=== PATIENT | female | born 1970 ===

== ENCOUNTER 2020-09-07 08:36 | Outpatient (REF) | payer OTHER, SELFPAY ==
[2020-09-07 11:33] LABS: Blood Urea Nitrogen 12 mg/dL (9-16); Estimated Glomerular Filt Rate > 60
== END 2020-09-07 08:37 | disposition home or self-care (01) ==
LOC: HO.HMGCLDS 08:36
PROVIDERS: Visit Provider Nurse Practitioner Family
DX: M54.5 Low back pain (principal); M54.32 Sciatica, left side
CPT/HCPCS: 36415; 82565; 84520

== ENCOUNTER 2020-10-18 10:00 | Outpatient (RCR) | payer OTHER, SELFPAY ==
--- NOTE | 2020-09-17 09:04 | MHC.PT.EP ---
[facility] [place] [facility] [place] [facility] [place] [facility] [address] Cherie Eason [address] [phone] F: [phone] F: [phone] F: [phone] F: [phone] Physical Therapy Plan of Care Date of Evaluation: 09/17/20 Date of Surgery: Diagnosis: low back pain, sciatica L side Assessment: 50 y/o F referred to PT with low back pain and sciatica. S/s consistent with diagnosis and possible SI dysfunction. Her pain starting after driving 7 days while moving her belongings her and the next day she bent to look into a box and felt instant pain across her low back and into L posterolateral thigh. This is resulting in pain and difficulty walking > 5min, standing > 10min, sitting for prolonged periods and exercising (running, hiking.) Examination shows decreased lumbar AROM, decreased core/hip strength, pain L piriformis/SI joint, R sacral torsion, and impaired gait pattern. Recommend PT 2x/week for 5 week to address impairments, implement HEP, and optimize functional mobility. Frequency and Duration: The patient will be seen 2x/week for 5 weeks Short Term Goals: 3 weeks: 1. I with HEP 2. Demonstrate 100% lumbar extension 3. Demonstrate WFL SI symmetry Electric Drill Operator Goals: 5 weeks 1. I with HEP and self management of sx 2. Pt will be able to walk > 60min with pain < 3/10 3. Pt will be able to sit with neutral spine posture > 60min with pain < 3/10 Treatment Plan: Modalities to reduce pain, spasms and effusion. Manual therapy to restore motion and function. Therapeutic exercise to improve strength and flexibility. Neuromuscular re-education for posture and balance. Therapeutic activities to return to functional activities of daily living. Electronically signed by: Benita Jaquez PT Please sign and return to therapist. Thank you for your referral.
--- NOTE | 2020-11-18 08:24 | MHC.PT.DC ---
[facility] [place] [facility] [place] [facility] [place] Office [address] Cherie Eason [address] [phone] F: [phone] F: [phone] F: [phone] F: [phone] Physical Therapy Discharge Report Diagnosis: low back pain, sciatica L side Date of Surgery: Date of Evaluation: 09/17/20 Date of Discharge: 11/18/20 Treatments to Date: 7 Cancellations to Date: 3 No Shows to Date: 1 Discharge Status: Visit Non-compliance Discharge Summary: Pt d/c secondary to noncompliance with scheduling policy. Electronically signed by: Benita Jaquez PT Please sign and return to therapist. Thank you for your referral.
== END 2020-11-18 08:21 | disposition home or self-care (01) ==
LOC: HO.PTCHIC 10:00
PROVIDERS: PCP Internal Medicine; Visit Provider Nurse Practitioner Family
DX: M54.5 Low back pain (principal); M54.32 Sciatica, left side
CPT/HCPCS: 97014; 97110; 97112; 97140; 97161; 97530

== ENCOUNTER 2020-12-17 10:51 | Outpatient (REF) | payer OTHER, SELFPAY ==
--- NOTE | ~2020-12-17 | XR_ITS ---
EXAMINATION: XR LUMBOSACRAL SPINE CLINICAL INFORMATION: Lumbar radiculopathy. COMPARISON: None TECHNIQUE: Three views of the lumbosacral spine. FINDINGS: There is moderate disc space narrowing at L5-S1 with small anterior marginal osteophytosis. Disc spaces are otherwise well-maintained. No bony abnormality. Vertebral body heights are maintained. The posterior elements are intact. The paravertebral soft tissues are unremarkable. XR/XR lumbar spine 2-3V IMPRESSION: Moderate disc space narrowing L5-S1. Otherwise unremarkable.
== END 2020-12-17 10:52 | disposition home or self-care (01) ==
LOC: HO.HMGCX 10:51
PROVIDERS: PCP Internal Medicine; Visit Provider Internal Medicine
DX: M54.16 Radiculopathy, lumbar region (principal)
CPT/HCPCS: 72100

== ENCOUNTER 2021-02-14 16:52 | Outpatient (REF) | payer OTHER, SELFPAY | END 2021-02-14 16:53 | disposition home or self-care (01) | LOC: HO.LNP 16:52 | PROVIDERS: Visit Provider Physician Assistant | DX: Z20.822 Contact with and (suspected) exposure to COVID-19 (principal); R52 Pain, unspecified | CPT/HCPCS: U0003; U0005 ==

== ENCOUNTER 2021-02-17 08:57 | Outpatient (REF) | payer OTHER, SELFPAY ==
--- NOTE | 2021-02-17 09:01 | EMG_ITS ---
Bilateral median and ulnar motor and sensory studies were performed. Bilateral radial sensory study was performed and paraspinal muscles were tested. IMPRESSION: 1. Mild bilateral ulnar neuropathy across cubital tunnel. 2. 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 MD DENA Swenson/JORDIN / [id number]
== END 2021-02-17 08:58 | disposition home or self-care (01) ==
LOC: HO.NEURO 08:57
PROVIDERS: PCP Internal Medicine; Visit Provider Internal Medicine
DX: R20.0 Anesthesia of skin (principal)
CPT/HCPCS: 95886; 95911

== ENCOUNTER 2021-02-25 11:28 | Outpatient (REF) | payer OTHER, SELFPAY ==
[2021-02-25 12:17] LABS: Influenza A PCR NEGATIVE (Negative); Influenza B PCR NEGATIVE (Negative); Resp Syncy Virus RNA Qual PCR NEGATIVE (Negative); SARS COV2 PCR INHOUSE NEGATIVE (Negative)
== END 2021-02-25 11:29 | disposition home or self-care (01) ==
LOC: HO.LNP 11:28
PROVIDERS: Visit Provider Nurse Practitioner Family
DX: Z20.822 Contact with and (suspected) exposure to COVID-19 (principal); J30.9 Allergic rhinitis, unspecified; H66.91 Otitis media, unspecified, right ear
CPT/HCPCS: 0241U

== ENCOUNTER 2021-08-31 11:42 | Outpatient (REF) | payer OTHER, SELFPAY ==
[2021-08-31 18:49] LABS: Influenza A PCR NEGATIVE (Negative); Influenza B PCR NEGATIVE (Negative); Resp Syncy Virus RNA Qual PCR NEGATIVE (Negative); SARS COV2 PCR INHOUSE NEGATIVE (Negative)
== END 2021-08-31 11:43 | disposition home or self-care (01) ==
LOC: HO.LNP 11:42
PROVIDERS: Physician Assistant; Visit Provider Physician Assistant
DX: Z20.822 Contact with and (suspected) exposure to COVID-19 (principal); R09.89 Other specified symptoms and signs involving the circulatory and respiratory systems
CPT/HCPCS: 0241U

== ENCOUNTER 2022-05-31 10:55 | Outpatient (REF) | payer OTHER, SELFPAY ==
--- NOTE | ~2022-05-31 | XR_ITS ---
EXAMINATION: XR CHEST CLINICAL INFORMATION: [place] COMPARISON: None TECHNIQUE: 2 views of the chest were obtained. FINDINGS: No significant abnormality is noted involving the heart, lungs, mediastinum, bony thorax or soft tissues. XR/XR chest 2V IMPRESSION: Unremarkable examination.
--- NOTE | 2022-05-31 11:04 | ECG_ITS ---
Test Reason : R07.9 chest pain Blood Pressure : / mmHG Vent. Rate : 076 BPM Atrial Rate : 076 BPM P-R Int : 142 ms QRS Dur : 080 ms QT Int : 396 ms P-R-T Axes : 060 059 059 degrees QTc Int : 445 ms Normal sinus rhythm Normal ECG No previous ECGs available Referred By: Dottie Kirkpatrick Electronically Signed By:DANNY BASS MD
[2022-05-31 11:49] LABS: Influenza A PCR NEGATIVE (Negative); Influenza B PCR NEGATIVE (Negative); Resp Syncy Virus RNA Qual PCR NEGATIVE (Negative); SARS COV2 PCR INHOUSE NEGATIVE (Negative)
== END 2022-05-31 10:56 | disposition home or self-care (01) ==
LOC: HO.XRAY 10:55
PROVIDERS: PCP Internal Medicine; Visit Provider Internal Medicine
DX: Z20.822 Contact with and (suspected) exposure to COVID-19 (principal); R07.9 Chest pain, unspecified; R09.89 Other specified symptoms and signs involving the circulatory and respiratory systems; R05.9 Cough, unspecified
CPT/HCPCS: 0241U; 71046; 93005

== ENCOUNTER → 2022-07-06 10:29 | Outpatient (BNVA) | payer OTHER, SELFPAY | PROVIDERS: PCP Internal Medicine; Visit Provider Internal Medicine | DX: J30.9 Allergic rhinitis, unspecified (principal); J68.3 Other acute and subacute respiratory conditions due to chemicals, gases, fumes and vapors; R05.9 Cough, unspecified | CPT/HCPCS: 99202 ==

== ENCOUNTER → 2022-09-01 09:03 | Outpatient (REF) | payer OTHER, SELFPAY ==
--- NOTE | 2022-09-01 09:07 | HM_ITS ---
* Total monitoring time 2 days. * Underlying rhythm is sinus. * Average ventricular rate 87/Min. Range 70 to 181/Min. About 12% the time, rate > 100/Min. * Rare supraventricular ectopy. * Extremely rare ventricular ectopy. * No significant pauses or AV blocks. * No patient markers or diary events. MTDD
--- NOTE | 2022-09-01 09:07 | CA_ITS ---
Acquisition Time: 2022-09-01 09:14:33 Total Exercise Time: 00:09:54 Test Indications: CHEST PAIN Medications: Protocol: HESHAM Max HR: 171 BPM 100% of Pred: 170 BPM Max BP: 158/060 mmHG Max Work Load: 11.5 METS Exercise stress test with exercise 9 min 54 sec of Hesham protocol, achieving 100% MPHR, 11.5 METs, with report of 2/10 mid chest burning, with isolated PACs and one PVC, with normotensive response to exercise, without EKG changes meeting cirteria for ischemia. In recovery her chest burning resolved.Test reviewed with Dr eLmons Message sent to PCP with report and recommendation for stress echocardiogram due to exertional chest discomfort. Referred By: Dottie Kirkpatrick Overread By: АННА MARTINEZ
== END ==
LOC: HO.CARD 09:03
PROVIDERS: PCP Internal Medicine; Visit Provider Internal Medicine
DX: R07.9 Chest pain, unspecified (principal); R00.2 Palpitations
CPT/HCPCS: 93017; 93225

== ENCOUNTER → 2022-10-27 11:04 | Outpatient (REF) | payer OTHER, SELFPAY ==
--- NOTE | 2022-10-27 11:07 | CA_ITS ---
Acquisition Time: 2022-10-27 11:24:11 Total Exercise Time: 00:11:01 Test Indications: CP Medications: LORATADINE BENZONATATE Protocol: HESHAM Max HR: 162 BPM 95% of Pred: 170 BPM Max BP: 142/080 mmHG Max Work Load: 13.4 METS Exercise stress test exercise 11 min 1 sec of Hesham protocol achieiving 95% MPHR, with mild SOB, with 2/10 chest burning which resolved quickly with rest, with isolated PVCs, with normotensive response to exercise, without EKG changes. Echo images obtained by tech at rest and immediately post peak exercise. Definity contrast used. Test reviewed with Dr. Wade. Referred By: Dottie Kirkpatrick Overread By: АННА MARTINEZ
== END ==
LOC: HO.CARD 11:04
PROVIDERS: PCP Internal Medicine; Visit Provider Internal Medicine
DX: R07.9 Chest pain, unspecified (principal)
CPT/HCPCS: 93350; Q9957

== ENCOUNTER 2023-10-12 13:02 | Emergency (ER) | payer OTHER, SELFPAY ==
--- NOTE | ~2023-10-12 | XR_ITS ---
EXAMINATION: XR TIBIA AND FIBULA, RIGHT XR ANKLE, RIGHT CLINICAL INFORMATION: Pain and swelling following injury. COMPARISON: None available. TECHNIQUE: AP and lateral views of the right tibia and fibula. AP, mortise, and lateral views of the right ankle. FINDINGS: Right Tibia and Fibula: Oblique, distal fibular fracture. No proximal tibial or fibular fracture. No joint space narrowing or marginal osteophytes. No osseous erosion. Right Ankle: Mildly displaced, oblique fracture through the distal tibial metaphysis with the fracture gap measuring up to 0.2 cm. The fracture line contacts the distal tibiofibular syndesmosis. No additional fracture or dislocation. The ankle mortise is maintained. Osteochondral lesion at the medial talar dome measuring approximately 1.4 x 0.8 cm with a central, unstable osseous fragment measuring up to 0.5 cm. Tiny plantar and dorsal calcaneal spurs. Trace tibiotalar joint effusion. Prominent lateral soft tissue swelling and subcutaneous edema. XR/XR tibia fibula RT 2V IMPRESSION: 1. Mildly displaced, oblique fracture through the distal tibial metaphysis which contacts the distal tibiofibular syndesmosis. Prominent lateral soft tissue swelling. 2. Osteochondral lesion at the medial talar dome measuring 1.4 x 0.8 cm with a central, unstable osseous fragment measuring up to 0.5 cm. Trace tibiotalar joint effusion. 3. Tiny plantar and dorsal calcaneal spurs.
--- NOTE | ~2023-10-12 | XR_ITS ---
EXAMINATION: XR TIBIA AND FIBULA, RIGHT XR ANKLE, RIGHT CLINICAL INFORMATION: Pain and swelling following injury. COMPARISON: None available. TECHNIQUE: AP and lateral views of the right tibia and fibula. AP, mortise, and lateral views of the right ankle. FINDINGS: Right Tibia and Fibula: Oblique, distal fibular fracture. No proximal tibial or fibular fracture. No joint space narrowing or marginal osteophytes. No osseous erosion. Right Ankle: Mildly displaced, oblique fracture through the distal tibial metaphysis with the fracture gap measuring up to 0.2 cm. The fracture line contacts the distal tibiofibular syndesmosis. No additional fracture or dislocation. The ankle mortise is maintained. Osteochondral lesion at the medial talar dome measuring approximately 1.4 x 0.8 cm with a central, unstable osseous fragment measuring up to 0.5 cm. Tiny plantar and dorsal calcaneal spurs. Trace tibiotalar joint effusion. Prominent lateral soft tissue swelling and subcutaneous edema. XR/XR ankle RT 2V IMPRESSION: 1. Mildly displaced, oblique fracture through the distal tibial metaphysis which contacts the distal tibiofibular syndesmosis. Prominent lateral soft tissue swelling. 2. Osteochondral lesion at the medial talar dome measuring 1.4 x 0.8 cm with a central, unstable osseous fragment measuring up to 0.5 cm. Trace tibiotalar joint effusion. 3. Tiny plantar and dorsal calcaneal spurs.
[2023-10-12 13:20] VITALS: BP 144/79; PULSE 74; RESP 18; TEMP 36.7; O2SAT 100; BMI 25.1
--- NOTE | 2023-10-12 13:20 | ED.GENADULT ---
HPI - General Adult General Chief complaint: Extremity Injury, Lower Stated complaint: rolled ankle, swollen Time Seen by Provider: 10/12/23 14:10 Source: patient Mode of arrival: wheelchair Limitations: no limitations History of Present Illness HPI narrative: patient is a 53-year-old female who presents emergency department for evaluation of traumatic right ankle pain. Reports running along the trail and accidentally rolled the ankle. Resulting in pain and swelling particularly to the lateral malleolus. Denies numbness tingling or cold sensation to the foot. Unable to bear weight due to pain. Related Data Previous Rx's ?Medication ?Instructions ?Recorded epinephrine 0.15 mg/0.3 mL 0.15 mg (0.3 mL) IM Q30M PRN 03/15/21 injection,auto-injector anaphylaxis 30 days #1 ea ibuprofen 800 mg tablet 800 mg PO Q8H PRN pain 30 days #90 10/31/22 tabs lidocaine 5 % topical patch 1 patch topical DAILY #30 ea 12/01/22 loratadine 10 mg tablet (Claritin) 10 mg PO DAILY PRN allergy 12/01/22 symptoms 90 days #90 tabs oxycodone 5 mg tablet 5 mg PO Q6H PRN pain #14 tabs 10/12/23 Allergies Allergy/AdvReac Type Severity Reaction Status Date / Time bees Allergy Severe Anaphylaxis Uncoded 10/12/23 13:23 Review of Systems Review of Systems: Yes all other systems are reviewed and are negative PMFSH Past Medical History Attestation statement: The following information was validated with the patient. Source: old records reviewed Medical History Reactive airways dysfunction syndrome Seasonal allergic rhinitis due to pollen Ulnar neuropathy Hand numbness Surgical History History of shoulder surgery Family History Family History Mother No problems noted. Father No problems noted. Social History Social History Housing: House Alcohol intake: never Patient Tobacco Use Status: Never used Tobacco e-Cigarette/Vaping Use: Never Used Second Hand Smoke Exposure: No Advance Directives: No Advance Directives Information Provided: Yes service: Yes Current occupational status: employed Current occupational exposures/hazards: No Cognitive needs: No Hearing needs: No Vision needs: Yes Physical Exam ED Vital Signs: Vital Signs - 24 hr 10/12/23 13:20 Temperature 98.1 F Pulse Rate 74 Respiratory Rate 18 Blood Pressure 144/79 H Pulse Oximetry 100 Oxygen Delivery Method Room Air BMI result Body Mass Index 25.1 Appearance: Alert.?Oriented to person, place and time. No acute distress.?Normal affect. Eyes: Pupils equal, round and reactive to light.? ENT: Pharynx normal.?? Neck: Normal inspection.? Neck supple.?? CVS: Heart sounds normal. Normal heart rate and rhythm.? Pulses normal.?? Respiratory: No respiratory distress.? Lung sounds clear to auscultation bilaterally?? Abdomen: Soft and non-tender. Normoactive bowel sounds. Skin: Skin warm and dry.? Normal skin color.? Extremities: Localized swelling and tenderness upon palpation over the anterolateral ankle/ malleolus.? No calf ttp . 2+ DP/PT pulse bilaterally.? Neuro: Moves all extremities spontaneously. Sensation intact bilaterally. Ambulates with Antalgic gait. Course Course Course Narrative: This is a rapid medical exam performed by Ary Jane NP: Additional HPI, ROS, PE not included below will be deferred to primary provider. Patient is a 53-year-old female presenting to the ED with complaint of right ankle pain. States that she [facility] an hour ago. Swelling to distal tibia anteriorly, lateral malleolus. Refusing wheelchair, medicated with oxycodone in triage. Plan: x-rays Medications Administered Discontinued Medications Generic Name Dose Route Start Last Admin Trade Name Freq PRN Reason Stop Dose Admin Oxycodone HCl 5 mg 10/12/23 13:23 10/12/23 13:27 Oxycodone Hcl Immed Release 5 Mg Tablet PO 10/12/23 13:24 5 mg ONCE ONE Administration Procedures Orthopedic Splinting/Casting Injury #1: Side: right Lower Extremity Injury Location: lower leg Lower Extremity Immobilizer: posterior splint Other Orthopedic Equipment: crutches Medical Decision Making Medical Decision Making MDM Narrative: patient is a 53-year-old female presenting to emergency department for evaluation of traumatic right ankle pain and swelling as per HPI. Extremity is neurovascularly intact distally. XR reveals a distal fibular fracture through the syndesmosis a lateral soft tissue swelling. No proximal tibial /fibular fracture is noted. Osteochondral lesion at the medial talar dome, with unstable osseous fragment . She was placed in a posterior splint and provided with crutches. Extremity remained neurovascularly intact distally after application. Advised acetaminophen/ ibuprofen, oxycodone for severe unrelieved pain, rest, ice, elevation and outpatient follow-up with orthopedics. Discussed worrisome signs and symptoms that would warrant re-evaluation in the emergency department. All questions answered. Stable for discharge. She was provided with a disc of her XR imaging she has elected for orthopedic follow-up in [place], [place]. Differential Diagnosis Differential Diagnoses: The differential diagnosis associated with the presentation includes ( Fracture, dislocation, sprain) Consult Healthcare Provider Management of the patient was discussed with: [employer] ( Orthopedics, Masha EVANGELISTA) posterior short-leg splint outpatient follow-up Independent Interpretation I performed an independent interpretation of an: Plain X-Ray ( Distal fibular fracture) Radiology Impression Discussion of test interpretation with radiology: I have reviewed the radiologist's reading. Radiologist Impression: XR/XR tibia fibula RT 2V IMPRESSION: 1. Mildly displaced, oblique fracture through the distal tibial metaphysis which contacts the distal tibiofibular syndesmosis. Prominent lateral soft tissue swelling. 2. Osteochondral lesion at the medial talar dome measuring 1.4 x 0.8 cm with a central, unstable osseous fragment measuring up to 0.5 cm. Trace tibiotalar joint effusion. 3. Tiny plantar and dorsal calcaneal spurs. External Record Review External record reviewed: Other ([employer]; no conflicts) Prescription Management I considered prescription management with: Pain Medication Discharge Plan Discharge Clinical Impression: Fracture of distal end of fibula Patient Disposition: Home, Self-Care Instructions: Leg Fracture (ED), Crutch Instructions (ED) Additional Instructions: You can take ibuprofen 200 mg, 3 tablets (600mg) every 6-8 hours as needed for pain, in addition to Tylenol 500 mg, 2 tablets (1,000mg) every 4-6 hours as needed for pain, but not to exceed 3 doses daily (3,000mg).? a prescription for oxycodone was sent to your pharmacy for pain that is unrelieved by Tylenol/ ibuprofen. This is a narcotic medication. It may be addictive. You should not drive, drink alcohol, or work for at least 6 hours after taking the medication. Leave the splint in place until you are evaluated by orthopedics. The splint can not get wet. You were provided with a disc of your x-ray imaging today as you have elected to follow-up with and green marketing specialist in [place], [place]. their office may also contact our medical records department to obtain any further records they may require. Prescriptions: New oxycodone 5 mg tablet 5 mg PO Q6H PRN (Reason: pain) Qty: 14 0RF Rx Instructions: Partial Fill upon patient request. No Action ibuprofen 800 mg tablet 800 mg PO Q8H PRN (Reason: pain) 30 Days Qty: 90 0RF epinephrine 0.15 mg/0.3 mL auto-injector 0.15 mg IM Q30M PRN (Reason: anaphylaxis) 30 Days Qty: 1 1RF Rx Instructions: do not exceed 12 doses per 24 hrs loratadine [Claritin] 10 mg tablet 10 mg PO DAILY PRN (Reason: allergy symptoms) 90 Days Qty: 90 1RF lidocaine 5 % adhesive patch,medicated 1 patch topical DAILY Qty: 30 1RF Rx Instructions: leave on most painful area for up to 12 hrs Referrals: Dottie Lemos MD [Primary Care Provider] - Print Language: Kinyarwanda
[2023-10-12] MEDS: oxyCODONE HCl Immed Release 5 MG TABLET PO (13:27)
--- NOTE | 2023-10-12 14:31 | PC.NURSE ---
Provider to bedside for primary eval.
--- NOTE | 2023-10-12 15:33 | PC.NURSE ---
Provider to bedside for splint application, pt tolerated well.
[2023-10-12 16:03] VITALS: BP 144/79; PULSE 74; RESP 18; TEMP 36.7; O2SAT 98
== END 2023-10-12 16:05 | disposition home or self-care (01) ==
PROVIDERS: Emergency Provider Student in an Organized Health Care Education/Training Program; PCP Internal Medicine
DX: S82.831A Other fracture of upper and lower end of right fibula, initial encounter for closed fracture (principal); M25.571 Pain in right ankle and joints of right foot; X58.XXXA Exposure to other specified factors, initial encounter; Y93.9 Activity, unspecified; Y92.9 Unspecified place or not applicable; Y99.8 Other external cause status
CPT/HCPCS: 73590; 73600; 99283

== ENCOUNTER 2023-12-12 15:07 | Outpatient (AMB) | payer OTHER, SELFPAY ==
--- NOTE | 2023-12-12 15:09 | MHC.PC.OV ---
Vital Signs 12/12/23 15:17 Height 5 ft 6 in Weight 145 lb 4 oz BMI 23.4 BP 136/82 Blood Pressure Location Lt brachial Position Sitting Pulse 84 Pulse Source Pulse Oximeter Pulse Oximetry (%) 95 Oxygen Delivery Method Room Air Intake Visit Reasons: annual exam Engine Emission Technician Required: No Accompanied by: Self / Same As Patient Allergies bees Allergy (Severe, Uncoded 12/12/23 15:24) Anaphylaxis Medication List - Last Reconciled 12/12/23 by Dottie Kirkpatrick MD acetaminophen 1,000 mg (2 x 500 mg) PO Q6H PRN epinephrine 0.15 mg (0.3 mL) IM Q30M PRN 30 days ibuprofen 600 mg PO Q8H PRN ibuprofen 800 mg PO Q8H PRN 30 days lidocaine 5% 1 patch topical DAILY loratadine (Claritin) 10 mg PO DAILY PRN 90 days oxycodone 5 mg PO Q6H PRN Tobacco use date assessed: 12/12/23 Dental Screening Dental Screen Date: 12/12/23 Did you have a dental visit in the last 12 months?: Yes Did you have a dental problem in the last 6 months where you did not have access to dental care?: No Was dental information given to patient?: Patient has dentist HPI HPI Comments History of Present Illness Details This is a 53-year-old female that comes for her physical exam. Pap smear are up-to-date by [facility] medical service from [facility]. Mammogram done 2022 was normal at [facility]. Had a colonoscopy in her early 30s and was normal. No family history of colon cancer therefore she does prefer a Cologuard. No acute complaints. [facility] Medical History (Updated 12/12/23 @ 15:46 by Dottie Kirkpatrick MD) Reactive airways dysfunction syndrome Seasonal allergic rhinitis due to pollen Ulnar neuropathy Hand numbness Surgical History (Updated 12/12/23 @ 15:31 by Dottie Kirkpatrick MD) History of open reduction and internal fixation (ORIF) procedure History of shoulder surgery Family History Mother No problems noted. Father No problems noted. Social History (Updated 12/12/23 @ 15:33 by Dottie Kirkpatrick MD) Housing: House Alcohol intake: current Alcohol intake frequency: holidays/special occasions only Alcohol type: wine Patient Tobacco Use Status: Never used Tobacco e-Cigarette/Vaping Use: Never Used Second Hand Smoke Exposure: No service: Yes Current occupational status: employed Current occupational exposures/hazards: No Cognitive needs: No Hearing needs: No Vision needs: Yes Questionnaire PHQ-9 Over the last 2 weeks, how often have you been bothered by any of the following problems? 1. Little interest or pleasure in doing things: not at all 2. Feeling down, depressed, or hopeless: not at all 3. Trouble falling or staying asleep, or sleeping too much: not at all 4. Feeling tired or having little energy: not at all 5. Poor appetite or overeating: not at all 6. Feeling bad about yourself - or that you are a failure or have let yourself or your family down: not at all 7. Trouble concentrating on things, such as reading the newspaper or watching television: not at all 8. Moving or speaking so slowly that other people could have noticed. Or the opposite - being so fidgety or restless that you have been moving around a lot more than usual: not at all 9. Thoughts that you would be better off or of hurting yourself in some way: not at all Total score: 0 Depression Screening Interpretation: Negative Depression Screening Done: Yes 53922 - PHQ-9 Billing: Yes Source: Developed by Drs. Adnrea Lam, Erma Palacios, Jeronimo Haile and colleagues, with an educational darnell from [employer]. Thrive Questionnaire Date Thrive assessed: 12/12/23 I am a: Patient What is your living situation today?: I have a steady place to live Within the past 12 months, did the food you bought not last and you didn't have the money to get more?: Never true Within the past 12 months, did you worry whether your food would run out before you got money to buy more?: Never true Do you have trouble paying for medicines?: No Do you have trouble getting transportation to medical appointments?: No Do you have trouble paying your heating and electricity bill?: No Do you have trouble taking care of your child, family member or friend?: No Do you have trouble with day-to-day activities such as bathing, preparing meals, shopping, managing finances, etc.?: No Are you currently unemployed and looking for a job?: No Are you interested in more education?: No Please select the resources that you would like help with: None Currently or been in a relationship where the following occur: No concerns reported THRIVE Score: 0 AUDIT C Alcohol Use Questionnaire (AUDIT-C) 1. How often do you have a drink containing alcohol?: Monthly or less 2. How many drinks containing alcohol do you have on a typical day when you are drinking?: 1 or 2 3. How often do you have six or more drinks on one occasion?: Never Total Score: 1 Score Reviewed/Action Taken: Yes PATRICIA-7 AMB Questionnaire PATRICIA-7 Date PATRICIA - 7 assessed: 12/12/23 Feeling nervous, anxious, or on edge: 1 = Several days Not being able to stop or control worryin = Not at all Worrying too much about different things: 0 = Not at all Trouble relaxin = Not at all Being so restless that it is hard to sit still: 0 = Not at all Becoming easily annoyed or irritable: 0 = Not at all Feeling afraid as if something awful might happen: 0 = Not at all Total PATRICIA-7 score (0-4 normal; 5-9 mild; 10-14 moderate; 15-21 severe): 1 Source: Developed by Drs. Andrea Lam, Erma Palacios, Jeronimo Haile and colleagues, with an educational darnell from [employer]. PATRICIA-7 Assessment Billing PATRICIA-7 Assessment Tool: PATRICIA-7 Assessment 65308 Review of Systems Const All systems reviewed & are unremarkable except as noted in HPI and below Card Denies chest pain at rest, Denies chest pain with activity, Denies edema, Denies irregular heart rhythm, Denies claudication, Denies dyspnea, Denies dyspnea on exertion, Denies orthopnea, Denies paroxysmal nocturnal dyspnea and Denies slow heart rate Resp Denies cough, Denies dyspnea and Denies dyspnea on exertion Neuro Denies behavioral changes, Denies confusion and Denies lack of coordination Psych Denies behavioral changes and Denies confusion Physical exam (Primary Care) Vital Signs: Last Vital Signs Pulse 84 12/12/23 15:17 BP 136/82 12/12/23 15:17 Pulse Ox 95 12/12/23 15:17 Oxygen Delivery Method Room Air 12/12/23 15:17 BMI result Body Mass Index 23.4 Tobacco/Smoking Status: Tobacco use Status Tobacco use date assessed 12/12/23 12/12/23 15:20 Patient Tobacco Use Status Never used Tobacco 12/12/23 15:11 e-Cigarette/Vaping Use Never Used 12/12/23 15:11 PHQ-9: PHQ-9 Score PHQ-9: Total score 0 12/12/23 15:20 Depression Screening Interpretation: Negative Thrive Assessment: Date of Thrive Assessment Date Thrive assessed 12/12/23 12/12/23 15:20 Currently or been in a relationship where the following occur: No concerns reported Const General: No confusion Orientation/consciousness: patient oriented x3 and No confusion HENMT Head: Yes normal to inspection, Yes normocephalic and Yes atraumatic Ears: external ears normal Eyes General: appearance normal, both eyes and all related structures Eyelids: Yes eyelids normal Conjunctivae: conjunctivae normal Neck Neck: Yes normal visual inspection and Yes supple Resp Effort & Inspection: normal respiratory effort Auscultation: clear to auscultation bilaterally Cardio Jugular venous distension: no JVD Rate: regular rate Rhythm: regular rhythm Heart sounds: S1 normal heart sound present and S2 normal heart sound present GI Inspection: Yes normal to inspection Palpation (GI): Soft to palpation and nontender Auscultation: normal bowel sounds Skin General skin exam: no rashes or lesions noted Neuro General: patient oriented x3, no focal motor deficits and No confusion Extrem General: Yes full ROM Psych Appearance: grossly normal Assessment and Plan Assessment & Plan (1) Physical exam: Code(s): Z00.00 - Encounter for general adult medical examination without abnormal findings Plan: Repeat in a year. Orders: Orders Lipid Panel Today Z00.00 - Encounter for general adult medical examination without abnormal findings Comprehensive [place]. Panel Fast Today Z00.00 - Encounter for general adult medical examination without abnormal findings Referrals Cologuard Test Z12.11 - Encounter for screening for malignant neoplasm of colon, Z12.12 - Encounter for screening for malignant neoplasm of rectum Medications: Refilled epinephrine do not exceed 12 doses per 24 hrs 0.15 mg (0.3 mL) IM Q30M 30 days PRN 1 ea 1RF anaphylaxis loratadine (Claritin) 10 mg PO DAILY 90 days PRN 90 tabs 1RF allergy symptoms J30.9 - Allergic rhinitis, unspecified Coding Level of Care Code Est Pt Prev Care 40-64y(76700) Diagnoses Physical exam Z00.00 Additional Codes PATRICIA-7 Assessment Billing - PATRICIA-7 Assessment Tool: PATRICIA-7 Assessment 34936 ([id number]) Time Spent (min) 30
[2023-12-12 15:17] VITALS: BP 136/82; PULSE 84; O2SAT 95; BMI 23.4
== END 2023-12-12 15:48 | disposition home or self-care (01) ==
PROVIDERS: PCP Internal Medicine; Visit Provider Internal Medicine
DX: Z00.00 Encounter for general adult medical examination without abnormal findings (principal)
CPT/HCPCS: 99396

== ENCOUNTER 2023-12-14 10:25 | Outpatient (REF) | payer OTHER, SELFPAY ==
[2023-12-14 12:33] LABS: Alanine Aminotransferase 11 U/L (0-31); Albumin Level 4.2 g/dL (3.5-5.0); Alkaline Phosphatase 42 U/L (39-117); Anion Gap 12 (12-20); Aspartate Amino Transferase 16 U/L (5-31); Bilirubin Total 0.5 mg/dL (0.0-1.0); Blood Urea Nitrogen 9 mg/dL (9-16); Calcium 9.1 mg/dL (8.4-10.2); Carbon Dioxide 26 mmol/L (22-29); Chloride 104 mmol/L (96-108); Cholesterol 183 mg/dL (<200); Estimated Glomerular Filt Rate > 60; Glucose Fasting 89 mg/dL (60-99); HDL Cholesterol 63 mg/dL (>40); LDL Cholesterol Calculated 108 mg/dL (<100); Potassium 3.9 mmol/L (3.3-5.1); Sodium 138 mmol/L (135-145); Total Protein 6.9 g/dL (6.5-8.0); Triglycerides 64 mg/dL (<150)
== END 2023-12-14 10:26 | disposition home or self-care (01) ==
LOC: HO.LAB 10:25
PROVIDERS: PCP Internal Medicine; Visit Provider Internal Medicine
DX: Z00.00 Encounter for general adult medical examination without abnormal findings (principal); Z13.6 Encounter for screening for cardiovascular disorders
CPT/HCPCS: 36415; 80053; 80061

== ENCOUNTER 2024-04-17 13:52 | Outpatient (AMB) | payer OTHER, SELFPAY ==
[2024-04-17 14:01] VITALS: BP 110/74; BMI 23.9
--- NOTE | 2024-04-17 14:01 | A.OFFPC_ITS ---
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 Accompanied by: Self / Same As Patient Allergies bees Allergy (Severe, Uncoded 04/17/24 14:10) Anaphylaxis Medication List - Last Reconciled 04/17/24 by Dottie Kirkpatrick MD epinephrine 0.15 mg (0.3 mL) IM Q30M PRN 30 days ibuprofen 800 mg PO Q8H PRN 30 days lidocaine 5% 1 patch topical DAILY loratadine (Claritin) 10 mg PO DAILY PRN 90 days Tobacco use date assessed: 12/12/23 Dental Screening Dental Screen Date: 12/12/23 HPI HPI Comments History of Present Illness Details This is a 54-year-old female that complains of melasma, or urticaria and abdominal gas pain that has been present for few months. She would like referral to Dermatology, allergies and Gastroenterology. Has not tried anything [id number] for her melasma. Has tried antihistamines for her urticaria but does not seem to significantly improve. Has tried yegp-old-[id number] medication for gas and a change in diet with no improvement. No chest pain or shortness on breath. [facility] Medical History (Updated 04/17/24 @ 14:24 by Dottie Kirkpatrick MD) Reactive airways dysfunction syndrome Seasonal allergic rhinitis due to pollen Ulnar neuropathy Hand numbness Surgical History History of open reduction and internal fixation (ORIF) procedure History of shoulder surgery Family History Mother No problems noted. Father No problems noted. Social History Housing: House Alcohol intake: current Alcohol intake frequency: holidays/special occasions only Alcohol type: wine Patient Tobacco Use Status: Never used Tobacco e-Cigarette/Vaping Use: Never Used Second Hand Smoke Exposure: No service: Yes Current occupational status: employed Current occupational exposures/hazards: No Cognitive needs: No Hearing needs: No Vision needs: Yes Questionnaire Thrive Questionnaire Date Thrive assessed: 12/12/23 PATRICIA-7 AMB Questionnaire PATRICIA-7 Date PATRICIA - 7 assessed: 12/12/23 Source: Developed by Drs. Andrea Lam, Erma Palacios, Jeronimo Haile and colleagues, with an educational darnell from [employer]. Review of Systems Const All systems reviewed & are unremarkable except as noted in HPI and below Card Denies chest pain at rest, Denies chest pain with activity, Denies edema, Denies irregular heart rhythm, Denies claudication, Denies dyspnea, Denies dyspnea on exertion, Denies orthopnea, Denies paroxysmal nocturnal dyspnea and Denies slow heart rate Resp Denies cough, Denies dyspnea and Denies dyspnea on exertion Physical exam (Primary Care) Vital Signs: Last Vital Signs BP 110/74 04/17/24 14:01 BMI result Body Mass Index 23.9 Tobacco/Smoking Status: Tobacco use Status Tobacco use date assessed 12/12/23 04/17/24 14:08 Patient Tobacco Use Status Never used Tobacco 04/17/24 14:08 e-Cigarette/Vaping Use Never Used 04/17/24 14:08 Thrive Assessment: Date of Thrive Assessment Date Thrive assessed 12/12/23 04/17/24 14:08 Resp Effort & Inspection: normal respiratory effort Auscultation: clear to auscultation bilaterally Cardio Jugular venous distension: no JVD Rate: regular rate Rhythm: regular rhythm Heart sounds: S1 normal heart sound present and S2 normal heart sound present Extrem General: Yes full ROM Coding Level of Care Code Est Pt Level 3 (79397) Complex EM visit Add On G2211 Diagnoses Urticaria L50.9 Melasma L81.1 Abdominal gas pain R14.1 Time Spent (min) 19 Assessment & Plan Assessment & Plan (1) Urticaria: Code(s): L50.9 - Urticaria, unspecified Category: Medical Plan: Referred to an regulatory affairs intern. (2) Melasma: Code(s): L81.1 - Chloasma Category: Medical Plan: Referral to dermatology. (3) Abdominal gas pain: Code(s): R14.1 - Gas pain Category: Medical Plan: Referral to Gastroenterology. Orders: Referrals Allergy & Immunology Referral L50.9 - Urticaria, unspecified Gastroenterology Referral R14.1 - Gas pain Dermatology Referral L81.1 - Chloasma Medications: New dicyclomine 20 mg PO TID 90 tabs 0RF 30 days Refilled ibuprofen 800 mg PO Q8H PRN 90 tabs 0RF pain 30 days lidocaine 5% leave on most painful area for up to 12 hrs 1 patch topical DAILY 30 ea 1RF M25.512 - Pain in left shoulder loratadine (Claritin) 10 mg PO DAILY PRN 90 tabs 1RF allergy symptoms 90 days J30.9 - Allergic rhinitis, unspecified
== END 2024-04-17 14:30 | disposition home or self-care (01) ==
PROVIDERS: PCP Internal Medicine; Visit Provider Internal Medicine
DX: L50.9 Urticaria, unspecified (principal); L81.1 Chloasma; R14.1 Gas pain

== ENCOUNTER → 2024-04-17 13:52 | Outpatient (BNVA) | payer OTHER, SELFPAY | PROVIDERS: PCP Internal Medicine; Visit Provider Internal Medicine | DX: L50.9 Urticaria, unspecified (principal); L81.1 Chloasma; R14.1 Gas pain | CPT/HCPCS: 99212 ==

== ENCOUNTER 2024-08-06 15:09 | Outpatient (AMB) | payer OTHER, SELFPAY ==
--- NOTE | 2024-08-06 15:26 | A.OFFPC_ITS ---
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 Accompanied by: Self / Same As Patient Allergies bees Allergy (Severe, Uncoded 08/06/24 15:39) Anaphylaxis Medication List - Last Reconciled 08/06/24 by Dottie Kirkpatrick MD dicyclomine 20 mg PO TID 30 days epinephrine 0.15 mg (0.3 mL) IM Q30M PRN 30 days ibuprofen 800 mg PO Q8H PRN 30 days lidocaine 5% 1 patch topical DAILY loratadine (Claritin) 10 mg PO DAILY PRN 90 days Tobacco use date assessed: 08/06/24 Dental Screening Dental Screen Date: 12/12/23 Did you have a dental visit in the last 12 months?: Yes Did you have a dental problem in the last 6 months where you did not have access to dental care?: No Was dental information given to patient?: Patient has dentist HPI HPI Comments History of Present Illness Details The patient is a 54-year-old female presenting with depression, anxiety, and sleep disturbances. The onset of these symptoms dates back to October of last year, following an injury and related increased stress with her role in the . She expresses inadequacy and concerns regarding her halfway security, contributing to anxiety and depressive symptoms. The PHQ-9 score suggests mild to moderate depression. She describes increased anxiety with hypervigilance directed towards work responsibilities. Sleep disturbances manifest primarily as difficulty initiating sleep on Sunday nights. The patient has not previously used pharmacological interventions for these conditions, citing medication sensitivity, but has maintained exercise as a constructive coping mechanism. She also has abdominal pain that has improved with dicyclomine and follows with Gastroenterology. She has allergic rhinitis stable with antihistamines as needed. [facility] Medical History (Updated 08/06/24 @ 16:01 by Dottie Kirkpatrick MD) Reactive airways dysfunction syndrome Seasonal allergic rhinitis due to pollen Ulnar neuropathy Hand numbness Surgical History History of open reduction and internal fixation (ORIF) procedure History of shoulder surgery Family History Mother No problems noted. Father No problems noted. Social History Housing: House Alcohol intake: current Alcohol intake frequency: holidays/special occasions only Alcohol type: wine Patient Tobacco Use Status: Never used Tobacco e-Cigarette/Vaping Use: Never Used Second Hand Smoke Exposure: No service: Yes Current occupational status: employed Current occupational exposures/hazards: No Cognitive needs: No Hearing needs: No Vision needs: Yes Questionnaire PHQ-9 Over the last 2 weeks, how often have you been bothered by any of the following problems? 1. Little interest or pleasure in doing things: not at all 2. Feeling down, depressed, or hopeless: several days 3. Trouble falling or staying asleep, or sleeping too much: several days 4. Feeling tired or having little energy: nearly every day 5. Poor appetite or overeating: several days 6. Feeling bad about yourself - or that you are a failure or have let yourself or your family down: not at all 7. Trouble concentrating on things, such as reading the newspaper or watching television: more than half the days 8. Moving or speaking so slowly that other people could have noticed. Or the opposite - being so fidgety or restless that you have been moving around a lot more than usual: several days 9. Thoughts that you would be better off or of hurting yourself in some way: not at all Total score: 9 Depression Screening Interpretation: Positive Depression Screening Follow-up: Existing condition, New Medication prescribed and Follow-up Visit Requested Depression Screening Done: Yes 54042 - PHQ-9 Billing: Yes Source: Developed by Drs. Andrea Lam, Erma Palacios, Jeronimo Haile and colleagues, with an educational darnell from [employer]. Thrive Questionnaire Date Thrive assessed: 08/06/24 I am a: Patient What is your living situation today?: I have a steady place to live Within the past 12 months, did the food you bought not last and you didn't have the money to get more?: Never true Within the past 12 months, did you worry whether your food would run out before you got money to buy more?: Never true Do you have trouble paying for medicines?: No Do you have trouble getting transportation to medical appointments?: No Do you have trouble paying your heating and electricity bill?: No Do you have trouble taking care of your child, family member or friend?: No Do you have trouble with day-to-day activities such as bathing, preparing meals, shopping, managing finances, etc.?: No Are you currently unemployed and looking for a job?: No Are you interested in more education?: No Please select the resources that you would like help with: None Currently or been in a relationship where the following occur: No concerns reported THRIVE Score: 0 AUDIT C Alcohol Use Questionnaire (AUDIT-C) 1. How often do you have a drink containing alcohol?: Monthly or less 2. How many drinks containing alcohol do you have on a typical day when you are drinking?: 1 or 2 3. How often do you have six or more drinks on one occasion?: Never Total Score: 1 Score Reviewed/Action Taken: No PATRICIA-7 AMB Questionnaire PATRICIA-7 Date PATRICIA - 7 assessed: 08/06/24 Feeling nervous, anxious, or on edge: 3 = Nearly every day Not being able to stop or control worryin = More than half the days Worrying too much about different things: 2 = More than half the days Trouble relaxin = Nearly every day Being so restless that it is hard to sit still: 1 = Several days Becoming easily annoyed or irritable: 1 = Several days Feeling afraid as if something awful might happen: 1 = Several days Total PATRICIA-7 score (0-4 normal; 5-9 mild; 10-14 moderate; 15-21 severe): 13 Source: Developed by Drs. Andrea Lam, Erma Palacios, Jeronimo Haile and colleagues, with an educational darnell from [employer]. PATRICIA-7 Assessment Billing PATRICIA-7 Assessment Tool: PATRICIA-7 Assessment 49774 Review of Systems Const All systems reviewed & are unremarkable except as noted in HPI and below Card Denies chest pain at rest, Denies chest pain with activity, Denies edema, Denies irregular heart rhythm, Denies claudication, Denies dyspnea, Denies dyspnea on exertion, Denies orthopnea, Denies paroxysmal nocturnal dyspnea and Denies slow heart rate Resp Denies cough, Denies dyspnea and Denies dyspnea on exertion GI Denies abdominal pain, Denies change in bowel habits, Denies excessive flatus, Denies nausea and Denies vomiting Neuro Denies lack of coordination Psych Reports abnormal sleep pattern, Reports anxiety and Reports depression Physical exam (Primary Care) Vital Signs: Last Vital Signs BP 122/70 08/06/24 15:27 BMI result Body Mass Index 24.4 Tobacco/Smoking Status: Tobacco use Status Tobacco use date assessed 08/06/24 08/06/24 15:36 Patient Tobacco Use Status Never used Tobacco 08/06/24 15:36 e-Cigarette/Vaping Use Never Used 08/06/24 15:36 PHQ-9: PHQ-9 Score PHQ-9: Total score 9 08/06/24 15:36 Depression Screening Interpretation: Positive Depression Screening Follow-up: Existing condition, New Medication prescribed and Follow-up Visit Requested Thrive Assessment: Date of Thrive Assessment Date Thrive assessed 08/06/24 08/06/24 15:36 Currently or been in a relationship where the following occur: No concerns reported Neck Neck: Yes normal visual inspection and Yes supple Cardio Jugular venous distension: no JVD Rate: regular rate Rhythm: regular rhythm Heart sounds: S1 normal heart sound present and S2 normal heart sound present Extrem General: Yes full ROM Coding Level of Care Code Est Pt Level 4 (50717) Complex EM visit Add On G2211 Diagnoses Mild major depression F32.0 PATRICIA (generalized anxiety disorder) F41.1 Allergic rhinitis J30.9 Abdominal gas pain R14.1 Adjustment insomnia F51.02 Insomnia type: adjustment Additional Codes PHQ-9 - 80603 - PHQ-9 Billing: Yes ([id number]) PATRICIA-7 Assessment Billing - PATRICIA-7 Assessment Tool: PATRICIA-7 Assessment 11013 ([id number]) Time Spent (min) 22 Assessment & Plan Assessment & Plan (1) Mild major depression: Code(s): F32.0 - Major depressive disorder, single episode, mild Category: Medical (2) PATRICIA (generalized anxiety disorder): Code(s): F41.1 - Generalized anxiety disorder Category: Medical (3) Allergic rhinitis: Comment: HER PRIMARY PROBLEM IS THAT OF ALLERGIC RHINITIS/SINUSITIS, SYMPTOMS HAPPEN TO BE WORSE DURING WINTER MONTHS, AND MAY BE THAT SHE IS OVER SENSITIVE TO COLD. TX : LORATADINE 10 MG ONCE A DAY P.R.N. ALTERNATIVELY MAY USE CITRUS SEEN 10 MG ONCE A DAY P.R.N.. ALSO START FLONASE 2 SPRAY EACH NOSTRIL DAILY, PRESCRIPTION SENT TO PHARMACY. Code(s): J30.9 - Allergic rhinitis, unspecified Category: Medical (4) Abdominal gas pain: Code(s): R14.1 - Gas pain Category: Medical (5) Insomnia: Code(s): G47.00 - Insomnia, unspecified Category: Medical Qualifiers: Insomnia type: adjustment Qualified Code(s): F51.02 - Adjustment insomnia Plan A low-dose escitalopram Lexapro) therapy is initiated to manage depression, anxiety, and sleep issues with care for the patient's sensitivity to medications. I instructed her to begin treatment over the weekend to monitor response and potential side effects, highlighting the use of psychiatric outpatient services for further comprehensive evaluation. I advised compliance with continuation and refilling processes for gastrointestinal management medication. I suggested ongoing psychosocial support to address workplace-re lated stressors influencing her mental health. Patient was informed and verbally consented to the use of an ambient scribe for clinic note documentation during this visit. I discussed with the patient the diagnosis of depression and anxiety contributing to her sleep disturbances. We reviewed escitalopram (Lexapro) as a treatment, emphasizing its low-dose initiation due to her medication sensit ivity. I advised beginning this new treatment on a weekend, detailing potential side effects like drowsiness and gastrointestinal upset, which align with her desired outcomes of improved sleep quality. A referral to psychiatric outpatient services was made for expanded evaluation and management. I reiterated the significance of addressing workplace stress and followed up with her current regimen for controlling gastrointestinal symptoms, affirming active surgical scheduling. Orders: Referrals Psychiatry Outpatient Consultation Service F32.0 - Major depressive disorder, single episode, mild, F41.1 - Generalized anxiety disorder Medications: New escitalopram oxalate 5 mg PO BEDTIME 30 days 30 tabs 0RF Patient Instructions: - Start Lexapro at 5 mg on a weekend. - Monitor for any side effects such as stomach upset or increased sedation. - Plan for a follow-up evaluation with psychiatric outpatient services. - Continue gastrointestinal management medications. - Maintain physical activity, such as running, for stress relief. - Ensure timely medication refills. - Attend scheduled abdominal surgery within 30 days.
[2024-08-06 15:27] VITALS: BP 122/70; BMI 24.4
--- OUTSIDE RECORDS SUMMARY | 2024-08-06 18:21 | XMS_ITS | Encounter Summary ---
Author Name [facility] Organization [facility] ([place] Address [address] [place] [id number] Support Name Relationship Address Phone KORYDENEENTERE Next of Kin [address] [place] [id number] KORY TERE Emergency Contact [address] [address] ZA KUMAR Emergency Contact [address] [place] [address] Selected Encounter This section includes the information on record at [place] for the Encounter. Date/Time Encounter Type Encounter Description Reason Pro vider Source Jul 07, 2024 08:46 AM Outpatient Encounter OCCUPATIONAL [facility] Encounter Template Text not used by [facility] Encounter Notes: All associated encounter notes This section contains the clinical notes associated to the Encounter. Date/Time Encounter Note(s) Provider Source Jul 07, 2024 08:47 AM LETTERS: LOCAL TITLE: STEPHANIE OUTREACH LETTER (AUTOSEND) STANDARD TITLE: LETTERS DATE OF NOTE: JUL 07, 2024@08:47 ENTRY DATE: JUL 07, 2024@08:47:08 AUTHOR: SALINA CALDWELL VIS EXP COSIGNER: URGENCY: STATUS: COMPLETED [facility] Administrative Medicine Department [address] [place] [address] ext. [phone] ALBA HORN [address] [place], [place] [address] Dear ALBA HRON: We would like to thank you for your service; your sacrifice is honored and appreciated. [facility] would like to offer you a Toxic Exposure Screening in accordance with the PACT Act of 2021. Completion of the Toxic Exposure Screening supports the [place] mission to better deliver comprehensive healthcare unique to our Veterans. It is our goal to provide exposure informed care to every creative services coordinator. This screening is voluntary, free, and is NOT a requirement to file a claim for disability or compensation, nor is it required to receive the healthcare benefits of which you are already entitled. It is an opportunity to ask questions, to share, and have your exposures and health concerns documented. If you would like to complete the Toxic Exposure Screening, please contact us at [phone] ext. [phone]. For detailed information about the PACT Act and Toxic Exposure Screening visit [place] website at [place]. Respectfully, [facility] Administrative Medicine Department [address] [facility], [place] [address] ext. [phone] SALINA CALDWELL NP [facility]
--- OUTSIDE RECORDS SUMMARY | 2024-08-06 18:22 | XMS_ITS | Continuity of Care Document ---
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 [employer]([facility]) [employer]([facility]) OUTPATIENT [id number] DFCARLOZ MADDOX 08/13 Released w/o Limitations [employer](O ptometr y Clinic) [employer]([facility]) OUTPATIENT [id number] right thigh JUS FLOWERS S 08/16 Released w/o Limitations [employer]([facility]) [facility] OUTPATIENT [id number] r thigh JUS FLOWERS S 09/06 Released w/o Limitations [employer]([facility]) [facility] [employer]) TELE CONSULT [id number] Notes Entered by: GLEN HORVATH 29 Oct 2012 1358 ------- ------- ------- ------- -- CAC/CJ- -LEFT ARM TINGLIN ESTEBAN MARTINEZ 10/29 [employer]([facility] [employer]) [employer]([facility] [employer]) OUTPATIENT [id number] left arm pain 5/10 DANIEL OROSCO 10/30 Released w/o Limitations [employer]([facility] [employer]) [employer]([facility] [employer]) TELE CONSULT [id number] Notes Entered by: ROSA CARRILLO 30 Oct 2012 1234 ------- ------- ------- ------- -- [facility] ESTEBAN ZAMORA 10/30 [employer]([facility] [employer]) [employer]([facility] [employer]) TELE CONSULT [id number] Notes Entered by: LUIZ ADAM 08 Nov 2012 1034 ------- ------- ------- ------- -- NETWORK RESULTS -ANNA HEAD W/&W/OU T- 3 GABE FUCHS 11/08 [facility]) [facility]) TELE CONSULT [id number] Notes Entered by: COBY MCCLELLAN 12 Nov 2012 1451 ------- ------- ------- ------- -- Network Result- Radiolo gy Report- Screeni ng Digital Mammo 11/06/12 DANIEL OROSCO 11/12 [facility]) [facility]) OUTPATIENT [id number] f/u MRI DANIEL OROSCO 11/22 Released w/o Limitations [address] [place] [address]([facility]) [address] [place] [address]([facility]) TELE CONSULT [id number] Notes Entered by: Gia CA 11 Dec 2012 1011 ------- ------- ------- ------- -- CAC/SB- -LAB RESULTS MELMANI VERGARA Hussain 12/11 Referred for Appointment [address] [place] [address]([facility]) [address] [place] [address] Group([facility] TELE CONSULT [id number] Notes Entered by: GIOVANNY REIS 16 Jan 2013 1355 ------- ------- ------- ------- -- Mammo screeni ng update ONEIDA BRITO 01/16 [facility]) [address] [place] [address]([facility]) OUTPATIENT [id number] LACERAT ION ON LEFT INDEX FINGER/ PAIN ZULEYMA GODOY 02/05 [facility]ased w/o Limitations [facility]) [address] [place] [address]([facility]) TELE CONSULT [id number] Notes Entered by: Gia CA 12 Feb 2013 1442 ------- ------- ------- ------- -- CAC/SB- -REFERR COSMO HORNER 02/12 [facility] [employer]) [facility](Grant ins [facility] [employer]) OUTPATIENT [id number] f/u left index finger DANIEL OROSCO 04/08 Released w/o Limitations [facility] [employer]) [facility](William eficimarleny s_Non-AD Only) OUTPATIENT [id number] LOWER LEFT BACK PAIN WARREN MANSI M 04/18 Released w/o Limitations [facility](B enefici aries_N on-AD Only) [facility] [employer]) TELE CONSULT [id number] Notes Entered by: COYB MCCLELLAN 14 May 2013 1313 ------- ------- ------- ------- -- Network Result- Radiolo gy Report- Rt Diag Digital Mammo and Breast US 3 COSMO LYLE 05/14 [facility] [employer]) [facility] [employer]) TELE CONSULT [id number] Notes Entered by: MIKAELA DONG 20 Jun 2013 1328 ------- ------- ------- ------- -- COSMO Cardozo 06/20 [facility] [employer]) [facility] [employer]) TELE CONSULT [id number] Notes Entered by: COBY MCCLELLAN 24 Jun 2013 1341 ------- ------- ------- ------- -- Network Result- General Sx Consult 06/18/13 DANIEL OROSCO 06/24 [employer](R [employer] [facility] [employer]) [facility](Med ical [employer] Managemen t) OUTPATIENT [id number] Notes Entered by: ALYSE CASTILLO 06 Aug 2013 1525 ------- ------- ------- ------- -- HRR/PHA ALYSE CASTILLO 08/06 Released w/o Limitations [facility](M edical Standar ds Managem ent) [facility]) OUTPATIENT [id number] RAHUL JERRY 08/20 Released w/o Limitations [facility](O ptometr y Clinic) [facility] [employer]) OUTPATIENT [id number] kecia hicks WYATT B 08/20 Released w/o Limitations [facility](R obacden [facility] [employer]) [facility](Grant negrete [facility] [employer]) TELE CONSULT [id number] Notes Entered by: DENEEN JACOBS 16 Sep 2013 1342 ------- ------- ------- ------- -- NETWORK RESULTS - SURGERY 014 DANIEL OROSCO 09/16 [facility](R zeeshan [facility] [employer]) [facility](Grant negrete [facility] [employer]) TELE CONSULT [id number] Notes Entered by: DENEEN JACOBS 25 Sep 2013 0742 ------- ------- ------- ------- -- NETWORK RESULTS - SURGERY 014 DANIEL OROSCO 09/25 [facility](R [employer] [facility] [employer]) [facility](Grant negrete [facility] [employer]) OUTPATIENT [id number] HAND RASH X 2 WEEKS DANIEL OROSCO 11/25 Released w/o Limitations [facility](R [employer] [facility] [employer]) [facility](Med ical Standards Managemen t) OUTPATIENT [id number] Notes Entered by: ALISTAIR KEYS 16 Feb 2014 1538 ------- ------- ------- ------- -- Danny french records review BINU LORENZANA 02/16 Released w/o Limitations [facility](Ca [place] ds Managem ent) [facility]) OUTPATIENT [id number] CL fitting and glasses order MIKALARAHUL Ca 02/26 Released w/o Limitations [facility](O ptometr y Clinic) [facility]) OUTPATIENT [id number] RT HAND PAINFUL AND SWOLLEN DANIEL OROSCO 03/18 Released w/o Limitations [facility] [employer]) [address] [place] [address]([facility]) OUTPATIENT [id number] Right Quad. Pain DANIEL OROSCO 04/01 [facility]ased w/o Limitations [facility] [employer] TELE CONSULT [id number] COSMO LYLE 04/06 [facility](R [employer] [facility] [employer]) [facility] [employer]) TELE CONSULT [id number] Notes Entered by: LUIZ ADAM 17 Apr 2014 1232 ------- ------- ------- ------- -- NETWORK RESULTS -PHYSIC AL THERAPY - DANIEL OROSCO 04/17 [facility] [employer]) [facility] [employer]) TELE CONSULT [id number] Notes Entered by: Ca GORMAN 02 Jun 2014 0943 ------- ------- ------- ------- -- NETWORK RESULTS -PHYSIC AL THERAPY [id number] COSMO LYLE 06/02 [facility] [employer] [facility] [employer]) [facility] [employer]) OUTPATIENT [id number] f/u rt lateral thigh pain/PT recomme nding MRI DANIEL OROSCO 06/09 Sick at Home/Quarter s [facility]) [facility]) TELE CONSULT [id number] Notes Entered by: GLEN HORVATH 30 Jun 2014 0736 ------- ------- ------- ------- -- CAC/CJ- -RAD RESULT AND RX UPDATE COSMO LYLE 06/30 [facility]) [facility]) TELE CONSULT [id number] Notes Entered by: BERTHA HUTCHINSON 13 Jul 2014 0611 ------- ------- ------- ------- -- NAL DANIEL OROSCO 07/13 [facility]) [facility]) OUTPATIENT [id number] F/U ON BACK DANIEL OROSCO 07/17 Released w/o Limitations [facility]) [facility]) OUTPATIENT [id number] STRAIN MUSCLE, FASCIA, AND TENDON OF TRICEPS DELMY COLMENARES 07/31 Released w/o Limitations [facility](P [facility]ysical Therapy Clinic) [facility]) OUTPATIENT [id number] ELLY MORA 08/05 Released w/o Limitations [facility]) [facility]) OUTPATIENT [id number] EAR PAIN AND SORE THROAT JERRY BUCKLEY 08/10 Released w/o Limitations [facility]) [facility]) OUTPATIENT [id number] DELMY COLMENARES 08/11 Released w/o Limitations [facility](P hysical Therapy Clinic) [facility]) TELE CONSULT [id number] Notes Entered by: BERTHA HUTCHINSON 12 Aug 2014 1257 ------- ------- ------- ------- -- DANIEL ANNE 08/12 [employer](R [employer] [facility] [employer]) [employer](PHA Managemen t) OUTPATIENT [id number] HRR/ARELI GO 08/19 Released w/o Limitations [employer](P WHITTAKER Managem ent) [employer](Phy sical Therapy Clinic) OUTPATIENT [id number] LAURENCE HUGO 08/21 Released w/o Limitations [employer]([facility] Therapy [facility]) [facility]) OUTPATIENT [id number] CARLTON DENG 09/01 Released w/o Limitations [facility](O ptometr y Clinic) [facility]) OUTPATIENT [id number] CARLTON Albert 09/09 Released w/o Limitations [employer](O ptometr y Clinic) [facility]) OUTPATIENT [id number] LAURENCE HUGO 09/10 Released w/o Limitations [facility]) [facility]) OUTPATIENT [id number] congest ion, ear pressur e, fever ZULEYMA GODOY L 10/21 Released w/o Limitations [facility] [employer] [employer](Grant ins [facility]) TELE CONSULT [id number] Notes Entered by: LUIZ ADAM 25 Nov 2014 0932 ------- ------- ------- ------- -- NETWORK RESULTS -MRI LUMBAR SPINE W/O CONTRAS T- DANIEL OROSCO 11/25 [employer](R [employer] [facility] [employer]) [employer]([facility]) OUTPATIENT [id number] GERALDI DANIEL DOSS 01/01 Released w/o Limitations [employer](R obins [facility] Michelle) [employer](Tro op_AD Only) OUTPATIENT [id number] HEAD/ BODYACH E, NASAL DRAINAG E, CONGEST AMARA RAYGOZA 04/12 Released w/o Limitations [employer](T roop_AD Only) [employer] [facility](PHA Managemen t) OUTPATIENT [id number] Notes Entered by: GABRIELLE MA 23 Jun 2015 1418 ------- ------- ------- ------- -- HRR/PHA RECORD REVIEW ENMANUEL COTA 06/23 Released w/o Limitations [employer](P WHITTAKER Managem ent) [facility](BOM C 1 Phys Exams) OUTPATIENT [id number] Notes Entered by: SONG DANG 25 Jun 2015 1034 ------- ------- ------- ------- -- Special Duty SONG STERN 06/25 Released w/o Limitations [facility](B [facility] 1 Phys Exams) [facility](Dis ease Managemen t Clinic) TELE CONSULT [id number] Notes Entered by: TAVO DAILEY 28 Jun 2015 1531 ------- ------- ------- ------- -- MAMMO CLINIC- DUE TAVO MCKOY 06/28 [facility](D isease Managem ent Clinic) [facility](William eficiarie s_Non-AD Only) OUTPATIENT [id number] injured right [place] ELINA Frazier 07/05 Released w/o Limitations [facility](B enefici aries_N on-AD Only) [facility](William eficiarie s_Non-AD Only) TELE CONSULT [id number] Notes Entered by: YUDITH BROOKS 12 Jul 2015 1545 ------- ------- ------- ------- -- NAL TCON JULIO, BREE A 07/12 [facility](B enlatasha hutchinson_N on-AD Only) [facility]) OUTPATIENT [id number] CARLTON DENG 07/20 Released w/o Limitations [facility](O ptometr y Clinic) [facility]) OUTPATIENT [id number] scl f/u CARLTON WILKINSON 08/02 Released w/o Limitations [facility] ptometr y Clinic) [facility](In and Out Erinn Yanez) TELE CONSULT [id number] Notes Entered by: BRAULIO AMBROSE 10 Aug 2015 1013 ------- ------- ------- ------- -- Out Process BRAULIO Huerta 08/09 [facility](I n and Out Process sathish Yanez) [address] Medical [facility](Opt ometry Clinic) OUTPATIENT [id number] Annual Eye Exam ANTONIO PURVIS 04/07 Released w/o Limitations [address] Medical [facility](O ptometr y Clinic) [address] Medical [facility](BO C1 Non-Clini goldy) OUTPATIENT [id number] Notes Entered by: RICARDA ARMENDARIZ 02 Aug 2016 1500 ------- ------- ------- ------- -- MANNY JUAREZ 08/02 Released w/o Limitations [address] [facility] Group(B OMC1 Non-Cli nical) [address] Medical [facility](Opt ometry Clinic) OUTPATIENT [id number] CL recheck pt coming from august ANTONIO Petty 08/09 Released w/o Limitations [address] [facility] Group(O ptometr y Clinic) [address] Medical Group(BOM C1) OUTPATIENT [id number] [facility] [id number] ANURAG TERRY 08/28 Released w/o Limitations [place] [address] Medical [facility](B OMC1) [address] Medical Group(BOM C1 Non-Clini goldy) OUTPATIENT [id number] Notes Entered by: Cole BILLS 03 Sep 2017 0935 ------- ------- ------- ------- -- PHA MANNY ALFARO 09/03 Released w/o Limitations [address] Medical Group(B OMC1 Non-Cli nical) [address] [facility] Group([place] ini Team) TELE CONSULT [id number] Notes Entered by: MOOSE SANDERS 2018 0835 ------- ------- ------- ------- -- Request DELMY Xie 01/[address] Medical Group(G emini Team) [address] [facility] Group(Opt ometry Clinic) OUTPATIENT [id number] well eye exam ANTONIO PURVIS 02/07 Released w/o Limitations [address] [facility] Group(O ptometr y Clinic) [address] [facility](Opt ometry Clinic) OUTPATIENT [id number] CL FU ANTONIO PURVIS 03/12 Released w/o Limitations [address] Medical Group(O ptometr y Clinic) [address] Medical Group(BOM C1) OUTPATIENT [id number] 0 [facility] MIKAELA WONG 08/23 Released w/o Limitations [place] [address] [facility] Group(B OMC1) [place] [address] [facility] Group(Fli ght Medicine Clinic) OUTPATIENT [id number] 5 face to face PHA MELINDA BARTON 01/27 Released w/o Limitations [place] [address] Medical Group(F light Medicin e Clinic) [address] [facility] Group(Opt ometry Clinic) OUTPATIENT [id number] 3 eye exam ANTONIO PURVIS 04/25 [facility] Limitations [facility] [facility](O ptometr y Clinic) [facility](Bas e Ops Med Clinic) OUTPATIENT [id number] 4 [facility] GLORIA METZGER 02/26 Released w/o Limitations [employer](B ase Ops Med Clinic) [id number]-[id number] AMDS Clinic [id number] MELVA ISIS 10/05 Discharge Disposition: Home or Self Care 8344R-4 39 AMDS [id number]-439 AMDS Between Visit [id number] 11/28 Discharge Disposition: Home or Self Care 8344R-4 39 AMDS 8344R-439 AMDS Dental [id number] TAVO JCONDON 12/19 Discharge Disposition: Home or Self Care 8344R-4 39 AMDS 8344R-439 AMDS Outpatient [id number] MELVA ISIS 03/12 Discharge Disposition: Home or Self Care 8344R-4 39 AMDS [facility] Outpatient Encounter [id number] 07/07 [facility] 8344R-439 AMDS Between Visit [id number] 07/15 Discharge Disposition: Home or Self Care 8344R-4 39 AMDS Procedures Combined list of: 1) Procedures from Department of Veterans Affairs facilities going back up to thelast 18 months, not all VA non-surgical procedures are included; 2) All procedures from the Department of Defense facilities. Procedure Procedure Type Code Date Perfomer Comments Sourc e No data available for this section [facility] OPHTHALMOLOGICAL SERVICES: MEDICAL EXAMINATION AND EVALUATION, WITH INITIATION OR CONTINUATION OF DIAGNOSTIC AND TREATMENT PROGRAM; INTERMEDIATE, ESTABLISHED PATIENT 2015 DoD PRESCRIPTION OF OPTICAL AND PHYSICAL CHARACTERISTICS OF AND FITTING OF CONTACT LENS, WITH MEDICAL SUPERVISION OF ADAPTATION; CORNEAL LENS, BOTH EYES, EXCEPT FOR APHAKIA 2015 DoD TELEPHONE CALLS BY A REGISTERED NURSE TO A DISEASE MANAGEMENT PROGRAM MEMBER FOR MONITORING PURPOSES; PER MONTH 2015 DoD THERAPEUTIC PROCEDURE, 1 OR MORE AREAS, EACH 15 MINUTES; THERAPEUTIC EXERCISES TO DEVELOP STRENGTH AND ENDURANCE, RANGE OF MOTION AND FLEXIBILITY 2014 DoD OPHTHALMOLOGICAL SERVICES: MEDICAL EXAMINATION AND EVALUATION, WITH INITIATION OR CONTINUATION OF DIAGNOSTIC AND TREATMENT PROGRAM; INTERMEDIATE, ESTABLISHED PATIENT 2014 DoD PRESCRIPTION OF OPTICAL AND PHYSICAL CHARACTERISTICS OF AND FITTING OF CONTACT LENS, WITH MEDICAL SUPERVISION OF ADAPTATION; CORNEAL LENS, BOTH EYES, EXCEPT FOR APHAKIA 2014 DoD APPLICATION OF A MODALITY TO 1 OR MORE AREAS; IONTOPHORESIS, EACH 15 MINUTES 2014 DoD NEEDLE, STERILE, ANY SIZE, EACH 2014 DoD APPLICATION OF A MODALITY TO 1 OR MORE AREAS; IONTOPHORESIS, EACH 15 MINUTES 2014 DoD NEEDLE, STERILE, ANY SIZE, EACH 2014 DoD PRESCRIPTION OF OPTICAL AND PHYSICAL CHARACTERISTICS OF AND FITTING OF CONTACT LENS, WITH MEDICAL SUPERVISION OF ADAPTATION; CORNEAL LENS, BOTH EYES, EXCEPT FOR APHAKIA 2013 DoD DESTRUCTION (EG, LASER SURGERY, ELECTROSURGERY, CRYOSURGERY, CHEMOSURGERY, SURGICAL CURETTEMENT), OF BENIGN LESIONS OTHER THAN SKIN TAGS OR CUTANEOUS VASCULAR PROLIFERATIVE LESIONS; UP TO 14 LESIONS 2013 DoD FITTING OF SPECTACLES, EXCEPT FOR APHAKIA; MONOFOCAL 2013 DoD ELECTROCARDIOGRAM, ROUTINE ECG WITH AT LEAST 12 LEADS; WITH INTERPRETATION AND REPORT 2012 DoD PHYSICAL THERAPY RE-EVALUATION 2012 DoD PHYSICAL THERAPY RE-EVALUATION 2012 DoD APPLICATION OF A MODALITY TO 1 OR MORE AREAS; HOT OR COLD PACKS 2012 DoD APPLICATION OF A MODALITY TO 1 OR MORE AREAS; HOT OR COLD PACKS 2012 DoD PRESCRIPTION OF OPTICAL AND PHYSICAL CHARACTERISTICS OF AND FITTING OF CONTACT LENS, WITH MEDICAL SUPERVISION OF ADAPTATION; CORNEAL LENS, BOTH EYES, EXCEPT FOR APHAKIA 2012 DoD APPLICATION OF A MODALITY TO 1 OR MORE AREAS; HOT OR COLD PACKS 2012 DoD APPLICATION OF A MODALITY TO 1 OR MORE AREAS; HOT OR COLD PACKS 2012 DoD PHYS/OTH QUALIFIED HEALTH OUTSIDE REPAIRER SPECIAL QUALIFIED,EDUCATION ,TRAIN,LICENSURE/RE GULATION (WHEN APPLICABLE) EDUC SER RENDERED TO PATS IN A GRP SETTING (EG,,OBESIT Y,OR DIABETIC INSTRUCT) 2012 DoD APPLICATION OF A MODALITY TO 1 OR MORE AREAS; HOT OR COLD PACKS 2012 DoD PHYSICAL THERAPY RE-EVALUATION 2012 DoD APPLICATION OF A MODALITY TO 1 OR MORE AREAS; HOT OR COLD PACKS 2012 DoD APPLICATION OF A MODALITY TO 1 OR MORE AREAS; HOT OR COLD PACKS 2012 DoD TELE ASSESS & MGT SRV PROV QUAL NONPHYS HLTH CARE PRO TO EST PAT,PARENT,GUARD NOT ORIG REL ASSESS & MGT SRV PROV W/IN PREV 7 DAYS NOR LEAD ASSESS & MGT SRV/PX W/IN NXT 24 HR/SOON APT;5-10 MIN MED DIS 2012 DoD APPLICATION OF A MODALITY TO 1 OR MORE AREAS; HOT OR COLD PACKS 2012 DoD APPLICATION OF A MODALITY TO 1 OR MORE AREAS; HOT OR COLD PACKS 2012 DoD APPLICATION OF A MODALITY TO 1 OR MORE AREAS; HOT OR COLD PACKS 2012 DoD APPLICATION OF A MODALITY TO 1 OR MORE AREAS; HOT OR COLD PACKS 2012 DoD APPLICATION OF A MODALITY TO 1 OR MORE AREAS; HOT OR COLD PACKS 2012 DoD APPLICATION OF A MODALITY TO 1 OR MORE AREAS; HOT OR COLD PACKS 2012 DoD PHYSICAL THERAPY EVALUATION 2012 DoD TELE ASSESS & MGT SRV PROV QUAL NONPHYS HLTH CARE PRO TO EST PAT,PARENT,GUARD NOT ORIG REL ASSESS & MGT SRV PROV W/IN PREV 7 DAYS NOR LEAD ASSESS & MGT SRV/PX W/IN NXT 24 HR/SOON APT;5-10 MIN MED DIS 2011 DoD PRESCRIPTION OF OPTICAL AND PHYSICAL CHARACTERISTICS OF AND FITTING OF CONTACT LENS, WITH MEDICAL SUPERVISION OF ADAPTATION; CORNEAL LENS, BOTH EYES, EXCEPT FOR APHAKIA 2009 DoD SELF-CARE/HOME MANAGMENT TRAIN (EG,ACT OF DAILY LIVING (ADL) &COMPENSAT TRAIN,MEAL PREPARATION,SAFETY PROCS,AND INSTRUCT IN USE OF ASST TECHNOLOGY DEV/ADPT EQUIP) DIR ONE-ON-ONE CONT,EA 15 MINUTES 2009 DoD SELF-CARE/HOME MANAGMENT TRAIN (EG,ACT OF DAILY LIVING (ADL) &COMPENSAT TRAIN,MEAL PREPARATION,SAFETY PROCS,AND INSTRUCT IN USE OF ASST TECHNOLOGY DEV/ADPT EQUIP) DIR ONE-ON-ONE CONT,EA 15 MINUTES 2009 DoD SELF-CARE/HOME MANAGMENT TRAIN (EG,ACT OF DAILY LIVING (ADL) &COMPENSAT TRAIN,MEAL PREPARATION,SAFETY PROCS,AND INSTRUCT IN USE OF ASST TECHNOLOGY DEV/ADPT EQUIP) DIR ONE-ON-ONE CONT,EA 15 MINUTES 2009 DoD PHYSICAL THERAPY EVALUATION 2009 DoD OPHTHALMOLOGICAL SERVICES: MEDICAL EXAMINATION AND EVALUATION, WITH INITIATION OR CONTINUATION OF DIAGNOSTIC AND TREATMENT PROGRAM; COMPREHENSIVE, ESTABLISHED PATIENT, 1 OR MORE VISITS 2008 [facility] PHYSICAL THERAPY RE-EVALUATION 2008 DoD PRESCRIPTION OF OPTICAL AND PHYSICAL CHARACTERISTICS OF AND FITTING OF CONTACT LENS, WITH MEDICAL SUPERVISION OF ADAPTATION; CORNEAL LENS, BOTH EYES, EXCEPT FOR APHAKIA 2008 DoD PHYSICAL THERAPY RE-EVALUATION 2008 [facility] THERAPEUTIC PROCEDURE, 1 OR MORE AREAS, EACH 15 MINUTES; THERAPEUTIC EXERCISES TO DEVELOP STRENGTH AND ENDURANCE, RANGE OF MOTION AND FLEXIBILITY 2007 DoD BRIEF COMM TECH-BASE SERV,E.G. VIRT CHK-IN,BY PHYS/OTH QUAL HCP,RPT E&M SERV,PROV TO EST PT,NOT ORIG FRM REL E/M SERV PROV W/IN PREV 7DAY NOR LEAD TO E/M SRV/PX W/IN NEXT 24HR/SOON LYN; 5-10 MIN DISC 2019 DoD DETERMINATION OF REFRACTIVE STATE 2018 DoD ADMINISTRATION OF PATIENT-FOCUSED HEALTH RISK ASSESSMENT INSTRUMENT (EG, HEALTH HAZARD APPRAISAL) WITH SCORING AND DOCUMENTATION, PER STANDARDIZED INSTRUMENT 2018 DoD ADMINISTRATION OF PATIENT-FOCUSED HEALTH RISK ASSESSMENT INSTRUMENT (EG, HEALTH HAZARD APPRAISAL) WITH SCORING AND DOCUMENTATION, PER STANDARDIZED INSTRUMENT 2018 DoD PRESCRIPTION OF OPTICAL AND PHYSICAL CHARACTERISTICS OF AND FITTING OF CONTACT LENS, WITH MEDICAL SUPERVISION OF ADAPTATION; CORNEAL LENS, BOTH EYES, EXCEPT FOR APHAKIA 2017 DoD FITTING OF SPECTACLES, EXCEPT FOR APHAKIA; MONOFOCAL 2017 DoD ADMINISTRATION OF PATIENT-FOCUSED HEALTH RISK ASSESSMENT INSTRUMENT (EG, HEALTH HAZARD APPRAISAL) WITH SCORING AND DOCUMENTATION, PER STANDARDIZED INSTRUMENT 2017 DoD ADMINISTRATION OF PATIENT-FOCUSED HEALTH RISK ASSESSMENT INSTRUMENT (EG, HEALTH HAZARD APPRAISAL) WITH SCORING AND DOCUMENTATION, PER STANDARDIZED INSTRUMENT 2017 DoD FITTING OF SPECTACLES, EXCEPT FOR APHAKIA; MONOFOCAL 2016 DoD FITTING OF SPECTACLES, EXCEPT FOR APHAKIA; MONOFOCAL 2015 DoD Modalities Cryotherapy Cold Packs Modalities Cryotherapy Cold Packs 74922 2012 TSERING JEAN I [phone] DoD Modalities Heat Hot Packs Modalities Heat Hot Packs 77058 2012 TSERING JEAN I [phone] DoD Modalities Heat Hot Packs Modalities Heat Hot Packs 80316 2012 DONATO RICARDO [phone] [facility] Modalities Cryotherapy Cold Packs Modalities Cryotherapy Cold Packs 06693 2012 DONATO RICARDO [phone] [facility] Physical Therapy: ___ Se ion Segments, 15 Minutes Each Physical Therapy: ___ Session Segments, 15 Minutes Each 54395 2012 DONATO RICARDO [phone] [facility] Modalities Cryotherapy Cold Packs Modalities Cryotherapy Cold Packs 82481 2012 DONATO RICARDO [phone] [facility] Modalities Heat Hot Packs Modalities Heat Hot Packs 12914 2012 DONATO RICARDO [phone] [facility] Physical Therapy: ___ Se ion Segments, 15 Minutes Each Physical Therapy: ___ Session Segments, 15 Minutes Each 93831 2012 DONATO RICARDO [phone] [facility] Modalities Cryotherapy Cold Packs Modalities Cryotherapy Cold Packs 45327 2012 NICHOLE DOLL [phone] [facility] Modalities Heat Hot Packs Modalities Heat Hot Packs 35024 2012 NICHOLE DOLL [phone] [facility] Physical Therapy: ___ Se ion Segments, 15 Minutes Each Physical Therapy: ___ Session Segments, 15 Minutes Each 18245 2012 NICHOLE DOLL [phone] [facility] Physical Therapy Neuromuscular Re-education Physical Therapy Neuromuscular Re-education 28463 2012 NICHOLE DOLL [facility] Modalities Cryotherapy Cold Packs Modalities Cryotherapy Cold Packs 94543 2012 NICHOLE DOLL [phone] [facility] Modalities Heat Hot Packs Modalities Heat Hot Packs 40054 2012 NICHOLE DOLL [phone] [facility] Physical Therapy Neuromuscular Re-education Physical Therapy Neuromuscular Re-education 85886 2012 NICHOLE DOLL [facility] Physical Therapy: ___ Se ion Segments, 15 Minutes Each Physical Therapy: ___ Session Segments, 15 Minutes Each 57637 2012 NICHOLE DOLL [phone] [facility] Physical Therapy Service Evaluation Physical Therapy Service Evaluation 18556 2012 JUS FLOWERS [facility] Non-Physician Phone Call To Patient/Provider Brief (5-10min) Non-Physician Phone Call To Patient/Provider Brief (5-10min) 18790 2011 GUERRERORAFAEL ELIAN Des Estrada Prescription And Fitting Bilateral Corneal Lenses (Not For Aphakia) Prescription And Fitting Bilateral Corneal Lenses (Not For Aphakia) 50563 2009 RANDI JACK [employer] [facility] Fitting Monofocal Except For Aphakia [employer] [facility] Fitting Monofocal Except For Aphakia 88719 2009 RANDI JACK Determination Of Refractive State Determination Of Refractive State 83220 2009 RANDI JACK Ophthalmological Prior Patient Start Comprehensive Care Ophthalmological Prior Patient Start Comprehensive Care 13932 2009 RANDI JACK Patient Training And Self-Care Skills Additional 15 Minutes Patient Training And Self-Care Skills Additional 15 Minutes 05113 2009 ADRIANE QUEVEDO Physical Therapy Service Re-Evaluation Physical Therapy Service Re-Evaluation 48262 2009 ADRIANE QUEVEDO Patient Training And Self-Care Skills Additional 15 Minutes Patient Training And Self-Care Skills Additional 15 Minutes 55367 2009 ADRIANE QUEVEDO Physical Therapy Service Re-Evaluation Physical Therapy Service Re-Evaluation 28018 2009 ADRIANE QUEVEDO Patient Training And Self-Care Skills Additional 15 Minutes Patient Training And Self-Care Skills Additional 15 Minutes [id number] 2009 ADRIANE QUEVEDO Physical Therapy Service Re-Evaluation Physical Therapy Service Re-Evaluation 39109 2009 ADRIANE QUEVEDO Patient Training And Self-Care Skills Initial 30 Minutes Patient Training And Self-Care Skills Initial 30 Minutes 09098 2009 ADRIANE QUEVEDO A isted Exercises For ROM Assisted Exercises For ROM 48741 2009 ADRIANE UQEVEDO Physical Therapy Service Evaluation Physical Therapy Service Evaluation 95286 2009 ADRIANE QUEVEDO Ophthalmological Prior Patient Start Comprehensive Care Ophthalmological Prior Patient Start Comprehensive Care 91058 2008 RANDI JACK Physical Therapy Service Re-Evaluation Physical Therapy Service Re-Evaluation 71431 2008 ADRIANE QUEVEDO Prescription And Fitting Bilateral Corneal Lenses (Not For Aphakia) Prescription And Fitting Bilateral Corneal Lenses (Not For Aphakia) 89979 2008 RANDI JACK [employer] Fitting Monofocal Except For Aphakia [employer] [facility] Fitting Monofocal Except For Aphakia 38695 2008 RANDI JACK Ophthalmological New Patient Start Comprehensive Care Ophthalmological New Patient Start Comprehensive Care 91962 2008 RANDI JACK Determination Of Refractive State Determination Of Refractive State 08110 2008 RANDI JACK Physical Therapy Service Re-Evaluation Physical Therapy Service Re-Evaluation 04884 2008 ADRIANE QUEVEDO Physical Therapy Ma age Physical Therapy Massage 86971 2007 ADRIANE QUEVEDO PT Performance Testing A istive Technology A e ment PT Performance Testing Assistive Technology Assessment 18832 2007 ADRIANE QUEVEDO Physical Therapy: ___ Se ion Segments, 15 Minutes Each Physical Therapy: ___ Session Segments, 15 Minutes Each 48800 2007 ADRIANE QUEVEDO Physical Therapy Service Evaluation Physical Therapy Service Evaluation 71535 2007 ADRIANE QUEVEDO Preventive Medicine Administration Of Health Risk Questionnaire Patient-Focused Preventive Medicine Administration Of Health Risk Questionnaire Patient-Focused 66356 2018 MELINDA BARTON Preventive Medicine Administration Of Health Risk Questionnaire Patient-Focused Preventive Medicine Administration Of Health Risk Questionnaire Patient-Focused 43671 2018 MIKAELA WONG [facility] Internet Med Svc Qual Nonphys Healthcare Prof Up To 7 Days Estab Patient Internet Med Svc Qual Nonphys Healthcare Prof Up To 7 Days Estab Patient 92221 2018 MIKAELA WONG Prescription And Fitting Bilateral Corneal Lenses (Not For Aphakia) Prescription And Fitting Bilateral Corneal Lenses (Not For Aphakia) 87465 2017 ANTONIO PURVIS Ophthalmological Prior Patient Start Comprehensive Care Ophthalmological Prior Patient Start Comprehensive Care 67818 2017 ANTONIO PURVIS Scanning Computerized Ophthalmic Diagnostic Imaging Retina Scanning Computerized Ophthalmic Diagnostic Imaging Retina 81512 2017 ANTONIO PURVIS [employer] Fitting Bifocal Except For Aphakia [employer] Fitting Bifocal Except For Aphakia 48677 2017 ANTONIO PURVIS [employer] Fitting Monofocal Except For Aphakia [employer] Fitting Monofocal Except For Aphakia 83810 2017 ANTONIO PURVIS Determination Of Refractive State Determination Of Refractive State 59870 2017 ANTONIO PURVIS Prescription And Fitting Bilateral Corneal Lenses (Not For Aphakia) Prescription And Fitting Bilateral Corneal Lenses (Not For Aphakia) 17699 2017 ANTONIO PURVIS Ophthalmological Prior Patient Start Comprehensive Care Ophthalmological Prior Patient Start Comprehensive Care 02996 2017 ANTONIO PURVIS Preventive Medicine Administration Of Health Risk Questionnaire Patient-Focused Preventive Medicine Administration Of Health Risk Questionnaire Patient-Focused 76392 2017 MANNY ALFARO Preventive Medicine Administration Of Health Risk Questionnaire Patient-Focused Preventive Medicine Administration Of Health Risk Questionnaire Patient-Focused 14845 2017 ANURAG TERRY Internet Med Svc Qual Nonphys Healthcare Prof Up To 7 Days Estab Patient Internet Med Svc Qual Nonphys Healthcare Prof Up To 7 Days Estab Patient 56286 2017 ANURAG TERRY [employer] Fitting Bifocal Except For Aphakia [employer] Fitting Bifocal Except For Aphakia 77665 2016 ANTONIO PURVIS [employer] Fitting Monofocal Except For Aphakia [employer] Fitting Monofocal Except For Aphakia 02598 2016 ANTONIO PURVIS Scanning Computerized Ophthalmic Diagnostic Imaging Retina Scanning Computerized Ophthalmic Diagnostic Imaging Retina 09614 2016 ANTONIO PURVIS Determination Of Refractive State Determination Of Refractive State 84696 2016 ANTONIO PURVIS Prescription And Fitting Bilateral Corneal Lenses (Not For Aphakia) Prescription And Fitting Bilateral Corneal Lenses (Not For Aphakia) 82940 2016 ANTONIO PURVIS Ophthalmological Prior Patient Start Comprehensive Care Ophthalmological Prior Patient Start Comprehensive Care 45041 2016 ANTONIO PURVIS [employer] Fitting Bifocal Except For Aphakia [employer] Fitting Bifocal Except For Aphakia 57587 2015 ANTONIO PURVIS Scanning Computerized Ophthalmic Diagnostic Imaging Retina Scanning Computerized Ophthalmic Diagnostic Imaging Retina 53909 2015 ANTONIO PURVIS [employer] Fitting Monofocal Except For Aphakia [employer] Fitting Monofocal Except For Aphakia 07432 2015 ANTONIO PURVIS Prescription And Fitting Bilateral Corneal Lenses (Not For Aphakia) Prescription And Fitting Bilateral Corneal Lenses (Not For Aphakia) 04877 2015 ANTONIO PURVIS Determination Of Refractive State Determination Of Refractive State 37580 2015 ANTONIO PURVIS Ophthalmological New Patient Start Comprehensive Care Ophthalmological New Patient Start Comprehensive Care 42884 2015 ANTONIO PURVIS Ophthalmological Prior Patient Start Intermediate Level Care Ophthalmological Prior Patient Start Intermediate Level Care 22260 2015 CARLTON WILKINSON Prescription And Fitting Bilateral Corneal Lenses (Not For Aphakia) Prescription And Fitting Bilateral Corneal Lenses (Not For Aphakia) [id number] CARLTON WILKINSON [employer] [facility] Fitting Bifocal Except For Aphakia [employer] [facility] Fitting Bifocal Except For Aphakia 47908 2015 CARLTON WILKINSON Determination Of Refractive State Determination Of Refractive State 69235 2015 CARLTON WILKINSON Ophthalmological Prior Patient Start Comprehensive Care Ophthalmological Prior Patient Start Comprehensive Care 73764 2015 CARLTON WILKINSON Telephone calls by a registered nurse to a disease management program member for monitoring purposes; per month 2015 TAVO MCKOY A isted Exercises For ROM Assisted Exercises For ROM 33095 2014 LAURENCE HUGO [phone] Sean Modalities Heat Hot Packs Modalities Heat Hot Packs 62763 2014 LAURENCE HUGO [phone] Sean Ophthalmological Prior Patient Start Intermediate Level Care Ophthalmological Prior Patient Start Intermediate Level Care 27274 2014 CARLTON WILKINSON Prescription And Fitting Bilateral Corneal Lenses (Not For Aphakia) Prescription And Fitting Bilateral Corneal Lenses (Not For Aphakia) 32275 2014 CARLTON WILKINSON Determination Of Refractive State Determination Of Refractive State 47768 2014 CARLTON WILKINSON [employer] [facility] Fitting Monofocal Except For Aphakia [employer] [facility] Fitting Monofocal Except For Aphakia 53880 2014 CARLTON WILKINSON Ophthalmological Prior Patient Start Comprehensive Care Ophthalmological Prior Patient Start Comprehensive Care 65613 2014 CARLTON WILKINSON Modalities Iontophoresis Modalities Iontophoresis 67434 2014 LAURENCE HUGO [phone] Sean Physical or manipulative therapy performed for maintenance rather than catholic 2014 DELMY COLMENARES Needle, sterile, any size, each 2014 DLEMY COLMENARES Taping Shoulder Taping Shoulder 88402 2014 DELMY COLMENARES Osteopathic Manip Treatment (OMT) 1-2 Body Regions Involved Osteopathic Manip Treatment (OMT) 1-2 Body Regions Involved 75255 2014 DELMY COLMENARES Physical Therapy Service Re-Evaluation Physical Therapy Service Re-Evaluation 36862 2014 DELMY COLMENARES Modalities Iontophoresis Modalities Iontophoresis 81683 2014 ELLY MORA [phone] Sean Physical Therapy: ___ Se ion Segments, 15 Minutes Each Physical Therapy: ___ Session Segments, 15 Minutes Each 44013 2014 ELLY MORA [phone] Sean Needle, sterile, any size, each 2014 DELMY COLMENARES Physical or manipulative therapy performed for maintenance rather than catholic 2014 DELMY COLMENARES Taping Shoulder Taping Shoulder 58277 2014 DELMY COLMENARES Osteopathic Manip Treatment (OMT) 1-2 Body Regions Involved Osteopathic Manip Treatment (OMT) 1-2 Body Regions Involved 47790 2014 DELMY COLMENARES Physical Therapy Service Evaluation Physical Therapy Service Evaluation 21650 2014 DELMY COLMENARES [employer] [facility] Fitting Monofocal Except For Aphakia [employer] Fitting Monofocal Except For Aphakia 65284 09/25/ 2014 RAHUL BACH Prescription And Fitting Bilateral Corneal Lenses (Not For Aphakia) Prescription And Fitting Bilateral Corneal Lenses (Not For Aphakia) 11314 2013 RAHUL BACH Ophthalmological Prior Patient Start Intermediate Level Care Ophthalmological Prior Patient Start Intermediate Level Care 62668 2013 RAHUL BACH Destruction Of Flat Warts By Cryosurgery Up To 14 Lesions Destruction Of Flat Warts By Cryosurgery Up To 14 Lesions 46677 2013 DANIEL OROSCO [employer] [facility] Fitting Monofocal Except For Aphakia [employer] [facility] Fitting Monofocal Except For Aphakia 17854 2013 RAHUL BACH Determination Of Refractive State Determination Of Refractive State 94054 2013 RAHUL BACH Ophthalmological Prior Patient Start Comprehensive Care Ophthalmological Prior Patient Start Comprehensive Care 39540 2013 RAHUL BACH Electrocardiogram Electrocardiogram 45148 11/13 DANIEL OROSCO Physical Therapy Service Re-Evaluation Physical Therapy Service Re-Evaluation 11857 2012 JUS FLOWERS Physical Therapy Service Re-Evaluation Physical Therapy Service Re-Evaluation 66174 2012 JUS FLOWERS Modalities Heat Hot Packs Modalities Heat Hot Packs 20632 2012 NICHOLE DOLL [phone] Sean Modalities Cryotherapy Cold Packs Modalities Cryotherapy Cold Packs 94739 2012 NICHOLE DOLL [phone] Sean Physical Therapy Neuromuscular Re-education Physical Therapy Neuromuscular Re-education 58886 2012 NICHOLE DOLL Physical Therapy: ___ Se ion Segments, 15 Minutes Each Physical Therapy: ___ Session Segments, 15 Minutes Each 30361 2012 NICHOLE DOLL [phone] Sean Modalities Cryotherapy Cold Packs Modalities Cryotherapy Cold Packs 76115 2012 NICHOLE DOLL [phone] Sean Modalities Heat Hot Packs Modalities Heat Hot Packs 85999 2012 NICHOLE DOLL [phone] Sean Physical Therapy Neuromuscular Re-education Physical Therapy Neuromuscular Re-education 04151 2012 NICHOLE DOLL Physical Therapy: ___ Se ion Segments, 15 Minutes Each Physical Therapy: ___ Session Segments, 15 Minutes Each 70268 2012 NICHOLE DOLL [phone] Sean Modalities Cryotherapy Cold Packs Modalities Cryotherapy Cold Packs 23366 2012 LAURENCE HUGO [phone] Sean Physical Therapy: ___ Se ion Segments, 15 Minutes Each Physical Therapy: ___ Session Segments, 15 Minutes Each 77092 2012 LAURENCE HUGO [phone] Sean Modalities Heat Hot Packs Modalities Heat Hot Packs 81726 2012 LAURENCE HUGO [phone] Sean Prescription And Fitting Bilateral Corneal Lenses (Not For Aphakia) Prescription And Fitting Bilateral Corneal Lenses (Not For Aphakia) 11128 2012 CARLOZ ARREOLA [employer] Fitting Monofocal Except For Aphakia [employer] [facility] Fitting Monofocal Except For Aphakia 65035 2012 CARLOZ ARREOLA Determination Of Refractive State Determination Of Refractive State 84409 2012 CARLOZ ARREOLA Ophthalmological New Patient Start Comprehensive Care Ophthalmological New Patient Start Comprehensive Care 49627 2012 CARLOZ ARREOLA Modalities Cryotherapy Cold Packs Modalities Cryotherapy Cold Packs 76590 2012 DONATO RICARDO [phone] Sean Modalities Heat Hot Packs Modalities Heat Hot Packs 33938 2012 DONATO RICARDO [phone] Sean Physical Therapy: ___ Se ion Segments, 15 Minutes Each Physical Therapy: ___ Session Segments, 15 Minutes Each 21036 2012 DONATO RICARDO [phone] Sean Physical Therapy: ___ Se ion Segments, 15 Minutes Each Physical Therapy: ___ Session Segments, 15 Minutes Each 09236 2012 LAURENCE HUGO [phone] Sean Modalities Heat Hot Packs Modalities Heat Hot Packs 76619 2012 LAURENCE HUGO [phone] Sean Physician Supervised Group Educational Services Physician Supervised Group Educational Services 33173 2012 PINGRAHUL LUDWIG [facility] Physical Therapy Service Re-Evaluation Physical Therapy Service Re-Evaluation 61871 2012 APRILJUS MCFARLAND [facility] Modalities Heat Hot Packs Modalities Heat Hot Packs 06202 2012 NICHOLE DOLL [phone] [facility] Modalities Cryotherapy Cold Packs Modalities Cryotherapy Cold Packs 06187 2012 NICHOLE DOLL [phone] [facility] Physical Therapy: ___ Se ion Segments, 15 Minutes Each Physical Therapy: ___ Session Segments, 15 Minutes Each 97049 2012 NICHOLE DOLL [phone] [facility] Modalities Heat Hot Packs Modalities Heat Hot Packs 23710 2012 DONATO RICARDO [phone] [facility] Modalities Cryotherapy Cold Packs Modalities Cryotherapy Cold Packs 92651 2012 DONATO RICARDO [phone] Sean Physical Therapy: ___ Se ion Segments, 15 Minutes Each Physical Therapy: ___ Session Segments, 15 Minutes Each 77446 2012 DONATO RICARDO [phone] [facility] Non-Physician Phone Call To Patient/Provider Brief (5-10min) Non-Physician Phone Call To Patient/Provider Brief (5-10min) 41937 2012 ANEUDY NOEL [facility] Modalities Cryotherapy Cold Packs Modalities Cryotherapy Cold Packs 97597 2012 NICHOLE DOLL [facility] Physical Therapy: ___ Se ion Segments, 15 Minutes Each Physical Therapy: ___ Session Segments, 15 Minutes Each 80669 2012 NICHOLE DOLL [phone] [facility] Physical Therapy: ___ Se ion Segments, 15 Minutes Each Physical Therapy: ___ Session Segments, 15 Minutes Each 93632 2012 TSERING JEAN I [phone] [facility] Ophthalmological Prior Patient Start Comprehensive Care Ophthalmological Prior Patient Start Comprehensive Care 34526 ANTONIO PURVIS Prescription And Fitting Bilateral Corneal Lenses (Not For Aphakia) Prescription And Fitting Bilateral Corneal Lenses (Not For Aphakia) 78917 ANTONIO PURVIS Determination Of Refractive State Determination Of Refractive State 18166 ANTONIO PURVIS Ophthalmological Sensorimotor Exam Ophthalmological Sensorimotor Exam 93574 ANTONIO PURVIS [facility] Preventive Medicine Administration Of Health Risk Questionnaire Patient-Focused Preventive Medicine Administration Of Health Risk Questionnaire Patient-Focused 82110 GLORIA METZGER [facility] Brief communication technology-based service, e.g. virtual check-in, by a physician or other qualified health care profe lauren who can report evaluation and management services, provided to an established patient, not originating from a related E/M service provided within the previous 7 days nor leading to an E/M service or procedure within the next 24 hours or soonest available appointment; 5-10 minutes of medical discu ion GLORIA METZGER [facility] Only telephonic assessment; visit lasted 15 minutes. [facility] Social History Combined list of available smoking, tobacco, and other social history from [facility] of Defense and Veterans Affairs facilities. Social History Type Response Date Comment [facility] e Tobacco smoking status NHIS LIFETIME NON-USER OF TOBACCO 06/13/2011 [facility] History of tobacco use LIFETIME NON-USER OF TOBACCO 12/05/2007 [facility] This section is an empty social history section. [facility] Assessment and Plan Combined list of future care activities from Department of Defense and Veterans Affairs facilities (e.g., assessment and plan notes, appointments, orders, and referrals). Additional future care activities may be listed in the Plan of Care section. Result Assessment and Plan Date Source Assessment and Plan Extracted from:Title : [place]ROE, MHA Author: TAVO KNAPP Date: 10/06/23 mbr came in for appt Addendum by STANFORD LÓPEZ on October 06, 2023 15:33 EDT ?Vitals: Blood Pressure:???122/80 Heart Rate:77 Height:66 Weight:148 BMI: Medications: Loratidine Chronic Problems: R shouder Injury Thigh pain Burn superficial 1st degree Fatigue Pain in flank Joint pain fingers Strain muscle, fascia, and tendon of triceps SF 507: _ Comments:N/A Addendum by JOSS THOMPSON on October 06, 2023 16:07 EDT Chief Complaint: Member here for annual PHA.?No acute complaints.?IMR?green. HEENT:?Normal Joints:?Normal Lungs:?Normal Heart:?Normal Comments: ANNUAL PERIODIC HEALTH ASSESSMENT I. 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 Last Name: KORY 2. First Name: ALBA 3. Middle Name: Des 4. Assessment Date: 5. : 6. Age: 53 7. Gender: F 8. [employer] ID Number: [id number] 9. Service Branch: [employer] 10. 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 Status: [employer] [place] 12. 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 Unit Name: Misael MARIA 14. Duty Station/Location: [place] 15. UIC: [id number] 16. Is this your first Periodic Health Assessment (PHA)?: N 17. Are you enrolled in a secure messaging system with your health care provider?: Y 18. Current contact information: Preferred Method: Day Time Phone DSN: [phone] Day Time Phone: [phone] Night Time Phone: [phone] Email 1: [email or web address] Email 2: Address: [address] [place] [address] City: [place] State: [place] Zip Code: [address] 19. Point of contact who can always reach you: Name: Za Fong Phone 1: [phone] Phone 2: EMAIL: Address: City: State: Zip Code: II. DEPLOYMENT INFORMATION (DEP) 1. [ 0 ] Total number of deployments in the PAST 5 YEARS 4. [ N ] Are you going to deploy within the NEXT 120 DAYS? III. 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 [ No ] Does your specialty require an operational duty physical exam? 4. [ No ] Are you currently enrolled in a medical surveillance/occupational health program?: No IV. MEDICAL CONDITIONS (CAIN): 1. Since your last PHA, have you experienced any of the following health conditions, and if so, what is your status? [ ] Conditions with no medical care [ ] Conditions with medical care, but no longer under treatment [ ] Conditions with medical care, and NOW under treatment 2. Since your last PHA, have you experienced any of the following health conditions, and if so, what is your status? [ ] Conditions with no medical care [ ] Conditions with medical care, but no longer under treatment [ ] Conditions with medical care, and NOW under treatment 3. For any condition marked YES in question 1 or 2, are you currently on any profile or limited duty for that condition? [ ] Conditions 4. [ Yes ] Have you been based or stationed at a location where an open burn pit was used? 5. [ Yes ] Have you been exposed to toxic airborne chemicals or other airborne contaminants? 6. [ Yes ] Are you enrolled in the Airborne Hazards and Open Burn Pit Registry? 8. Have you had any surgery since your last PHA?: No 10.a. [ No ] Since your last PHA, has a health care provider recommended surgery(s) that you have not had? 11.a. [ No ] Do you currently require hearing aids, special medical supplies, CPAP, adaptive equipment, assistive technology devices, and/or other special accommodations? 12.a. [ No ] Do you have a waiver or profile for any part of your Service's physical fitness test? 13.a. [ No ] Do you have any problems wearing a gas mask, ballistic helmet, body armor, and/or chemical/biological protective garments? 14.a. [ No ] Have you ever been told by a health care provider that you SHOULD NOT receive an immunization for medical reasons? 15.a. [ No ] Do you have a permanent profile or an Assignment Limitation Code C? 16.a. [ No ] Are you on a temporary profile or limited duty? 17. [ 0 ] During the PAST 2 years, how many times have you been placed on a temporary profile or on limited duty? V. INDIVIDUAL MEDICAL READINESS (IMR) 1. [ Don't Know ] Do you have any allergies? 3. [ Not required ] Do you have red medical warning dog tags? 4. [ Yes ] Do you wear corrective lenses? 5. [ 2 or more ] How many pairs of glasses do you have? 6. [ No ] Do you have gas mask inserts? . BEHAVIORAL HEALTH (MHA) 1. a. [ None ] Over the PAST MONTH, what major life stressors have you experienced that are a cause of significant concern or make it difficult for you to do your work, take care of things at home, or get along with other people (for example, serious conflicts with others, relationship problems, or a legal, disciplinary or financial problem)? 2. a. [ No ] In the PAST YEAR did you receive care for any mental health condition or concern such as, but not limited to post traumatic stress disorder (PTSD), depression, anxiety disorder, alcohol abuse or substance abuse? 3. [ Yes Loradadine ] What prescription or over-the counter medications (including herbals/supplements) for sleep, pain, combat stress, or a mental health problem are you CURRENTLY taking? 4. a. [ No ] In the past 12 months, have you gambled? 5. a. [ Never ] How often do you have a drink containing alcohol? 6. Have you ever had any experience that was so frightening, horrible, or upsetting that in the PAST MONTH, you: 6. a. [ No ] Have had nightmares about it or thought about it when you did not want to? 6. b. [ No ] Tried hard not to think about it or went out of your way to avoid situations that remind you of it? 6. c. [ No ] Were constantly on guard, watchful or easily startled? 6. d. [ No ] [place] numb or detached from others, activities, or your surroundings? 6. e. [ Not answered ] [place] guilt or unable to stop blaming yourself or others for the event(s) or any problems the event(s) may have caused? 7. Over the LAST 2 WEEKS, how often have you been bothered by the following problems? 7. a. [ Not at all ] Little interest or pleasure in doing things 7. b. [ Not at all ] Feeling down, depressed, or hopeless 8. [ No ] Would you like to schedule an appointment with a health care provider to discuss any health concern(s)? 9. [ No ] Are you interested in receiving information or assistance for a stress, emotional or alcohol concern? 10. [ No ] Are you interested in receiving assistance for a family or relationship concern? 11. [ No ] Would you like to schedule a visit with a vegetable washing machine operator, mental health care provider, or a community support counselor? VII. FAMILY HISTORY AND LIFESTYLE (LIF) 1. [ Very Good ] Overall, how would you rate your health during the PAST MONTH? 2. [ None/Don't Know ] Member indicates that family members have the following problems 6. [ Yes ] I participate in moderate intensity physical activites at least 2.5 hours, or a combination of moderate and vigorous aerobic activites, for at least 75 minutes per week. 7. In a typical week, I do physical activities specifically designed to STRENGTHEN my muscles: [ 3 ] Day(s) per week 8. [ None ] What prescriptions or zvht-thw-cjgffqf medications are you CURRENTLY taking for health problems on a ROUTINE BASIS? 9. Which of the following products have you taken since your last PHA: Multi-Vitamins: Every other day Individual Vitamins or Minerals: Once a week Joint Care Supplements: Once a week 11. Think about the PAST 30 DAYS. How often did you eat/drink the following foods/beverages? [ 2 servings per day ] Fruits [ 3 or more servings per day ] Vegetables [ 3 to 6 servings per week ] Starchy Vegetables [ 2 servings per day ] Whole Grains [ 1 serving per day ] Dairy and Calcium Containing Foods [ 1 or 2 servings per week ] Fish [ 3 to 6 servings per week ] Lean Protein [ Rarely or Never ] Sugar-Sweetened Beverages ] Have you had a cholesterol check by a health child care attendant school within the PAST 5 YEARS? 13.a. In the PAST 30 DAYS, which of the following products have you used on at least one day? None 15. Which of the following best describes your past tobacco use? I have never used tobacco products. 16. [ Yes ] Are you regularly exposed to secondhand smoke? 17. [ 7 to 9 hours ] During the LAST 2 WEEKS, how many hours of sleep did you get on most days? 18. [ No ] During the LAST 2 WEEKS, have you felt impaired or unable to adequately perform due to sleepiness or poor quality sleep? 19. [ No ] Have you had any unexplained weight loss or gain since your last PHA? 20. Member is not at risk for sexually transmitted infections. 22. Since your last PHA, what, if anything, have you and your partner used to keep from getting ? [ My partner(s) or I do not use any contraception. ] I am not actively taking steps to prevent as 23. [ No ] In the last year, have you or your partner had a scare, where you were not trying to get but were worried enough to use a home test? VIII. WOMEN'S HEALTH (WOM) 1. [ No ] Do you wish to receive contraceptive counseling? 2. [ I am not now, and was not or delivered in the past 12 months ] Which of the following best describes you? 3. [ No ] Have you had a total hysterectomy? 4. [ No ] Are you postmenopausal and no longer experiencing menstrual cycles? 5. [ No ] Are you currently taking folic acid or a vitamin containing folic acid 6. [ No ] Do you have heavy and/or irregular menstrual cycles/pain or premenstrual syndrome (PMS)? 7. [ No ] Do you have recurrent urinary tract infections? 8. [ Yes ] Have you had a Pap test within the PAST 3 YEARS? 9. [ No ] Have you ever had an abnormal Pap Test? 11. [ Yes ] Have you had a mammogram within the PAST 24 MONTS? 13. [ No ] Do you have a history of gestational diabetes? X. OTHER MEDICAL (OTH) 1. [ 4 ] Rate the amount of pain you have had, on average, over the PAST 24 HOURS 2. [ No ] Are you receiving treatment for pain? 3. [ No ] Since your last PHA, have you received care or treatment for any medical and/or mental health condition(s) from a civilian or non- facility? 5. Member acknowledged responsibility for reporting health issues. 7. [ No ] Woud you like to schedule an appointment with a health care provider to discuss any health concerns? XI. SEPARATION AND MCFP 1. [ No ] Are you planning to separate or retire within the next year from Active Duty or [place] Duty (activated for greater than 30 continuous days) OR do you intend to file a claim for disability compensation with the Veterans Benefits Administration? PART B. RECORD REVIEW AND RECOMMENDATIONS I. RECORD REVIEWER INFORMATION 1. Last Name: CHUCKIE 2. First Name: BELA 3. Middle Name: 4. Service Branch: [employer] 5. 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 EMAIL: [email or web address] 8. Facility: [address] 9. Unit: [address] 10. Address: [address] [place] [address] 11. State: [place] 12. Zip Code: [address] 13. Phone: [phone] 14. Date Record Review: II. MEDICAL SCREENING 1. [ ] Date of wireless team member's most recent PHA 2. [ 5 feet 6 inches Date: ] wireless team member's most recently documented height 3. [ 148 pounds Date: ] wireless team member's most recently documented weight 4. [ 122/80 Date: ] wireless team member's most recently documented blood pressure reading 5. [ No ] Does the wireless team member have a history of abnormal blood pressure since their last PHA? 6. [ Yes ] Does the wireless team member have a laboratory test of sickle cell trait documented in their permanent medical record? 7. [ No Cholesterol Test Documented ] What is the date of the wireless team member's most recently documented cholesterol test? 8. [ No Colon Cancer Screening Documented ] What is the date of the wireless team member's most recently documented colon cancer screening? 9. [ No Active Medications Documented ] List of wireless team member's active medications listed in their permanent medical record 10. [ No ] Is there a discrepancy between the active medication record review and the wireless team member's self-reported list of medications? 11. [ No Outside Care Documented ] List documented significant care the wireless team member has received since their last PHA from a provider OUTSIDE the Health System 12. [ No ] Is there a discrepancy between the wireless team member's list of OUTSIDE care (from OTH5), and the OUTSIDE care found in the record? 13. [ No Inside Care Documented ] List documented significant care the wireless team member has received since their last PHA from a provider INSIDE the Health System 15. [ Not Answered ] Confirm that vaccine exemptions are listed in the medical record for each vaccine listed IV. FAMILY HISTORY AND LIFESTYLE 1. [ Yes ] Does the [id number] reflect the wireless team member's reported family history? V. WOMEN'S HEALTH 3. [ No Documented Pap Test ] Date and result of the most recent Pap test 4. [ ] Notes from review of health records associated with history of abnormal Pap, colposcopy, excisional procedure, or cryotherapy5. [ No Documented Mammogram ] Date of the most recently documented mammogram VII. INDIVIDUAL MEDICAL READINESS 1. [ No ] Does the wireless team member have an Assignment Limitation Code C? 3. [ Classification: 2 ] Most recently documented dental exam 4. [ Yes ] Is the wireless team member current on all required immunizations in the immunization tracking system? 5. [ Yes ] Is the wireless team member current with Service-specific requirements for glasses and gas mask inserts? 6. Does the wireless team member have the following laboratory tests documented in their permanent medical record? [ Yes ] HIV test within the PAST 24 months [ Yes ] G6PD results on file [ Yes ] Blood type and Rh on file [ Yes ] DNA test on file IX. ADDITIONAL RECORD REVIEWER COMMENTS 1. This record review does NOT have a need for provider notification or referral.2. Additional comments about this record review that need to be forwarded to the Health Wooden Furniture Polisher completing PART C: No deployment within the past five years. No VA rating. No temporary profile. Member reports excellent health. Member has never used tobacco products. Member is currently taking prescription or ebxe-dzs-hawkeuf medications: Loradadine. Pain level; 0. No other significant findings. JLV reviewed. No other discrepancies found. Date Record Review Completed: PART C. HEALTH CARE PROVIDER I. MENTAL HEALTH ASSESSMENT (MHA) PROVIDER INFORMATION 1. Last Name: DONNA 2. First Name: JOSS 3. Middle Name: 4. Service Branch: [employer] 5. Status: Reservist 6. Title: Physician (DO LILLY) 7. EMAIL: [email or web address] 8. Facility: [address] 9. Unit: [address] 10. Address: [facility] [place] [place] 11. State: [place] 12. Zip Code: [address] 13. Phone: [phone] 14. Date HCP Review initiated: 1. Member marked that they did not have a concern or a difficulty with a major life stressor. 2. Address concerns identified on member questions 2 and 3. History of mental health care: N/A Member's response: Provider's comments: Medications: Member indicated concern or yes Member's response: Loradadine Loradadine Provider's comments: NA 3. Member's AUDIT-C screening score was 0. (nothing required) 4. Member did not donell yes on two or more of questions 6a through 6e. 5. Member did not donell More than half the days or nearly every day on question 7a or 7b. 6. Suicide risk evaluation. 6. a. Ask: Over the past month, have you wished you were or wished you could go to sleep and not wake up?: No 6. b. Ask: Have you actually had any thoughts of killing yourself?: No 6. f. 1. Ask: In you lifetime, have you done anything, started to do anything, or prepared to do anything to end your life?: No 6. g. Further risk assessment comments: 7. Member states that they have not had thoughts or concerns over the past month that they might hurt or lose control with someone. 9. Summary of Provider's identified concerns needing referrals: None 11. Comments: 13. Supplemental services recommended/information provided: No supplemental services required Date MHA Certified: III. PERIODIC HEALTH ASSESSMENT (PHA) PROVIDER INFORMATION 1. Last Name: DONNA 2. First Name: JOSS 3. Middle Name: 4. Service Branch: [employer] 5. Status: Reservist 6. Title: Physician (DO LILLY) 7. EMAIL: [email or web address] 8. Facility[facility] 9. Unit[facility] 10. Address: [address] [place] [address] 11. State: [facility]. Zip Code: [address] 13. Phone: [phone] 14. Date HCP Review initiated: IV. PERIODIC HEALTH ASSESSMENT PROVIDER RECOMMENDATIONS and REFERRALS 1. Provider concerns with this assessment: No issues or concerns identified V. SUMMARY AND COMMENTS 1. Additional information summarizing findings during the wireless team member assessment: 2. Provider Comments: joy . INDIVIDUAL MEDICAL READINESS DISPOSITION DETERMINATION CAIN: Ready DEN: Ready IMM: Ready LAB: Ready ME: Ready IMR Status: Fully Medically Ready VII. SERVICE MEDICAL DEPLOYABILITY EVALUATION INDICATED Based on your review of all documentation, is the wireless team member medically deployable without limitations? Reference [facility] 6490.07 Yes (wireless team member DOES NOT currently have a medical condition that limits deployability) Date PHA Completed: END OF [id number] REPORT Impression:Meets?medical standards per MARCOS 48-123/MSD. Disposition:?No AF469 changes based on this encounter.[employer]ide Qualified. 08/06/2024 [id number] AMDS Functional Status Combined list of recent functional and cognitive assessments recorded at Department of Defense and Veterans Affairs (VA).VA Functional [place] Measurement (FIM) Scale: 1 = Total Assistance (Subject = 0% +), 2 = Maximal Assistance (Subject = 25% +), 3 = Moderate Assistance (Subject = 50% +), 4 = Minimal Assistance (Subject = 75% +), 5 = Supervision, 6 = Modified [place] (Device), 7 = Complete [place] (Timely, Safely). Assessment Date/Time Source Assessment Type Assessment Skill Assessment Score Assessment Details No data available for this section
== END 2024-08-06 15:54 | disposition home or self-care (01) ==
PROVIDERS: PCP Internal Medicine; Visit Provider Internal Medicine
DX: F32.0 Major depressive disorder, single episode, mild (principal); F41.1 Generalized anxiety disorder; J30.9 Allergic rhinitis, unspecified; R14.1 Gas pain; F51.02 Adjustment insomnia

== ENCOUNTER → 2024-08-06 15:09 | Outpatient (BNVA) | payer OTHER, SELFPAY | PROVIDERS: PCP Internal Medicine; Visit Provider Internal Medicine | DX: F32.0 Major depressive disorder, single episode, mild (principal); F41.1 Generalized anxiety disorder; J30.9 Allergic rhinitis, unspecified; R14.1 Gas pain; F51.02 Adjustment insomnia | CPT/HCPCS: 96127; 99212 ==

== ENCOUNTER 2024-09-12 15:53 | Outpatient (AMB) | payer OTHER, SELFPAY ==
--- NOTE | 2024-09-12 15:56 | A.OFFVIS_ITS ---
Vital Signs 3 09/12/24 15:57 Height 5 ft 6 in Weight 150 lb BMI 24.2 BP 126/81 Blood Pressure Location Lt brachial Position Sitting Pulse 82 Intake Visit Reasons: GAS PAIN prefers early appt or latest appt . Intake Note: New patient in office today for gas pain. CC: Patient states my stomach is very loud and that it's been going on for ever. She states that the noises occur when she eats and when she does not eats as well. Also, per patient she sometimes right after she eats she has explosive diarrhea . She c/o a lot of nausea more often than not with eggs , and occasional vomiting. Per patient she had an episode when she was eating eggs and hashbrows and she could not hold it. She recently had a negative cologuard done. Director [employer] Required: No Accompanied by: Self / Same As Patient Allergies No Known Drug Allergies Allergy (Unknown, Verified 09/12/24 16:08) none bees Allergy (Severe, Uncoded 08/06/24 15:39) Anaphylaxis Medication List - Last Reconciled 09/12/24 by KEKE Cross dicyclomine 10 mg PO TID epinephrine 0.15 mg (0.3 mL) IM Q30M PRN 30 days escitalopram oxalate 5 mg PO BEDTIME 30 days ibuprofen 800 mg PO Q8H PRN 30 days lidocaine 5% 1 patch topical DAILY loratadine (Claritin) 10 mg PO DAILY PRN 90 days HPI HPI GAS PAIN prefers early appt or latest appt .: Details: 54-year-old female here for initial evaluation of ?gas. ? She is referred by Dottie Lemos. PMX Reactive airway disease Allergic rhinitis History of acute pancreatitis History of close fibular fracture Melasma Depression/anxiety/insomnia Ulnar neuropathy * SURGICAL HISTORY ORIF right fibula Shoulder surgery * ALLERGIES Bees * [facility] LABS: Laboratory Tests 12/14/23 10:43 Total Bilirubin 0.5 AST 16 ALT 11 Alkaline Phosphatase 42 TODAY'S VISIT She has been managed in the past by another practice with berta. 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 She has burping, flatulence and bloating. Her flatulance is malodorous especially with spicy foods. Otherwise, she has not been able to ID a food trigger, she says she has tried for many years. This has greatly worsened over kori past 5 years. SHe had one episode of vomiting after starting to eat eggs, scrambled and since does not tolerate eggs well. However she has increasing incidents of nausea that will linger for days and at times no appetite. SHe has used zofran in the past. She has associated cramping. She has constant borborymus. The diarrhea happens atleast twice a week, the gas is daily. Her brother has similar problems, but he also served in [place]. She was only taking bentyl bid, will encourage to increase. I also give her the FODMAP diet for guidance about gas producing foods and tell her how to use it. She is in the [employer]. Next avail [facility] Medical History Reactive airways dysfunction syndrome Seasonal allergic rhinitis due to pollen Ulnar neuropathy Hand numbness Surgical History History of open reduction and internal fixation (ORIF) procedure History of shoulder surgery Family History Mother No problems noted. Father No problems noted. Social History Housing: House Alcohol intake: current Alcohol intake frequency: holidays/special occasions only Alcohol type: wine Patient Tobacco Use Status: Never used Tobacco e-Cigarette/Vaping Use: Never Used Second Hand Smoke Exposure: No service: Yes Current occupational status: employed Current occupational exposures/hazards: No Cognitive needs: No Hearing needs: No Vision needs: Yes Review of Systems Const Denies fatigue, Denies fever(s), Denies night sweats, Denies poor appetite and Denies weight loss ENT Reports Normal hearing present, Denies dysphagia, Denies odynophagia, Denies throat swelling and Denies tongue swelling Card Reports no additional complaints Resp Reports no additional complaints GI Details: Denies abdominal pain, Denies melena, Reports bloating, Denies hematochezia, Denies constipation, Reports GI cramping, Denies dysphagia, Reports excessive flatus, Denies early satiety, Denies heartburn, Denies diarrhea, Reports loose stools, Denies nausea, Denies odynophagia, Denies vomiting and Denies hematemesis Skin/Breast Denies pruritus, Denies lesions, Denies rash and Denies jaundice Neuro Reports Normal hearing present and Denies Abnormal speech present Endo Denies fatigue Aller/Immun Denies throat swelling and Denies tongue swelling Physical Exam Vital Signs: BMI result Body Mass Index 24.2 Const General: cooperative, no acute distress, well developed and well groomed Nutritional Appearance: average body habitus and well nourished Orientation/consciousness: oriented to person, oriented to place and oriented to time Limitations: No language barrier HEENT Head: Yes normocephalic and Yes atraumatic Eyes General: appearance normal, both eyes and all related structures Pupils: Equal, round and reactive pupils present Neck Neck: Yes normal visual inspection and Yes no lymphadenopathy Thyroid: Thyroid normal Resp Effort & Inspection: normal respiratory effort and able to speak in complete sentences Auscultation: clear to auscultation bilaterally Cardio Rate: regular rate Rhythm: regular rhythm Heart sounds: Normal, physiologic split S2 sound present Peripheral pulses: radial pulses present and posterior tibial pulses present GI Inspection: No distended and No Abdominal panniculus present Palpation (GI): Soft to palpation, nontender, no guarding, not rigid and No hepatosplenomegaly present Percussion: Yes normal to percussion Auscultation: normal bowel sounds Rectal Exam - Female: deferred Skin General skin exam: no rashes or lesions noted, turgor normal, skin not dry, no jaundice, No spider nevi and no striae Rashes: no rashes Nails: normal Neuro General: oriented to person, oriented to place and oriented to time Cranial nerves: Yes Equal, round and reactive pupils present and Yes Normal hearing present Speech: No Abnormal speech present Extrem General: Yes normal to inspection, No clubbing, No cyanosis and No edema Ankle/foot/toe images: 2 1. SURGICAL SCAR Psych Appearance: grossly normal and well kempt Mental Status: mental status grossly normal Speech and movement: Normal speech and movement present Affect: normal affect Attitude: cooperative Thought process: Normal thought process present and not confabulating Thought content: Normal thought content present Insight: Good insight present (Psych) Judgement: Good judgement present (Psych) Assessment & Plan Assessment & Plan (1) Diarrhea: Code(s): R19.7 - Diarrhea, unspecified Category: Medical (2) Abdominal gas pain: Code(s): R14.1 - Gas pain Category: Medical Plan She has been managed in the past by another practice with bentyl. 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 She has burping, flatulence and bloating. Her flatulence is malodorous especially with spicy foods. Otherwise, she has not been able to ID a food trigger, she says she has tried for many years. This has greatly worsened over kori past 5 years. She had one episode of vomiting after starting to eat eggs, scrambled and since does not tolerate eggs well. However she has increasing incidents of nausea that will linger for days and at times no appetite. SHe has used zofran in the past. She has associated cramping. She has constant borborymus. The diarrhea happens at least twice a week, the gas is daily. Her brother has similar problems, but he also served in [place]. There is no known family history of colon or stomach cancer. Except for her brother she can not identify any other family members have similar digestive issues. There is no family history known of gallbladder disease. She does have a problem with pruritus that happened after her deployment that makes me question if there some sort of consideration for something like mast cell syndrome if we do not find any other pathology. She was also educated about the possibility of functional bowel disorders but they can be controlled with medications to give her a better quality of life. She also met she has been under a great deal of stress as she took a job promotion and her superiors have been difficult please. She is working a lot of hours and we discussed how the H and fight or flight response can impact the GI system. She was only taking bentyl bid, will encourage to increase. I also give her the FODMAP diet for guidance about gas producing foods and tell her how to use it. She is in the [employer]. Next avai Orders: Orders 2 C Reactive Protein Today R14.1 - Gas pain, R19.7 - Diarrhea, unspecified Rast Allergen Today R14.1 - Gas pain, R19.7 - Diarrhea, unspecified Transglutaminase Ab IgG Today R14.1 - Gas pain, R19.7 - Diarrhea, unspecified Pancreatic Elastase-1 Today R14.1 - Gas pain, R19.7 - Diarrhea, unspecified US abdomen complete Today R14.1 - Gas pain, R19.7 - Diarrhea, unspecified Calprotectin, Fecal Today R14.1 - Gas pain, R19.7 - Diarrhea, unspecified Transglutaminase IgA Today R14.1 - Gas pain, R19.7 - Diarrhea, unspecified Medications: Changed 2 From dicyclomine 10 mg PO TID To dicyclomine 20 mg PO QID 120 tabs 6RF Coding Level of Care Code New Pt Level 3 (36564) Diagnoses Diarrhea R19.7 Abdominal gas pain R14.1
--- OUTSIDE RECORDS SUMMARY | 2024-09-12 15:56 | XMS_ITS | Continuity of Care Document ---
Author Name [facility] Organization [facility] Care Team Providers Care Combination Saw Operator Name Role Phone [facility] Unavailable Unavailable Problems Combined list of problems from Department of Defense and Veterans Affairs facilities. It does not include entries that were removed or entered in error. Problem Status Onset Date Problem Type Date of Resolution Comments Source Acute bronchitis Active Condition [facility] Health Maintenance (ICD-9-CM V65.9) Active Condition [facility] Otitis * (ICD-9-CM 382.9) Active Condition [facility] Pharyngitis * (ICD-9-CM 462.) Active Condition [facility] Urticaria * (ICD-9-CM 708.9) Active Condition [facility] Immunizations Combined list of available immunizations from the Department of Defense and Veterans Affairs facilities. 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 Coordination Specialist Status Comments Source influenza, injectable, quadrivalent- pf 2021 [id number] GlaxoSmithKli ne complet ed influenza , injectabl e, quadrival ent-pf 03/15/22 Given Ambulat ory Pharmac y SARS-CoV-2 (COVID-19) mRNA-Bivalent 2021 [id number] 229 complet ed SARS-CoV- 2 (COVID-19 ) mRNA-Biva lent 02/12/22 Given Ambulat ory Pharmac y COVID Vaccine Moderna 2020 [id number] 207 complet ed COVID Vaccine Moderna 04/25/21 Given Ambulat ory Pharmac y influenza, seasonal, injectable 2020 TRANSCR [id number] 141 complet ed influenza , seasonal, injectabl e 03/15/21 Given Ambulat ory Pharmac y COVID Vaccine Moderna 2020 [id number] 207 complet ed COVID Vaccine Moderna 07/30/20 Given Ambulat ory Pharmac y COVID Vaccine Moderna 2020 [id number] 207 complet ed COVID Vaccine Moderna 06/27/20 Given Ambulat ory Pharmac y tetanus, diphtheria, acellular pertu is 2020 [id number] 115 sanofi pasteur complet ed tetanus, diphtheri a, acellular pertussis 06/09/20 Given Ambulat ory Pharmac y influenza, injectable, quadrivalent- pf 2019 [id number] 150 Seqirus complet ed influenza , injectabl e, quadrival ent-pf 04/10/20 Given Ambulat ory Pharmac y influenza, injectable, quadrivalent- pf 2018 [id number] 150 Seqirus complet ed influenza , injectabl e, quadrival ent-pf 04/25/19 Given Ambulat ory Pharmac y influenza, seasonal, injectable 2017 TRANSCR IBED 141 complet ed influenza , seasonal, injectabl e 03/06/18 Given Ambulat ory Pharmac y influenza virus vaccine, inactivated 2016 [id number] 88 Seqirus complet ed influenza virus vaccine, inactivat ed 03/15/17 Given Ambulat ory Pharmac y influenza virus vaccine, unspecified 2015 TRANSCR IBED 88 complet ed influenza virus vaccine, unspecifi ed 03/22/16 Given Ambulat ory Pharmac y influenza, injectable, quadrivalent- pf 2014 [id number] 150 GlaxoSmithKli ne complet ed influenza , injectabl e, quadrival ent-pf 02/25/15 Given Ambulat ory Pharmac y influenza, live, intranasal,qu adrivalent 2013 [id number] 149 Medimmune Inc comple t ed influenza , live, intranasa l,quadriv alent 02/24/14 Given Ambulat ory Pharmac y influenza, live, intranasal,qu adrivalent 2012 [id number] 149 Medimmune Inc comple t ed influenza , live, intranasa l,quadriv alent 03/13/13 Given Ambulat ory Pharmac y influenza virus vaccine, live 2011 [id number] 111 Medimmune Inc comple t ed influenza virus vaccine, live 02/20/12 Given Ambulat ory Pharmac y FLU,3 YRS (HISTORICAL) 2010 88 complet ed [facility] influenza, seasonal, injectable 2010 [id number] 141 sanofi pasteur complet ed influenza , seasonal, injectabl e 04/23/11 Given Ambulat ory Pharmac y tetanus, diphtheria, acellular pertu is 2009 [id number] 115 sanofi pasteur complet ed tetanus, diphtheri a, acellular pertussis 05/07/10 Given Ambulat ory Pharmac y influenza virus vaccine, live 2009 [id number] 111 [employer] comple t ed influenza virus vaccine, live 05/07/10 Given Ambulat ory Pharmac y Novel influenza-H1N 1-09, injectable 2009 [id number] 127 Novartis Pharmaceutica ls complet ed Novel influenza -Y1K8-91, injectabl e 06/15/09 Given Ambulat ory Pharmac y influenza virus vaccine,split 2008 [id number] 15 CSL Behring complet ed influenza virus vaccine,s plit 05/17/09 Given Ambulat ory Pharmac y typhoid Vi capsular polysaccharid e vac 2008 [id number] 101 sanofi pasteur complet ed typhoid Vi capsular polysacch aride vac 01/12/09 Given Ambulat ory Pharmac y anthrax vaccine 2008 [id number] 24 Emergent [employer] complet ed anthrax vaccine 01/12/09 Given Ambulat ory Pharmac y influenza virus vaccine,split 2008 [id number] 15 sanofi pasteur complet ed influenza virus vaccine,s plit 09/05/08 Given Ambulat ory Pharmac y vaccinia (smallpox) vaccine 2006 [id number] 75 [employer] complet ed vaccinia (smallpox ) vaccine 09/27/06 Given Ambulat ory Pharmac y vaccinia (smallpox) vaccine 2006 [id number] 75 [employer] complet ed vaccinia (smallpox ) vaccine 09/25/06 Given Ambulat ory Pharmac y typhoid vaccine, parenteral 2006 [id number] 41 sanofi pasteur complet ed typhoid vaccine, parentera l 09/25/06 Given Ambulat ory Pharmac y influenza virus vaccine, whole virus 2005 [id number] 16 sanofi pasteur complet ed influenza virus vaccine, whole virus 05/13/06 Given Ambulat ory Pharmac y influenza virus vaccine,split 2005 [id number] 15 sanofi pasteur complet ed influenza virus vaccine,s plit 05/13/06 Given Ambulat ory Pharmac y influenza virus vaccine, whole virus 2005 [id number] 16 sanofi pasteur complet ed influenza virus vaccine, whole virus 06/11/05 Given Ambulat ory Pharmac y influenza virus vaccine,split 2005 [id number] 15 sanofi pasteur complet ed influenza virus vaccine,s plit 06/11/05 Given Ambulat ory Pharmac y influenza virus vaccine, whole virus 2004 [id number] 16 sanofi pasteur complet ed influenza virus vaccine, whole virus 07/16/04 Given Ambulat ory Pharmac y influenza virus vaccine,split 2004 [id number] 15 sanofi pasteur complet ed influenza virus vaccine,s plit 07/16/04 Given Ambulat ory Pharmac y hepatitis B adult vaccine 2003 [id number] 43 Bio[employer] complet ed hepatitis B adult vaccine 05/14/04 Given Ambulat ory Pharmac y hepatitis A adult vaccine 2003 [id number] 52 GlaxoSmithKli ne complet ed hepatitis A adult vaccine 01/16/04 Given Ambulat ory Pharmac y hepatitis A-hepatitis B vaccine 2002 [id number] 6 104 GlaxoSmithKli ne complet ed hepatitis A-hepatit is B vaccine 03/26/03 Given Ambulat ory Pharmac y influenza virus vaccine, whole virus 2002 [id number] 16 Novartis Pharmaceutica ls complet ed influenza virus vaccine, whole virus 03/14/03 Given Ambulat ory Pharmac y hepatitis A-hepatitis B vaccine 2002 [id number] 6 104 GlaxoSmithKli ne complet ed hepatitis A-hepatit is B vaccine 02/20/03 Given Ambulat ory Pharmac y poliovirus vaccine, inactivated 2002 [id number] 10 sanofi pasteur complet ed polioviru s vaccine, inactivat ed 02/13/03 Given Ambulat ory Pharmac y tetanus-dipht h toxoids (Td) adult/adol 2002 [id number] 09 sanofi pasteur complet ed tetanus-d iphth toxoids (Td) adult/ado l 02/13/03 Given Ambulat ory Pharmac y meningococcal polysaccharid e (MPSV4) 2002 [id number] 32 sanofi pasteur complet ed meningoco ccal polysacch aride (MPSV4) 02/13/03 Given Ambulat ory Pharmac y TD(ADULT) UNSPECIFIED FORMULATION 2002 139 complet ed [facility] Results Combined list of recent chemistry, [...] Prevention' s HIV diagnostic algorithm. Refer to [facility] Lab Guide for additional information : [email or web address]/ [email or web address] x Testing performed by [employer] [facility]. [facility]U [facility] Miscellan eous Sendouts Repository Sample Received (03/12/24 1:17 PM) 03/12 N [facility] Encounters Combined list of: 1) Encounters from Department of Veterans Affairs facilities going backup to the last 18 months, not all VA inpatient encounters are included; 2) Encounters from the Department of Defense facilities going backup to 280 months. Location Location Details Encounter Type Encounter Number Reason For Visit Attending Provider ADM Date DC Date Status Disposition Source 8344R-439 AMDS Clinic [id number] MELVA MARINELLI 10/05 Discharge Disposition: Home or Self Care 8344R-4 39 AMDS 8344R-439 AMDS Between Visit [id number] 11/28 Discharge Disposition: Home or Self Care 8344R-4 39 AMDS 8344R-439 AMDS Dental [id number] TAVO KIRK 12/19 Discharge Disposition: Home or Self Care 8344R-4 39 AMDS 8344R-439 AMDS Outpatient [id number] MELVA CABRERAHodan 03/12 Discharge Disposition: Home or Self Care 8344R-4 39 AMDS [facility] Outpatient Encounter [id number] 07/07 [facility] 8344R-439 AMDS Between Visit [id number] 07/15 Discharge Disposition: Home or Self Care 8344R-4 39 AMDS [facility] Outpatient Encounter [id number] TOREY ANGEL 08/21 [facility] Procedures Combined list of: 1) Procedures from Department of Veterans Affairs facilities going back up to thelast 18 months, not all VA non-surgical procedures are included; 2) All procedures from the Department of Defense facilities. Procedure Procedure Type Code Date Perfomer Comments Sourc e No data available for this section Ambulatory P harmacy Social History Combined list of available smoking, tobacco, and other social history from Department of Defense and Veterans Affairs facilities. Social History Type Response Date Comment Sourc e Tobacco smoking status NHIS LIFETIME NON-USER OF TOBACCO 06/13/2011 [facility] History of tobacco use LIFETIME NON-USER OF TOBACCO 12/05/2007 [facility] Assessment and Plan Combined list of future care activities from Department of Defense and Veterans Affairs facilities (e.g., assessment and plan notes, appointments, orders, and referrals). Additional future care activities may be listed in the Plan of Care section. Result Assessment and Plan Date Source Assessment and Plan Extracted from:Title : MONROE, CADENCE Author: TAVO KNAPP Date: 10/06/23 mbr came [...] Heart:?Normal Comments: ANNUAL PERIODIC HEALTH ASSESSMENT I. LICENSED PSYCHIATRIC TECHNICIAN INFORMATION AND DEMOGRAPHICS (SMI) 1. Last Name: KORY 2. First Name: MERI 3. Middle Name: Des 4. Assessment Date: 5. : 6. Age: 53 7. Gender: F 8. DoD ID Number: [id number] 9. Service Branch: [employer] 10. 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 Status: Active [employer] [place] 12. 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 Unit Name: [employer] 14. Duty Station/Location: [place] 15. [facility]: [id number] 16. Is this your first Periodic Health Assessment (PHA)?: N 17. Are you enrolled in a secure messaging system with your health care provider?: Y 18. Current contact information: Preferred Method: Day Time Phone DSN: [phone] Day Time Phone: [phone] Night Time Phone: [phone] Email 1: [email or web address] Email 2: Address: [place]: [place]: [place] Zip Code: [address] 19. Point of contact who can always reach you: Name: Malgorzata Fong Phone 1: [phone] Phone 2: EMAIL: Address: City: State: Zip Code: II. DEPLOYMENT INFORMATION (DEP) 1. [ 0 ] Total number of deployments in the PAST 5 YEARS 4. [ N ] Are you going to deploy within the NEXT 120 DAYS? III. 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 [ No ] Does your specialty require an operational duty physical exam? 4. [ No ] Are you currently enrolled in a medical surveillance/occupational health program?: No IV. MEDICAL CONDITIONS ([facility]): 1. Since your last PHA, have you [...] easily startled? 6. d. [ No ] Sidney numb or detached from others, activities, or your surroundings? 6. e. [ Not answered ] Sidney guilt or unable to stop blaming yourself [...] like to schedule a visit with a ux visual designer, mental health care provider, or a community [...] 8. [ None ] What prescriptions or rcsy-lxf-zdhrvkb medications are you CURRENTLY taking for health [...] cholesterol check by a health child care aide within the PAST 5 YEARS? 13.a. In [...] discuss any health concerns? XI. SEPARATION AND ASSISTED 1. [ No ] Are you planning to separate or retire within the next year from Active Duty or [place] Duty (activated for greater than 30 continuous days) OR do you intend to file a claim for disability compensation with the Veterans Benefits Administration? PART B. RECORD REVIEW AND RECOMMENDATIONS I. RECORD REVIEWER INFORMATION 1. Last Name: CHUCKIE 2. First Name: BELA 3. Middle Name: 4. Service Branch: [employer] 5. Status: Reservist 6. 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 EMAIL: [email or web address] 8. Facility: [facility] 9. Unit: [facility] 10. Address: [address] [place] [address] 11. State: [place] 12. Zip Code: [address] 13. Phone: [phone] 14. Date Record Review: II. MEDICAL SCREENING 1. [ ] Date of managing member's most recent PHA 2. [ 5 feet 6 inches Date: ] managing member's most recently documented height 3. [ 148 pounds Date: ] managing member's most recently documented weight 4. [ 122/80 Date: ] managing member's most recently documented blood pressure reading 5. [ No ] Does the managing member have a history of abnormal blood pressure since their last PHA? 6. [ Yes ] Does the managing member have a laboratory test of sickle cell trait documented in their permanent medical record? 7. [ No Cholesterol Test Documented ] What is the date of the managing member's most recently documented cholesterol test? 8. [ No Colon Cancer Screening Documented ] What is the date of the managing member's most recently documented colon cancer screening? 9. [ No Active Medications Documented ] List of managing member's active medications listed in their permanent medical record 10. [ No ] Is there a discrepancy between the active medication record review and the managing member's self-reported list of medications? 11. [ No Outside Care Documented ] List documented significant care the managing member has received since their last PHA from a provider OUTSIDE the Health System 12. [ No ] Is there a discrepancy between the managing member's list of OUTSIDE care (from OTH5), and the OUTSIDE care found in the record? 13. [ No Inside Care Documented ] List documented significant care the managing member has received since their last PHA from a provider INSIDE the Health System 15. [ Not Answered ] Confirm that vaccine exemptions are listed in the medical record for each vaccine listed IV. FAMILY HISTORY AND LIFESTYLE 1. [ Yes ] Does the [id number] reflect the managing member's reported family history? V. WOMEN'S HEALTH [...] READINESS 1. [ No ] Does the managing member have an Assignment Limitation Code C? 3. [ Classification: 2 ] Most recently documented dental exam 4. [ Yes ] Is the managing member current on all required immunizations in the immunization tracking system? 5. [ Yes ] Is the managing member current with Service-specific requirements for glasses and gas mask inserts? 6. Does the managing member have the following laboratory tests documented [...] need to be forwarded to the Health Meteorological Equipment Repairer completing PART C: No deployment within the past five years. No VA rating. No temporary profile. Member reports excellent health. Member has never used tobacco products. Member is currently taking prescription or oyft-kqd-plixogf medications: Loradadine. Pain level; 0. No other significant findings. JLV reviewed. No other discrepancies found. Date Record Review Completed: PART C. HEALTH CARE PROVIDER I. MENTAL HEALTH ASSESSMENT ([facility]) PROVIDER INFORMATION 1. Last Name: THOMPSON 2. First Name: JOSS 3. Middle Name: 4. Service Branch: [employer] 5. Status: Reservist 6. Title: Physician (DO LILLY) 7. EMAIL: [email or web address] 8. Facility: [facility] 9. Unit: [facility] 10. Address: [address] [place] [address] 11. State: [place] 12. Zip Code: [address] 13. Phone: [phone] 14. Date HCP Review initiated: 1. Member [...] JOSS 3. Middle Name: 4. Service Branch: [employer] 5. Status: Reservist 6. Title: Physician (, ) 7. EMAIL: [email or web address] 8. Facility: [address] [place], [place] [address] 9. Unit: [address] [place], [place] [address] 10. Address: [address] [place] [address] 11. State: [place] 12. Zip Code: [address] 13. Phone: [phone] 14. Date HCP Review initiated: IV. PERIODIC HEALTH ASSESSMENT PROVIDER RECOMMENDATIONS and REFERRALS 1. Provider concerns with this assessment: No issues or concerns identified V. SUMMARY AND COMMENTS 1. Additional information summarizing findings during the managing member assessment: 2. Provider Comments: joy . INDIVIDUAL MEDICAL READINESS DISPOSITION DETERMINATION CAIN: Ready DEN: Ready IMM: Ready LAB: Ready ME: Ready IMR Status: Fully Medically Ready VII. SERVICE MEDICAL DEPLOYABILITY EVALUATION INDICATED Based on your review of all documentation, is the managing member medically deployable without limitations? Reference [facility] 6490.07 Yes (managing member DOES NOT currently have a medical condition that limits deployability) Date PHA Completed: END OF [id number] REPORT Impression:Meets?medical standards per MARCOS 48-123/MSD. Disposition:?No AF469 changes based on this encounter.[employer] Qualified. 09/12/2024 8344R-439 AMDS Functional Status Combined list of recent functional and cognitive assessments recorded at Department of Defense and Veterans Affairs (VA).VA Functional [place] Measurement (FIM) Scale: 1 = Total Assistance (Subject = 0% +), 2 = Maximal Assistance (Subject = 25% +), 3 = Moderate Assistance (Subject = 50% +), 4 = Minimal Assistance (Subject = 75% +), 5 = Supervision, 6 = Modified [place] (Device), 7 = Complete [place] (Timely, Safely). Assessment Date/Time Source Assessment Type Assessment Skill Assessment Score Assessment Details No data available for this section
--- OUTSIDE RECORDS SUMMARY | 2024-09-12 15:56 | XMS_ITS | Continuity of Care Document ---
Author Organization [facility] Address [address] [place] [address] Phone Care Team Providers Care Bridge Maintenance Worker Name Role Phone BASILIA MARIN MD Unavailable [...] ENT VISIT, EST [facility], [address] [place] [address], [id number], tel:[phone] lower back and leg pain (chief complaint) Lumbosacral root disorders, not elsewhere classifiedSpinal stenosis, lumbosacral regionMeralgia paresthetica, right lower limb TOMAS CUI. [facility], [address], [id number], [place]. tel:[phone] [facility], [address] [place] [address], [id number], [place] tel:[phone] Pain right thigh (chief complaint) Meralgia paresthetica, right lower limbLumbosacral root disorders, not elsewhere classifiedSpinal stenosis, lumbosacral region TOMAS CUI. [address] [facility], [address], [place], [place], [id number], [place]. tel:[phone] Family History Family Member Type Diagnosis Age [...]
[2024-09-12 15:57] VITALS: BP 126/81; PULSE 82; BMI 24.2
== END 2024-09-12 16:59 | disposition home or self-care (01) ==
LOC: HO.HGI 15:54
PROVIDERS: PCP Internal Medicine; Visit Provider Nurse Practitioner
DX: R19.7 Diarrhea, unspecified (principal); R14.1 Gas pain
CPT/HCPCS: 99203

== ENCOUNTER → 2024-09-12 15:53 | Outpatient (BNVA) | payer OTHER, SELFPAY | PROVIDERS: PCP Internal Medicine; Visit Provider Nurse Practitioner | DX: R19.7 Diarrhea, unspecified (principal); R14.1 Gas pain | CPT/HCPCS: 99202 ==

== ENCOUNTER 2024-09-13 09:32 | Outpatient (REF) | payer OTHER, SELFPAY ==
[2024-09-20 09:48] LABS: Class Almond 0; Class Brazil Nut 0; Class Cashew 0; Class Codfish 0; Class Cow's Milk 0; Class Egg white 0/1; Class Hazelnut 0; Class Macadamia Nut 0; Class Peanut 0; Class Salmon 0; Class Scallop 0; Class Sesame Seed 0; Class Shrimp 0/1; Class Soybean 0; Class Tuna 0; Class Walnut 0; Class Wheat 0; F001-IgE Egg White 0.12 kU/L; F002-IgE Milk <0.10 kU/L; F003-IgE Codfish <0.10 kU/L; F004-IgE Wheat <0.10 kU/L; F010-IgE Sesame Seed <0.10 kU/L; F013-IgE Peanut <0.10 kU/L; F014-IgE Soybean <0.10 kU/L; F017-IgE Hazelnut (Filbert) <0.10 kU/L; F018-IgE Brazil Nut <0.10 kU/L; F020-IgE Almond <0.10 kU/L; F024-IgE Shrimp 0.11 kU/L; F040-IgE Tuna <0.10 kU/L; F041 IgE Salmon <0.10 kU/L; F202-IgE Cashew Nut <0.10 kU/L; F256-IgE Walnut <0.10 kU/L; F338-IgE Scallop <0.10 kU/L; F345-IgE Macadmia Nut <0.10 kU/L
== END 2024-09-13 09:33 | disposition home or self-care (01) ==
LOC: HO.LAB 09:32
PROVIDERS: PCP Internal Medicine; Visit Provider Nurse Practitioner
DX: R19.7 Diarrhea, unspecified (principal)
CPT/HCPCS: 36415; 86003

== ENCOUNTER 2024-10-23 08:00 | Outpatient (REF) | payer OTHER, SELFPAY ==
--- NOTE | ~2024-10-23 | US_ITS ---
CLINICAL HISTORY: R19.7 - Diarrhea, unspecified US abdomen complete with color Doppler Comparison: None Findings: The visualized pancreas, aorta, and inferior vena cava are unremarkable. Liver normal size and echotexture. Right lobe 12.8 cm length. No focal hepatic masses. Common duct 4.5 mm diameter. Physiologic distention of the gallbladder. No gallstones or sludge. No gallbladder wall thickening. Numerous gallbladder polyps largest measuring 7 x 7 x 3 mm. No pericholecystic fluid. No sonographic Feng sign. Main portal vein antegrade. Right kidney normal size, 9.1 cm in length. Normal cortical width and echotexture. No solid or cystic renal masses. No nephrolithiasis or hydronephrosis Left kidney normal, 9.0 cm in length. Normal cortical width and echotexture. No solid or cystic renal masses. No nephrolithiasis or hydronephrosis Spleen measures 7.0 cm. No splenic masses. No ascites. No lymphadenopathy. Impression: 1. Numerous gallbladder polyps largest measuring 7 x 7 x 3 mm . No cholelithiasis or evidence of cholecystitis. Consider six-month follow-up or surgical consultation This document has been electronically signed by: Florin Lancaster MD on 10/23/2024 11:19:53
--- OUTSIDE RECORDS SUMMARY | 2024-10-23 08:03 | XMS_ITS | Continuity of Care Document ---
Author Organization [facility] Address [address] [facility] [address] [place] [address] Phone Care Team Providers Care Agriculturist Name Role Phone BASILIA MARIN MD Unavailable [...] ENT VISIT, EST [facility], [address] [place] [address], [id number], tel:[phone] [place] [facility] lower back and leg pain (chief complaint) Lumbosacral root disorders, not elsewhere classifiedSpinal stenosis, lumbosacral regionMeralgia paresthetica, right lower limb TOMAS CUI. [address] [facility], [address], [id number], [place]. tel:[phone] [facility], [address] [place] [address], [id number], [place] tel:[phone] [place] [facility] Pain right thigh (chief complaint) Meralgia paresthetica, right lower limbLumbosacral root disorders, not elsewhere classifiedSpinal stenosis, lumbosacral region TOMAS CUI. [address] [facility], [address], [place], [place], [id number], [place]. tel:[phone] Family History Family Member Type Diagnosis Age At Onset No Information Payers Payer name Insurance type Covered republican ID Authoriza tibalwinder(s) No Information Social History [...]
== END 2024-10-23 08:01 | disposition home or self-care (01) ==
LOC: HO.US 08:00
PROVIDERS: PCP Internal Medicine; Visit Provider Nurse Practitioner
DX: R19.7 Diarrhea, unspecified (principal); R14.1 Gas pain
CPT/HCPCS: 76700

== ENCOUNTER → 2024-10-23 08:02 | Outpatient (BNV) | payer OTHER, SELFPAY | PROVIDERS: PCP Internal Medicine; Visit Provider Radiology Diagnostic Radiology | DX: K82.8 Other specified diseases of gallbladder (principal) | CPT/HCPCS: 76700 ==

== ENCOUNTER → 2024-11-24 10:53 | Outpatient (REF) | payer OTHER, SELFPAY ==
--- OUTSIDE RECORDS SUMMARY | 2016-04-18 05:00 | XMS_ITS | Continuity of Care Document ---
Author Organization [facility] Address [address] [facility] [address] [place] [address] Phone Care Team Providers Care Provider Relations Specialist Name Role Phone BASILIA MARIN MD Unavailable [...] ENT VISIT, EST [facility], [address] [place] [address], [id number], tel:[phone] [place] [facility] lower back and leg pain (chief complaint) Lumbosacral root disorders, not elsewhere classifiedSpinal stenosis, lumbosacral regionMeralgia paresthetica, right lower limb TOMAS CUI. [address] [facility], [address], [id number], [place]. tel:[phone] [facility], [address] [place] [address], [id number], [place] tel:[phone] [place] [facility] Pain right thigh (chief complaint) Meralgia paresthetica, right lower limbLumbosacral root disorders, not elsewhere classifiedSpinal stenosis, lumbosacral region TOMAS CUI. [address] [facility], [address], [place], [place], [id number], [place]. tel:[phone] Family History Family Member Type Diagnosis Age [...]
--- NOTE | ~2024-11-24 | NM_ITS ---
EXAMINATION: NM HEPATOBILIARY WITH PHARM HISTORY: K82.4 - Cholesterolosis of gallbladder. TECHNIQUE: An hepatobiliary scan was performed following the intravenous administration of 5.0 mCi technetium 99m-mebrofenin. Sequential images were obtained over 1 hour. Subsequently, the patient received 1.3 microgram of IV CCK over 30 minutes and additional imaging was performed. COMPARISON: Correlation is made with an abdominal ultrasound dated 10/23/2024. FINDINGS: There is normal uptake and excretion of the radiopharmaceutical by the liver. Gallbladder activity is noted at 22 minutes. Common bile duct activity is seen at 24 minutes. Small bowel activity is noted at 32 minutes. After the administration of intravenous CCK, the estimated gallbladder ejection fraction is 85%, which is within normal limits (normal 35-80%). NM/NM hepatobiliary w pharm IMPRESSION: Normal hepatobiliary scan with normal gallbladder ejection fraction. Electronically signed by: Andrea Diamond MD 11/24/2024 01:10 PM EDT
== END ==
LOC: HO.NUCMED 10:53
PROVIDERS: PCP Internal Medicine; Visit Provider Nurse Practitioner
DX: K82.4 Cholesterolosis of gallbladder (principal); R10.9 Unspecified abdominal pain
CPT/HCPCS: 78227; A9537; J2805

== ENCOUNTER → 2024-11-24 10:55 | Outpatient (BNV) | payer OTHER, SELFPAY | PROVIDERS: PCP Internal Medicine; Visit Provider Radiology Diagnostic Radiology | DX: K82.4 Cholesterolosis of gallbladder (principal) | CPT/HCPCS: 78227 ==

== ENCOUNTER 2024-11-26 15:59 | Outpatient (AMB) | payer OTHER, SELFPAY ==
--- NOTE | 2024-11-26 16:02 | A.OFFVIS_ITS ---
Vital Signs 11/26/24 16:03 Height 5 ft 6 in Weight 145 lb BMI 23.4 BP 120/70 Blood Pressure Location Lt brachial Position Sitting Pulse 71 Pulse Oximetry (%) 96 Oxygen Delivery Method Room Air Intake Visit Reasons: Follow up Rast & US abd Intake Note: Patient follow up for Rast & US abd results Patient cc: abdominal pain, hearburn with some burning sensation, patient needed Ibuprofen refill, denies any other GI issues. 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 She has burping, flatulence and bloati ng. Her flatulence is malodorous especially with spicy foods. Otherwise, she has not been able to ID a food trigger, she says she has tried for many years. This has greatly worsened over kori past 5 years. She had one episode of vomiting after starting to eat eggs, scrambled and since does not tolerate eggs well. However she has increasing incidents of nausea that will linger for days and at times no appetite. SHe has used zofran in the past. She has associated cramping. She has constant borborymus. The diarrhea happens at least twice a week, the gas is daily. Her brother has similar problems, but he also served in [place]. There is no known family history of colon or stomach cancer. Except for her brother she can not identify any other family members have similar digestive issues. There is no family history known of gallbladder disease. She does have a problem with pruritus that happened after her deployment that makes me question if there some sort of consideration for something like mast cell syndrome if we do not find any other pathology. She was also educated about the possibility of functional bowel disorders but they can be controlled with medications to give her a better quality of life. She also met she has been under a great deal of stress as she took a job promotion and her superiors have been difficult please. She is working a lot of hours and we discussed how the H and fight or flight response can impact the GI system. She was only taking bentyl bid, will encourage to increase. I also give her the FODMAP diet for guidance about gas producing foods and tell her how to use it. She is in the [employer]. Next avai Orders: Orders C Reactive Protein Today R14.1 - Gas pain, R19.7 - Diarrhea, unspecified Rast Allergen Today R14.1 - Gas pain, R19.7 - Diarrhea, unspecified Transglutaminase Ab IgG Today R14.1 - Gas pain, R19.7 - Diarrhea, unspecified Pancreatic Elastase-1 Today R14.1 - Gas pain, R19.7 - Diarrhea, unspecified US abdomen complete Today R14.1 - Gas pain, R19.7 - Diarrhea, unspecified Calprotectin, Fecal Today R14.1 - Gas pain, R19.7 - Diarrhea, unspecified Transglutaminase IgA Today R14.1 - Gas pain, R19.7 - Diarrhea, unspecified Medications: Changed From dicyclomine 10 mg PO TID To dicyclomine 20 mg PO QID 120 tabs 6RF LABS: Stool studies TTE IgA not obtained along with CRP, RAST panel shows allergy to shrimp and egg whites ULTRASOUND OF THE ABDOMEN 10/23/2024 Findings: The visualized pancreas, aorta, and inferior vena cava are unremarkable. Liver normal size and echotexture. Right lobe 12.8 cm length. No focal hepatic masses. Common duct 4.5 mm diameter. Physiologic distention of the gallbladder. No gallstones or sludge. No gallbladder wall thickening. Numerous gallbladder polyps largest measuring 7 x 7 x 3 mm. No pericholecystic fluid. No sonographic Feng sign. Main portal vein antegrade. Right kidney normal size, 9.1 cm in length. Normal cortical width and echotexture. No solid or cystic renal masses. No nephrolithiasis or hydronephrosis Left kidney normal, 9.0 cm in length. Normal cortical width and echotexture. No solid or cystic renal masses. No nephrolithiasis or hydronephrosis Spleen measures 7.0 cm. No splenic masses. No ascites. No lymphadenopathy. Impression: 1. Numerous gallbladder polyps largest measuring 7 x 7 x 3 mm . No cholelithiasis or evidence of cholecystitis. Consider six-month follow-up or surgical consultation HIDA SCAN 11/24/2024 IMPRESSION: Normal hepatobiliary scan with normal gallbladder ejection fraction. TODAY'S VISIT Her symptoms of the same, she is better and worse days but it tends to be bloating gas and diarrhea that she can not seem to try to specific foods eaten. (except for eggs which she has noted) I had rx'ed creon but she did not start it yet. I encourage her to start it as she just received it. She has a mild allergy to egg whites and shrimp. She will get missing pancreatic elastase and labs call we can also consider treating for small-bowel bacterial overgrowth depending on her result with the Creon and her lab results. GB polyps not c/f. Hida neg. ROV 4 weeks. [facility] Medical History (Updated 11/26/24 @ 17:27 by KEKE Cross) Physical exam Reactive airways dysfunction syndrome Seasonal allergic rhinitis due to pollen Ulnar neuropathy Hand numbness Surgical History History of open reduction and internal fixation (ORIF) procedure History of shoulder surgery Family History Mother No problems noted. Father No problems noted. Social History Housing: House Alcohol intake: current Alcohol intake frequency: holidays/special occasions only Alcohol type: wine Patient Tobacco Use Status: Never used Tobacco e-Cigarette/Vaping Use: Never Used Second Hand Smoke Exposure: No service: Yes Current occupational status: employed Current occupational exposures/hazards: No Cognitive needs: No Hearing needs: No Vision needs: Yes Review of Systems Const Denies fatigue, Denies fever(s), Denies night sweats, Denies poor appetite and Denies weight loss ENT Reports Normal hearing present, Denies dental pain, Denies dysphagia, Denies hearing loss, Denies mouth pain, Denies odynophagia, Denies throat swelling, Denies tongue swelling and Reports other (Dentition adequate) Card Reports no additional complaints Resp Reports no additional complaints GI Details: Denies abdominal pain, Denies melena, Reports bloating, Denies hematochezia, Denies constipation, Reports GI cramping, Denies dysphagia, Reports excessive flatus, Denies early satiety, Denies heartburn, Reports diarrhea, Denies nausea, Denies odynophagia, Denies vomiting and Denies hematemesis Skin/Breast Denies pruritus, Denies lesions, Denies rash and Denies jaundice Neuro Reports Normal hearing present and Denies Abnormal speech present Endo Denies fatigue Aller/Immun Denies throat swelling and Denies tongue swelling Physical Exam Vital Signs: Last Vital Signs Pulse 71 11/26/24 16:03 BP 120/70 11/26/24 16:03 Pulse Ox 96 11/26/24 16:03 Oxygen Delivery Method Room Air 11/26/24 16:03 BMI result Body Mass Index 23.4 Const General: cooperative, no acute distress, well developed and well groomed Nutritional Appearance: average body habitus and well nourished Orientation/consciousness: oriented to person, oriented to place and oriented to time Limitations: No language barrier HEENT Head: Yes normocephalic and Yes atraumatic Eyes General: appearance normal, both eyes and all related structures Pupils: Equal, round and reactive pupils present Neck Neck: Yes normal visual inspection and Yes no lymphadenopathy Thyroid: Thyroid normal Resp Effort & Inspection: normal respiratory effort and able to speak in complete sentences Auscultation: clear to auscultation bilaterally Cardio Rate: regular rate Rhythm: regular rhythm Heart sounds: Normal, physiologic split S2 sound present Peripheral pulses: radial pulses present and posterior tibial pulses present GI Inspection: No distended and No Abdominal panniculus present Palpation (GI): Soft to palpation, nontender, no guarding, not rigid and No hepatosplenomegaly present Percussion: Yes normal to percussion Auscultation: normal bowel sounds Rectal Exam - Female: deferred Skin General skin exam: no rashes or lesions noted, turgor normal, skin not dry, no jaundice, No spider nevi and no striae Rashes: no rashes Nails: normal Neuro General: oriented to person, oriented to place and oriented to time Cranial nerves: Yes Equal, round and reactive pupils present and Yes Normal hearing present Speech: No Abnormal speech present Extrem General: Yes normal to inspection, No clubbing, No cyanosis and No edema Psych Appearance: grossly normal and well kempt Mental Status: mental status grossly normal Speech and movement: Normal speech and movement present Affect: normal affect Attitude: cooperative Thought process: Normal thought process present and not confabulating Thought content: Normal thought content present Insight: Good insight present (Psych) Judgement: Good judgement present (Psych) Assessment & Plan Assessment & Plan (1) Diarrhea: Code(s): R19.7 - Diarrhea, unspecified Category: Medical (2) Abdominal gas pain: Code(s): R14.1 - Gas pain Category: Medical (3) Abdominal pain: Code(s): R10.9 - Unspecified abdominal pain Category: Medical (4) Gallbladder polyp: Comment: Negative HIDA scans so this does not appear to be interfering with digestive processes Code(s): K82.4 - Cholesterolosis of gallbladder Category: Medical Plan Her symptoms of the same, she is better and worse days but it tends to be bloating gas and diarrhea that she can not seem to try to specific foods eaten. (except for eggs which she has noted) I had rx'ed creon but she did not start it yet. I encourage her to start it as she just received it. She has a mild allergy to egg whites and shrimp. She will get missing pancreatic elastase and labs call we can also consider treating for small-bowel bacterial overgrowth depending on her result with the Creon and her lab results. GB polyps not c/f. Hida neg. ROV 4 weeks. Coding Level of Care Code Est Pt Level 3 (29367) Diagnoses Diarrhea R19.7 Abdominal gas pain R14.1 Abdominal pain R10.9 Gallbladder polyp K82.4
[2024-11-26 16:03] VITALS: BP 120/70; PULSE 71; O2SAT 96; BMI 23.4
== END 2024-11-26 16:35 | disposition home or self-care (01) ==
LOC: HO.HGI 15:59
PROVIDERS: PCP Internal Medicine; Visit Provider Nurse Practitioner
DX: R19.7 Diarrhea, unspecified (principal); R14.1 Gas pain; R10.9 Unspecified abdominal pain; K82.4 Cholesterolosis of gallbladder
CPT/HCPCS: 99213

== ENCOUNTER → 2024-11-26 15:59 | Outpatient (BNVA) | payer OTHER, SELFPAY | PROVIDERS: PCP Internal Medicine; Visit Provider Nurse Practitioner | DX: R14.1 Gas pain (principal); R19.7 Diarrhea, unspecified; R10.9 Unspecified abdominal pain; K82.4 Cholesterolosis of gallbladder | CPT/HCPCS: 99212 ==

== ENCOUNTER 2024-12-16 07:00 | Outpatient (REF) | payer OTHER, SELFPAY ==
[2024-12-17 10:33] LABS: Class Almond 0; Class Brazil Nut 0; Class Cashew 0; Class Codfish 0; Class Cow's Milk 0; Class Egg white 0/1; Class Hazelnut 0; Class Macadamia Nut 0; Class Peanut 0; Class Salmon 0; Class Scallop 0; Class Sesame Seed 0; Class Shrimp 0; Class Soybean 0; Class Tuna 0; Class Walnut 0; Class Wheat 0; F345-IgE Macadmia Nut <0.10 kU/L
[2024-12-17 19:53] LABS: Transglutaminase Ab IgG <1.0 U/mL
[2024-12-22 19:44] LABS: Calprotectin, Fecal <5 mcg/g
== END 2024-12-16 07:01 | disposition home or self-care (01) ==
LOC: HO.LAB 07:00
PROVIDERS: PCP Internal Medicine; Visit Provider Nurse Practitioner
DX: R14.1 Gas pain (principal); R19.7 Diarrhea, unspecified
CPT/HCPCS: 36415; 82656; 83993; 86003; 86140; 86364

== ENCOUNTER 2024-12-23 16:03 | Outpatient (AMB) | payer OTHER, SELFPAY ==
--- OUTSIDE RECORDS SUMMARY | 2016-04-18 05:00 | XMS_ITS | Continuity of Care Document ---
Author Organization [facility] Address [address] [facility] [address] [place] [address] Phone Care Team Providers Care Driver/Sales Workers Name Role Phone BASILIA MARIN MD Unavailable [...] ENT VISIT, EST [facility], [address] [place] [address], [id number], tel:[phone] [place] [facility] lower back and leg pain (chief complaint) Lumbosacral root disorders, not elsewhere classifiedSpinal stenosis, lumbosacral regionMeralgia paresthetica, right lower limb TOMAS CUI. [address] [facility], [address], [id number], [place]. tel:[phone] [facility], [address] [place] [address], [id number], [place] tel:[phone] [place] [facility] Pain right thigh (chief complaint) Meralgia paresthetica, right lower limbLumbosacral root disorders, not elsewhere classifiedSpinal stenosis, lumbosacral region TOMAS CUI. [address] [facility], [address], [place], [place], [id number], [place]. tel:[phone] Family History Family Member Type Diagnosis Age [...]
--- NOTE | 2024-12-23 16:06 | MHC.OFFVIS ---
Vital Signs 12/23/24 16:10 Height 5 ft 6 in Weight 145 lb 15.136 oz BMI 23.6 BP 110/76 Blood Pressure Location Rt brachial Position Sitting Pulse 90 Intake Visit Reasons: 4 wks f/u Intake Note: Patient in office today in follow up of labs. CC: Patient reports feeling about the same. She states that the dicyclomine is supposed to be taken QID with meals, but she usually has about to meals daily. 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 Accompanied by: Self / Same As Patient Allergies No Known Drug Allergies Allergy (Unknown, Verified 12/23/24 16:14) none bees Allergy (Severe, Uncoded 08/06/24 15:39) Anaphylaxis HPI HPI 4 wks f/u: Details: Assessment & Plan (1) Diarrhea: Code(s): R19.7 - Diarrhea, unspecified Category: Medical (2) Abdominal gas pain: Code(s): R14.1 - Gas pain Category: Medical (3) Abdominal pain: Code(s): R10.9 - Unspecified abdominal pain Category: Medical (4) Gallbladder polyp: Comment: Negative HIDA scans so this does not appear to be interfering with digestive processes Code(s): K82.4 - Cholesterolosis of gallbladder Category: Medical Plan Her symptoms of the same, she is better and worse days but it tends to be bloating gas and diarrhea that she can not seem to try to specific foods eaten. (except for eggs which she has noted) I had rx'ed creon but she did not start it yet. I encourage her to start it as she just received it. She has a mild allergy to egg whites and shrimp. She will get missing pancreatic elastase and labs call we can also consider treating for small-bowel bacterial overgrowth depending on her result with the Creon and her lab results. GB polyps not c/f. Hida neg. ROV 4 weeks. Laboratory Tests 12/16/24 11:10 Stool Pancreat Elastase 106 L TODAY'S VISIT The abnormally low pancreatic a last taste does seem to indicate exocrine pancreatic insufficiency. SHe is taking the creon but she feels that we need to give it more time. It has not yet impacted the pain or the bloating. ROV 6 weeks. [facility] Medical History Physical exam Reactive airways dysfunction syndrome Seasonal allergic rhinitis due to pollen Ulnar neuropathy Hand numbness Surgical History History of open reduction and internal fixation (ORIF) procedure History of shoulder surgery Family History Mother No problems noted. Father No problems noted. Social History Housing: House Alcohol intake: current Alcohol intake frequency: holidays/special occasions only Alcohol type: wine Patient Tobacco Use Status: Never used Tobacco e-Cigarette/Vaping Use: Never Used Second Hand Smoke Exposure: No service: Yes Current occupational status: employed Current occupational exposures/hazards: No Cognitive needs: No Hearing needs: No Vision needs: Yes Review of Systems Const Denies fatigue, Denies fever(s), Denies night sweats, Denies poor appetite and Denies weight loss ENT Reports Normal hearing present, Denies dental pain, Denies dysphagia, Denies hearing loss, Denies mouth pain, Denies odynophagia, Denies throat swelling, Denies tongue swelling and Reports other (Dentition adequate) Card Reports no additional complaints Resp Reports no additional complaints GI Details: Reports abdominal pain, Denies melena, Reports bloating, Denies hematochezia, Denies constipation, Denies GI cramping, Denies dysphagia, Reports excessive flatus, Denies early satiety, Denies heartburn, Denies diarrhea, Denies nausea, Denies odynophagia, Denies vomiting and Denies hematemesis Skin/Breast Denies pruritus, Denies lesions, Denies rash and Denies jaundice Neuro Reports Normal hearing present and Denies Abnormal speech present Endo Denies fatigue Aller/Immun Denies throat swelling and Denies tongue swelling Physical Exam Vital Signs: Last Vital Signs Pulse 90 12/23/24 16:10 BP 110/76 12/23/24 16:10 BMI result Body Mass Index 23.6 Const General: cooperative, no acute distress, well developed and well groomed Nutritional Appearance: average body habitus and well nourished Orientation/consciousness: oriented to person, oriented to place and oriented to time Limitations: No language barrier HEENT Head: Yes normocephalic and Yes atraumatic Eyes General: appearance normal, both eyes and all related structures Pupils: Equal, round and reactive pupils present Neck Neck: Yes normal visual inspection and Yes no lymphadenopathy Thyroid: Thyroid normal Resp Effort & Inspection: normal respiratory effort and able to speak in complete sentences Auscultation: clear to auscultation bilaterally Cardio Rate: regular rate Rhythm: regular rhythm Heart sounds: Normal, physiologic split S2 sound present Peripheral pulses: radial pulses present and posterior tibial pulses present GI Inspection: No distended and No Abdominal panniculus present Palpation (GI): Soft to palpation, nontender, no guarding, not rigid and No hepatosplenomegaly present Percussion: Yes normal to percussion Auscultation: normal bowel sounds Rectal Exam - Female: deferred Skin General skin exam: no rashes or lesions noted, turgor normal, skin not dry, no jaundice, No spider nevi and no striae Rashes: no rashes Nails: normal Neuro General: oriented to person, oriented to place and oriented to time Cranial nerves: Yes Equal, round and reactive pupils present and Yes Normal hearing present Speech: No Abnormal speech present Extrem General: Yes normal to inspection, No clubbing, No cyanosis and No edema Psych Appearance: grossly normal and well kempt Mental Status: mental status grossly normal Speech and movement: Normal speech and movement present Affect: normal affect Attitude: cooperative Thought process: Normal thought process present and not confabulating Thought content: Normal thought content present Insight: Good insight present (Psych) Judgement: Good judgement present (Psych) Assessment & Plan Assessment & Plan (1) Exocrine pancreatic insufficiency: Code(s): K86.81 - Exocrine pancreatic insufficiency Category: Medical Plan The abnormally low pancreatic a last taste does seem to indicate exocrine pancreatic insufficiency. SHe is taking the creon but she feels that we need to give it more time. It has not yet impacted the pain or the bloating. ROV 6 weeks. Medications: Refilled [id number] 24,000-76,000 -120,000 unit (Creon) 2 caps PO BID 120 caps 6RF 30 days K58.9 - Irritable bowel syndrome, unspecified Coding Level of Care Code Est Pt Level 3 (72543) Diagnoses Exocrine pancreatic insufficiency K86.81
[2024-12-23 16:10] VITALS: BP 110/76; PULSE 90; BMI 23.6
--- OUTSIDE RECORDS SUMMARY | 2024-12-23 16:38 | XMS_ITS | Clinical Summary ---
Author Organization [facility] Address [address] [facility] [address] [place] [address] Phone Care Team Providers Care District Or District Office Director Name Role Phone Dottie Lemso MD Primary Care Provid er Allergies Active Allergy Reactions Criticality Noted Date Comments Allergen Nvk-Ikqcn-Hiijg Bee 024 Medications loratadine (CLARITIN) 10 mg tablet Take 10 mg by mouth daily. Active ibuprofen (ADVIL,MOTRIN) 200 MG tablet Take 200 mg by mouth every 6 (six) hours as needed for pain (specific location in comments). Active ondansetron (ZOFRAN) 4 MG tablet Take 1 tablet (4 mg total) by mouth every 8 (eight) hours as needed for nausea. 10 tablet 4 Active Additional Information Patient not taking.Reported on 07/19/2024 aspirin 81 MG EC tablet Take 1 tablet (81 mg total) by mouth 2 (two) times a day for 28 days. 56 tablet 4 Active oxyCODONE 5 MG immediate release tabletIndicatio ns:Status post ORIF of fracture of ankle Take 1-2 tablets (5-10 mg total) by mouth every 4 (four) hours as needed. Partial fill ok 30 tablet 4 Active Additional Information Patient not taking.Reported on 07/19/2024 traMADoL (ULTRAM) 50 mg tabletIndicatio ns:Status post ORIF of fracture of ankle Take 1-2 tablets (50-100 mg total) by mouth every 6 (six) hours as needed for pain (specific location in comments). Begin this medication after completing your prescription for oxycodone. Do not take this medication at the same time as oxycodone or any other narcotic medication. 30 tablet 4 Active Additional Information Patient not taking.Reported on 07/19/2024 amoxicillin (AMOXIL) 500 MG capsule 4 Active dicyclomine (BENTYL) 20 mg tablet Take 20 mg by mouth 3 (three) times a day. 5 Active Active Problems Problem Noted Date Diagnosed Date Abnormal mammogram 09/04/2021 Acute bronchitis 09/04/2021 Acute pharyngitis 09/04/2021 Pain in joint, shoulder region 09/04/2021 Back muscle spasm 09/04/2021 Biceps tendinitis 09/04/2021 Breast lump 09/04/2021 Cough 09/04/2021 Fatigue 09/04/2021 Flank pain 09/04/2021 Myopia 09/04/2021 Numbness of upper extremity 09/04/2021 Otitis media 09/04/2021 Pain in joint, lower leg 09/04/2021 Pain of hand 09/04/2021 Pinguecula 09/04/2021 Reason for consultation 09/04/2021 Regular astigmatism 09/04/2021 Shoulder sprain 09/04/2021 Urticaria 09/04/2021 Viral wart on finger 09/04/2021 Myopia, bilateral 04/07/2016 Presbyopia 04/07/2016 Immunizations Immunization Administration Dates Next Due COVID-19 (Pre-03/26) Moderna Vaccine, mRNA, PF 04/25/2021,07/30/2020,06/27/2020 Social History Tobacco Use Types Packs/Day Years Used Date Smoking Tobacco: Never Smokeless Tobacco: Never Tobacco Cessation:Counseling Given: Not Answered Alcohol Use Standard Drinks/Week Comments Not Currently 0 (1 standard drink = 0.6 oz pur e alcohol) Education Answer Date Recorded Are you interested in more education? Not on hans e 09/29/2022 Are you concerned about learning? Not on file 09/29/2022 No 09/29/2022 No 09/29/2022 Digital Access Answer Date Recorded No 10/28/2022 No 10/28/2022 Reliable internet access at home? Not on file 10/28/2022 Device with a working camera? Not on file Intimate Partner Violence Answer Date R ecorded Are you denied basic needs s uch as food, clothing, or medical care? No 03/25/2024 In the past 12 months have y ou been in a relationship with a person who hurts, threatens, or tries to control you? No 03/25/2024 Are you denied basic needs s uch as food, clothing, or medical care? No 03/25/2024 In the past 12 months have y ou been in a relationship with a person who hurts, threatens, or tries to control you? No 03/25/2024 Comments No Sex and Gender Information Value Date Recorded Sex Assigned at Female 04/27/2023 1:09 PM EST Legal Sex Female 4:02 PM EDT Gender Identity Female 04/27/2023 1:09 PM EST Sexual Orientation Straight 03/28/2024 4: 19 AM EDT Last Filed Vital Signs Vital Sign Reading Time Taken Comments Blood Pressure 121/82 07/19/2024 9:29 AM EST Pulse 77 07/19/2024 9:29 AM EST Temperature 36.7 C (98 F) 07/19/2024 9:29 AM EST Respiratory Rate 16 07/19/2024 9:29 AM EST Oxygen Saturation 96% 07/19/2024 9:29 AM EST Inhaled Oxygen Concentration - - Weight 67.1 kg (148 lb) 10/23/2023 7:49 AM EDT Height 166.4 cm (5' 5.5 ) 10/23/2023 7:49 AM EDT Body Mass Index 24.25 10/23/2023 7:49 AM EDT Plan of Treatment Health Maintenance Due Date Last Done Comments Adult Td,Tdap Booster 1972 LIPID PANEL 1972 DEPRESSION SCREENING 1984 HEPATITIS C SCREENING 01/22/1990 HIV ONE-TIME SCREENING (18-6 5 YEARS) 01/22/1990 PAP SMEAR 01/22/1993 MAMMOGRAM 2012 COLOGUARD 01/22/2017 COLONOSCOPY 01/22/2017 COLORECTAL CANCER SCREENING 01/22/2017 FIT TEST 01/22/2017 FOBT 01/22/2017 SIGMOIDOSCOPY 01/22/2017 VIRTUAL COLONOSCOPY 01/22/2017 PNEUMOCOCCAL VACCINES (50+ years) (1 of 1 - PCV) 01/22/2022 ZOSTER VACCINES (1 of 2) 01/22/2022 COVID-19 VACCINE (4 - 2023-2 5 season) 2024 04/25/2021, 07/30/2020, 06/27/2020 SMOKING STATUS SCREENING (On ce After 26 Yrs) Completed 07/19/2024 HEPATITIS A VACCINES Aged Out No long er eligible based on patient's age to complete this topic HIB VACCINES Aged Out No longer eligi ble based on patient's age to complete this topic MENINGOCOCCAL VACCINES (ACWY) Aged Out No longer eligible based on patient's age to complete this topic MENINGOCOCCAL VACCINES (B) Aged Out N o longer eligible based on patient's age to complete this topic Medical Devices Implanted Type Area House Repairer Device Identifier Shelf Expiration Date Model / Serial / Lot Screw Spine 2.7x22mm Plate R3con Nonlocking - [id number] Implanted:Qty: 1 on 10/23/2023 by Angelo Villalpando MD at [facility] Right: Ankle [employer] [id number] / / Description:[place] 28 RECON Plating System, Sterilizer 4, Load 4, 15 Oct 2023 Screw Plate 3.5x14mm R3con Locking - [id number] Implanted:Qty: 3 on 10/23/2023 by Angelo Villalpando MD at [facility] Right: Ankle [employer] [id number] / / Description:[place] 28 RECON Plating System, Sterilizer 4, Load 4, 15 Oct 2023 Plate Fibular Cluster 9-Hole Anatomical Right - [id number] Implanted:Qty: 1 on 10/23/2023 by Angelo Villalpando MD at [facility] Right: Ankle [employer] [id number] / / Description:[place] 28 RECON Plating System, Sterilizer 4, Load 4, 15 Oct 2023 Screw Plate 3.5x12mm Nonlocking R3con - [id number] Implanted:Qty: 2 on 10/23/2023 by Angelo Villalpando MD at [facility] Right: Ankle [employer] [id number] / / Description:[place] 28 RECON Plating System, Sterilizer 4, Load 4, 15 Oct 2023 Screw Spine 3.5x12mm Plate R3con Locking - [id number] Implanted:Qty: 1 on 10/23/2023 by Angelo Villalpando MD at [facility] Right: Ankle [employer] [id number] / / Description:[place] 28 RECON Plating System, Sterilizer 4, Load 4, 15 Oct 2023 Screw 3.5x14mm Small R3con Non Locking Plate Ijeoma Op Ortho Joints - [id number] Implanted:Qty: 1 on 10/23/2023 by Angelo Villalpando MD at [facility] Right: Ankle [employer] [id number] / / Description:[place] 28 RECON Plating System, Sterilizer 4, Load 4, 15 Oct 2023 [place] Knotless Syndesmosis Tightrope Xp Lf Titanium Sterile - [id number] Implanted:Qty: 1 on 10/23/2023 by Angelo Villalpando MD at [facility] Right: Ankle [employer] [id number] 07/04/2028 [id number] / / [id number] Insurance [facility] Address: [address] [address] [facility] Address: [facility] [id number] [place] [address] Care Teams District Or District Office Director Relationship Specialty Start Date End Date Dottie Lemos MD [address] [place] [address] PCP - General Internal Medicine 11/28/21 Additional Source Comments The information contained in this document represents components of the legal health record. It is not the complete legal health record.[facility]
== END 2024-12-23 16:45 | disposition home or self-care (01) ==
LOC: HO.HGI 16:04
PROVIDERS: PCP Internal Medicine; Visit Provider Nurse Practitioner
DX: K86.81 Exocrine pancreatic insufficiency (principal)
CPT/HCPCS: 99213

== ENCOUNTER → 2024-12-23 16:03 | Outpatient (BNVA) | payer OTHER, SELFPAY | PROVIDERS: PCP Internal Medicine; Visit Provider Nurse Practitioner | DX: K86.81 Exocrine pancreatic insufficiency (principal) | CPT/HCPCS: 99212 ==

== ENCOUNTER 2024-12-29 13:49 | Outpatient (AMB) | payer OTHER, SELFPAY ==
--- OUTSIDE RECORDS SUMMARY | 2016-04-18 05:00 | XMS_ITS | Continuity of Care Document ---
Author Organization [facility] Address [address] [facility] [address] [place] [address] Phone Care Team Providers Care Pulmonology Technician Name Role Phone BASILIA MARIN MD Unavailable [...] VISIT, EST [facility], [address] [place] [address], [id number], tel:[phone] [place] [facility] lower back and leg pain (chief complaint) Lumbosacral root disorders, not elsewhere classifiedSpinal stenosis, lumbosacral regionMeralgia paresthetica, right lower limb TOMAS CUI. [address] [facility], [address], [id number], [place]. tel:[phone] [facility], [address] [place] [address], [id number], [place] tel:[phone] [place] [facility] Pain right thigh (chief complaint) Meralgia paresthetica, right lower limbLumbosacral root disorders, not elsewhere classifiedSpinal stenosis, lumbosacral region TOMAS CUI. [address] [facility], [address], [place], [place], [id number], [place]. tel:[phone] Family History Family Member Type Diagnosis Age [...]
--- NOTE | 2024-12-29 13:52 | A.OFFPC_ITS ---
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 Required: No Accompanied by: Self / Same As Patient Allergies No Known Drug Allergies Allergy (Unknown, Verified 12/29/24 14:02) none bees Allergy (Severe, Uncoded 12/29/24 14:02) Anaphylaxis Medication List - Last Reconciled 12/29/24 by Dottie Kirkpatrick MD dicyclomine 20 mg PO QID epinephrine 0.15 mg (0.3 mL) IM Q30M PRN 30 days escitalopram oxalate 5 mg PO BEDTIME 30 days ibuprofen 800 mg PO Q8H PRN 30 days lidocaine 5% 1 patch topical DAILY jdklcy-hkhlkyxz-skudtoa 24,000-76,000 -120,000 unit (Creon) 2 caps PO BID 30 days loratadine (Claritin) 10 mg PO DAILY PRN 90 days Tobacco use date assessed: 08/06/24 Dental Screening Dental Screen Date: 12/29/24 Did you have a dental visit in the last 12 months?: Yes Did you have a dental problem in the last 6 months where you did not have access to dental care?: No Was dental information given to patient?: Patient has dentist HPI HPI Comments History of Present Illness Details The patient is a 54-year-old female presenting for a physical examination and preventative care. She reports a history of hypercholesterolemia, which was identified through previous testing, and expresses concern about her cholesterol levels despite maintaining a healthy diet and regular exercise. The patient has been diagnosed with melasma, for which she has been prescribed hydroquinone and a compound cream, though she reports worsening of the condition despite adherence to treatment and sun avoidance measures. She has been advised to use mineral sunscreen and avoid heat exposure, but she reports no significant improvement. The patient has pancreatic insufficiency and is currently taking Creon, which she finds effective when taken consistently. She has a history of allergy to bee stings and carries an Epipen for emergencies. Her preventative care measures include a mammogram, which has not been done in over a year, and a Pap smear, which was last done a couple of years ago. She is also due for a tetanus vaccination, as it has been over ten years since her last dose. PFSH Medical History Physical exam Reactive airways dysfunction syndrome Seasonal allergic rhinitis due to pollen Ulnar neuropathy Hand numbness Surgical History History of open reduction and internal fixation (ORIF) procedure History of shoulder surgery Family History Mother No problems noted. Father No problems noted. Social History Housing: House Alcohol intake: current Alcohol intake frequency: holidays/special occasions only Alcohol type: wine Patient Tobacco Use Status: Never used Tobacco e-Cigarette/Vaping Use: Never Used Second Hand Smoke Exposure: No service: Yes Current occupational status: employed Current occupational exposures/hazards: No Cognitive needs: No Hearing needs: No Vision needs: Yes Questionnaire PHQ-9 Over the last 2 weeks, how often have you been bothered by any of the following problems? 1. Little interest or pleasure in doing things: not at all 2. Feeling down, depressed, or hopeless: not at all 3. Trouble falling or staying asleep, or sleeping too much: not at all 4. Feeling tired or having little energy: not at all 5. Poor appetite or overeating: not at all 6. Feeling bad about yourself - or that you are a failure or have let yourself or your family down: not at all 7. Trouble concentrating on things, such as reading the newspaper or watching television: not at all 8. Moving or speaking so slowly that other people could have noticed. Or the opposite - being so fidgety or restless that you have been moving around a lot more than usual: not at all 9. Thoughts that you would be better off or of hurting yourself in some way: not at all Total score: 0 Depression Screening Interpretation: Negative Depression Screening Done: Yes 89138 - PHQ-9 Billing: Yes Source: Developed by Drs. Andrea Lam, Erma Palacios, Jeronimo Haile and colleagues, with an educational darnell from [employer]. Thrive Questionnaire Date Thrive assessed: 12/29/24 I am a: Patient What is your living situation today?: I have a steady place to live Within the past 12 months, did the food you bought not last and you didn't have the money to get more?: I choose not to answer this question Within the past 12 months, did you worry whether your food would run out before you got money to buy more?: I choose not to answer this question Do you have trouble paying for medicines?: No Do you have trouble getting transportation to medical appointments?: No Do you have trouble paying your heating and electricity bill?: No Do you have trouble taking care of your child, family member or friend?: No Do you have trouble with day-to-day activities such as bathing, preparing meals, shopping, managing finances, etc.?: No Are you currently unemployed and looking for a job?: No Are you interested in more education?: No Please select the resources that you would like help with: None Currently or been in a relationship where the following occur: No concerns reported THRIVE Score: 0 AUDIT C Alcohol Use Questionnaire (AUDIT-C) 1. How often do you have a drink containing alcohol?: Never Total Score: 0 Score Reviewed/Action Taken: No PATRICIA-7 AMB Questionnaire PATRICIA-7 Date PATRICIA - 7 assessed: 12/29/24 Feeling nervous, anxious, or on edge: 0 = Not at all Not being able to stop or control worryin = Not at all Worrying too much about different things: 0 = Not at all Trouble relaxin = Not at all Being so restless that it is hard to sit still: 0 = Not at all Becoming easily annoyed or irritable: 0 = Not at all Feeling afraid as if something awful might happen: 0 = Not at all Total PATRICIA-7 score (0-4 normal; 5-9 mild; 10-14 moderate; 15-21 severe): 0 Source: Developed by Drs. Andrea Lam, Erma Palacios, Jeronimo Haile and colleagues, with an educational darnell from [employer]. PATRICIA-7 Assessment Billing PATRICIA-7 Assessment Tool: PATRICIA-7 Assessment 96190 Review of Systems Const All systems reviewed & are unremarkable except as noted in HPI and below Card Denies chest pain at rest, Denies chest pain with activity, Denies edema, Denies irregular heart rhythm, Denies claudication, Denies dyspnea, Denies dyspnea on exertion, Denies orthopnea, Denies paroxysmal nocturnal dyspnea and Denies slow heart rate Resp Denies cough, Denies dyspnea and Denies dyspnea on exertion GI Denies abdominal pain, Denies change in bowel habits, Denies excessive flatus, Denies nausea and Denies vomiting Denies urinary incontinence, Denies urinary hesitancy and Denies urinary urgency Musc Denies abnormal gait, Denies atrophy, Denies deformity and Denies limited range of motion Skin/Breast Denies bleeding lesions, Denies changing lesions and Denies rash Neuro Denies abnormal gait, Denies behavioral changes and Denies lack of coordination Psych Denies behavioral changes Physical exam (Primary Care) Vital Signs: Last Vital Signs BP 102/66 12/29/24 13:53 BMI result Body Mass Index 23.9 Tobacco/Smoking Status: Tobacco use Status Tobacco use date assessed 08/06/24 12/29/24 13:57 Patient Tobacco Use Status Never used Tobacco 12/29/24 13:57 e-Cigarette/Vaping Use Never Used 12/29/24 13:57 PHQ-9: PHQ-9 Score PHQ-9: Total score 0 12/29/24 13:57 Depression Screening Interpretation: Negative Thrive Assessment: Date of Thrive Assessment Date Thrive assessed 12/29/24 12/29/24 13:57 Currently or been in a relationship where the following occur: No concerns reported [facility] Head: Yes normal to inspection, Yes normocephalic and Yes atraumatic Ears: external ears normal Eyes General: appearance normal, both eyes and all related structures Eyelids: Yes eyelids normal Conjunctivae: conjunctivae normal Neck Neck: Yes normal visual inspection and Yes supple Resp Effort & Inspection: normal respiratory effort Auscultation: clear to auscultation bilaterally Cardio Jugular venous distension: no JVD Rate: regular rate Rhythm: regular rhythm Heart sounds: S1 normal heart sound present and S2 normal heart sound present GI Inspection: Yes normal to inspection Palpation (GI): Soft to palpation and nontender Auscultation: normal bowel sounds Skin General skin exam: no rashes or lesions noted Neuro General: no focal motor deficits Extrem General: Yes full ROM Psych Appearance: grossly normal Coding Level of Care Code Est Pt Prev Care 40-64y(54470) Diagnoses Physical exam Z00.00 Mild major depression F32.0 Additional Codes PHQ-9 - 56699 - PHQ-9 Billing: Yes ([id number]) PATRICIA-7 Assessment Billing - PATRICIA-7 Assessment Tool: PATRICIA-7 Assessment 57865 ([id number]) Time Spent (min) 30 Assessment & Plan Assessment & Plan (1) Physical exam: Code(s): Z00.00 - Encounter for general adult medical examination without abnormal findings Category: Medical (2) Mild major depression: Code(s): F32.0 - Major depressive disorder, single episode, mild Category: Medical Plan The plan includes repeating blood work to assess cholesterol, sugar, kidney, liver function, and electrolytes, as the last cholesterol check was a year ago. A mammogram and Pap smear are to be scheduled as part of preventative care, given they are overdue. The patient is advised to continue using mineral sunscreen and avoid heat exposure to manage melasma, although she reports no improvement with current treatment. For pancreatic insufficiency, the patient is to continue taking Creon consistently. A tetanus vaccination is to be administered if it has been confirmed that the last dose was over ten years ago. Patient was informed and verbally consented to the use of an ambient scribe for clinic note documentation during this visit. Orders: Orders Lipid Panel Today E78.5 - Hyperlipidemia, unspecified, Z00.00 - Encounter for general adult medical examination without abnormal findings Comprehensive [place]. Panel Fast Today Z00.00 - Encounter for general adult medical examination without abnormal findings MM tomosynthesis screening BI Today Z12.31 - Encounter for screening mammogram for malignant neoplasm of breast
[2024-12-29 13:53] VITALS: BP 102/66; BMI 23.9
--- OUTSIDE RECORDS SUMMARY | 2024-12-29 14:29 | XMS_ITS | Clinical Summary ---
Author Organization [facility] Address [email or web address] [facility] [address] [place] [id number] Phone Care Team Providers Care Oceanologist Name Role Phone Dottie Lemos MD Primary Care Provid er Allergies Active Allergy Reactions Criticality Noted Date Comments Allergen Teq-Dyrnb-Nsevq Bee 024 Medications loratadine (CLARITIN) 10 mg [...] this topic Medical Devices Implanted Type Area Excavating Contractor Device Identifier Shelf Expiration Date Model / Serial / Lot Screw Spine 2.7x22mm Plate R3con Nonlocking - [id number] Implanted:Qty: 1 on 10/23/2023 by Angelo Villalpando MD at [facility] Right: Ankle [employer] [id number] / / Description:[place] 28 REC[employer] Plating System, Sterilizer 4, Load 4, 15 Oct 2023 Screw Plate 3.5x14mm R3con Locking - [id number] Implanted:Qty: 3 on 10/23/2023 by Angelo Villalpando MD at [facility] Right: Ankle [employer] [id number] / / Description:[place] [employer] Plating System, Sterilizer 4, Load 4, 15 Oct 2023 Plate Fibular Cluster 9-Hole Anatomical Right - [id number] Implanted:Qty: 1 on 10/23/2023 by Angelo Villalpando MD at [facility] Right: Ankle [employer] [id number] / / Description:[place] [employer] Plating System, Sterilizer 4, Load 4, 15 Oct 2023 Screw Plate 3.5x12mm Nonlocking R3con - [id number] Implanted:Qty: 2 on 10/23/2023 by Angelo Villalpando MD at [facility] Right: Ankle [employer] [id number] / / Description:[place] [employer] Plating System, Sterilizer 4, Load 4, 15 Oct 2023 Screw Spine 3.5x12mm Plate R3con Locking - [id number] Implanted:Qty: 1 on 10/23/2023 by Angelo Villalpando MD at [facility] Right: Ankle [employer] [id number] / / Description:[place] 28 REC[employer] Plating System, Sterilizer 4, Load 4, 15 Oct 2023 Screw 3.5x14mm Small R3con Non Locking Plate Ijeoma Op Ortho Joints - [id number] Implanted:Qty: 1 on 10/23/2023 by Angelo Villalpando MD at [facility] Right: Ankle [employer] [id number] / / Description:[place] [employer] Plating System, Sterilizer 4, Load 4, 15 Oct 2023 [place] Knot[employer] Syndesmosis Tightrope Xp Lf Titanium Sterile - [id number] Implanted:Qty: 1 on 10/23/2023 by Angelo Villalpando MD at [facility] Right: Ankle [employer] [id number] 07/04/2028 [id number] / / [id number] Insurance [facility] Care Teams Oceanologist Relationship Specialty Start Date End Date Dottie Lemos MD [address] [place] [address] PCP - General Internal Medicine 11/28/21 Additional Source Comments The information contained in this document represents components of the legal health record. It is not the complete legal health record.[facility]
== END 2024-12-29 14:23 | disposition home or self-care (01) ==
LOC: HO.HMCH 13:50
PROVIDERS: PCP Internal Medicine; Visit Provider Internal Medicine
DX: Z00.00 Encounter for general adult medical examination without abnormal findings (principal); F32.0 Major depressive disorder, single episode, mild

== ENCOUNTER → 2024-12-29 13:49 | Outpatient (BNVA) | payer OTHER, SELFPAY | PROVIDERS: PCP Internal Medicine; Visit Provider Internal Medicine | DX: Z00.00 Encounter for general adult medical examination without abnormal findings (principal); F32.0 Major depressive disorder, single episode, mild | CPT/HCPCS: 96127 ==

== ENCOUNTER 2025-02-03 16:05 | Outpatient (AMB) | payer OTHER, SELFPAY ==
--- OUTSIDE RECORDS SUMMARY | 2016-04-18 05:00 | XMS_ITS | Continuity of Care Document ---
Author Organization [facility] Address [address] [facility] [address] [place] [address] Phone Care Team Providers Care Heavy Duty Press Operator Name Role Phone BASILIA MARIN MD Unavailable [...] ENT VISIT, EST [facility], [address] [place] [address], [id number], tel:[phone] [place] [facility] lower back and leg pain (chief complaint) Lumbosacral root disorders, not elsewhere classifiedSpinal stenosis, lumbosacral regionMeralgia paresthetica, right lower limb TOMAS CUI. [address] [facility], [address], [id number], [place]. tel:[phone] [facility], [address] [place] [address], [id number], [place] tel:[phone] [place] [facility] Pain right thigh (chief complaint) Meralgia paresthetica, right lower limbLumbosacral root disorders, not elsewhere classifiedSpinal stenosis, lumbosacral region TOMAS CUI. [address] [facility], [address], [place], [place], [id number], [place]. tel:[phone] Family History Family Member Type Diagnosis Age At Onset No Information Payers Payer name Insurance type Covered libertarian ID Authoriza tion(s) No Information Social History Type Description Quantity [...] Prese nt Illness lower back and leg p ain (comments) [...] spine which did not show surgical lesions. lower back and leg pain lower back and leg pain Pain right thigh (comments) the patient has [...] the potential side effects in the daytime. Pain right thigh Pain right thigh Instructions Date Instruction Additional Infor mation I have started her o n gabapentin [...]
[2025-02-03 16:08] VITALS: BP 114/80; PULSE 75; BMI 23.6
--- NOTE | 2025-02-03 16:08 | MHC.OFFVIS ---
Vital Signs 02/03/25 16:08 Height 5 ft 6 in Weight 146 lb BMI 23.6 BP 114/80 Blood Pressure Location Lt brachial Position Sitting Pulse 75 Intake Visit Reasons: EPI Intake Note: Patient in office today in follow up of epigastric pain and bloating. CC: Patient states that for 2 weeks she's been feeling like there is something stuck in her throat. She states that even when laying down she can feel it, but it is now getting better. Patient reports that she was having a mimosa and it felt like it burning in her throat. She also reports abd cramps about 3-4 times per week. Patient asking if her allergy med could be refilled. Rubber Down Required: No Accompanied by: Self / Same As Patient Allergies No Known Drug Allergies Allergy (Unknown, Verified 02/03/25 16:10) none bees Allergy (Severe, Uncoded 12/29/24 14:02) Anaphylaxis HPI HPI EPI: Details: Assessment & Plan (1) Exocrine pancreatic insufficiency: Code(s): K86.81 - Exocrine pancreatic insufficiency Category: Medical Plan The abnormally low pancreatic a last taste does seem to indicate exocrine pancreatic insufficiency. SHe is taking the creon but she feels that we need to give it more time. It has not yet impacted the pain or the bloating. ROV 6 weeks. Medications: Refilled [id number] 24,000-76,000 -120,000 unit (Creon) 2 caps PO BID 120 caps 6RF 30 days K58.9 - Irritable bowel syndrome, unspecified TODAY'S VISIT [facility] Medical History (Updated 02/03/25 @ 16:54 by KEKE Cross) Physical exam Reactive airways dysfunction syndrome Seasonal allergic rhinitis due to pollen Ulnar neuropathy Hand numbness Surgical History History of open reduction and internal fixation (ORIF) procedure History of shoulder surgery Family History Mother No problems noted. Father No problems noted. Social History Housing: House Alcohol intake: current Alcohol intake frequency: holidays/special occasions only Alcohol type: wine Patient Tobacco Use Status: Never used Tobacco e-Cigarette/Vaping Use: Never Used Second Hand Smoke Exposure: No service: Yes Current occupational status: employed Current occupational exposures/hazards: No Cognitive needs: No Hearing needs: No Vision needs: Yes Review of Systems Const Denies fatigue, Denies fever(s), Denies night sweats, Denies poor appetite and Denies weight loss ENT Reports Normal hearing present, Denies dental pain, Reports dysphagia, Denies hearing loss, Denies mouth pain, Denies odynophagia, Denies throat swelling, Denies tongue swelling and Reports other (Dentition adequate) Card Reports no additional complaints Resp Reports no additional complaints GI Details: Denies abdominal pain, Denies melena, Reports bloating, Denies hematochezia, Denies constipation, Denies GI cramping, Reports dysphagia, Denies excessive flatus, Denies early satiety, Reports heartburn, Denies diarrhea, Reports loose stools, Denies nausea, Denies odynophagia, Denies vomiting and Denies hematemesis Musc Reports arthralgias Skin/Breast Denies pruritus, Denies lesions, Denies rash and Denies jaundice Neuro Reports Normal hearing present and Denies Abnormal speech present Endo Denies fatigue Aller/Immun Denies throat swelling and Denies tongue swelling Physical Exam Vital Signs: Last Vital Signs Pulse 75 02/03/25 16:08 BP 114/80 02/03/25 16:08 BMI result Body Mass Index 23.6 Const General: cooperative, no acute distress, well developed and well groomed Nutritional Appearance: average body habitus and well nourished Orientation/consciousness: oriented to person, oriented to place and oriented to time Limitations: No language barrier HEENT Head: Yes normocephalic and Yes atraumatic Eyes General: appearance normal, both eyes and all related structures Pupils: Equal, round and reactive pupils present Neck Neck: Yes normal visual inspection and Yes no lymphadenopathy Thyroid: Thyroid normal Resp Effort & Inspection: normal respiratory effort and able to speak in complete sentences Auscultation: clear to auscultation bilaterally Cardio Rate: regular rate Rhythm: regular rhythm Heart sounds: Normal, physiologic split S2 sound present Peripheral pulses: radial pulses present and posterior tibial pulses present GI Inspection: No distended and No Abdominal panniculus present Palpation (GI): Soft to palpation, nontender, no guarding, not rigid and No hepatosplenomegaly present Percussion: Yes normal to percussion Auscultation: normal bowel sounds Rectal Exam - Female: deferred Skin General skin exam: no rashes or lesions noted, turgor normal, skin not dry, no jaundice, No spider nevi and no striae Rashes: no rashes Nails: normal Neuro General: oriented to person, oriented to place and oriented to time Cranial nerves: Yes Equal, round and reactive pupils present and Yes Normal hearing present Speech: No Abnormal speech present Extrem General: Yes normal to inspection, No clubbing, No cyanosis and No edema Psych Appearance: grossly normal and well kempt Mental Status: mental status grossly normal Speech and movement: Normal speech and movement present Affect: normal affect Attitude: cooperative Thought process: Normal thought process present and not confabulating Thought content: Normal thought content present Insight: Good insight present (Psych) Judgement: Good judgement present (Psych) Assessment & Plan Assessment & Plan (1) Exocrine pancreatic insufficiency: Code(s): K86.81 - Exocrine pancreatic insufficiency Category: Medical (2) Diarrhea: Code(s): R19.7 - Diarrhea, unspecified Category: Medical (3) Abdominal gas pain: Code(s): R14.1 - Gas pain Category: Medical (4) GERD (gastroesophageal reflux disease): Code(s): K21.9 - Gastro-esophageal reflux disease without esophagitis Category: Medical Plan - The patient is a 55-year-old female presenting with a follow-up for pancreatic exocrine insufficiency symptoms and GERD management. - Persistent bloating and gastrointestinal discomfort despite medication with Creon, with some improvement in the severity of flatulence. Mostly she has had an improvement in the very malodorous nature and the copious amount of flatulence. - Medication regimen is adjusted to increase Creon to 3 tablets twice a day or she can take 2 3 times a day whichever fits her schedule for better management of the bloating and irritable bowel as frequently we under dose with this medication. - Patient experienced significant improvement in diarrhea, this since starting the Creon and she continues on 3 times a day dicyclomine.. - Reports a globus sensation with episodes of a burning sensation following specific dietary triggers, noted improvement over subsequent days. We will start a trial of famotidine that she can take either every day at bedtime or as needed and if this does not solve the problem then we will consider additional studies such as barium swallow and/or EGD. - Patient is scheduled for surgery to remove hardware following a previous foot fracture. She wants reassurance that she will be okay for surgical intervention, add from a GI standpoint there are no contraindications. She had she struggle at all with constipation due to opiate therapy she can certainly call the office but in the meantime I recommend she keep [id number] MiraLax on hand. Medications: New famotidine (Pepcid) 40 mg PO BEDTIME 30 tabs 6RF Changed From zljivk-hlppehsn-nnnihmp 24,000-76,000 -120,000 unit (Creon) 2 caps PO BID 30 days 120 caps 6RF K58.9 - Irritable bowel syndrome, unspecified To hevojw-radomihr-ubawewk 24,000-76,000 -120,000 unit (Creon) 3 caps PO BID 180 caps 6RF 30 days K58.9 - Irritable bowel syndrome, unspecified Coding Level of Care Code Est Pt Level 4 (24439) Diagnoses Exocrine pancreatic insufficiency K86.81 Diarrhea R19.7 Abdominal gas pain R14.1 GERD (gastroesophageal reflux disease) K21.9 Time Spent (min) 35
--- OUTSIDE RECORDS SUMMARY | 2025-02-03 16:46 | XMS_ITS | Continuity of Care Document ---
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 OUTPATIENT [id number] Notes Entered by: ALYSE CASTILLO 06 Aug 2013 1525 ------- ------- ------- ------- -- HRR/PHA ALYSE CASTILLO 08/06 Released w/o Limitations [employer](M edical Standar ds Managem ent) [facility](Opt ometry Clinic) OUTPATIENT [id number] REE RAHUL BACH 08/20 Released w/o Limitations [facility](O ptometr y Clinic) [facility]) OUTPATIENT [id number] kecia hicks WYATT B 08/20 Released w/o Limitations [facility]) [facility]) TELE CONSULT [id number] Notes Entered by: DENEEN JACOBS 16 Sep 2013 1342 ------- ------- ------- ------- -- NETWORK RESULTS - SURGERY 014 DANIEL OROSCO 09/16 [facility]) [facility]) TELE CONSULT [id number] Notes Entered by: DENEEN JACOBS 25 Sep 2013 0742 ------- ------- ------- ------- -- NETWORK RESULTS - SURGERY 014 DANIEL OROSCO 09/25 [facility]) [facility]) OUTPATIENT [id number] HAND RASH X 2 WEEKS DANIEL OROSCO 11/25 Released w/o Limitations [facility]) [facility](Med ical Standards Managemen t) OUTPATIENT [id number] Notes Entered by: ALISTAIR EKYS 16 Feb 2014 1538 ------- ------- ------- ------- -- Danny french records review BINU LORENZANA 02/16 Released w/o Limitations [facility] [employer](M edical Standar ds Managem ent) [facility](Opt ometry Clinic) OUTPATIENT [id number] CL fitting and glasses order RAHUL BACH 02/26 Released w/o Limitations [address] [place] [address](O ptometr y Clinic) [address] [place] [address]([facility]) OUTPATIENT [id number] RT HAND PAINFUL AND SWOLLEN DANIEL OROSCO 03/18 Released w/o Limitations [address] [place] [address](R [facility]) [address] [place] [address]([facility]) OUTPATIENT [id number] Right Quad. Pain DANIEL OROSCO 04/01 Released w/o Limitations [address] [place] [address](R [facility]) [address] [place] [address]([facility]) TELE CONSULT [id number] COSMO LYLE Y 04/[address] [place] [address](R [facility]) [address] [place] [address]([facility]) TELE CONSULT [id number] Notes Entered by: LUIZ ADAM 17 Apr 2014 1232 ------- ------- ------- ------- -- NETWORK RESULTS -PHYSIC AL THERAPY - RADHADANIEL GUADARRAMA Ca 04/[address] [place] [address]([facility]) [address] [place] [address]([facility]) TELE CONSULT [id number] Notes Entered by: Ca GORMAN 02 Jun 2014 0943 ------- ------- ------- ------- -- NETWORK RESULTS -PHYSIC AL THERAPY [id number] COSMO LYLE 06/[address] [place] [address](R [facility]) [address] [place] [address]([facility]) OUTPATIENT [id number] f/u rt lateral thigh pain/PT recomme nding MRI RADHADANIEL GUADARRAMA Ca 06/09 Sick at Home/Quarter s [address] [place] [address](R [facility]) [address] [place] [address]([facility]) TELE CONSULT [id number] Notes Entered by: GLEN HORVATH 30 Jun 2014 0736 ------- ------- ------- ------- -- CAC/CJ- -RAD RESULT AND RX UPDATE COSMO LYLE 06/30 [facility]) [facility]) TELE CONSULT [id number] Notes Entered by: BERTHA HUTCHINSON 13 Jul 2014 0611 ------- ------- ------- ------- -- DANIEL ANNE 07/13 [facility]) [facility]) OUTPATIENT [id number] F/U ON BACK DANIEL OROSCO 07/17 Released w/o Limitations [facility]) [facility] Medical [facility] sical Therapy Clinic) OUTPATIENT [id number] STRAIN MUSCLE, FASCIA, AND TENDON OF TRICEPS DELMY COLMENARES 07/31 Released w/o Limitations [facility](P hysical Therapy Clinic) [facility] Medical [facility] sical Therapy Clinic) OUTPATIENT [id number] ELLY MORAA 08/05 Released w/o Limitations [facility] Medical [facility](P hysical Therapy Clinic) [facility] Medical [facility] OUTPATIENT [id number] EAR PAIN AND SORE THROAT JERRY BUCKLEY 08/10 Released w/o Limitations [facility] Medical [facility]) [facility] Medical [facility] sical Therapy Clinic) OUTPATIENT [id number] DELMY COLMENARES 08/11 Released w/o Limitations [facility](P hysical Therapy Clinic) [facility]) TELE CONSULT [id number] Notes Entered by: BERTHA HUTCHINSON 12 Aug 2014 1257 ------- ------- ------- ------- -- DANIEL ANNE 08/12 [facility]) [facility](PHA Managemen t) OUTPATIENT [id number] HRR/ARELI GO 08/19 Released w/o Limitations [employer](P WHITTAKER Managem ent) [employer](Phy sical Therapy Clinic) OUTPATIENT [id number] LAURENCE HUGO 08/21 Released w/o Limitations [employer](P hysical Therapy Clinic) [employer](Opt ometry Clinic) OUTPATIENT [id number] MARTA CARLTON WILKINSON Maeve 09/01 Released w/o Limitations [employer](O ptometr y Clinic) [employer](Opt ometry Clinic) OUTPATIENT [id number] dfe JAJA CARLTON Maeve 09/09 Released w/o Limitations [employer](O ptometr y Clinic) [employer](Phy sical Therapy Clinic) OUTPATIENT [id number] LAURENCE HUGO 09/10 Released w/o Limitations [employer](P hysical Therapy Clinic) [employer](Grant ins [facility] [employer]) OUTPATIENT [id number] congest ion, ear pressur e, fever ZULEYMA GODOY 10/21 Released w/o Limitations [employer](R obTuniu [facility] [employer]) [employer](Grant ins [facility] [employer]) TELE CONSULT [id number] Notes Entered by: LUIZ ADAM 25 Nov 2014 0932 ------- ------- ------- ------- -- NETWORK RESULTS -MRI LUMBAR SPINE W/O CONTRAS T- DANIEL OROSCO 11/25 [employer](R obTuniu [facility] [employer]) [employer] OUTPATIENT [id number] SPREADI NG RASH DANIEL OROSCO 01/01 Released w/o Limitations [employer](R obTuniu [facility] [employer]) [facility](Tro op_AD Only) OUTPATIENT [id number] HEAD/ BODYACH E, NASAL DRAINAG E, CONGEST ION AMARA KEMP 04/12 Released w/o Limitations [employer](T roop_AD Only) [facility](PHA Managemen t) OUTPATIENT [id number] Notes Entered by: GABRIELLE AM 23 Jun 2015 1418 ------- ------- ------- ------- -- HRR/PHA RECORD REVIEW ENMANUEL COTA 06/23 Released w/o Limitations [employer](P WHITTAKER Managem ent) [employer](BOM C 1 Phys Exams) OUTPATIENT [id number] Notes Entered by: SONG DANG 25 Jun 2015 1034 ------- ------- ------- ------- -- Special Duty NIECYANTONIOSONG MCCANN 06/25 Released w/o Limitations [employer](B OMC 1 Phys Exams) [facility](Dis ease Managemen t Clinic) TELE CONSULT [id number] Notes Entered by: TAVO DAILEY 28 Jun 2015 1531 ------- ------- ------- ------- -- MAMMO CLINIC- DUE TAVO MCKOY 06/28 [facility](D isease Managem ent Clinic) [facility](William eficiarie s_Non-AD Only) OUTPATIENT [id number] injured right alejo grider ELINA SOLITARIO 07/05 Released w/o Limitations [facility](B enefici aries_N on-AD Only) [facility](William eficiarie s_Non-AD Only) TELE CONSULT [id number] Notes Entered by: YUDITH BROOKS 12 Jul 2015 1545 ------- ------- ------- ------- -- BREE ANDERSON 07/12 [facility](B enefici aries_N on-AD Only) [facility](Opt ometry Clinic) OUTPATIENT [id number] CARLTON DENG 07/20 Released w/o Limitations [facility](O ptometr y Clinic) [facility](Opt ometry Clinic) OUTPATIENT [id number] formerly [facility] f/CARLTON Sullivan 08/02 Released w/o Limitations [employer](O ptometr y Clinic) [employer](In and Out Erinn Yanez) TELE CONSULT [id number] Notes Entered by: BRAULIO AMBROSE 10 Aug 2015 1013 ------- ------- ------- ------- -- Out Process BRAULIO Huerta 08/09 [employer](I n and Out Process sathish Yanez) [address] [facility](Opt ometry Clinic) OUTPATIENT [id number] Annual Eye Exam YANIV ANTONIO Annmarie 04/07 Released w/o Limitations [address] [employer](O ptometr y Clinic) [address] [facility](BOM C1 Non-Clini goldy) OUTPATIENT [id number] Notes Entered by: RICARDA ARMENDARIZ 02 Aug 2016 1500 ------- ------- ------- ------- -- MANNY JUAREZ 08/02 Released w/o Limitations [address] [facility](B OMC1 Non-Cli nical) [address] [facility](Opt ometry Clinic) OUTPATIENT [id number] CL recheck pt coming from august ANTONIO Petty 08/09 Released w/o Limitations [address] [employer](O ptometr y Clinic) [place] Group(BOM C1) OUTPATIENT [id number] [facility] [id number] ANURAG TERRY 08/28 Released w/o Limitations [address] [facility](B OMC1) [address] [facility](BOM C1 Non-Clini goldy) OUTPATIENT [id number] Notes Entered by: Cole BILLS 03 Sep 2017 0935 ------- ------- ------- ------- -- MANNY JUAREZ 09/03 Released w/o Limitations [address] [facility](B OMC1 Non-Cli nical) [place] [address]([place] ini Team) TELE CONSULT [id number] Notes Entered by: MOOSE SANDERS 2018 0835 ------- ------- ------- ------- -- Request DELMY Xie 01/[address](G emini Team) [address](Opt ometry Clinic) OUTPATIENT [id number] well eye exam ANTONIO PURVIS 02/07 Released w/o Limitations [place] [address](O ptometr y Clinic) [address](Opt ometry Clinic) OUTPATIENT [id number] CL FU ANTONIO PURVIS 03/12 Released w/o Limitations [address](O ptometr y Clinic) [address](BOM C1) OUTPATIENT [id number] 0 [facility] MIKAELA WONG 08/23 Released w/o Limitations [address](B OMC1) [address](Fli ght Medicine Clinic) OUTPATIENT [id number] 5 face to face PHA MELINDA BARTON 01/27 Released w/o Limitations [address](F light Medicin e Clinic) [address](Opt ometry Clinic) OUTPATIENT [id number] 3 eye exam ANTONIO PURVIS 04/25 Released w/o Limitations [address](O ptometr y Clinic) [address] [place] [address](Bas e Ops Med Clinic) OUTPATIENT [id number] 4 [facility] GLORIA METZGER 02/26 Released w/o Limitations [address] [place] [address](B ase Ops Med Clinic) [id number] AMDS Outpatient [id number] MELVA MARINELLI 03/12 Discharge Disposition: Home or Self Care [id number] AMDS [facility] Outpatient Encounter [id number] 07/07 [facility] [id number] AMDS Between Visit [id number] 07/15 Discharge Disposition: Home or Self Care [id number]-4 39 AMDS [facility] Outpatient Encounter [id number] TOREY ANGEL 08/21 [facility] Procedures Combined list of: 1) Procedures from Department of Veterans Affairs facilities going back up to thelast 18 months, not all VA non-surgical procedures are included; 2) All procedures from the Department of Defense facilities. Procedure Procedure Type Code Date Perfomer Comments Sourc e No data available for this section [facility] BRIEF COMM TECH-BASE SERV,E.G. VIRT CHK-IN,BY PHYS/OTH [...] SPECTACLES, EXCEPT FOR APHAKIA; MONOFOCAL 2015 DoD PRESCRIPTION OF OPTICAL AND PHYSICAL [...] MINUTES 2009 DoD PHYSICAL THERAPY EVALUATION 2009 [facility] OPHTHALMOLOGICAL SERVICES: MEDICAL EXAMINATION AND EVALUATION, WITH INITIATION OR CONTINUATION OF DIAGNOSTIC AND TREATMENT PROGRAM; COMPREHENSIVE, ESTABLISHED PATIENT, 1 OR MORE VISITS 2008 [facility] PHYSICAL THERAPY RE-EVALUATION 2008 [facility] PRESCRIPTION OF OPTICAL AND PHYSICAL CHARACTERISTICS OF AND FITTING OF CONTACT LENS, WITH MEDICAL SUPERVISION OF ADAPTATION; CORNEAL LENS, BOTH EYES, EXCEPT FOR APHAKIA 2008 [facility] PHYSICAL THERAPY RE-EVALUATION 2008 DoD THERAPEUTIC PROCEDURE, 1 OR MORE AREAS, EACH 15 MINUTES; THERAPEUTIC EXERCISES TO DEVELOP STRENGTH AND ENDURANCE, RANGE OF MOTION AND FLEXIBILITY 2007 [facility] OPHTHALMOLOGICAL SERVICES: MEDICAL EXAMINATION AND EVALUATION, WITH INITIATION OR CONTINUATION OF DIAGNOSTIC AND TREATMENT PROGRAM; INTERMEDIATE, ESTABLISHED PATIENT 2015 [facility] PRESCRIPTION OF OPTICAL AND PHYSICAL CHARACTERISTICS OF AND FITTING OF CONTACT LENS, WITH MEDICAL SUPERVISION OF ADAPTATION; CORNEAL LENS, BOTH EYES, EXCEPT FOR APHAKIA 2015 [facility] TELEPHONE CALLS BY A REGISTERED NURSE TO A DISEASE MANAGEMENT PROGRAM MEMBER FOR MONITORING PURPOSES; PER MONTH 2015 [facility] THERAPEUTIC PROCEDURE, 1 OR MORE AREAS, EACH 15 MINUTES; THERAPEUTIC EXERCISES TO DEVELOP STRENGTH AND ENDURANCE, RANGE OF MOTION AND FLEXIBILITY 2014 [facility] OPHTHALMOLOGICAL SERVICES: MEDICAL EXAMINATION AND EVALUATION, WITH INITIATION OR CONTINUATION OF DIAGNOSTIC AND TREATMENT PROGRAM; INTERMEDIATE, ESTABLISHED PATIENT 2014 [facility] PRESCRIPTION OF OPTICAL AND PHYSICAL CHARACTERISTICS OF AND FITTING OF CONTACT LENS, WITH MEDICAL SUPERVISION OF ADAPTATION; CORNEAL LENS, BOTH EYES, EXCEPT FOR APHAKIA 2014 [facility] APPLICATION OF A MODALITY TO 1 OR [...] COLD PACKS 2012 DoD PHYS/OTH QUALIFIED HEALTH DIET TECHNICIAN REGISTERED QUALIFIED,EDUCATION ,TRAIN,LICENSURE/RE GULATION (WHEN APPLICABLE) EDUC SER [...] HR/SOON APT;5-10 MIN MED DIS 2011 DoD Modalities Cryotherapy Cold Packs Modalities Cryotherapy Cold Packs 90717 2012 TSERING JEAN I [id number] Do[employer] Modalities Heat Hot Packs Modalities Heat Hot Packs 01631 2012 TSERING JEAN I [phone] DoD Modalities Heat Hot Packs Modalities Heat Hot Packs 53304 2012 DONATO RICARDO [phone] [facility] Modalities Cryotherapy Cold Packs Modalities Cryotherapy Cold Packs 26353 2012 DONATO RICARDO [phone] [facility] Physical Therapy: ___ Se ion Segments, 15 Minutes Each Physical Therapy: ___ Session Segments, 15 Minutes Each 10904 2012 DONATO RICARDO [phone] [employer] Cryotherapy Cold Packs Modalities Cryotherapy Cold Packs 68165 2012 DONATO RICARDO 3391-1205 [employer] Heat Hot Packs Modalities Heat Hot Packs 97294 2012 DONATO RICARDO [phone] [facility] Physical Therapy: ___ Se ion Segments, 15 Minutes Each Physical Therapy: ___ Session Segments, 15 Minutes Each 19053 2012 DONATO RICARDO 8921-9806 [facility] Modalities Cryotherapy Cold Packs Modalities Cryotherapy Cold Packs 84578 2012 NICHOLE DOLL [phone] Sean Modalities Heat Hot Packs Modalities Heat Hot Packs 72781 2012 NICHOLE DOLL [phone] Sean Physical Therapy: ___ Se ion Segments, 15 Minutes Each Physical Therapy: ___ Session Segments, 15 Minutes Each 06792 2012 NICHOLE DOLL [phone] [facility] Neuromuscular Re-education Physical Therapy Neuromuscular Re-education 40651 2012 NICHOLE DOLL Modalities Cryotherapy Cold Packs Modalities Cryotherapy Cold Packs 19785 2012 NICHOLE DOLL [phone] [facility] Modalities Heat Hot Packs Modalities Heat Hot Packs 91109 2012 NICHOLE DOLL [phone] [facility] Neuromuscular Re-education Physical Therapy Neuromuscular Re-education 56557 2012 NICHOLE DOLL Physical Therapy: ___ Se ion Segments, 15 Minutes Each Physical Therapy: ___ Session Segments, 15 Minutes Each 44878 2012 NICHOLE DOLL [phone] [facility] Physical Therapy Evaluation Physical Medicine Physical Therapy Evaluation 04653 2012 JUS FLOWERS Non-Physician Phone Call To Patient/Provider Brief (5-10min) Non-Physician Phone Call To Patient/Provider Brief (5-10min) 75942 2011 ELIAN JOSEPH Prescription & Fitting Bilateral Corneal Lenses (Not Aphakia Prescription & Fitting Bilateral Corneal Lenses (Not Aphakia 03980 2009 RANDI JACK [employer] Fitting Monofocals (Not For Aphakia) [employer] Fitting Monofocals (Not For Aphakia) 56606 2009 RANDI JACK Determination Of Refractive State Determination Of Refractive State 47055 2009 RANDI JACK Ophthalmological Prior Patient Start Comprehensive Care Ophthalmological Prior Patient Start Comprehensive Care 07354 2009 RANDI JACK Training And Self-Care Skills Additional 15 Minutes Training And Self-Care Skills Additional 15 Minutes 58835 2009 ADRIANE QUEVEDO Physical Medicine Physical Therapy Re-Evaluation Physical Medicine Physical Therapy Re-Evaluation 24254 2009 ADRIANE QUEVEDO Training And Self-Care Skills Additional 15 Minutes Training And Self-Care Skills Additional 15 Minutes 85140 2009 ADRIANE QUEVEDO Physical Medicine Physical Therapy Re-Evaluation Physical Medicine Physical Therapy Re-Evaluation 51419 2009 ADRIANE QUEVEDO Training And Self-Care Skills Additional 15 Minutes Training And Self-Care Skills Additional 15 Minutes 84586 2009 ADRIANE QUEVEDO Physical Medicine Physical Therapy Re-Evaluation Physical Medicine Physical Therapy Re-Evaluation 17247 2009 ADRIANE QUEVEDO Training And Self-Care Skills Initial 30 Minutes Training And Self-Care Skills Initial 30 Minutes 15549 2009 ADRIANE QUEVEDO Exercises A isted Exercises For ROM Exercises Assisted Exercises For ROM 97023 2009 ADRIANE QUEVEDO Physical Medicine Physical Therapy Evaluation Physical Medicine Physical Therapy Evaluation 12197 2009 ADRIANE QUEVEDO Ophthalmological Prior Patient Start Comprehensive Care Ophthalmological Prior Patient Start Comprehensive Care 60236 2008 RANDI JACK Physical Medicine Physical Therapy Re-Evaluation Physical Medicine Physical Therapy Re-Evaluation 63734 2008 ADRIANE QUEVEDO Prescription & Fitting Bilateral Corneal Lenses (Not Aphakia Prescription & Fitting Bilateral Corneal Lenses (Not Aphakia 15440 2008 RANDI JACK Spectacles Services Fitting Monofocals (Not For Aphakia) [employer] Services Fitting Monofocals (Not For Aphakia) 46779 2008 RANDI JACK Ophthalmological New Patient Start Comprehensive Care Ophthalmological New Patient Start Comprehensive Care 35279 2008 RANDI JACK Determination Of Refractive State Determination Of Refractive State 29471 2008 RANDI JACK Physical Medicine Physical Therapy Re-Evaluation Physical Medicine Physical Therapy Re-Evaluation 28348 2008 ADRIANE QUEVEDO Physical Therapy Ma age Physical Therapy Massage 46371 2007 ADRIANE QUEVEDO PT Performance Testing A istive Technology A e ment PT Performance Testing Assistive Technology Assessment 35230 2007 ADRIANE QUEVEDO Physical Therapy: ___ Se ion Segments, 15 Minutes Each Physical Therapy: ___ Session Segments, 15 Minutes Each 23112 2007 ADRIANE QUEVEDO Physical Medicine Physical Therapy Evaluation Physical Medicine Physical Therapy Evaluation 56477 2007 ADRIANE QUEVEDO Internet Med Svc Qual Nonphys Healthcare Prof Estab Patient Internet Med Svc Qual Nonphys Healthcare Prof Estab Patient 12359 2018 MARVINMIKAELA WHATLEY Sean Prescription & Fitting Bilateral Corneal Lenses (Not Aphakia Prescription & Fitting Bilateral Corneal Lenses (Not Aphakia 30068 2017 ANTONIO PURVIS Ophthalmological Prior Patient Start Comprehensive Care Ophthalmological Prior Patient Start Comprehensive Care 05712 2017 ANTONIO PURVIS Scanning Computerized Ophthalmic Diagnostic Imaging Retina Scanning Computerized Ophthalmic Diagnostic Imaging Retina 91373 2017 ANTONIO PURVIS Spectacles Services Fitting Bifocals (Not For Aphakia) [employer] Services Fitting Bifocals (Not For Aphakia) 49341 2017 ANTONIO PURVIS [employer] Services Fitting Monofocals (Not For Aphakia) [employer] Fitting Monofocals (Not For Aphakia) 25107 2017 ANTONIO PURVIS Determination Of Refractive State Determination Of Refractive State 34734 2017 ANTONIO PURVIS Prescription & Fitting Bilateral Corneal Lenses (Not Aphakia Prescription & Fitting Bilateral Corneal Lenses (Not Aphakia 20533 2017 ANTONIO PURVIS Ophthalmological Prior Patient Start Comprehensive Care Ophthalmological Prior Patient Start Comprehensive Care 27670 2017 ANTONIO PURVIS Internet Med Svc Qual Nonphys Healthcare Prof Estab Patient Internet Med Svc Qual Nonphys Healthcare Prof Estab Patient 40301 2017 ANURAG TERRY [employer] Services Fitting Bifocals (Not For Aphakia) [employer] Fitting Bifocals (Not For Aphakia) 42151 2016 ANTONIO PURVIS [employer] Services Fitting Monofocals (Not For Aphakia) [employer] Fitting Monofocals (Not For Aphakia) 94965 2016 ANTONIO PURVIS Scanning Computerized Ophthalmic Diagnostic Imaging Retina Scanning Computerized Ophthalmic Diagnostic Imaging Retina 50346 2016 ANTONIO PURVIS Determination Of Refractive State Determination Of Refractive State 29618 2016 ANTONIO PURVIS Prescription & Fitting Bilateral Corneal Lenses (Not Aphakia Prescription & Fitting Bilateral Corneal Lenses (Not Aphakia 79609 2016 ANTONIO PURVIS Ophthalmological Prior Patient Start Comprehensive Care Ophthalmological Prior Patient Start Comprehensive Care 19507 2016 ANTONIO PURVIS Spectacles Services Fitting Bifocals (Not For Aphakia) [employer] Services Fitting Bifocals (Not For Aphakia) 32432 2015 ANTONIO PURVIS Scanning Computerized Ophthalmic Diagnostic Imaging Retina Scanning Computerized Ophthalmic Diagnostic Imaging Retina 46827 2015 ANTONIO PURVIS [employer] Services Fitting Monofocals (Not For Aphakia) [employer] Fitting Monofocals (Not For Aphakia) 17671 2015 ANTONIO PURVIS Prescription & Fitting Bilateral Corneal Lenses (Not Aphakia Prescription & Fitting Bilateral Corneal Lenses (Not Aphakia 46522 2015 ANTONIO PURVIS Determination Of Refractive State Determination Of Refractive State 38127 2015 ANTONIO PURVIS Ophthalmological New Patient Start Comprehensive Care Ophthalmological New Patient Start Comprehensive Care 94078 2015 ANTONIO PURVIS Ophthalmological Prior Patient Start Intermediate Level Care Ophthalmological Prior Patient Start Intermediate Level Care 31120 2015 CARLTON WILKINSON Prescription & Fitting Bilateral Corneal Lenses (Not Aphakia Prescription & Fitting Bilateral Corneal Lenses (Not Aphakia 47134 2015 CARLTON WILKINSON [employer]acles Services Fitting Bifocals (Not For Aphakia) [employer] Fitting Bifocals (Not For Aphakia) 62601 2015 CARLTON WILKINSON Determination Of Refractive State Determination Of Refractive State 83535 2015 CARLTON WILKINSON Ophthalmological Prior Patient Start Comprehensive Care Ophthalmological Prior Patient Start Comprehensive Care 59281 2015 CARLTON WILKINSON Telephone calls by a registered nurse to a disease management program member for monitoring purposes; per month 2015 TAVO MCKOY Exercises A isted Exercises For ROM Exercises Assisted Exercises For ROM 39305 2014 LAURENCE HUGO [phone] Sean Modalities Heat Hot Packs Modalities Heat Hot Packs 06811 2014 LAURENCE HUGO [phone] Sean Ophthalmological Prior Patient Start Intermediate Level Care Ophthalmological Prior Patient Start Intermediate Level Care 07571 2014 CARLTON WILKINSON Prescription & Fitting Bilateral Corneal Lenses (Not Aphakia Prescription & Fitting Bilateral Corneal Lenses (Not Aphakia 57453 2014 CARLTON WILKINSON Determination Of Refractive State Determination Of Refractive State 79391 2014 CARLTON WILKINSON Spectacles Services Fitting Monofocals (Not For Aphakia) [employer] Services Fitting Monofocals (Not For Aphakia) 40977 2014 CARLTON WILKINSON Ophthalmological Prior Patient Start Comprehensive Care Ophthalmological Prior Patient Start Comprehensive Care 55559 2014 CARLTON WILKINSON Modalities Iontophoresis Modalities Iontophoresis 27175 2014 LAURENCE HUGO [phone] Sean Physical or manipulative therapy performed for maintenance rather than baptism 2014 DELMY COLMENARES Needle, sterile, any size, each 2014 DELMY COLMENARES Taping Shoulder Taping Shoulder 21290 2014 DELMY COLMENARES Osteopathic Manip Treatment (OMT) 1-2 Body Regions Involved Osteopathic Manip Treatment (OMT) 1-2 Body Regions Involved 84516 2014 DELMY COLMENARES Physical Medicine Physical Therapy Re-Evaluation Physical Medicine Physical Therapy Re-Evaluation 52543 2014 DELMY COLMENARES Modalities Iontophoresis Modalities Iontophoresis 55283 2014 ELLY MORA [phone] Sean Physical Therapy: ___ Se ion Segments, 15 Minutes Each Physical Therapy: ___ Session Segments, 15 Minutes Each 45617 2014 ELLY MORA [phone] Sean Needle, sterile, any size, each 2014 DELMY COLMENARES Physical or manipulative therapy performed for maintenance rather than baptism 2014 DELMY COLMENARES Taping Shoulder Taping Shoulder 95545 2014 DELMY COLMENARES Osteopathic Manip Treatment (OMT) 1-2 Body Regions Involved Osteopathic Manip Treatment (OMT) 1-2 Body Regions Involved 84602 2014 DELMY COLMENARES Physical Medicine Physical Therapy Evaluation Physical Medicine Physical Therapy Evaluation 67566 2014 DELMY COLMENARES Spectacles Services Fitting Monofocals (Not For Aphakia) [employer] Fitting Monofocals (Not For Aphakia) 67709 2013 RAHUL BACH Prescription & Fitting Bilateral Corneal Lenses (Not Aphakia Prescription & Fitting Bilateral Corneal Lenses (Not Aphakia 16879 2013 RAHUL BACH Ophthalmological Prior Patient Start Intermediate Level Care Ophthalmological Prior Patient Start Intermediate Level Care 35122 2013 RAHUL BACH Destruction Of Flat Warts By Cryosurgery Up To 14 Lesions Destruction Of Flat Warts By Cryosurgery Up To 14 Lesions 72921 2013 DANIEL OROSCO [employer] Services Fitting Monofocals (Not For Aphakia) [employer]acles Services Fitting Monofocals (Not For Aphakia) 14319 2013 RAHUL BACH Determination Of Refractive State Determination Of Refractive State 11434 2013 RAHUL BACH Ophthalmological Prior Patient Start Comprehensive Care Ophthalmological Prior Patient Start Comprehensive Care 95122 2013 RAHUL BACH Electrocardiogram Electrocardiogram 89842 11/13 DANIEL OROSCO Physical Medicine Physical Therapy Re-Evaluation Physical Medicine Physical Therapy Re-Evaluation 55850 2012 JUS FLOWERS Physical Medicine Physical Therapy Re-Evaluation Physical Medicine Physical Therapy Re-Evaluation 53017 2012 ZMONTANO, JUS S DoD Modalities Heat Hot Packs Modalities Heat Hot Packs 87430 2012 NICHOLE DOLL [phone] DoD Modalities Cryotherapy Cold Packs Modalities Cryotherapy Cold Packs 78475 2012 NICHOLE DOLL [phone] [facility] Physical Therapy Neuromuscular Re-education Physical Therapy Neuromuscular Re-education 39551 2012 NICHOLE DOLL [facility] Physical Therapy: ___ Se ion Segments, 15 Minutes Each Physical Therapy: ___ Session Segments, 15 Minutes Each 61004 2012 NICHOLE DOLL [phone] DoD Modalities Cryotherapy Cold Packs Modalities Cryotherapy Cold Packs 01680 2012 NICHOLE DOLL [phone] [facility] Modalities Heat Hot Packs Modalities Heat Hot Packs 62555 2012 NICHOLE DOLL [phone] [facility] Physical Therapy Neuromuscular Re-education Physical Therapy Neuromuscular Re-education 63880 2012 NICHOLE DOLL Physical Therapy: ___ Se ion Segments, 15 Minutes Each Physical Therapy: ___ Session Segments, 15 Minutes Each 63084 2012 NICHOLE DOLL [phone] [facility] Modalities Cryotherapy Cold Packs Modalities Cryotherapy Cold Packs 59258 2012 LAURENCE HUGO [phone] [facility] Physical Therapy: ___ Se ion Segments, 15 Minutes Each Physical Therapy: ___ Session Segments, 15 Minutes Each 97854 2012 LAURENCE HUGO R [phone] Sean Modalities Heat Hot Packs Modalities Heat Hot Packs 52669 2012 LAURENCE HUGO [phone] [facility] Prescription & Fitting Bilateral Corneal Lenses (Not Aphakia Prescription & Fitting Bilateral Corneal Lenses (Not Aphakia 19067 2012 CARLOZ ARREOLA [facility] Spectacles Services Fitting Monofocals (Not For Aphakia) [employer] Services Fitting Monofocals (Not For Aphakia) 76721 2012 CARLOZ ARREOLA Determination Of Refractive State Determination Of Refractive State 72139 2012 CARLOZ ARREOLA [facility] Ophthalmological New Patient Start Comprehensive Care Ophthalmological New Patient Start Comprehensive Care 41071 2012 CARLOZ ARREOLA [facility] Modalities Cryotherapy Cold Packs Modalities Cryotherapy Cold Packs 51906 2012 DONATO RICARDO [phone] [facility] Modalities Heat Hot Packs Modalities Heat Hot Packs 83562 2012 DONATO RICARDO [phone] [facility] Physical Therapy: ___ Se ion Segments, 15 Minutes Each Physical Therapy: ___ Session Segments, 15 Minutes Each 41963 2012 DONATO RICARDO [phone] [facility] Physical Therapy: ___ Se ion Segments, 15 Minutes Each Physical Therapy: ___ Session Segments, 15 Minutes Each 67331 2012 LAURENCE HUGO [phone] [facility] Modalities Heat Hot Packs Modalities Heat Hot Packs 00694 2012 LAURENCE HUGO [phone] [facility] -Supervised Group Educational Services -Supervised Group Educational Services 71999 2012 RAHUL BACH [facility] Physical Medicine Physical Therapy Re-Evaluation Physical Medicine Physical Therapy Re-Evaluation 94940 2012 JUS FLOWERS [facility] Modalities Heat Hot Packs Modalities Heat Hot Packs 83616 2012 NICHOLE DOLL [phone] [facility] Modalities Cryotherapy Cold Packs Modalities Cryotherapy Cold Packs 28820 2012 NICHOLE DOLL [phone] [facility] Physical Therapy: ___ Se ion Segments, 15 Minutes Each Physical Therapy: ___ Session Segments, 15 Minutes Each 52832 2012 NICHOLE DOLL [phone] [facility] Modalities Heat Hot Packs Modalities Heat Hot Packs 85689 2012 DONATO RICARDO [phone] [facility] Modalities Cryotherapy Cold Packs Modalities Cryotherapy Cold Packs 93339 2012 DONATO RICARDO [phone] Sean Physical Therapy: ___ Se ion Segments, 15 Minutes Each Physical Therapy: ___ Session Segments, 15 Minutes Each 97721 2012 DONATO RICARDO [phone] [facility] Non-Physician Phone Call To Patient/Provider Brief (5-10min) Non-Physician Phone Call To Patient/Provider Brief (5-10min) 72752 2012 ANEUDY NOEL [facility] Modalities Cryotherapy Cold Packs Modalities Cryotherapy Cold Packs 82518 2012 NICHOLE DOLL [facility] Physical Therapy: ___ Se ion Segments, 15 Minutes Each Physical Therapy: ___ Session Segments, 15 Minutes Each 25592 2012 NICHOLE DOLL [phone] [facility] Physical Therapy: ___ Se ion Segments, 15 Minutes Each Physical Therapy: ___ Session Segments, 15 Minutes Each 48868 2012 MIRANDA TSERING Clifford [phone] [facility] Ophthalmological Prior Patient Start Comprehensive Care Ophthalmological Prior Patient Start Comprehensive Care 48084 ANTONIO PURVIS Prescription & Fitting Bilateral Corneal Lenses (Not Aphakia Prescription & Fitting Bilateral Corneal Lenses (Not Aphakia 45630 ANTONIO PURVIS Determination Of Refractive State Determination Of Refractive State 06596 ANTONIO PURVIS Ophthalmological Sensorimotor Exam Ophthalmological Sensorimotor Exam 19186 ANTONIO PURVIS Brief communication technology-based service, e.g. virtual check-in, [...] minutes of medical discu ion GLORIA METZGER Desmond Only telephonic assessment; visit lasted 15 minutes. [facility] Social History Combined list of available smoking, tobacco, and other social history from Department of Defense and Veterans Affairs facilities. Social History Type Response Date Comment [facility] e Tobacco smoking status NHIS LIFETIME NON-USER OF TOBACCO 06/13/2011 [facility] History of tobacco use LIFETIME NON-USER OF TOBACCO 12/05/2007 [facility] This section is an empty social history section. [facility] Assessment and Plan Combined list of future care activities from Department of Defense and Veterans Affairs facilities (e.g., assessment and plan notes, appointments, orders, and referrals). Additional future care activities may be listed in the Plan of Care section. Result Assessment and Plan Date Source Assessment and Plan Extracted from:Title : 2024 Author: ADWOA CONNOR Date: 5/2/25 ANNUAL PERIODIC HEALTH ASSESSMENT I. STEM ASSEMBLER INFORMATION AND DEMOGRAPHICS (SMI) 1. Last Name: KORY 2. First Name: ALBA 3. Middle Name: Des 4. Assessment Date: 5. : 6. Age: 54 7. Sex: F 8. DoD ID Number: [id number] 9. Service Branch: [employer] 10. 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 Unit Name: [address] [place] [address] 14. Duty Station/Location: [place] 15. UIC: [id number] 16. Is this your first Periodic Health Assessment (PHA)?: N 17. Are you enrolled in a secure messaging system with your health care provider?: Y 18. Current contact information: Preferred Method: Email 1 DSN: [id number] Day Time Phone: [phone] Night Time Email 1: [email or web address] Email 2: Address: [address] City: [place] State: [place] Zip Code: [address] 19. Point of contact who can always reach you: Name: Za Fong Phone 1: [phone] Phone 2: EMAIL: [email or web address] Address: [address] [place] [address] City: [place] State: [place] Zip Code: [address] II. DEPLOYMENT INFORMATION (DEP) 1. [ 0 ] Total number of deployments in the PAST 5 YEARS 4. [ N ] Are you going to deploy within the NEXT 120 DAYS? III. OCCUPATIONAL INFORMATION (OCC) 1 [ [id number] ] What is your occupational code 2. [...] if so, what is your status? [ Persistent or recurring noises in head or ears ] Conditions with no medical care [ [...] care, but no longer under treatment [ Recurring muscle, joint, or low back pain ] Conditions with medical care, and NOW [...] chemicals or other airborne contaminants? 6. [ No ] Are you enrolled in the Airborne Hazards and Open Burn Pit Registry? 7. [ Yes ] Federal law requires eligible members to enroll in the Airborne Hazards and Open Burn Pit Registry or opt-out. If eligble, choose one: 8. Have you had any surgery since [...] V. INDIVIDUAL MEDICAL READINESS (IMR) 1. [ No ] Do you have any allergies? 3. [ Not required ] Do you have red medical warning dog tags? 4. [ Yes ] Do you wear corrective lenses? 5. [ 0 ] How many pairs of glasses do [...] abuse or substance abuse? 3. [ Yes Ibuprofen and multivitamins ] What prescription or over-the counter medications (including herbals/supplements) for sleep, pain, combat stress, or a mental health problem are you CURRENTLY taking? 4. a. [ No ] In the past 12 months, have you gambled? 5. a. [ Monthly or less ] How often do you have a drink containing alcohol? 5. b. [ 1 or 2 ] How many drinks containing alcohol do you have on a typical day when you are drinking? 5. c. [ Never ] How often do you have six or more drinks on one occasion? 6. Have you ever had any experience [...] easily startled? 6. d. [ No ] [place] numb or detached from others, activities, or your surroundings? 6. e. [ Not answered ] [place] guilt or unable to stop blaming yourself [...] like to schedule a visit with a development executive, mental health care provider, or a community support counselor? 12. [ Not answered ] Are you currently being evaluated for, have a current diagnosis or history of, or exhibit symptoms consistent with gender dysphoria? (i.e. distress due to gender identity differing from sex that impacts or limits functioning) VII. FAMILY HISTORY AND LIFESTYLE (LIF) 1. [...] specifically designed to STRENGTHEN my muscles: [ 6 ] Day(s) per week 8. [ Loradadine and Ibuprofen ] What prescriptions or cdxp-frn-emqdruu medications are you CURRENTLY taking for health [...] servings per day ] Vegetables [ 3 or more servings per day ] Starchy Vegetables [ 2 servings per day ] Whole Grains [ 3 to 6 servings per week ] Dairy and Calcium Containing Foods [ 3 to 6 servings per week ] Fish [ 3 to 6 servings per week ] Lean Protein [ Rarely or Never ] Sugar-Sweetened Beverages ] Have you had a cholesterol check by a health home care manager within the PAST 5 YEARS? 13.a. In the PAST 30 DAYS, which of the following products have you used on at least one day? None 15. Which of the following best describes your past tobacco use? I have never used tobacco products. 16. [ No ] Are you regularly exposed to secondhand [...] no longer experiencing menstrual cycles? 5. [ Yes ] Are you currently taking folic acid [...] diabetes? X. OTHER MEDICAL (OTH) 1. [ 3 ] Rate the amount of pain you [...] discuss any health concerns? XI. SEPARATION AND SKILLED NURSING 1. [ No ] Are you planning to separate or retire within the next year from Active Duty or [place] Duty (activated for greater than 30 continuous days) OR do you intend to file a claim for disability compensation with the [employer]? PART B. RECORD REVIEW AND RECOMMENDATIONS I. RECORD REVIEWER INFORMATION 1. Last Name: RA 2. First Name: TAVO 3. Middle Name: Contreras 4. Service Branch: [employer] 5. 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 EMAIL: [email or web address] 8. Facility: [facility] 9. Unit: [facility] 10. Address: [address] [place] [address] 11. State: [place] 12. Zip Code: [address] 13. 14. Date Record Review: II. MEDICAL SCREENING 1. [ ] Date of parole board member's most recent PHA 2. [ 5 feet 4 inches Date: ] parole board member's most recently documented height 3. [ 145 pounds Date: ] parole board member's most recently documented weight 4. [ 122/80 Date: ] parole board member's most recently documented blood pressure reading 5. [ No ] Does the parole board member have a history of abnormal blood pressure since their last PHA? 6. [ Yes ] Does the parole board member have a laboratory test of sickle cell trait documented in their permanent medical record? 7. [ ] What is the date of the parole board member's most recently documented cholesterol test? 8. [ No Colon Cancer Screening Documented ] What is the date of the parole board member's most recently documented colon cancer screening? 9. [ Loratadine Ibuprofen ] List of parole board member's active medications listed in their permanent medical record 10. [ No ] Is there a discrepancy between the active medication record review and the parole board member's self-reported list of medications? 11. [ seen for fracture of R ankle ] List documented significant care the parole board member has received since their last PHA from a provider OUTSIDE the Health System 12. [ Yes: seen for fracture of R ankle ] Is there a discrepancy between the parole board member's list of OUTSIDE care (from OTH[facility]), and the OUTSIDE care found in the record? 13. [ No Inside Care Documented ] List documented significant care the parole board member has received since their last PHA from a provider INSIDE the Health System 15. [ Not Answered ] Confirm that vaccine exemptions are listed in the medical record for each vaccine listed IV. FAMILY HISTORY AND LIFESTYLE 1. [ Yes ] Does the [id number] reflect the parole board member's reported family history? V. WOMEN'S HEALTH [...] READINESS 1. [ No ] Does the parole board member have an Assignment Limitation Code C? 3. [ Classification: 1 ] Most recently documented dental exam 4. [ Yes ] Is the parole board member current on all required immunizations in the immunization tracking system? 5. [ No, parole board member needs: Optometry ] Is the parole board member current with Service-specific requirements for glasses and gas mask inserts? 6. Does the parole board member have the following laboratory tests documented [...] need to be forwarded to the Health Rent Collector completing PART C: Medications: ibuprofen, Loratadine Supplements: Multi vit, ind vit/minerals, joint care Pain scale 3/10 Reported Persistent or recurring noises in your head or ears did not get tx and Recurring muscle, joint, or low back pain under tx Seen for R ankle fracture per [facility] Date Record Review Completed: PART C. HEALTH CARE PROVIDER I. MENTAL HEALTH ASSESSMENT (MHA) PROVIDER INFORMATION 1. Last Name: Abdi 2. First Name: Eun 3. Middle Name: 4. Service Branch: Other 5. Status: Contractor 6. Title: Other Licensed Mental Health Professional 7. EMAIL: [email or web address] 8. Facility: [facility] Admin Office 9. Unit: N/A 10. [facility] 11. State: [place] 12. Zip Code: [address] 13. 14. Date HCP Review initiated: 1. Member marked that they did not have a concern or a difficulty with a major life stressor. 2. Address concerns identified on member questions 2 and 3. History of mental health care: N/A Member's response: Provider's comments: Medications: N/A Member's response: Ibuprofen and multivitamins Provider's comments: 3. Member's AUDIT-C screening score was 1. (nothing required) 4. Member did not donell [...] No 6. g. Further risk assessment comments: No concerns reported by the SM. SM denied SI/HI/self-harm. 7. Member states that they have not had thoughts or concerns over the past month that they might hurt or lose control with someone. 9. Summary of Provider's identified concerns needing referrals: None 11. Comments: 13. Supplemental services recommended/information provided: No supplemental services required Date MHA Certified: III. PERIODIC HEALTH ASSESSMENT (PHA) PROVIDER INFORMATION 1. Last Name: THOMPSON 2. First Name: JOSS 3. Middle Name: 4. Service Branch: [place] 5. Status: Reservist 6. Title: Physician (DO LILLY) 7. EMAIL: [email or web address] 8. Facility: [facility] 9. Unit: [facility] 10. Address: [address] [place] [address] 11. State: [place] 12. Zip Code: [address] 13. Phone: [phone] 14. Date HCP Review initiated: IV. PERIODIC HEALTH ASSESSMENT PROVIDER RECOMMENDATIONS and REFERRALS 1. Provider concerns with this assessment: No issues or concerns identified V. SUMMARY AND COMMENTS 1. Additional information summarizing findings during the parole board member assessment: 2. Provider Comments: joy . INDIVIDUAL MEDICAL READINESS DISPOSITION DETERMINATION CAIN: Ready DEN: Ready IMM: Ready LAB: Ready ME: Ready IMR Status: Fully Medically Ready VII. SERVICE MEDICAL DEPLOYABILITY EVALUATION INDICATED Based on your review of all documentation, is the parole board member medically deployable without limitations? Reference [place] 6490.07 Yes (parole board member DOES NOT currently have a medical condition that limits deployability) Date PHA Completed: END OF [id number] REPORT Extracted from:Title: PHA, A Author: TAVO KNAPP Date: 10/06/23 mbr came in for appt Addendum by STANFORD LÓPEZ on October 06, 2023 15:33 EDT V itals: Blood Pressure: 1 Heart Rate:77 Height:66 Weight:148 BMI: Medications: Loratidine Chronic Problems: R shouder Injury Thigh pain Burn superficial 1st degree Fatigue Pain in flank Joint pain fingers Strain muscle, fascia, and tendon of triceps 507: _ Comments:N/A Addendum by JOSS THOMPSON on October 06, 2023 16:07 EDT Chief Complaint: Member here for annual PHA. N o acute complaints. I MR heidi casey. HEENT: N ormal Joints: N ormal Lungs: N ormal Heart: N ormal Comments: ANNUAL PERIODIC HEALTH ASSESSMENT I. STEM ASSEMBLER INFORMATION AND DEMOGRAPHICS (SMI) 1. Last Name: KORY 2. First Name: ALBA 3. Middle Name: Des 4. Assessment Date: 5. : 6. Age: 53 7. Gender: F 8. DoD ID Number: [id number] 9. Service Branch: [employer] 10. 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 Unit Name: [address] [place] [address] 14. Duty Station/Location: [place] 15. C: [id number] 16. Is this your first Periodic Health Assessment (PHA)?: N 17. Are you enrolled in a secure messaging system with your health care provider?: Y 18. Current contact information: Preferred Method: Day Time Phone DSN: [phone] Day Time Phone: [phone] Night Time Phone: [phone] Email 1: Email 2: Address: [facility] City: [place] State: [place] Zip Code: [address] 19. Point of contact who can always reach you: Name: Za Fong Phone 1: [phone] Phone 2: EMAIL: Address: City: State: Zip Code: II. DEPLOYMENT INFORMATION (DEP) 1. [ 0 ] Total number of deployments in the PAST 5 YEARS 4. [ N ] Are you going to deploy within the NEXT 120 DAYS? III. OCCUPATIONAL INFORMATION (OCC) 1 [ [id number] ] What is your occupational code 2. [...] easily startled? 6. d. [ No ] [place] numb or detached from others, activities, or your surroundings? 6. e. [ Not answered ] [place] guilt or unable to stop blaming yourself [...] like to schedule a visit with a development executive, mental health care provider, or a community [...] 8. [ None ] What prescriptions or iqjv-jdd-tzuwhtp medications are you CURRENTLY taking for health [...] had a cholesterol check by a health home care manager within the PAST 5 YEARS? 13.a. In [...] discuss any health concerns? XI. SEPARATION AND SKILLED NURSING 1. [ No ] Are you planning to separate or retire within the next year from Active Duty or [place] Duty (activated for greater than 30 continuous days) OR do you intend to file a claim for disability compensation with the [employer]? PART B. RECORD REVIEW AND RECOMMENDATIONS I. RECORD REVIEWER INFORMATION 1. Last Name: CHUCKIE 2. First Name: BELA 3. Middle Name: 4. Service Branch: [employer] 5. Status: Reservist 6. 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 EMAIL: [email or web address] 8. Facility: [facility] 9. Unit: [facility] 10. Address: [address] [place] [address] 11. State: [place] 12. Zip Code: [address] 13. Phone: [phone] 14. Date Record Review: II. MEDICAL SCREENING 1. [ ] Date of parole board member's most recent PHA 2. [ 5 feet 6 inches Date: ] parole board member's most recently documented height 3. [ 148 pounds Date: ] parole board member's most recently documented weight 4. [ 122/80 Date: ] parole board member's most recently documented blood pressure reading 5. [ No ] Does the parole board member have a history of abnormal blood pressure since their last PHA? 6. [ Yes ] Does the parole board member have a laboratory test of sickle cell trait documented in their permanent medical record? 7. [ No Cholesterol Test Documented ] What is the date of the parole board member's most recently documented cholesterol test? 8. [ No Colon Cancer Screening Documented ] What is the date of the parole board member's most recently documented colon cancer screening? 9. [ No Active Medications Documented ] List of parole board member's active medications listed in their permanent medical record 10. [ No ] Is there a discrepancy between the active medication record review and the parole board member's self-reported list of medications? 11. [ No Outside Care Documented ] List documented significant care the parole board member has received since their last PHA from a provider OUTSIDE the Health System 12. [ No ] Is there a discrepancy between the parole board member's list of OUTSIDE care (from OT5), and the OUTSIDE care found in the record? 13. [ No Inside Care Documented ] List documented significant care the parole board member has received since their last PHA from a provider INSIDE the Health System 15. [ Not Answered ] Confirm that vaccine exemptions are listed in the medical record for each vaccine listed IV. FAMILY HISTORY AND LIFESTYLE 1. [ Yes ] Does the FT4036 reflect the parole board member's reported family history? V. WOMEN'S HEALTH [...] READINESS 1. [ No ] Does the parole board member have an Assignment Limitation Code C? 3. [ Classification: 2 ] Most recently documented dental exam 4. [ Yes ] Is the parole board member current on all required immunizations in the immunization tracking system? 5. [ Yes ] Is the parole board member current with Service-specific requirements for glasses and gas mask inserts? 6. Does the parole board member have the following laboratory tests documented [...] need to be forwarded to the Health Rent Collector completing PART C: No deployment within the past five years. No VA rating. No temporary profile. Member reports excellent health. Member has never used tobacco products. Member is currently taking prescription or dequ-qtg-zajgraz medications: Loradadine. Pain level; 0. No other significant findings. JLV reviewed. No other discrepancies found. Date Record Review Completed: PART C. HEALTH CARE PROVIDER I. MENTAL HEALTH ASSESSMENT (MHA) PROVIDER INFORMATION 1. Last Name: DONNA 2. First Name: JOSS 3. Middle Name: 4. Service Branch: [employer] 5. Status: Reservist 6. Title: Physician (DO LILLY) 7. EMAIL: [email or web address] 8. Facility: [facility] 9. Unit: [facility] 10. Address: [address] [place] [address] 11. State: [place] 12. Zip Code: [address] 13. Phone: [phone] 14. Date HCP Review initiated: 1. Member [...] 6. Title: Physician (DO LILLY) 7. EMAIL: [email or web address] 8. Facility: [facility] 9. Unit: [facility] 10. Address: [address] [place] [address] 11. State: [place] 12. Zip Code: [address] 13. Phone: [phone] 14. Date HCP Review initiated: IV. PERIODIC HEALTH ASSESSMENT PROVIDER RECOMMENDATIONS and REFERRALS 1. Provider concerns with this assessment: No issues or concerns identified V. SUMMARY AND COMMENTS 1. Additional information summarizing findings during the parole board member assessment: 2. Provider Comments: joy . INDIVIDUAL MEDICAL READINESS DISPOSITION DETERMINATION CAIN: Ready DEN: Ready IMM: Ready LAB: Ready ME: Ready IMR Status: Fully Medically Ready VII. SERVICE MEDICAL DEPLOYABILITY EVALUATION INDICATED Based on your review of all documentation, is the parole board member medically deployable without limitations? Reference [facility] 6490.07 Yes (parole board member DOES NOT currently have a medical condition that limits deployability) Date PHA Completed: END OF [id number] REPORT Impression:Meets m edical standards per DAFMAN 48-123/MSD. Disposition: N o AF469 changes based on this encounter.[employer] Qualified. 02/03/2025 [id number] AMDS Functional Status Combined list of recent functional and cognitive assessments recorded at Department of Defense and Veterans Affairs (VA).VA Functional [place] Measurement (FIM) Scale: 1 = Total Assistance (Subject = 0% +), 2 = Maximal Assistance (Subject = 25% +), 3 = Moderate Assistance (Subject = 50% +), 4 = Minimal Assistance (Subject = 75% +), 5 = Supervision, 6 = Modified [place] (Device), 7 = Complete [place] (Timely, Safely). Assessment Date/Time Source Assessment Type Assessment Skill Assessment Score Assessment Details No data available for this section
--- OUTSIDE RECORDS SUMMARY | 2025-02-03 16:48 | XMS_ITS | Encounter Summary ---
Author Organization [facility] Address [address] [place] [address] Phone Care Team Providers Care Compensation And Hris Analyst Name Role Phone Dottie Lemos MD Primary Care Provid er Encounter Details Date Type Department Care Team (Late st Contact Info) Description 10/15/2023 Procedure Pass [facility] [address] [place] [address] Social History Tobacco Use Types Packs/Day Years Used Date Smoking Tobacco: Never Smokeless Tobacco: Never Alcohol Use Standard Drinks/Week Comments Not Currently [...] with a working camera? Not on file Comments No Sex and Gender Information Value Date Recorded Sex Assigned at Female 04/27/2023 1:09 PM EST Legal Sex Female 4:02 PM EDT Gender Identity Female 04/27/2023 1:09 PM EST Sexual Orientation Straight 03/28/2024 4: 19 AM EDT documented as of this encounter Plan of Treatment Not on file documented as of this encounter Visit Diagnoses Not on filedocumented in this encounter Additional Health Concerns Infection Onset Date Last Indicated Resolved Time CoV-Risk 07/19/2024 07/19/2024 07/30/2024 1:23 AM EST documented as of this encounter Care Teams Compensation And Hris Analyst Relationship Specialty Start Date End Date Dottie Lemos MD [address] [place] [address] PCP - General Internal Medicine 11/28/21 documented as of this encounter Additional Source Comments The information contained in this document represents components of the legal health record. It is not the complete legal health record.[facility]
--- OUTSIDE RECORDS SUMMARY | 2025-02-03 16:48 | XMS_ITS | Encounter Summary ---
Author Organization [facility] Address [address] [place] [address] Phone Care Team Providers Care Screening Tech Name Role Phone Dottie Lemos MD Primary Care Provid er Encounter Details Date Type Department Care Team (Late st Contact Info) Description 10/23/2023 Procedure Pass [facility] [address] [place] [id number] Social History Tobacco Use Types Packs/Day Years [...] AM EDT documented as of this encounter Functional Status * Calculated C-SSRS Risk Score (Lifetime/Recent) Answer Date of Assessment Author No Risk Indicated 10/24/2023 8:11 PM EDT Magalis Kemp RN * [place] Suicide Severity Rating Scale (Screener/Recent Self-Report) Question Answer Date of Assessment Author 1. Wish to be (Past 1 Month) No 024 8:11 PM EDT Magalis Kemp RN 2. Non-Specific Active Suici rona Thoughts (Past 1 Month) No 10/24/2023 8:11 PM EDT Astrid Kemp RN 6. Suicidal Behavior (Lifetime) No 4 8:11 PM EDT Magalis Kemp RN documented as of this encounter Plan of Treatment Not on file documented as of this encounter Visit Diagnoses Not on filedocumented in this encounter Additional Health Concerns Infection Onset Date Last Indicated Resolved Time CoV-Risk 07/19/2024 07/19/2024 07/30/2024 1:23 AM EST documented as of this encounter Care Teams Screening Tech Relationship Specialty Start Date End Date Dottie Lemos MD [address] [place] [address] PCP - General Internal Medicine 11/28/21 documented as of this encounter Additional Source Comments The information contained in this document represents components of the legal health record. It is not the complete legal health record.[facility]
--- OUTSIDE RECORDS SUMMARY | 2025-02-03 16:48 | XMS_ITS | Encounter Summary ---
Author Organization [facility] Address [address] [place] [address] Phone Care Team Providers Care Airfield Manager Name Role Phone Dottie Lemos MD Primary Care Provid er Encounter Details Date Type Department Care Team (Late st Contact Info) Description 07/14/2024 Procedure Pass [facility] Scan - [address] [address] Social History Tobacco Use Types Packs/Day Years [...] documented as of this encounter Care Teams Airfield Manager Relationship Specialty Start Date End Date Dottie Lemos MD [address] [place] [address] PCP - General Internal Medicine 11/28/21 documented as of this encounter Additional Source Comments The information contained in this document represents components of the legal health record. It is not the complete legal health record.[facility]
--- OUTSIDE RECORDS SUMMARY | 2025-02-03 16:48 | XMS_ITS | Clinical Summary ---
Author Organization [facility] Address [email or web address] [facility] [address] [place] [address] Phone Care Team Providers Care Veterinary Laboratory Diagnostician Name Role Phone Dottie Lemos MD Primary Care Provid er Allergies Active Allergy Reactions Criticality Noted Date Comments Allergen Fzh-Zqioo-Prtaw Bee 024 Medications loratadine (CLARITIN) 10 mg [...] 01/22/2022 ZOSTER VACCINES (1 of 2) 01/22/2022 INFLUENZA VACCINE (#1) 2025 03/15/2021 COVID-19 VACCINE (4 - 2024-2 6 season) 2025 04/25/2021, 07/30/2020, 06/27/2020 SMOKING STATUS SCREENING (On [...] this topic Medical Devices Implanted Type Area Emergency Medical Technician/Driver Device Identifier Shelf Expiration Date Model / Serial / Lot Screw Spine 2.7x22mm Plate R3con Nonlocking - [id number] Implanted:Qty: 1 on 10/23/2023 by Angelo Villaplando MD at [facility] Right: Ankle [employer] [id number] / / Description:[place] 28 [employer] Plating System, Sterilizer 4, Load 4, 15 Oct 2023 Screw Plate 3.5x14mm R3con Locking - [id number] Implanted:Qty: 3 on 10/23/2023 by Angelo Villalpando MD at [facility] Right: Ankle [employer] [id number] / / Description:[place] [employer] Plating System, Sterilizer 4, Load 4, 15 Oct 2023 Plate Fibular Cluster 9-Hole Anatomical Right - [id number] Implanted:Qty: 1 on 10/23/2023 by Angelo Villalpando MD at [facility] Right: Ankle [employer] [id number] / / Description:[place] 28 [employer] Plating System, Sterilizer 4, Load 4, 15 Oct 2023 Screw Plate 3.5x12mm Nonlocking R3con - [id number] Implanted:Qty: 2 on 10/23/2023 by Angelo Villalpando MD at [facility] Right: Ankle [employer] [id number] / / Description:[place] 28 [employer] Plating System, Sterilizer 4, Load 4, 15 Oct 2023 Screw Spine 3.5x12mm Plate R3con Locking - [id number] Implanted:Qty: 1 on 10/23/2023 by Angelo Villalpando MD at [facility] Right: Ankle [employer] [id number] / / Description:[place] 28 [employer] Plating System, Sterilizer 4, Load 4, 15 Oct 2023 Screw 3.5x14mm Small R3con Non Locking Plate [employer]je[employer] Op Ortho Joints - [id number] Implanted:Qty: 1 on 10/23/2023 by Angelo Villalpando MD at [facility] Right: Ankle [employer] [id number] / / Description:[place] 28 [employer] Plating System, Sterilizer 4, Load 4, 15 Oct 2023 [place] [employer] Tightrope Xp Lf Titanium Sterile - [id number] Implanted:Qty: 1 on 10/23/2023 by Angelo Villalpando MD at [facility] Right: Ankle [employer] [id number] 07/04/2028 [id number] / / [id number] Insurance [facility] Care Teams Veterinary Laboratory Diagnostician Relationship Specialty Start Date End Date Dottie Lemos MD [address] [place] [address] PCP - General Internal Medicine 11/28/21 Additional Source Comments The information contained in this document represents components of the legal health record. It is not the complete legal health record.[facility]
== END 2025-02-03 16:50 | disposition home or self-care (01) ==
LOC: HO.HGI 16:06
PROVIDERS: PCP Internal Medicine; Visit Provider Nurse Practitioner
DX: K86.81 Exocrine pancreatic insufficiency (principal); R19.7 Diarrhea, unspecified; R14.1 Gas pain; K21.9 Gastro-esophageal reflux disease without esophagitis
CPT/HCPCS: 99214

== ENCOUNTER → 2025-02-03 16:05 | Outpatient (BNVA) | payer OTHER, SELFPAY | PROVIDERS: PCP Internal Medicine; Visit Provider Nurse Practitioner | DX: K86.81 Exocrine pancreatic insufficiency (principal); R19.7 Diarrhea, unspecified; R14.1 Gas pain; K21.9 Gastro-esophageal reflux disease without esophagitis; Z79.899 Other long term (current) drug therapy | CPT/HCPCS: 99212 ==

== ENCOUNTER 2025-02-25 14:59 | Outpatient (AMB) | payer OTHER, SELFPAY ==
--- OUTSIDE RECORDS SUMMARY | 2016-04-18 05:00 | XMS_ITS | Continuity of Care Document ---
Author Organization [facility] Address [address] [facility] [address] [place] [address] Phone Care Team Providers Care Director Of Casework Name Role Phone BASILIA MARIN MD Unavailable [...] ENT VISIT, EST [facility], [address] [place] [address], [id number], tel:[phone] [place] [facility] lower back and leg pain (chief complaint) Lumbosacral root disorders, not elsewhere classifiedSpinal stenosis, lumbosacral regionMeralgia paresthetica, right lower limb TOMAS CUI. [address] [facility], [address], [id number], [place]. tel:[phone] [facility], [address] [place] [address], [id number], [place] tel:[phone] [place] [facility] Pain right thigh (chief complaint) Meralgia paresthetica, right lower limbLumbosacral root disorders, not elsewhere classifiedSpinal stenosis, lumbosacral region TOMAS CUI. [address] [facility], [address], [place], [place], [id number], [place]. tel:[phone] Family History Family Member Type Diagnosis Age [...]
--- NOTE | 2025-02-25 15:02 | A.OFFPC_ITS ---
Vital Signs 02/25/25 15:03 Height 5 ft 6 in Weight 148 lb 2 oz BMI 23.9 BP 130/64 Blood Pressure Location Lt brachial Position Sitting Pulse 70 Pulse Source Pulse Oximeter Temp 97.3 F Temp Source Temporal Artery Scan Pulse Oximetry (%) 94 Oxygen Delivery Method Room Air Intake Visit Reasons: Pain and numbness on right hand Intake Note: Patient is here to follow up on Pain and numbness of right hand. Siebel Developer Required: No Non Destructive Testing Technician: Not Required per policy Accompanied by: Self / Same As Patient Allergies No Known Drug Allergies Allergy (Unknown, Verified 02/25/25 15:20) none bees Allergy (Severe, Uncoded 02/25/25 15:20) Anaphylaxis Medication List - Last Reconciled 02/25/25 by Dottie Kirkpatrick MD dicyclomine 20 mg PO QID epinephrine 0.15 mg (0.3 mL) IM Q30M PRN 30 days escitalopram oxalate 5 mg PO BEDTIME 30 days famotidine (Pepcid) 40 mg PO BEDTIME ibuprofen 800 mg PO Q8H PRN 30 days lidocaine 5% 1 patch topical DAILY atqatb-dgtwolyr-woqoayt 24,000-76,000 -120,000 unit (Creon) 3 caps PO BID 30 days loratadine (Claritin) 10 mg PO DAILY PRN 90 days Tobacco use date assessed: 02/25/25 Dental Screening Dental Screen Date: 12/29/24 HPI HPI Comments History of Present Illness Details The patient is a 55-year-old female presenting with symptoms of numbness and difficulty in hand movements. The numbness primarily affects the first three fingers of both hands, with the right hand being more affected. The patient reports that the symptoms have been progressively worsening, impacting daily activities such as typing, opening doors, and getting dressed. The patient recalls a nerve conduction study conducted in 2020, which indicated mild carpal tunnel syndrome on both sides. No specific recommendations were made at that time, and the condition did not require surgical intervention. Recently, the patient has also experienced symptoms suggestive of trigger finger, with the index finger dropping once and soreness in the knuckles. The patient is considering further evaluation and management, including a repeat nerve conduction study and referral to orthopedics. [facility] Medical History (Updated 02/25/25 @ 15:35 by Dottie Kirkpatrick MD) Physical exam Reactive airways dysfunction syndrome Seasonal allergic rhinitis due to pollen Ulnar neuropathy Hand numbness Surgical History History of open reduction and internal fixation (ORIF) procedure History of shoulder surgery Family History Mother No problems noted. Father No problems noted. Social History Housing: House Alcohol intake: current Alcohol intake frequency: holidays/special occasions only Alcohol type: wine Patient Tobacco Use Status: Never used Tobacco e-Cigarette/Vaping Use: Never Used Second Hand Smoke Exposure: No service: Yes Current occupational status: employed Current occupational exposures/hazards: No Cognitive needs: No Hearing needs: No Vision needs: Yes Questionnaire Thrive Questionnaire Date Thrive assessed: 12/29/24 I am a: Patient What is your living situation today?: I have a steady place to live Within the past 12 months, did the food you bought not last and you didn't have the money to get more?: I choose not to answer this question Within the past 12 months, did you worry whether your food would run out before you got money to buy more?: I choose not to answer this question Do you have trouble paying for medicines?: No Do you have trouble getting transportation to medical appointments?: No Do you have trouble paying your heating and electricity bill?: No Do you have trouble taking care of your child, family member or friend?: No Do you have trouble with day-to-day activities such as bathing, preparing meals, shopping, managing finances, etc.?: No Are you currently unemployed and looking for a job?: No Are you interested in more education?: No Please select the resources that you would like help with: None Currently or been in a relationship where the following occur: No concerns reported THRIVE Score: 0 PATRICIA-7 AMB Questionnaire PATRICIA-7 Date PATRICIA - 7 assessed: 12/29/24 Source: Developed by Drs. Andrea Lam, Erma Palacios, Jeronimo Haile and colleagues, with an educational darnell from [employer]. Review of Systems Const All systems reviewed & are unremarkable except as noted in HPI and below Card Denies chest pain at rest, Denies chest pain with activity, Denies edema, Denies irregular heart rhythm, Denies claudication, Denies dyspnea, Denies dyspnea on exertion, Denies orthopnea, Denies paroxysmal nocturnal dyspnea and Denies slow heart rate Resp Denies cough, Denies dyspnea and Denies dyspnea on exertion Physical exam (Primary Care) Vital Signs: Last Vital Signs Temp 97.3 F 02/25/25 15:03 Pulse 70 02/25/25 15:03 BP 130/64 02/25/25 15:03 Pulse Ox 94 02/25/25 15:03 Oxygen Delivery Method Room Air 02/25/25 15:03 BMI result Body Mass Index 23.9 Tobacco/Smoking Status: Tobacco use Status Tobacco use date assessed 02/25/25 02/25/25 15:07 Patient Tobacco Use Status Never used Tobacco 02/25/25 15:07 e-Cigarette/Vaping Use Never Used 02/25/25 15:07 Thrive Assessment: Date of Thrive Assessment Date Thrive assessed 12/29/24 02/25/25 15:07 Currently or been in a relationship where the following occur: No concerns reported Resp Effort & Inspection: normal respiratory effort Auscultation: clear to auscultation bilaterally Cardio Jugular venous distension: no JVD Rate: regular rate Rhythm: regular rhythm Heart sounds: S1 normal heart sound present and S2 normal heart sound present Extrem General: Yes full ROM Coding Level of Care Code Est Pt Level 3 (08086) Diagnoses Trigger finger (acquired) M65.30 Paresthesia of hand, bilateral R20.2 Time Spent (min) 19 Assessment & Plan Assessment & Plan (1) Trigger finger (acquired): Code(s): M65.30 - Trigger finger, unspecified finger Category: Medical (2) Paresthesia of hand, bilateral: Code(s): R20.2 - Paresthesia of skin Category: Medical Plan Plan 1. Mild Carpal Tunnel Syndrome The patient will undergo a repeat nerve conduction study to assess the progression of carpal tunnel syndrome. Referral to orthopedics is planned for further evaluation and management. 2. Trigger Finger The patient will be referred to orthopedics for evaluation and management of trigger finger symptoms. Orders: Orders NE nerve conduction velocity Today R20.2 - Paresthesia of skin NE electromyogram (EMG) Today R20.2 - Paresthesia of skin Referrals Orthopedics Referral M65.30 - Trigger finger, unspecified finger
[2025-02-25 15:03] VITALS: BP 130/64; PULSE 70; TEMP 36.3; O2SAT 94; BMI 23.9
--- OUTSIDE RECORDS SUMMARY | 2025-02-25 17:31 | XMS_ITS | Encounter Summary ---
Author Organization [facility] Address [address] [facility] [address] [place] [address] Phone Care Team Providers Care Line O Scribe Operator Name Role Phone Dottie Lemos MD Primary Care Provid er Encounter Details Date Type Department Care Team (Late st Contact Info) Description 10/15/2023 Procedure Pass [facility] [address] [facility] [address] [place] [address] Social History Tobacco Use Types Packs/Day Years [...] as of this encounter Plan of Treatment Upcoming Encounters Date Type Department Care Team (Latest Contact Info) Description 03/02/2025 9:00 AM EDT Pre-Admission Testing [facility] Pre-Procedure Evaluation Department [place] [address] Angelo Villalpando MD [address] [place] [phone] [email or web address] 03/03/2025 Procedure Pass [facility] [address] [place] [address] 03/03/2025 9:15 AM EDT Hospital Encounter [facility] [address] [place] [address] Angelo Villalpando MD [address] [place] [phone] [email or web address] 03/03/2025 9:15 AM EDT Anesthesia Event [facility] [address] [place] [address] Lily Oliver MD [address] [place] [address] [email or web address] 03/03/2025 9:15 AM EDT - 03/03/2025 10:45 AM EDT Surgery [facility] [address] [place] [address] Angelo Villalpando MD [address] [place] [phone] [email or web address] RIGHT ANKLE ARTHROSCOPY 03/18/2025 10:30 AM EDT Office Visit [facility] Department of Orthopaedic Surgery, Foot & Ankle Service [address] [place] [address], 3rd Floor, [address] [place] [address] Angelo Villalpando MD [address] [place] [phone] [email or web address] Scheduled Procedures Name Priority Associated Diagnoses Date/Ti me ARTHROSCOPY ANKLE Status post open reduction with internal fixation (ORIF) of fracture of ankle 03/03/2025 9:15 AM EDT REMOVAL HARDWARE ANKLE Status post open reduction with internal fixation (ORIF) of fracture of ankle 03/03/2025 9:15 AM EDT documented as of this encounter Visit Diagnoses Not on filedocumented in this encounter Additional Health Concerns Infection Onset Date Last Indicated Resolved Time CoV-Risk 07/19/2024 07/19/2024 07/30/2024 1:23 AM EST documented as of this encounter Care Teams Line O Scribe Operator Relationship Specialty Start Date End Date Dottie Lemos MD [address] [place] [address] PCP - General Internal Medicine 11/28/21 documented as of this encounter Additional Source Comments The information contained in this document represents components of the legal health record. It is not the complete legal health record.[facility]
--- OUTSIDE RECORDS SUMMARY | 2025-02-25 17:31 | XMS_ITS | Clinical Summary ---
Author Organization [facility] Address [address] 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 Presbyopia 04/07/2016 Encounters Date Type Department Care Team Description 02/19/2025 Prep for Surgery [facility]ICS VIRTUAL DEPARTMENT [address] [place] [phone] Angelo Villalpando MD from Last 3 Months Immunizations Immunization Administration Dates Next Due COVID-19 (Pre-03/26) Moderna Vaccine, mRNA, PF 04/25/2021,07/30/2020,06/27/2020 Social History Tobacco Use Types Packs/Day Years Used Date Smoking Tobacco: Never Smokeless Tobacco: Never Tobacco Cessation:Counseling Given: Not Answered Alcohol Use Standard Drinks/Week Comments Yes 0 (1 standard drink = 0.6 oz pur e alcohol) socially Education Answer Date Recorded Are you interested [...] as food, clothing, or medical care? No 02/20/2025 In the past 12 months have y ou been in a relationship with a person who hurts, threatens, or tries to control you? No 02/20/2025 Are you denied basic needs s uch as food, clothing, or medical care? No 02/20/2025 In the past 12 months have y ou been in a relationship with a person who hurts, threatens, or tries to control you? No 02/20/2025 Comments No Sex and Gender Information Value [...] EST Inhaled Oxygen Concentration - - Weight 65.3 kg (144 lb) 02/20/2025 11:26 AM EDT Height 166.4 cm (5' 5.5 ) 02/20/2025 11:26 AM ED T Body Mass Index 23.6 02/20/2025 11:26 AM EDT Plan of Treatment Upcoming Encounters Date Type Department Care Team (Latest Contact Info) Description 03/02/2025 9:00 AM EDT Pre-Admission Testing [facility] Pre-Procedure Evaluation Department Please [place] [phone] Angelo Villalpando MD [address] [place] [phone] [email or web address] 03/03/2025 Procedure Pass [facility] [address] [place] [address] 03/03/2025 9:15 AM EDT Hospital Encounter [facility] [address] [place] [address] Angelo Villalpando MD [address] [phone] [email or web address] 03/03/2025 9:15 AM EDT Anesthesia Event [facility] PERIOP [address] [place] [address] Lily Oliver MD [address] [place] [address] [email or web address] 03/03/2025 9:15 AM EDT - 03/03/2025 10:45 AM EDT Surgery [facility] [address] [place] [address] Angelo Villalpando MD [address] [place] [phone] [email or web address] RIGHT ANKLE ARTHROSCOPY 03/18/2025 10:30 AM EDT Office Visit [facility] Department of Orthopaedic Surgery, Foot & Ankle Service [address] [place] [address], 3rd Floor, [address] [place] [address] Angelo Villalpando MD [address] [place] [phone] [email or web address] Scheduled Procedures Name Priority Associated Diagnoses Date/Ti me ARTHROSCOPY ANKLE Status post open reduction with internal fixation (ORIF) of fracture of ankle 03/03/2025 9:15 AM EDT REMOVAL HARDWARE ANKLE Status post open reduction with internal fixation (ORIF) of fracture of ankle 03/03/2025 9:15 AM EDT Health Maintenance Due Date Last Done Comments [...] SCREENING (On ce After 26 Yrs) Completed 02/20/2025 HEPATITIS A VACCINES Aged Out No long [...] this topic Medical Devices Implanted Type Area Sheet Finisher Device Identifier Shelf Expiration Date Model / Serial / Lot Screw Spine 2.7x22mm Plate R3con Nonlocking - [id number] Implanted:Qty: 1 on 10/23/2023 by Angelo Villalpando MD at [facility] Right: Ankle [employer] [id number] / / Description:Donnelly 28 RECON Plating System, Sterilizer 4, Load 4, 15 Oct 2023 Screw Plate 3.5x14mm R3con Locking - [id number] Implanted:Qty: 3 on 10/23/2023 by Angelo Villalpando MD at [facility] Right: Ankle [employer] [id number] / / Description:[employer]ly [employer] Plating System, Sterilizer 4, Load 4, 15 Oct 2023 Plate Fibular Cluster 9-Hole Anatomical Right - [id number] Implanted:Qty: 1 on 10/23/2023 by Angelo Villalpando MD at [facility] Right: Ankle [employer] [id number] / / Description:Donnelly 28 [employer] Plating System, Sterilizer 4, Load 4, 15 Oct 2023 Screw Plate 3.5x12mm Nonlocking R3con - [id number] Implanted:Qty: 2 on 10/23/2023 by Angelo Villalpando MD at [facility] Right: Ankle [employer] [id number] / / Description:Donnelly 28 [employer] Plating System, Sterilizer 4, Load 4, 15 Oct 2023 Screw Spine 3.5x12mm Plate R3con Locking - [id number] Implanted:Qty: 1 on 10/23/2023 by Angelo Villalpando MD at [facility] Right: Ankle [employer] [id number] / / Description:Donnelly [employer] Plating System, Sterilizer 4, Load 4, 15 Oct 2023 Screw 3.5x14mm Small R3con Non Locking Plate Ijeoma Op Ortho Joints - [id number] Implanted:Qty: 1 on 10/23/2023 by Angelo Villalpando MD at [facility] Right: Ankle [employer] [id number] / / Description:Donnelly 28 [employer] Plating System, Sterilizer 4, Load 4, 15 Oct 2023 [place] K[employer] Tightrope Xp Lf Titanium Sterile - [id number] Implanted:Qty: 1 on 10/23/2023 by Angelo Villalpando MD at [facility] Right: Ankle [employer] [id number] 07/04/2028 [id number] / / [id number] Insurance [facility] Address: [facility] [id number] [place] [phone] [facility] Care Teams Alligator Hunter Relationship Specialty Start Date End Date Dottie Lemos MD [address] [place] [address] PCP - General Internal Medicine 11/28/21 Additional Source Comments The information contained in this document represents components of the legal health record. It is not the complete legal health record.[facility]
--- OUTSIDE RECORDS SUMMARY | 2025-02-25 17:31 | XMS_ITS | Encounter Summary ---
Author Organization [facility] Address [address] [place] [phone] Phone Care Team Providers Care Senior Software Analyst Name Role Phone Dottie Lemos MD Primary Care Provid er Encounter Details Date Type Department Care Team (Late st Contact Info) Description 07/14/2024 Procedure Pass [facility], Ct Scan - [address] [address] Social History Tobacco Use Types Packs/Day Years [...] Description 03/02/2025 9:00 AM EDT Pre-Admission Testing [facility] Pre-Procedure Evaluation Department Please [place] [address] Angelo Villalpando MD [address] [place] [phone] [email or web address] 03/03/2025 Procedure Pass [facility]OP [address] [place] [address] 03/03/2025 9:15 AM EDT Hospital Encounter [facility] [address] [place] [address] Angelo Villalpando MD [address] [place] [phone] [email or web address] 03/03/2025 9:15 AM EDT Anesthesia Event [facility] PER[facility]OP [address] [place] [address] Lily Oliver MD [address] [place] [address] [email or web address] 03/03/2025 9:15 AM EDT - 03/03/2025 10:45 AM EDT Surgery [facility] [address] [place] [address] Angelo Villalpando MD [address] [place] [phone] [email or web address] RIGHT ANKLE ARTHROSCOPY 03/18/2025 10:30 AM EDT Office Visit [facility] Department of Orthopaedic Surgery, Foot & Ankle Service [address] [place] [address], 3rd Floor, [address] [place] [address] Angelo Villalpando MD [address] [place] [address] [address] [place] [address] [email or web address] Scheduled Procedures Name Priority Associated Diagnoses [...] documented as of this encounter Care Teams Senior Software Analyst Relationship Specialty Start Date End Date Dottie Lemos MD [address] [place] [phone] PCP - General Internal Medicine 11/28/21 documented as of this encounter Additional Source Comments The information contained in this document represents components of the legal health record. It is not the complete legal health record.[facility]
--- OUTSIDE RECORDS SUMMARY | 2025-02-25 17:32 | XMS_ITS | Encounter Summary ---
Author Organization [facility] Address [address] [place] [address] Phone Care Team Providers Care Account Officer Name Role Phone Dottie Lemos MD Primary Care Provid er Encounter Details Date Type Department Care Team (Late st Contact Info) Description 10/23/2023 Procedure Pass [facility] [address] [place] [id number] Social History Tobacco Use Types Packs/Day Years [...] 8:11 PM EDT Magalis Kemp RN * [place] Suicide Severity Rating Scale (Screener/Recent Self-Report) Question Answer Date of Assessment Author 1. Wish to be (Past 1 Month) No 024 8:11 PM EDT Magalis Kemp RN 2. Non-Specific Active Suici rona Thoughts (Past 1 Month) No 10/24/2023 8:11 PM EDT Astrid Kemp RN 6. Suicidal Behavior (Lifetime) No 8:11 PM EDT Magalis Kemp RN documented as of this encounter Plan of Treatment Upcoming Encounters Date Type Department Care Team (Latest Contact Info) Description 03/02/2025 9:00 AM EDT Pre-Admission Testing [facility] Pre-Procedure Evaluation Department [place] [address] Angelo Villalpando MD [address] [place] [phone] [email or web address] 03/03/2025 Procedure Pass [facility] [address] [place] [address] 03/03/2025 9:15 AM EDT Hospital Encounter [facility] [address] [place] [address] Angelo Villalpando MD [address] [place] [phone] [email or web address] 03/03/2025 9:15 AM EDT Anesthesia Event [facility] [address] [place] [address] Lily Oliver MD [address] [place] [address] [email or web address] 03/03/2025 9:15 AM EDT - 03/03/2025 10:45 AM EDT Surgery [facility] [address] [place] [address] Angelo Villalpando MD [address] [place] [address], [place] [address] [email or web address] RIGHT ANKLE ARTHROSCOPY 03/18/2025 10:30 AM EDT Office Visit [facility] Department of Orthopaedic Surgery, Foot & Ankle Service [address] [place] [address], 3rd Floor, [address] [place] [address] Angelo Villalpando MD [address] [place] [phone] [email or web address] Scheduled Procedures Name Priority Associated Diagnoses [...] documented as of this encounter Care Teams Account Officer Relationship Specialty Start Date End Date Dottie Lemos MD [address] [place] [address] PCP - General Internal Medicine 11/28/21 documented as of this encounter Additional Source Comments The information contained in this document represents components of the legal health record. It is not the complete legal health record.[facility]
== END 2025-02-25 15:34 | disposition home or self-care (01) ==
LOC: HO.HMCH 14:59
PROVIDERS: PCP Internal Medicine; Visit Provider Internal Medicine
DX: M65.30 Trigger finger, unspecified finger (principal); R20.2 Paresthesia of skin

== ENCOUNTER → 2025-02-25 14:59 | Outpatient (BNVA) | payer OTHER, SELFPAY | PROVIDERS: PCP Internal Medicine; Visit Provider Internal Medicine | DX: R20.0 Anesthesia of skin (principal); M79.641 Pain in right hand | CPT/HCPCS: 99212 ==

== ENCOUNTER 2025-02-27 16:29 | Outpatient (AMB) | payer OTHER, SELFPAY ==
--- OUTSIDE RECORDS SUMMARY | 2016-04-18 05:00 | XMS_ITS | Continuity of Care Document ---
Author Organization [facility] Address [address] [facility] [address] [place] [address] Phone Care Team Providers Care Yard Motor Operator Name Role Phone BASILIA MARIN MD [...] ENT VISIT, EST [facility], [address] [place] [address], [id number], tel:[phone] [place] [facility] lower back and leg pain (chief complaint) Lumbosacral root disorders, not elsewhere classifiedSpinal stenosis, lumbosacral regionMeralgia paresthetica, right lower limb TOMAS CUI. [address] [facility], [address], [id number], [place]. tel:[phone] [facility], [address] [place] [address], [id number], [place] tel:[phone] [place] [facility] Pain right thigh (chief complaint) Meralgia paresthetica, right lower limbLumbosacral root disorders, not elsewhere classifiedSpinal stenosis, lumbosacral region TOMAS CUI. [address] [facility], [address], [place], [place], [id number], [place]. tel:[phone] Family History Family Member Type Diagnosis Age [...]
--- OUTSIDE RECORDS SUMMARY | 2025-02-27 16:32 | XMS_ITS | Clinical Summary ---
Author Organization [facility] Address [email or web address] [facility] [address] [place] [address] Phone Care Team Providers Care Beveling And Edging Machine Operator Name Role Phone Dottie Lemos MD Primary Care Provid er Allergies Active Allergy Reactions Criticality Noted Date Comments Allergen Zpi-Qjvth-Eocjc Bee 024 Medications loratadine (CLARITIN) 10 mg [...] Care Team Description 02/19/2025 Prep for Surgery [facility] VIRTUAL DEPARTMENT [address] [place] [phone] Angelo Villalpando MD from Last 3 Months [...] Description 03/02/2025 9:00 AM EDT Pre-Admission Testing [facility] Pre-Procedure Evaluation Department Please [place] [address] Angelo Villalpando MD [address] [place] [phone] [email or web address] 03/03/2025 Procedure Pass [facility] [address] [place] [address] 03/03/2025 9:15 AM EDT Hospital Encounter [facility] [address] [place] [address] Angelo Villalpando MD [address] [phone] [email or web address] 03/03/2025 9:15 AM EDT Anesthesia Event [facility] [address] [place] [address] Lily Oliver MD [address] [place] [address] [email or web address] 03/03/2025 9:15 AM EDT - 03/03/2025 10:45 AM EDT Surgery [facility] [address] [place] [address] Angelo Villalpando MD [address] [place] [phone] [email or web address] RIGHT ANKLE ARTHROSCOPY 03/18/2025 10:30 AM EDT Office Visit [facility] Department of Orthopaedic Surgery, Foot & Ankle Service [address] [place] [address], 3rd Floor, [address] [place] [address] Angelo Villalpando MD [address] [place] [phone] [email or web address] Scheduled Procedures Name Priority Associated [...] this topic Medical Devices Implanted Type Area Rn Social Services Device Identifier Shelf Expiration Date Model / Serial / Lot Screw Spine 2.7x22mm Plate R3con Nonlocking - [id number] Implanted:Qty: 1 on 10/23/2023 by Angelo Villalpando MD at [facility] Right: Ankle [employer] [id number] / / Description:[place] [employer] Plating System, Sterilizer 4, Load 4, 15 Oct 2023 Screw Plate 3.5x14mm R3con Locking - [id number] Implanted:Qty: 3 on 10/23/2023 by Angelo Villalpando MD at [facility] Right: Ankle [employer] [id number] / / Description:[place] Plating System, Sterilizer 4, Load 4, 15 Oct 2023 Plate Fibular Cluster 9-Hole Anatomical Right - [id number] Implanted:Qty: 1 on 10/23/2023 by Angelo Villalpando MD at [facility] Right: Ankle [employer] [id number] / / Description:[place] [employer] Plating System, Sterilizer 4, Load 4, 15 Oct 2023 Screw Plate 3.5x12mm Nonlocking R3con - [id number] Implanted:Qty: 2 on 10/23/2023 by Angelo Villalpando MD at [facility] Right: Ankle [employer] [id number] / / Description:[place] [employer] Plating System, Sterilizer 4, Load 4, 15 Oct 2023 Screw Spine 3.5x12mm Plate R3con Locking - [id number] Implanted:Qty: 1 on 10/23/2023 by Angelo Villalpando MD at [facility] Right: Ankle [employer] [id number] / / Description:[place] [employer] Plating System, Sterilizer 4, Load 4, 15 Oct 2023 Screw 3.5x14mm Small R3con Non Locking Plate Ijeoma Op Ortho Joints - [id number] Implanted:Qty: 1 on 10/23/2023 by Angelo Villalpando MD at [facility] Right: Ankle [employer] [id number] / / Description:[place] [employer] Plating System, Sterilizer 4, Load 4, 15 Oct 2023 Lena Knotless [employer] Tightrope Xp Lf Titanium Sterile - [id number] Implanted:Qty: 1 on 10/23/2023 by Angelo Villalpando MD at [facility] Right: Ankle [employer] [id number] 07/04/2028 [id number] / / [id number] Insurance [facility] Care Teams Beveling And Edging Machine Operator Relationship Specialty Start Date End Date Dottie Lemos MD [address] [place] [address] PCP - General Internal Medicine 11/28/21 Additional Source Comments The information contained in this document represents components of the legal health record. It is not the complete legal health record.[facility]
--- OUTSIDE RECORDS SUMMARY | 2025-02-27 16:32 | XMS_ITS | Encounter Summary ---
Author Organization [facility] Address [address] [place] [address] Phone Care Team Providers Care Glass Ribbon Machine Operator Assistant Name Role Phone Dottie Lemos MD Primary Care Provid er Encounter Details Date Type Department Care Team (Late st Contact Info) Description 10/23/2023 Procedure Pass [facility] [address] [place] [phone] Social History Tobacco Use Types Packs/Day Years [...] 8:11 PM EDT Magalis Kemp RN * [place] Suicide Severity Rating Scale (Screener/Recent Self-Report) Question Answer Date of Assessment Author 1. Wish to be (Past 1 Month) No 10/24/2023 8:11 PM EDT Grupo Kemp RN 2. Non-Specific Active Suici rona Thoughts (Past 1 Month) No 10/24/2023 8:11 PM EDT Astrid Kemp RN 6. Suicidal Behavior (Lifetime) No 8:11 PM EDT Magalis Kemp RN documented as of this encounter Plan of Treatment Upcoming Encounters Date Type Department Care Team (Latest Contact Info) Description 03/02/2025 9:00 AM EDT Pre-Admission Testing [facility] Pre-Procedure Evaluation Department Please See [place] [address] Angelo Villalpando MD [address] [place] [phone] [email or web address] 03/03/2025 Procedure Pass [facility] [address] [place] [address] 03/03/2025 9:15 AM EDT Hospital Encounter [facility] [address] [place] [address] Angelo Villalpando MD [address] [place] [phone] [email or web address] 03/03/2025 9:15 AM EDT Anesthesia Event [facility] [address] [place] [address] Lily Oliver MD [address] [place] [address] [email or web address] 03/03/2025 9:15 AM EDT - 03/03/2025 10:45 AM EDT Surgery [facility] [address] [place] [address] Angelo Villalpando MD [address] [place] [address] [place] [address] [email or web address] RIGHT ANKLE ARTHROSCOPY 03/18/2025 10:30 AM EDT Office Visit [facility] Department of Orthopaedic Surgery, Foot & Ankle Service [address] [place] [address], 3rd Floor, [address] [place] [address] Angelo Villalpando MD [address] [place] [address] [address] [place] [address] [email or web address] Scheduled Procedures Name [...] documented as of this encounter Care Teams Glass Ribbon Machine Operator Assistant Relationship Specialty Start Date End Date Dottie Lemos MD [address] [place] [address] PCP - General Internal Medicine 11/28/21 documented as of this encounter Additional Source Comments The information contained in this document represents components of the legal health record. It is not the complete legal health record.[facility]
--- OUTSIDE RECORDS SUMMARY | 2025-02-27 16:32 | XMS_ITS | Encounter Summary ---
Author Organization [facility] Address [address] [facility] [address] [place] [address] Phone Care Team Providers Care Computer Graphic Artist Name Role Phone Dottie Lemos MD Primary Care Provid er Encounter Details Date Type Department Care Team (Late st Contact Info) Description 10/15/2023 Procedure Pass [facility] Orthopaedics [facility] [address] [facility] [address] [place] [address] Social History Tobacco Use Types Packs/Day Years [...] Description 03/02/2025 9:00 AM EDT Pre-Admission Testing [facility] Pre-Procedure Evaluation Department Please [place] [address] Angelo Villalpando MD [address] [place] [phone] [email or web address] 03/03/2025 Procedure Pass [facility] [address] [place] [address] 03/03/2025 9:15 AM EDT Hospital Encounter [facility] [address] [place] [address] Angelo Villalpando MD [address] [place] [phone] [email or web address] 03/03/2025 9:15 AM EDT Anesthesia Event [facility] [address] [place] [address] Lily Oliver MD [address] [place] [address] [email or web address] 03/03/2025 9:15 AM EDT - 03/03/2025 10:45 AM EDT Surgery [facility] [address] [place] [address] Angelo Villalpando MD [address] [place] [phone] [email or web address] RIGHT ANKLE [email or web address] 03/18/2025 10:30 AM EDT Office Visit [facility] Department of Orthopaedic Surgery, Foot & Ankle Service [address] [place] [address], 3rd Floor, [address] [place] [address] Angelo Villalpando MD [address] [place] [phone] [email or web address] Scheduled Procedures Name Priority Associated [...] documented as of this encounter Care Teams Computer Graphic Artist Relationship Specialty Start Date End Date Dottie Lemos MD [address] [place] [address] PCP - General Internal Medicine 11/28/21 documented as of this encounter Additional Source Comments The information contained in this document represents components of the legal health record. It is not the complete legal health record.[facility]
--- OUTSIDE RECORDS SUMMARY | 2025-02-27 16:32 | XMS_ITS | Encounter Summary ---
Author Organization [facility] Address [address] [place] [address] Phone Care Team Providers Care Relocation Services Specialist Name Role Phone Dottie Lemos MD Primary Care Provid er Encounter Details Date Type Department Care Team (Late st Contact Info) Description 07/14/2024 Procedure Pass [facility] Scan - [address] [address] Social History Tobacco Use Types Packs/Day Years [...] Description 03/02/2025 9:00 AM EDT Pre-Admission Testing [facility] Pre-Procedure Evaluation Department Please [place] [address] Angelo Villalpando MD [address] [place] [phone] [email or web address] 03/03/2025 Procedure Pass [facility] [address] [place] [address] 03/03/2025 9:15 AM EDT Hospital Encounter [facility] [address] [place] [address] Angelo Villalpando MD [address] [place] [phone] [email or web address] 03/03/2025 9:15 AM EDT Anesthesia Event [facility] [address] [place] [address] Lily Oliver MD [address] [place] [address] [email or web address] 03/03/2025 9:15 AM EDT - 03/03/2025 10:45 AM EDT Surgery [facility] [address] [place] [address] Angelo Villalpando MD [address] [place] [phone] [email or web address] RIGHT ANKLE ARTHROSCOPY 03/18/2025 10:30 AM EDT Office Visit [facility] Department of Orthopaedic Surgery, Foot & Ankle Service [address] [place] [address], 3rd Floor, [address] [place] [address] Angelo Villalpando MD [address] [place] [address] [address] [place] [address] [email or web address] Scheduled Procedures Name [...] documented as of this encounter Care Teams Relocation Services Specialist Relationship Specialty Start Date End Date Dottie Lemos MD [address] [place] [address] PCP - General Internal Medicine 11/28/21 documented as of this encounter Additional Source Comments The information contained in this document represents components of the legal health record. It is not the complete legal health record.[facility]
[2025-02-27 16:33] VITALS: BP 116/79; BMI 23.9
--- NOTE | 2025-02-27 16:33 | MHC.OFFVIS ---
Vital Signs 02/27/25 16:33 Height 5 ft 6 in Weight 148 lb BMI 23.9 BP 116/79 Blood Pressure Location Lt brachial Position Sitting Intake Visit Reasons: Follow up 3 week Intake Note: Patient in office today in follow up abd pain. CC: Patient reports feeling about the same. She states that she did not receive the Famotidine. Banquet Kitchen Supervisor Required: No Accompanied by: Self / Same As Patient Allergies No Known Drug Allergies Allergy (Unknown, Verified 02/27/25 16:34) none bees Allergy (Severe, Uncoded 02/25/25 15:20) Anaphylaxis HPI HPI Follow up 3 week: Details: Assessment & Plan (1) Exocrine pancreatic insufficiency: Code(s): K86.81 - Exocrine pancreatic insufficiency Category: Medical (2) Diarrhea: Code(s): R19.7 - Diarrhea, unspecified Category: Medical (3) Abdominal gas pain: Code(s): R14.1 - Gas pain Category: Medical (4) GERD (gastroesophageal reflux disease): Code(s): K21.9 - Gastro-esophageal reflux disease without esophagitis Category: Medical Plan - The patient is a 55-year-old female presenting with a follow-up for pancreatic exocrine insufficiency symptoms and GERD management. - Persistent bloating and gastrointestinal discomfort despite medication with Creon, with some improvement in the severity of flatulence. Mostly she has had an improvement in the very malodorous nature and the copious amount of flatulence. - Medication regimen is adjusted to increase Creon to 3 tablets twice a day or she can take 2 3 times a day whichever fits her schedule for better management of the bloating and irritable bowel as frequently we under dose with this medication. - Patient experienced significant improvement in diarrhea, this since starting the Creon and she continues on 3 times a day dicyclomine.. - Reports a globus sensation with episodes of a burning sensation following specific dietary triggers, noted improvement over subsequent days. We will start a trial of famotidine that she can take either every day at bedtime or as needed and if this does not solve the problem then we will consider additional studies such as barium swallow and/or EGD. - Patient is scheduled for surgery to remove hardware following a previous foot fracture. She wants reassurance that she will be okay for surgical intervention, add from a GI standpoint there are no contraindications. She had she struggle at all with constipation due to opiate therapy she can certainly call the office but in the meantime I recommend she keep nqrv-wnz-jgxumcv MiraLax on hand. Medications: New famotidine (Pepcid) 40 mg PO BEDTIME 30 tabs 6RF Changed From pddtvo-dgziqtdp-olxcvdj 24,000-76,000 -120,000 unit (Creon) 2 caps PO BID 30 days 120 caps 6RF K58.9 - Irritable bowel syndrome, unspecified To wjddhg-njvsyvrb-rgzcfqg 24,000-76,000 -120,000 unit (Creon) 3 caps PO BID 180 caps 6RF 30 days K58.9 - Irritable bowel syndrome, unspecified TODAY'S VISIT [facility] Medical History (Updated 02/27/25 @ 16:51 by KEKE Cross) Abdominal gas pain Diarrhea Physical exam Reactive airways dysfunction syndrome Seasonal allergic rhinitis due to pollen Ulnar neuropathy Hand numbness Surgical History History of open reduction and internal fixation (ORIF) procedure History of shoulder surgery Family History Mother No problems noted. Father No problems noted. Social History Housing: House Alcohol intake: current Alcohol intake frequency: holidays/special occasions only Alcohol type: wine Patient Tobacco Use Status: Never used Tobacco e-Cigarette/Vaping Use: Never Used Second Hand Smoke Exposure: No service: Yes Current occupational status: employed Current occupational exposures/hazards: No Cognitive needs: No Hearing needs: No Vision needs: Yes Review of Systems Const Denies fatigue, Denies fever(s), Denies night sweats, Denies poor appetite and Denies weight loss ENT Reports Normal hearing present, Denies dental pain, Denies dysphagia, Denies hearing loss, Denies mouth pain, Denies odynophagia, Denies throat swelling, Denies tongue swelling and Reports other (Dentition adequate) Card Reports no additional complaints Resp Reports no additional complaints GI Details: Denies abdominal pain, Denies melena, Reports bloating, Denies hematochezia, Denies constipation, Denies GI cramping, Denies dysphagia, Denies excessive flatus, Denies early satiety, Reports heartburn, Denies diarrhea, Denies nausea, Denies odynophagia, Denies vomiting and Denies hematemesis Skin/Breast Denies pruritus, Denies lesions, Denies rash and Denies jaundice Neuro Reports Normal hearing present and Denies Abnormal speech present Endo Denies fatigue Aller/Immun Denies throat swelling and Denies tongue swelling Physical Exam Vital Signs: Last Vital Signs BP 116/79 02/27/25 16:33 BMI result Body Mass Index 23.9 Const General: cooperative, no acute distress, well developed and well groomed Nutritional Appearance: average body habitus and well nourished Orientation/consciousness: oriented to person, oriented to place and oriented to time Limitations: No language barrier HEENT Head: Yes normocephalic and Yes atraumatic Eyes General: appearance normal, both eyes and all related structures Pupils: Equal, round and reactive pupils present Neck Neck: Yes normal visual inspection and Yes no lymphadenopathy Thyroid: Thyroid normal Resp Effort & Inspection: normal respiratory effort and able to speak in complete sentences Auscultation: clear to auscultation bilaterally Cardio Rate: regular rate Rhythm: regular rhythm Heart sounds: Normal, physiologic split S2 sound present Peripheral pulses: radial pulses present and posterior tibial pulses present GI Inspection: No distended and No Abdominal panniculus present Palpation (GI): Soft to palpation, nontender, no guarding, not rigid and No hepatosplenomegaly present Percussion: Yes normal to percussion Auscultation: normal bowel sounds Rectal Exam - Female: deferred Skin General skin exam: no rashes or lesions noted, turgor normal, skin not dry, no jaundice, No spider nevi and no striae Rashes: no rashes Nails: normal Neuro General: oriented to person, oriented to place and oriented to time Cranial nerves: Yes Equal, round and reactive pupils present and Yes Normal hearing present Speech: No Abnormal speech present Extrem General: Yes normal to inspection, No clubbing, No cyanosis and No edema Psych Appearance: grossly normal and well kempt Mental Status: mental status grossly normal Speech and movement: Normal speech and movement present Affect: normal affect Attitude: cooperative Thought process: Normal thought process present and not confabulating Thought content: Normal thought content present Insight: Good insight present (Psych) Judgement: Good judgement present (Psych) Assessment & Plan Assessment & Plan (1) Exocrine pancreatic insufficiency: Code(s): K86.81 - Exocrine pancreatic insufficiency Category: Medical (2) Abdominal pain: Code(s): R10.9 - Unspecified abdominal pain Category: Medical (3) GERD (gastroesophageal reflux disease): Code(s): K21.9 - Gastro-esophageal reflux disease without esophagitis Category: Medical Plan HER CURRENT GI REGIMEN CONSISTS of Creon, dicyclomine and famotidine however she did not receive it from her pharmacy. - The patient is a 55-year-old female presenting for follow-up of exocrine pancreatic insufficiency and persistent gastroesophageal reflux symptoms. - She describes a burning sensation in the throat, exacerbated by acidic and spicy foods. However, since the Creon this has improved in terms of the globus sensation but is not completely resolved. - Creon has reduced gas load, lessening burping, but reflux persists. - unfortunately, she never received the famotidine which I think will do quite a lot of good in continuing to have but her symptom resolution. - Scheduled for hardware removal surgery, but she says she will be fully ambulatory on crutches in 2 weeks so is agreeable to a follow-up here in 5 weeks. Return office visit in 5 weeks Medications: Refilled famotidine (Pepcid) 40 mg PO BEDTIME 30 tabs 6RF Coding Level of Care Code Est Pt Level 3 (38538) Diagnoses Exocrine pancreatic insufficiency K86.81 Abdominal pain R10.9 GERD (gastroesophageal reflux disease) K21.9
== END 2025-02-27 16:57 | disposition home or self-care (01) ==
LOC: HO.HGI 16:29
PROVIDERS: PCP Internal Medicine; Visit Provider Nurse Practitioner
DX: K86.81 Exocrine pancreatic insufficiency (principal); R10.9 Unspecified abdominal pain; K21.9 Gastro-esophageal reflux disease without esophagitis
CPT/HCPCS: 99213

== ENCOUNTER → 2025-02-27 16:29 | Outpatient (BNVA) | payer OTHER, SELFPAY | PROVIDERS: PCP Internal Medicine; Visit Provider Nurse Practitioner | DX: K86.81 Exocrine pancreatic insufficiency (principal); K21.9 Gastro-esophageal reflux disease without esophagitis; R10.9 Unspecified abdominal pain | CPT/HCPCS: 99212 ==

== ENCOUNTER 2025-03-24 15:57 | Outpatient (REF) | payer OTHER, SELFPAY ==
--- OUTSIDE RECORDS SUMMARY | 2016-04-18 05:00 | XMS_ITS | Continuity of Care Document ---
Author Organization [facility] Address [address] [facility] [address] [place] [address] Phone Care Team Providers Care Rocket Propellant Plant Supervisor Name Role Phone BASILIA MARIN MD [...] ENT VISIT, EST [facility], [address] [place] [address], [id number], tel:[phone] [place] [facility] lower back and leg pain (chief complaint) Lumbosacral root disorders, not elsewhere classifiedSpinal stenosis, lumbosacral regionMeralgia paresthetica, right lower limb TOMAS CUI. [address] [facility], [address], [id number], [place]. tel:[phone] [facility], [address] [place] [address], [id number], [place] tel:[phone] [place] [facility] Pain right thigh (chief complaint) Meralgia paresthetica, right lower limbLumbosacral root disorders, not elsewhere classifiedSpinal stenosis, lumbosacral region TOMAS CUI. [address] [facility], [address], [place], [place], [id number], [place]. tel:[phone] Family History Family Member Type Diagnosis Age [...]
--- OUTSIDE RECORDS SUMMARY | 2025-03-24 20:53 | XMS_ITS | Encounter Summary ---
Author Organization [facility] Address [address] [place] [address] Phone Care Team Providers Care Automobile Body Repairer Helper Name Role Phone Dottie Lemos MD Primary Care Provid er Encounter Details Date Type Department Care Team (Late st Contact Info) Description 10/15/2023 Procedure Pass [facility] Orthopaedics [facility] [address] [place] [phone] [place] [address] Social History Tobacco Use Types Packs/Day Years [...] documented as of this encounter Care Teams Automobile Body Repairer Helper Relationship Specialty Start Date End Date Dottie Lemos MD [address] [place] [address] PCP - General Internal Medicine 11/28/21 documented as of this encounter Additional Source Comments The information contained in this document represents components of the legal health record. It is not the complete legal health record.[facility]
--- OUTSIDE RECORDS SUMMARY | 2025-03-24 20:53 | XMS_ITS | Encounter Summary ---
Author Organization [facility] Address [address] [place] [address] Phone Care Team Providers Care Grants Analyst Name Role Phone Dottie Lemos MD Primary Care Provid er Encounter Details Date Type Department Care Team (Late st Contact Info) Description 03/11/2025 Orders Only [facility] Department of Orthopaedic Surgery, Foot & Ankle Service [address] [place] [address] Karsten Mendosa [address] [place] [phone] [email or web address] Status post ORIF of fracture of ankle (Primary Dx) Social History Tobacco Use Types Packs/Day Years Used Date Smoking Tobacco: Never Smokeless Tobacco: Never Alcohol Use Standard Drinks/Week Comments Yes 0 [...] as food, clothing, or medical care? No 03/03/2025 In the past 12 months have y ou been in a relationship with a person who hurts, threatens, or tries to control you? No 03/03/2025 Are you denied basic needs s uch as food, clothing, or medical care? No 03/03/2025 In the past 12 months have y ou been in a relationship with a person who hurts, threatens, or tries to control you? No 03/03/2025 Comments No Sex and Gender Information Value Date Recorded Sex Assigned at Female 04/27/2023 1:09 PM EST Legal Sex Female 4:02 PM EDT Gender Identity Female 04/27/2023 1:09 PM EST Sexual Orientation Straight 03/28/2024 4: 19 AM EDT documented as of this encounter Plan of Treatment Not on file documented as of this encounter Results * XR ANKLE 3 OR MORE VIEWS (RIGHT) (03/17/2025 12:59 PM EDT) Anatomical Region Laterality Modality Ankle Right Radiographic Kiersten ging 03/17/2025 2:42 PM EDT Impressions 03/17/2025 2:52 PM EDT Postsurgical changes from hardware removal of the ankle and medial talar dome osteochondral lesion repair. Narrative 03/17/2025 2:52 PM EDT XR ANKLE 3 OR MORE VIEWS (RIGHT) Referring clinician's provided indication for this examination in [facility]: Pain COMPARISON: XR ANKLE 3 OR MORE VIEWS (RIGHT) ; CT ANKLE WITHOUT CONTRAST (RIGHT) 2024- FINDINGS: Healed distal fibular fracture status post hardware removal of the ankle and medial talar dome osteochondral lesion repair. No acute fracture or dislocation. Achilles tendon enthesophyte. Ankle mortise is symmetric. Normal joint spaces. Small ankle effusion. Procedure Note Bladimir Brian MD - 03/17/2025 XR ANKLE 3 OR MORE VIEWS (RIGHT) Referring clinician's provided indication for this examination in [facility]:Pain COMPARISON: XR ANKLE 3 OR MORE VIEWS (RIGHT) ; CT ANKLE WITHOUTCONTRAST (RIGHT) 2024- FINDINGS: Healed distal fibular fracture status post hardware removal of the ankleand medial talar dome osteochondral lesion repair. No acute fracture ordislocation. Achilles tendon enthesophyte. Ankle mortise is symmetric.Normal joint spaces. Small ankle effusion. IMPRESSION: Postsurgical changes from hardware removal of the ankle and medial talardome osteochondral lesion repair. us Angelo Villalpando MD IMG XR LOWER EXTREMITY Shannon l Result documented in this encounter Visit Diagnoses Diagnosis Status post ORIF of fracture of ankle- Primary Status post ORIF of fracture of ankle documented in this encounter Care Teams Grants Analyst Relationship Specialty Start Date End Date Dottie Lemos MD [address] [place] [address] PCP - General Internal Medicine 11/28/21 documented as of this encounter Additional Source Comments The information contained in this document represents components of the legal health record. It is not the complete legal health record.[facility]
--- OUTSIDE RECORDS SUMMARY | 2025-03-24 20:53 | XMS_ITS | Encounter Summary ---
Author Organization [facility] Address [address] [place] [phone] Phone Care Team Providers Care Battery Installer Name Role Phone Dottie Lemos MD Primary Care Provid er Encounter Details Date Type Department Care Team (Late st Contact Info) Description 07/14/2024 Procedure Pass [facility], Ct Scan - [address] [id number] Social History Tobacco Use Types Packs/Day Years [...] documented as of this encounter Care Teams Battery Installer Relationship Specialty Start Date End Date Dottie Lemos MD [address] [place] [address] PCP - General Internal Medicine 11/28/21 documented as of this encounter Additional Source Comments The information contained in this document represents components of the legal health record. It is not the complete legal health record.[facility]
--- OUTSIDE RECORDS SUMMARY | 2025-03-24 20:53 | XMS_ITS | Encounter Summary ---
Author Organization [facility] Address [address] [place] [address] Phone Care Team Providers Care Telecommunicator Name Role Phone Dottie Lemos MD Primary Care Provid er Encounter Details Date Type Department Care Team (Late st Contact Info) Description 03/03/2025 Procedure Pass [facility] [address] [place] [id number] Social History Tobacco Use Types Packs/Day Years [...] Diagnoses Not on filedocumented in this encounter Care Teams Telecommunicator Relationship Specialty Start Date End Date Dottie Lemos MD [address] [place] [address] PCP - General Internal Medicine 11/28/21 documented as of this encounter Additional Source Comments The information contained in this document represents components of the legal health record. It is not the complete legal health record.[facility]
--- OUTSIDE RECORDS SUMMARY | 2025-03-24 20:53 | XMS_ITS | Encounter Summary ---
Author Organization [facility] Address [address] [place] [phone] Phone Care Team Providers Care Motorboat Mechanic Helper Name Role Phone Dottie Lemos MD Primary Care Provid er Encounter Details Date Type Department Care Team (Late st Contact Info) Description 10/23/2023 Procedure Pass [facility] [address] [place] [phone] Social History Tobacco Use Types Packs/Day Years [...] 8:11 PM EDT Magalis Kemp RN * [place] Suicide Severity Rating Scale (Screener/Recent Self-Report) Question Answer Date of Assessment Author 1. Wish to be (Past 1 Month) No 10/24/2023 8:11 PM EDT Grupo Kemp RN 2. Non-Specific Active Suici rona Thoughts (Past 1 Month) No 10/24/2023 8:11 PM EDT Astrid Kemp RN 6. Suicidal Behavior (Lifetime) No 8:11 PM EDT Mgaalis Kemp RN documented as of this encounter Plan of Treatment Not on file documented as of this encounter Visit Diagnoses Not on filedocumented in this encounter Additional Health Concerns Infection Onset Date Last Indicated Resolved Time CoV-Risk 07/19/2024 07/19/2024 07/30/2024 1:23 AM EST documented as of this encounter Care Teams Motorboat Mechanic Helper Relationship Specialty Start Date End Date Dottie Lemos MD [address] [place] [address] PCP - General Internal Medicine 11/28/21 documented as of this encounter Additional Source Comments The information contained in this document represents components of the legal health record. It is not the complete legal health record.[facility]
--- OUTSIDE RECORDS SUMMARY | 2025-03-24 20:53 | XMS_ITS | Clinical Summary ---
Author Organization [facility] Address [address] [facility] [address] [place] [phone] Phone Care Team Providers Care Nurse Companion Name Role Phone Dottie Lemos MD Primary Care Provid er Allergies Active Allergy Reactions Criticality Noted Date Comments Allergen Bxu-Ojdzo-Vdlfs Bee Medications loratadine (CLARITIN) 10 mg tablet Take 10 mg by mouth daily. Active ibuprofen (ADVIL,MOTRIN) 200 MG tablet Take 200 mg by mouth every 6 (six) hours as needed for pain (specific location in comments). Active ondansetron (ZOFRAN) 4 MG tablet Take 1 tablet (4 mg total) by mouth every 8 (eight) hours as needed for nausea. 10 tablet Active Additional Information Patient not taking.Reported on 07/19/2024 aspirin 81 MG EC tablet Take 1 tablet (81 mg total) by mouth 2 (two) times a day for 28 days. 56 tablet Active traMADoL (ULTRAM) 50 mg tabletIndications :Status post ORIF of fracture of ankle Take 1-2 tablets (50-100 mg total) by mouth every 6 (six) hours as needed for pain (specific location in comments). Begin this medication after completing your prescription for oxycodone. Do not take this medication at the same time as oxycodone or any other narcotic medication. 30 tablet Active Additional Information Patient not taking.Reported on 07/19/2024 amoxicillin (AMOXIL) 500 MG capsule Active dicyclomine (BENTYL) 20 mg tablet Take 20 mg by mouth 3 (three) times a day. Active aspirin 81 MG EC tablet Take 1 tablet (81 mg total) by mouth 2 (two) times a day. 90 tablet 025 2024 Active docusate sodium (COLACE) 100 MG capsule Take 1 capsule (100 mg total) by mouth 2 (two) times a day as needed for mild constipation. 30 capsule 1 Active ibuprofen (ADVIL,MOTRIN) 800 MG tablet Take 1 tablet (800 mg total) by mouth every 8 (eight) hours as needed for pain (specific location in comments). 90 tablet 1 Active ondansetron (ZOFRAN-ODT) 4 MG disintegrating tablet Take 1 tablet (4 mg total) by mouth every 4 (four) hours as needed for nausea. 20 tablet Active acetaminophen (TYLENOL) 500 MG tablet Take 1 tablet (500 mg total) by mouth every 8 (eight) hours as needed for pain (specific location in comments). 90 tablet 1 Active oxyCODONE 5 MG immediate release tablet Take 1 tablet (5 mg total) by mouth every 6 (six) hours as needed for pain (specific location in comments). 15 tablet 025 Active oxyCODONE 5 MG immediate release tabletIndications :Status post ORIF of fracture of ankle Take 1-2 tablets (5-10 mg total) by mouth every 4 (four) hours as needed. Partial fill ok 30 tablet 024 2024 Discontinued oxyCODONE 5 MG immediate release tablet Take 1 tablet (5 mg total) by mouth every 4 (four) hours as needed for pain (specific location in comments). Partial fill ok 30 tablet 025 2024 Discontinued Active Problems Problem Noted Date Diagnosed Date [...] Encounters Date Type Department Care Team Description 03/17/2025 2:45 PM EDT Office Visit [facility] Department of Orthopaedic Surgery, Foot & Ankle Service [address] [facility], [address] [place] [address] Angelo Villalpando MD Status post ORIF of fracture of ankle (Primary Dx) 03/17/2025 12:46 PM EDT - 03/17/2025 11:59 PM EDT Hospital Encounter [facility] [address] [facility] [place] [address] Angelo Villalpando MD Discharge Disposition: Home or Self Care 03/11/2025 Orders Only [facility] Department of Orthopaedic Surgery, Foot & Ankle Service [address] [facility], [address] [place] [address] Navya Karsten Desire Status post ORIF of fracture of ankle (Primary Dx) 03/03/2025 9:15 AM EDT - 03/03/2025 10:45 AM EDT Surgery [facility] [address] [place] [address] Angelo Villalpando MD RIGHT ANKLE ARTHROSCOPY WITH BRANDO PLACEMENT 03/03/2025 8:49 AM EDT Anesthesia Event [facility] [address] [place] [address] Sam Hackett MD Nichols, Angela S, MD 03/03/2025 6:44 AM EDT - 03/03/2025 11:55 AM EDT Hospital Encounter [facility] [address] [place] [address] Angelo Villalpando MD Discharge Disposition: Home or Self Care 03/03/2025 6:10 AM EDT Ancillary Procedure [facility] Imaging Bedside Ultrasound VRT [address] [place] [address] Mike Stewart MD 03/03/2025 Procedure Pass [facility] [address] [place] [address] 03/02/2025 9:00 AM EDT Pre-Admission Testing [facility] Pre-Procedure Evaluation Department [place] [phone] Angelo Villalpando MD 02/19/2025 Prep for Surgery [facility] [address] [place] [id number] Angelo Villalpando MD from Last 3 Months [...] Sign Reading Time Taken Comments Blood Pressure 121/73 03/03/2025 11:10 AM EDT Pulse 60 03/03/2025 11:10 AM EDT Temperature 36.1 C (97 F) 03/03/2025 10:23 AM EDT Respiratory Rate 17 03/03/2025 11:10 AM EDT Oxygen Saturation 100% 03/03/2025 11:10 AM EDT Inhaled Oxygen Concentration - - Weight 67.1 kg (148 lb) 03/03/2025 7:52 AM EDT Height 165.1 cm (5' 5 ) 03/03/2025 7:52 AM EDT Body Mass Index 24.63 03/03/2025 7:52 AM EDT Plan of Treatment Health Maintenance [...] 2024-2 6 season) 2025 04/25/2021, 07/30/2020, 06/27/2020 RSV VACCINE (1 - 1-dose 75+ series) 01/22/2047 SMOKING STATUS SCREENING (On ce After 26 Yrs) Completed 03/03/2025 HEPATITIS A VACCINES Aged Out No long [...] this topic Medical Devices Implanted Type Area Kettle Cleaner Device Identifier Shelf Expiration Date Model / Serial / Lot Screw Spine 2.7x22mm Plate R3con Nonlocking - [id number] Implanted:Qty: 1 on 10/23/2023 by Angelo Villalpando MD at [facility] Right: Ankle [employer] [id number] / / Description:[place] 28 RECON Plating System, Sterilizer 4, Load 4, 15 Oct 2023 Screw Plate 3.5x14mm R3con Locking - [id number] Implanted:Qty: 3 on 10/23/2023 by Angelo Villalpando MD at [facility] Right: Ankle [employer] [id number] / / Description:[place] 28 REC[employer] Plating System, Sterilizer 4, Load 4, 15 Oct 2023 Plate Fibular Cluster 9-Hole Anatomical Right - [id number] Implanted:Qty: 1 on 10/23/2023 by Angelo Villalpando MD at [facility] Right: Ankle [employer] [id number] / / Description:[place] 28 REC[employer] Plating System, Sterilizer 4, Load 4, 15 Oct 2023 Screw Plate 3.5x12mm Nonlocking R3con - [id number] Implanted:Qty: 2 on 10/23/2023 by Angelo Villalpando MD at [facility] Right: Ankle [employer] [id number] / / Description:[place] 28 RECON Plating System, Sterilizer 4, Load 4, 15 Oct 2023 Screw Spine 3.5x12mm Plate R3con Locking - [id number] Implanted:Qty: 1 on 10/23/2023 by Angelo Villalpando MD at [facility] Right: Ankle [employer] [id number] / / Description:[place] 28 RECON Plating System, Sterilizer 4, Load 4, 15 Oct 2023 Screw 3.5x14mm Small R3con Non Locking Plate Ijeoma Op Ortho Joints - [id number] Implanted:Qty: 1 on 10/23/2023 by Angelo Villalpando MD at [facility] Right: Ankle [employer] [id number] / / Description:[place] 28 RECON Plating System, Sterilizer 4, Load 4, 15 Oct 2023 [place] Knotless Syndesmosis Tightrope Xp Lf Titanium Sterile - [id number] Implanted:Qty: 1 on 10/23/2023 by Angelo Villalpando MD at [facility] Right: Ankle [employer] [id number] 07/04/2028 [id number] / / [id number] Graft Bone 1.00ml Biocartilage Synthetic Matrix Cart[place]idge Extracellular Filler Syringe - [id number] Implanted:Qty: 1 on 03/03/2025 by Angelo Villalpando MD at [facility] Right: Ankle [employer] 03/20/2029 [id number] / [id number] / Procedures Procedure Name Priority Date/Time Associated Diagnosis Comments XR ANKLE 3 OR MORE VIEWS (RIGHT) Routine 03/17/2025 12:59 PM EDT Status post ORIF of fracture of ankle NC REMOVAL IMPLANT DEEP 03/03/2025 8:53 AM EDT Status post open reduction with internal fixation (ORIF) of fracture of ankle NC ANKLE SCOPE,EXTENS DEBRIDEMNT 03/03/2025 8:53 AM EDT Status post open reduction with internal fixation (ORIF) of fracture of ankle NC ANESTHESIA PERIPHERAL BLOCK PLACEHOLDER Routine 03/03/2025 8:38 AM EDT POCT URINE HCG STAT 03/03/2025 8:11 AM EDT ANESTHESIA POINT OF CARE IMAGE CAPTURE Routine 03/03/2025 6:08 AM EDT from Last 3 Months Results * XR ANKLE 3 OR MORE [...] clinician's provided indication for this examination in [facility]: Pain COMPARISON: XR ANKLE 3 OR MORE VIEWS (RIGHT) 2023-; CT ANKLE WITHOUT CONTRAST (RIGHT) 2024- FINDINGS: [...] clinician's provided indication for this examination in [facility]:Pain COMPARISON: XR ANKLE 3 OR MORE [...] IMG XR LOWER EXTREMITY Shannon l Result * NC ANESTHESIA PERIPHERAL BLOCK PLACEHOLDER (03/03/2025 8:38 AM EDT) Narrative Mike Stewart MD - 03/03/2025 8:38 AM EDT Mike Stewart MD 03/03/2025 8:38 AM Peripheral Block Placement Procedure Note: Reason for block: surgeon request and post op pain managment Block performed by: fellow/resident/STATEMENT CLERKS SUPERVISOR Anesthesiologist: Sam Hackett MD Fellow/Resident/STATEMENT CLERKS SUPERVISOR: Mike Stewart MD Stafford Protocol Performed: consent obtained, patient identified with 2 identifiers, correct procedure verified, correct site and laterality confirmed, verified equipment, coagulation status reviewed and implant history reviewed. Procedure Details: ASA monitors applied during procedure and vitals signs recorded in nursing flowsheet during procedure. Block type: single shot Ultrasound device used: Probe HFL50x and Sonosite Edge Laterality: right Block location: lower extremity and saphenous nerve-adductor canal and sciatic-popliteal fossa Patient position: supine Prep: chloraprep Image guidance: ultrasound guidance Ultrasound image: stored Needle visualization: good and in-plane Nerve visualization: good Block Technique Block technique: ultrasound guided Needle type: stimulating needle used Needle gauge (other): 21 Injection assessment:incremental injection, negative aspiration for heme and no paresthesia on injection Paresthesia: none Needle length: 9cm Post Block Placement Assessment Complications Observed: No Notes Block Notes: VS recorded in EPIC. Patient in supine position. Block site marked; timeout performed verifying location, laterality, and procedure. Lidocaine 1% local SC infiltration at site. Under ultrasonic verification the sciatic nerve in the popliteal fossa was identified. Under ultrasonic visualization the needle was advanced, the sciatic nerve was approximated, and the local anesthetic was injected easily and without pain in 1-2cc aliquots (30 cc's) post negative aspiration. The patient experienced no paresthesias. Under ultrasonic visualization the saphenous nerve was located adjacent to the femoral artery just below Harjeet's canal. Under ultrasonic guidance 10cc of the local anesthetic was injected easily and without pain in 1-2cc aliquots into the fascial plane between the sartorius and the vastus medialis. The patient experienced no paresthesias. The procedure was well tolerated by the patient. Sam Hackett MD NC ANESTHESIA Final Result * Poct Urine HCG (03/03/2025 8:11 AM EDT) HCG, urine Negative, Internal QCs acceptable Negative [facility] 03/03/2025 8:11 AM EDT Lily Oliver MD POINT OF CARE TEST ORDERABLE S Final Result [facility] [address] [place] [address] * ANESTHESIA POINT OF CARE IMAGE CAPTURE (03/03/2025 6:08 AM EDT) Anatomical Region Laterality Modality Ultrasound Narrative 03/03/2025 6:08 AM EDT Mike Stewart MD 03/03/2025 6:08 AM Anesthesia Point of Care Image Capture Performed by: Mike Stewart MD Authorized by: Mike Stewart MD Accession Number: [id number] Mike Stewart MD IMG POINT OF CARE EXAMS Final R esult from Last 3 Months Insurance [facility] Care Teams Nurse Companion Relationship Specialty Start Date End Date Dottie Lemos MD [address] [place] [address] PCP - General Internal Medicine 11/28/21 Additional Source Comments The information contained in this document represents components of the legal health record. It is not the complete legal health record.[facility]
== END 2025-03-24 15:58 | disposition home or self-care (01) ==
LOC: HO.MAMMO 15:57
PROVIDERS: PCP Internal Medicine; Visit Provider Internal Medicine
DX: Z12.31 Encounter for screening mammogram for malignant neoplasm of breast (principal)
CPT/HCPCS: 77063; 77067

== ENCOUNTER → 2025-03-24 16:00 | Outpatient (BNV) | payer OTHER, SELFPAY | PROVIDERS: PCP Internal Medicine; Visit Provider Internal Medicine | DX: Z12.31 Encounter for screening mammogram for malignant neoplasm of breast (principal) | CPT/HCPCS: 77063; 77067 ==

== ENCOUNTER 2025-04-02 12:25 | Outpatient (AMB) | payer OTHER, SELFPAY ==
--- NOTE | 2025-04-02 12:29 | A.OFFVIS_ITS ---
Vital Signs 04/02/25 12:40 Height 5 ft 6 in BMI Reason not done Patient refused/unable BP 126/79 Blood Pressure Location Rt brachial Position Sitting Pulse 100 Comment Unable to bare weight on one leg Intake Visit Reasons: 5w Intake Note: Meri presents to in office follow up of GERD. CC: Patient states that she is doing better but some days she wakes up feeling like she is having bad heartburn. She states that she has completely eliminated anything spicy. The sensation of having something in her throat hasn't gone completely. Overall, she reports having Allergies bees Allergy (Severe, Uncoded 04/27/25 13:31) Anaphylaxis HPI HPI 5w: Details: Assessment & Plan (1) Exocrine pancreatic insufficiency: Code(s): K86.81 - Exocrine pancreatic insufficiency Category: Medical (2) Abdominal pain: Code(s): R10.9 - Unspecified abdominal pain Category: Medical (3) GERD (gastroesophageal reflux disease): Code(s): K21.9 - Gastro-esophageal reflux disease without esophagitis Category: Medical Plan HER CURRENT GI REGIMEN CONSISTS of Creon, dicyclomine and famotidine however she did not receive it from her pharmacy. - The patient is a 55-year-old female presenting for follow-up of exocrine pancreatic insufficiency and persistent gastroesophageal reflux symptoms. - She describes a burning sensation in the throat, exacerbated by acidic and spicy foods. However, since the Creon this has improved in terms of the globus sensation but is not completely resolved. - Creon has reduced gas load, lessening burping, but reflux persists. - unfortunately, she never received the famotidine which I think will do quite a lot of good in continuing to have but her symptom resolution. - Scheduled for hardware removal surgery, but she says she will be fully ambulatory on crutches in 2 weeks so is agreeable to a follow-up here in 5 weeks. Return office visit in 5 weeks Medications: Refilled famotidine (Pepcid) 40 mg PO BEDTIME 30 tabs 6RF TODAY'S VISIT [facility] Medical History Abdominal gas pain Diarrhea Physical exam Reactive airways dysfunction syndrome Seasonal allergic rhinitis due to pollen Ulnar neuropathy Hand numbness Surgical History History of open reduction and internal fixation (ORIF) procedure History of shoulder surgery Family History Mother No problems noted. Father No problems noted. Social History (Updated 04/22/25 @ 14:04 by AXEL Farmer) Housing: House Are you a primary assurance services manager health care to a significant other at home: No Do you presently have visiting nurse or other home services: No Alcohol intake: former Patient Tobacco Use Status: Never used Tobacco e-Cigarette/Vaping Use: Never Used Second Hand Smoke Exposure: No service: Yes Current occupational status: employed Current occupation: rt handed, [employer] Current occupational exposures/hazards: No Cognitive needs: No Hearing needs: No Vision needs: Yes Review of Systems ENT Reports Normal hearing present Neuro Reports Normal hearing present and Denies Abnormal speech present Physical Exam Vital Signs: Last Vital Signs Pulse 100 04/02/25 12:40 BP 126/79 04/02/25 12:40 Const General: cooperative, no acute distress, well developed and well groomed Nutritional Appearance: well nourished, obese and overweight Orientation/consciousness: oriented to person, oriented to place and oriented to time Limitations: No language barrier and crutches HEENT Head: Yes normocephalic and Yes atraumatic Eyes General: appearance normal, both eyes and all related structures Pupils: Equal, round and reactive pupils present Neck Neck: Yes normal visual inspection and Yes no lymphadenopathy Thyroid: Thyroid normal Resp Effort & Inspection: normal respiratory effort and able to speak in complete sentences Auscultation: clear to auscultation bilaterally Cardio Rate: regular rate Rhythm: regular rhythm Heart sounds: Normal, physiologic split S2 sound present Peripheral pulses: radial pulses present and posterior tibial pulses present GI Inspection: No distended and No Abdominal panniculus present Palpation (GI): Soft to palpation, nontender, no guarding, not rigid, No hepatosplenomegaly present and Hepatosplenomegaly present Percussion: Yes normal to percussion Auscultation: normal bowel sounds Rectal Exam - Female: deferred Skin General skin exam: no rashes or lesions noted, turgor normal, skin not dry, no jaundice, No spider nevi and no striae Rashes: no rashes Nails: normal Neuro General: oriented to person, oriented to place and oriented to time Cranial nerves: Yes Equal, round and reactive pupils present and Yes Normal hearing present Speech: No Abnormal speech present Extrem General: Yes normal to inspection, No clubbing, No cyanosis and No edema Psych Thought process: Normal thought process present and not confabulating Thought content: Normal thought content present Insight: Good insight present (Psych) Judgement: Good judgement present (Psych) Assessment & Plan Assessment & Plan (1) GERD (gastroesophageal reflux disease): Code(s): K21.9 - Gastro-esophageal reflux disease without esophagitis Category: Medical (2) Dysphagia: Code(s): R13.10 - Dysphagia, unspecified Category: Medical Plan HER CURRENT GI REGIMEN CONSISTS of Creon, dicyclomine and famotidine - The patient is a 55-year-old female presenting with a follow-up for Gastroesophageal Reflux Disease (GERD) and postoperative care. - She experienced exacerbated GERD symptoms in the past when she was not on famotidine. Upon starting famotidine after surgery, symptoms improved, particularly with increased frequency of intake. - She experiences a globus sensation, particularly at night, indicative of acid reflux and likely correlated with her GERD diagnosis. - The patient reports a resolution of prior significant diarrhea episodes, likely associated with dietary management and medication adherence. Return office visit in 7 weeks Orders: Referrals GI Procedure Notification R13.10 - Dysphagia, unspecified, K21.9 - Gastro- esophageal reflux disease without esophagitis Medications: New pantoprazole (Protonix) 40 mg PO DAILY 30 tabs 6RF 30 days K21.9 - Gastro- esophageal reflux disease without esophagitis Changed From famotidine 40 mg PO BEDTIME 30 tabs 6RF To famotidine (Pepcid) 40 mg PO BID 60 tabs 6RF From qarcpl-vuwcsapc-pkjgobg (pork) 24,000-76,000 -120,000 unit 3 caps PO BID 30 days 180 caps 6RF K58.9 - Irritable bowel syndrome, unspecified To okmmgl-lsxtvoar-mdffizl (pork) 24,000-76,000 -120,000 unit (Creon) 3 caps PO BID 180 caps 6RF 30 days K58.9 - Irritable bowel syndrome, unspecified Refilled dicyclomine 20 mg PO QID 120 tabs 6RF Coding Level of Care Code Est Pt Level 3 (95027) Diagnoses GERD (gastroesophageal reflux disease) K21.9 Dysphagia R13.10
[2025-04-02 12:40] VITALS: BP 126/79; PULSE 100
--- OUTSIDE RECORDS SUMMARY | 2025-04-02 15:16 | XMS_ITS | Clinical Summary ---
Author Organization [facility] Address [address] [facility] [address] [place] [address] Phone Care Team Providers Care Early Intervention Specialist Name Role Phone Dottie Lemos MD Primary Care Provid er Allergies Active Allergy Reactions Criticality Noted Date Comments Allergen Kpw-Pdznn-Euaho Bee Medications loratadine (CLARITIN) 10 mg tablet [...] Description 03/17/2025 2:45 PM EDT Office Visit [facility] Department of Orthopaedic Surgery, Foot & Ankle Service [address], [address] [place] [address] Angelo Villalpando MD Status post ORIF of fracture of ankle (Primary Dx) 03/17/2025 12:46 PM EDT - 03/17/2025 11:59 PM EDT Hospital Encounter [facility] [address], [address] [place] [address] Angelo Villalpando MD Discharge Disposition: Home or Self Care 03/11/2025 Orders Only [facility] Department of Orthopaedic Surgery, Foot & Ankle Service [address], [address] [place] [address] Navya Karsten Desire Status post ORIF of fracture of ankle (Primary Dx) 03/03/2025 9:15 AM EDT - 03/03/2025 10:45 AM EDT Surgery [facility] [address] [place] [address] Angelo Villalpando MD RIGHT ANKLE ARTHROSCOPY WITH BRANDO PLACEMENT 03/03/2025 8:49 AM EDT Anesthesia Event [facility] [address] [place] [address] Sam Hackett MD Nichols, Angela S, MD 03/03/2025 6:44 AM EDT - 03/03/2025 11:55 AM EDT Hospital Encounter [facility] [address] [place] [address] Angelo Villalpando MD Discharge Disposition: Home or Self Care 03/03/2025 6:10 AM EDT Ancillary Procedure [facility] Imaging Bedside Ultrasound VRT [address] [place] [address] Mike Stewart MD 03/03/2025 Procedure Pass [facility] [address] [place] [address] 03/02/2025 9:00 AM EDT Pre-Admission Testing [facility] Pre-Procedure Evaluation Department [place] [address] Angelo Villalpando MD 02/19/2025 Prep for Surgery [facility] ORTHOPEDICS VIRTUAL DEPARTMENT [address] [place] [phone] Angelo Villalpando MD from Last 3 Months [...] this topic Medical Devices Implanted Type Area Tobacco Prizer Device Identifier Shelf Expiration Date Model / Serial / Lot Screw Spine 2.7x22mm Plate R3con Nonlocking - [id number] Implanted:Qty: 1 on 10/23/2023 by Angelo Villalpando MD at [facility] Right: Ankle [employer] [id number] / / Description:[place] [employer] Plating System, Sterilizer 4, Load 4, 15 Oct 2023 Screw Plate 3.5x14mm R3con Locking - [id number] Implanted:Qty: 3 on 10/23/2023 by Angelo Villalpando MD at [facility] Right: Ankle [employer] [id number] / / Description:[place] [employer] Plating System, Sterilizer 4, Load 4, 15 Oct 2023 Plate Fibular Cluster 9-Hole Anatomical Right - [id number] Implanted:Qty: 1 on 10/23/2023 by Angelo Villalpando MD at [facility] Right: Ankle [employer] [id number] / / Description:[place] [employer] Plating System, Sterilizer 4, Load 4, 15 Oct 2023 Screw Plate 3.5x12mm Nonlocking R3con - [id number] Implanted:Qty: 2 on 10/23/2023 by Angelo Villalpando MD at [facility] Right: Ankle [employer] [id number] / / Description:[place] [employer] Plating System, Sterilizer 4, Load 4, 15 Oct 2023 Screw Spine 3.5x12mm Plate R3con Locking - [id number] Implanted:Qty: 1 on 10/23/2023 by Angelo Villalpando MD at [facility] Right: Ankle [employer] [id number] / / Description:[place] 28 [employer] Plating System, Sterilizer 4, Load 4, 15 Oct 2023 Screw 3.5x14mm Small R3con Non Locking Plate Ijeoma Op Ortho Joints - [id number] Implanted:Qty: 1 on 10/23/2023 by Angelo Villalpando MD at [facility] Right: Ankle [employer] [id number] / / Description:[place] [employer] Plating System, Sterilizer 4, Load 4, 15 Oct 2023 [place] Knotless Syndesmosis Tightrope Xp Lf Titanium Sterile - [id number] Implanted:Qty: 1 on 10/23/2023 by Angelo Villalpando MD at [facility] Right: Ankle [employer] [id number] 07/04/2028 [id number] / / [id number] Graft Bone 1.00ml Biocartilage Synthetic Matrix [place] Extracellular Filler Syringe - [id number] Implanted:Qty: 1 on 03/03/2025 by Angelo Villalpando MD at [facility] Right: Ankle [employer] 03/20/2029 [id number] / [id number] / Procedures Procedure Name Priority Date/Time Associated Diagnosis Comments XR ANKLE 3 OR MORE VIEWS (RIGHT) Routine 03/17/2025 12:59 PM EDT Status post ORIF of fracture of ankle [place] REMOVAL IMPLANT DEEP 03/03/2025 8:53 AM EDT Status post open reduction with internal fixation (ORIF) of fracture of ankle [place] ANKLE SCOPE,EXTENS DEBRIDEMNT 03/03/2025 8:53 AM EDT Status post open reduction with internal fixation (ORIF) of fracture of ankle [place] ANESTHESIA PERIPHERAL BLOCK PLACEHOLDER Routine 03/03/2025 8:38 [...] clinician's provided indication for this examination in [facility]: Pain COMPARISON: XR ANKLE 3 OR MORE [...] clinician's provided indication for this examination in [facility]:Pain COMPARISON: XR ANKLE 3 OR MORE VIEWS [...] XR LOWER EXTREMITY Shannon l Result * [place] ANESTHESIA PERIPHERAL BLOCK PLACEHOLDER (03/03/2025 8:38 AM EDT) Narrative Mike Stewart MD - 03/03/2025 8:38 AM EDT Mike Stewart MD 03/03/2025 8:38 AM Peripheral Block Placement Procedure Note: Reason for block: surgeon request and post op pain managment Block performed by: fellow/resident/LIQUIFIED NATURAL GAS SPECIALIST Anesthesiologist: Sam Hackett MD Fellow/Resident/LIQUIFIED NATURAL GAS SPECIALIST: Mike Stewart MD [place] Protocol Performed: consent obtained, patient identified with [...] tolerated by the patient. Sam Hackett MD [place] ANESTHESIA Final Result * Poct Urine HCG (03/03/2025 8:11 AM EDT) HCG, urine Negative, Internal QCs acceptable Negative [facility] 03/03/2025 8:11 AM EDT Lily Oliver MD POINT OF CARE TEST ORDERABLE S Final Result [facility] [address] [place] [address] * ANESTHESIA POINT OF CARE IMAGE CAPTURE (03/03/2025 6:08 AM EDT) Anatomical Region Laterality Modality Ultrasound Narrative 03/03/2025 6:08 AM EDT Mike Stewart MD 03/03/2025 6:08 AM Anesthesia Point of Care Image Capture Performed by: Mike Stewart MD Authorized by: Mike Stewart MD Accession Number: [id number] Mike Stewart MD IMG POINT OF CARE EXAMS Final R esult from Last 3 Months Insurance [facility] [place] Care Teams Early Intervention Specialist Relationship Specialty Start Date End Date Dottie Lemos MD [address] [place] [address] PCP - General Internal Medicine 11/28/21 Additional Source Comments The information contained in this document represents components of the legal health record. It is not the complete legal health record.[facility]
--- OUTSIDE RECORDS SUMMARY | 2025-04-02 15:16 | XMS_ITS | Encounter Summary ---
Author Organization [facility] Address [address] [place] [address] Phone Care Team Providers Care Air Reduction Equipment Operator Name Role Phone Dottie Lemos MD Primary Care Provid er Encounter Details Date Type Department Care Team (Late st Contact Info) Description 10/23/2023 Procedure Pass [facility] [address] [place] [phone] Social History Tobacco Use Types Packs/Day Years [...] 8:11 PM EDT Magalis Kemp RN * [place] Suicide Severity Rating Scale (Screener/Recent Self-Report) Question [...] documented as of this encounter Care Teams Air Reduction Equipment Operator Relationship Specialty Start Date End Date Dottie Lemos MD [address] [place] [address] PCP - General Internal Medicine 11/28/21 documented as of this encounter Additional Source Comments The information contained in this document represents components of the legal health record. It is not the complete legal health record.[facility]
--- OUTSIDE RECORDS SUMMARY | 2025-04-02 15:16 | XMS_ITS | Encounter Summary ---
Author Organization [facility] Address [address] [place] [address] Phone Care Team Providers Care Assembly Stock Supervisor Name Role Phone Dottie Lemos MD Primary Care Provid er Encounter Details Date Type Department Care Team (Late st Contact Info) Description 10/15/2023 Procedure Pass [facility] [address] [place] [phone] [place] [address] Social History Tobacco Use Types Packs/Day Years [...] documented as of this encounter Care Teams Assembly Stock Supervisor Relationship Specialty Start Date End Date Dottie Lemos MD [address] [place] [address] PCP - General Internal Medicine 11/28/21 documented as of this encounter Additional Source Comments The information contained in this document represents components of the legal health record. It is not the complete legal health record.[facility]
--- OUTSIDE RECORDS SUMMARY | 2025-04-02 15:16 | XMS_ITS | Encounter Summary ---
Author Organization [facility] Address [address] [place] [address] Phone Care Team Providers Care Insurance Operations Rep Name Role Phone Dottie Lemos MD Primary Care Provid er Encounter Details Date Type Department Care Team (Late st Contact Info) Description 03/03/2025 Procedure Pass [facility] [address] [place] [phone] Social History Tobacco Use Types Packs/Day Years [...] on filedocumented in this encounter Care Teams Insurance Operations Rep Relationship Specialty Start Date End Date Dottie Lemos MD [address] [place] [address] PCP - General Internal Medicine 11/28/21 documented as of this encounter Additional Source Comments The information contained in this document represents components of the legal health record. It is not the complete legal health record.[facility]
--- OUTSIDE RECORDS SUMMARY | 2025-04-02 15:16 | XMS_ITS | Encounter Summary ---
Author Organization [facility] Address [address] [place] [address] Phone Care Team Providers Care Irrigation Specialist Name Role Phone Dottie Lemos MD Primary Care Provid er Encounter Details Date Type Department Care Team (Late st Contact Info) Description 07/14/2024 Procedure Pass [facility], Ct Scan - [address] [address] Social History Tobacco Use Types Packs/Day Years [...] documented as of this encounter Care Teams Irrigation Specialist Relationship Specialty Start Date End Date Dottie Lemos MD [address] [place] [address] PCP - General Internal Medicine 11/28/21 documented as of this encounter Additional Source Comments The information contained in this document represents components of the legal health record. It is not the complete legal health record.[facility]
--- OUTSIDE RECORDS SUMMARY | 2025-04-02 15:16 | XMS_ITS | Encounter Summary ---
Author Organization [facility] Address [address] [place] [address] Phone Care Team Providers Care Urban Planning Professor Name Role Phone Dottie Lemos MD Primary Care Provid er Encounter Details Date Type Department Care Team (Late st Contact Info) Description 03/11/2025 Orders Only [facility] Department of Orthopaedic Surgery, Foot & Ankle Service [address], [address] [place] [address] Karsten Mendosa [address] [place] [phone] [email or web address] Status post ORIF of fracture of [...] clinician's provided indication for this examination in [facility]: Pain COMPARISON: XR ANKLE 3 [...] clinician's provided indication for this examination in [facility]:Pain COMPARISON: XR ANKLE 3 OR [...] ankle documented in this encounter Care Teams Urban Planning Professor Relationship Specialty Start Date End Date Dottie Lemos MD [address] [place] [address] PCP - General Internal Medicine 11/28/21 documented as of this encounter Additional Source Comments The information contained in this document represents components of the legal health record. It is not the complete legal health record.[facility]
== END 2025-04-02 13:27 | disposition home or self-care (01) ==
LOC: HO.HGI 12:25
PROVIDERS: PCP Internal Medicine; Visit Provider Nurse Practitioner
DX: K21.9 Gastro-esophageal reflux disease without esophagitis (principal); R13.10 Dysphagia, unspecified
CPT/HCPCS: 99213

== ENCOUNTER → 2025-04-02 12:25 | Outpatient (BNVA) | payer OTHER, SELFPAY | PROVIDERS: PCP Internal Medicine; Visit Provider Nurse Practitioner | DX: K21.9 Gastro-esophageal reflux disease without esophagitis (principal); R13.10 Dysphagia, unspecified | CPT/HCPCS: 99212 ==

== ENCOUNTER 2025-04-06 14:00 | Outpatient (REF) | payer OTHER, SELFPAY ==
--- NOTE | 2025-04-06 14:11 | EMG_ITS ---
Chief complaint:?R20.2 Paresthesia of skin Reason for referral: Bilateral hand numbness Referred by:?Dottie Kirkpatrick MD Procedure done: Bilateral upper extremities NCS/EMG Bilateral median and ulnar motor studies were performed with F responses, bilateral median and ulnar mixed sensory in 2nd and 5th digit ortho sensory, bilateral median and lateral antecubital brachial sensory and bilateral radial sensory studies were performed. EMG needle examination was performed. Findings: No significant abnormality was noted. Impression: This is an unremarkable study with no evidence of median or ulnar neuropathy, plexopathy or radiculopathy [place] [address] 2 extremities [facility]
== END 2025-04-06 14:01 | disposition home or self-care (01) ==
LOC: HO.NEURO 14:00
PROVIDERS: PCP Internal Medicine; Visit Provider Internal Medicine
DX: R20.2 Paresthesia of skin (principal)
CPT/HCPCS: 95886; 95913

== ENCOUNTER → 2025-04-06 14:11 | Outpatient (BNV) | payer OTHER, SELFPAY | PROVIDERS: PCP Internal Medicine; Visit Provider Psychiatry & Neurology Neurology | DX: R20.2 Paresthesia of skin (principal) | CPT/HCPCS: 95886; 95913 ==

== ENCOUNTER 2025-04-22 13:37 | Outpatient (AMB) | payer OTHER, SELFPAY ==
--- OUTSIDE RECORDS SUMMARY | 2016-04-18 04:00 | XMS_ITS | Continuity of Care Document ---
Author Organization [facility] Address [address] [facility] [address] [place] [address] Phone Care Team Providers Care Boat Cleaning Supervisor Name Role Phone BASILIA MARIN MD Unavailable Unavailable Allergies, Adverse Reactions, Alerts Substance Reaction Status Criticality No Known Allergies Active No Inform ation Medications Medication Instructions Dosage Effective Dates (start - stop) Status Comments nortriptyline 10 mg capsule take 2 capsule by ORAL route every bedtime 20 MG - Active Procedures Procedure Date OFFICE/OUTPATIENT VISIT, EST Motor&sens 9-10 Nrv Cndj Test 6 Emg 1 Extremity Complete Advance Directives Directive Yes / No Effective Date File Name No Information Encounters Encounter Description Practice Location Reason(s) For Visit Diagnoses Date Provider OFFICE/OUTPATI ENT VISIT, EST [facility], [address] [place] [address], [id number], tel:[phone] [place] [facility] lower back and leg pain (chief complaint) Lumbosacral root disorders, not elsewhere classifiedSpinal stenosis, lumbosacral regionMeralgia paresthetica, right lower limb TOMAS CUI. [address] [facility], [address], [id number], [place]. tel:[phone] [facility], [address] [place] [address], [id number], [place] tel:[phone] [place] [facility] Pain right thigh (chief complaint) Meralgia paresthetica, right lower limbLumbosacral root disorders, not elsewhere classifiedSpinal stenosis, lumbosacral region TOMAS CUI. [address] [facility], [address], [place], [place], [id number], [place]. tel:[phone] Family History Family Member Type Diagnosis Age At Onset No Information Payers Payer name Insurance type Covered constitution party ID Authoriza tibalwinder(s) No Information Social History Type Description Quantity Date Captured Comments Alcohol Use Details Unknown Caffeine Use Details Unknown Tobacco Use Status No Information Smoking Status No Information Sex Female Vital Signs Date / Time: Height Weight BMI Pulse Rate Blood Pressure Temperature Respiratory Rate Body Surface Area Head Circumference Head Circ. Percentile Wt./[place]. Percentile BMI percentile Pulse Ox Inhaled Ox 9:29 AM 65.00 in 68.039 kg (150.00 lbs) 24.9 6 kg/m eter (2) 80 /min 117/82 mm[Hg] Chief Complaint And Reason For Visit From encounter dated '04/18/2016 09:00'. lower back and leg pain (chief complaint) History Of Present Illness Encounter Date Complaint History Of Prese nt Illness lower back and leg pain lower back and leg pain lower back and leg p ain (comments) the patient continues to complain of right anterior femoral cutaneous neuralgia pain, burning and hypersensitivity. She continues to complain of pain in the lower back and right calf. She tried nortriptyline 10 mg every night for a week. It did not help but gave her sleepinesss, decreased concentration and feeling like she was disconnected. She stopped it after week. She has had MRI scans of the lumbar spine which did not show surgical lesions. Pain right thigh Pain right thigh Pain right thigh (comments) the patient has had an injury to the right anterior thigh in 2012. She complains of pain in the distribution of the right anterior femoral cutaneous nerve since 2012. She describes the pain as dull along with hypersensitivity to touch. There is some burning intermittently in the same distribution. The pain is worse in the summer than in the winter.. She has some tingling but no numbness. She also complains of lower back pain since 2012 along with a new pain in the calf on the right side in the last 5 months. She has no numbness and tingling in the feet. She has had blood vessels studies in the legs which have been unremarkable. She had an MRI scan of the lumbar spine without contrast on January 11, 2016 which showed a 3 mm central disc protrusion at L4-5 with annular fissure and mild spinal stenosis with spinal canal diameter at 9 mm AP. She has a 3-4 mm disc bulge centrally at L5-S1 with mild spinal stenosis and spinal canal diameter at 9 mm AP. She has diffuse mild degenerative changes in the lumbar spine. She has tried Aleve and previously physical therapy without success. She has been prescribed gabapentin by Dr. Price but she did not want to take it because of the potential side effects in the daytime. Instructions Date Instruction Additional Infor jo I have started her o n gabapentin 100 mg 3 times a day for her pain and hypersensitivity and burning. She will followup in a month. Related to Meralgia paresthetica, right lower limb She had an electrodi agnostic study of the lower extremities today which was within the limits of normal and did not show any significant peripheral neuropathy or lumbosacral radiculopathy. The needle EMG exam was limited because she was unable to tolerate the needle. Related to Spinal stenosis, lumbosacral region the patient's clinic al presentation in the right anterior thigh is consistent with right anterior femoral cutaneous neuralgia. Her other symptoms including low back pain and pain in the right calf indicate possible S1 radiculopathy. Her MRI findings were reviewed with her. She is currently not a surgical candidate. I will schedule her for an EMG nerve conduction study of the lower extremities. I have also discussed neuropathic pain medications with her for her right-thigh pain. I have started her on nortriptyline 10 mg every night. She may increase the dose to 20 mg every night after 2 weeks if necessary. She will followup with the electrodiagnostic study of the lower extremities Related to Spinal stenosis, lumbosacral region Assessments Type Assessment Date assessment Lumbosacral root disorders, not elsewhere classified assessment Spinal stenosis, lumbosacral reg ion assessment Meralgia paresthetica, right low er limb
--- OUTSIDE RECORDS SUMMARY | 2016-04-18 04:00 | XMS_ITS | Continuity of Care Document ---
Author Organization [facility] Address [address] [facility] [address] [place] [address] Phone Care Team Providers Care Feed Mill Tender Name Role Phone BASILIA MARIN MD Unavailable [...] ENT VISIT, EST [facility], [address] [place] [address], [id number], tel:[phone] [place] [facility] lower back and leg pain (chief complaint) Lumbosacral root disorders, not elsewhere classifiedSpinal stenosis, lumbosacral regionMeralgia paresthetica, right lower limb TOMAS CUI. [address] [facility], [address], [id number], [place]. tel:[phone] [facility], [address] [place] [address], [id number], [place] tel:[phone] [place] [facility] Pain right thigh (chief complaint) Meralgia paresthetica, right lower limbLumbosacral root disorders, not elsewhere classifiedSpinal stenosis, lumbosacral region TOMAS CUI. [address] [facility], [address], [place], [place], [id number], [place]. tel:[phone] Family History Family Member Type Diagnosis Age At Onset No Information Payers Payer name Insurance type Covered green party ID Authoriza tibalwinder(s) No Information Social [...]
--- OUTSIDE RECORDS SUMMARY | 2016-04-18 04:00 | XMS_ITS | Continuity of Care Document ---
Author Organization [facility] Address [address] [facility] [address] [place] [address] Phone Care Team Providers Care Gasoline Tester Name Role Phone BASILIA MARIN MD Unavailable [...] ENT VISIT, EST [facility], [address] [place] [address], [id number], tel:[phone] [place] [facility] lower back and leg pain (chief complaint) Lumbosacral root disorders, not elsewhere classifiedSpinal stenosis, lumbosacral regionMeralgia paresthetica, right lower limb TOMAS CUI. [address] [facility], [address], [id number], [place]. tel:[phone] [facility], [address] [place] [address], [id number], [place] tel:[phone] [place] [facility] Pain right thigh (chief complaint) Meralgia paresthetica, right lower limbLumbosacral root disorders, not elsewhere classifiedSpinal stenosis, lumbosacral region TOMAS CUI. [address] [facility], [address], [place], [place], [id number], [place]. tel:[phone] Family History Family Member Type Diagnosis Age At Onset No Information Payers Payer name Insurance type Covered democrat ID Authoriza tibalwinder(s) No Information Social History [...]
--- NOTE | 2025-04-22 13:56 | MHC.OFFVIS ---
Vital Signs 04/22/25 13:57 Height 5 ft 6 in Weight 148 lb BMI 23.9 Intake Visit Reasons: [employer] [employer] [place]: right hand numbness/tinging/trigger finger Intake Note: Meri is a 55 year old right hand dominant female who presents today as a New Patient for evaluation of Right Hand Numbness & Tingling and Multiple Trigger Fingers. Patient complains of Right Thumb, Index, and Middle finger numbness and tingling with associated sleep disturbance. 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 She also complains of Right Thumb, Index, and Middle finger locking and catching. She has tried using a a Velcro wist brace without relief. She is taking Ibuprofen for the pain without relief. Denies any prior injuries or surgeries to the right hand. Patient works for the [employer] in [employer]. Impression 04/06/25: All left vs. right side differences within normal limits. All F Wave latencies were within normal limits. Allergies No Known Drug Allergies Allergy (Unknown, Verified 04/22/25 14:03) none bees Allergy (Severe, Uncoded 04/22/25 14:03) Anaphylaxis HPI HPI [employer] [place]: right hand numbness/tinging/trigger finger: Details: Meri is a 55 year old right hand dominant female who presents today as a New Patient for evaluation of Right Hand Numbness & Tingling and Multiple Trigger Fingers. Patient complains of Right Thumb, Index, and Middle finger numbness and tingling with associated sleep disturbance. 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 She also complains of Right Thumb, Index, and Middle finger locking and catching. She has tried using a a Velcro wist brace without relief. She is taking Ibuprofen for the pain without relief. Denies any prior injuries or surgeries to the right hand. Patient works for the [employer] in [employer]. EMG 04/06/[address] Zabala Findings: No significant abnormality was noted. Impression: This is an unremarkable study with no evidence of median or ulnar neuropathy, plexopathy or radiculopathy [facility] Medical History Abdominal gas pain Diarrhea Physical exam Reactive airways dysfunction syndrome Seasonal allergic rhinitis due to pollen Ulnar neuropathy Hand numbness Surgical History History of open reduction and internal fixation (ORIF) procedure History of shoulder surgery Family History Mother No problems noted. Father No problems noted. Social History (Updated 04/22/25 @ 14:04 by Beatris Curry Desmond) Housing: House Alcohol intake: former Patient Tobacco Use Status: Never used Tobacco e-Cigarette/Vaping Use: Never Used Second Hand Smoke Exposure: No service: Yes Current occupational status: employed Current occupation: [employer] Current occupational exposures/hazards: No Cognitive needs: No Hearing needs: No Vision needs: Yes Review of Systems Const All systems reviewed & are unremarkable except as noted in HPI and below Physical Exam Vital Signs: BMI result Body Mass Index 23.9 Extrem Other: Patient is alert, oriented, and in no acute distress. Neuro: Normal sensation of the tips of all digits of the right hand at this time Vascular: Cap refill brisk Pain: Tenderness to palpation of the A1 lesly of right middle finger and thumb Pain with locking and catching of right middle finger and right thumb ROM: Visible and palpable locking and catching of the right middle finger in the right thumb Patient is able to flex and extend all other digits of the right hand fully Skin: No lacerations or abrasions. General: No ecchymosis, erythema, or evidence of infection. Psych: Appears grossly normal Affect normal Attitude cooperative Assessment & Plan Assessment & Plan (1) Trigger finger, right middle finger: Code(s): M65.331 - Trigger finger, right middle finger Category: Medical (2) Trigger thumb, right thumb: Code(s): M65.311 - Trigger thumb, right thumb Category: Medical Plan 1. Right trigger thumb 2. Right middle finger trigger finger I educated the patient about the condition. I discussed both operative and nonoperative treatment options. The patient would like to proceed with surgery. The risks and benefits of operative treatment were discussed with the patient and the patient wishes to proceed with surgery. These risks include, but are not limited to, risk of damage to blood vessels, nerves, tendons, infection, recurrence, incomplete relief of preoperative symptoms, persistent pain, possible need for further surgery, and the risks associated with regional blocks and/or anesthesia. Plan is to take the patient to the operating room at some point in the next few weeks for the following procedures: 1. Right middle finger trigger release under local 2. Right trigger thumb release under local All of the preoperative paperwork including the consent was discussed today. All of the patient's questions were answered in the clinic today. The patient understands that they will be in contact with our surgical garment assembler to discuss scheduling their procedure. Patient denies diabetes, blood thinners, asthma, heart issues, lung issues, kidney issues, or current smoking. Coding Level of Care Code New Pt Level 4 (76295) Diagnoses Trigger finger, right middle finger M65.331 Trigger thumb, right thumb M65.311
[2025-04-22 13:57] VITALS: BMI 23.9
--- OUTSIDE RECORDS SUMMARY | 2025-04-23 01:39 | XMS_ITS | Encounter Summary ---
Author Organization [facility] Address [address] [facility] [address] [place] [address] Phone Care Team Providers Care Furnace Unloader Name Role Phone Dottie Lemos MD Primary Care Provid er Encounter Details Date Type Department Care Team (Late st Contact Info) Description 10/15/2023 Procedure Pass [facility] [id number] [place] [address] Social History Tobacco Use Types Packs/Day Years [...] Upcoming Encounters Date Type Department Care Team (Late st Contact Info) Description 04/27/2025 1:00 PM EST Telemedicine [facility] Department of Orthopaedic Surgery - [place] [address] [place] [address] Jaycob Hurst PA-C [address] [place] [address] [email or web address] documented as of this encounter Visit Diagnoses Not on filedocumented in this encounter Additional Health Concerns Infection Onset Date Last Indicated Resolved Time CoV-Risk 07/19/2024 07/19/2024 07/30/2024 1:23 AM EST documented as of this encounter Care Teams Furnace Unloader Relationship Specialty Start Date End Date Dottie Lemos MD [address] [place] [address] PCP - General Internal Medicine 11/28/21 documented as of this encounter Additional Source Comments The information contained in this document represents components of the legal health record. It is not the complete legal health record.[facility]
--- OUTSIDE RECORDS SUMMARY | 2025-04-23 01:39 | XMS_ITS | Encounter Summary ---
Author Organization [facility] Address [address] [place] [address] Phone Care Team Providers Care Air Valve Repairer Name Role Phone Dottie Lemos MD Primary Care Provid er Encounter Details Date Type Department Care Team (Late st Contact Info) Description 10/23/2023 Procedure Pass [facility] [address] [place] [id number] Social History Tobacco Use Types Packs/Day Years [...] 8:11 PM EDT Magalis Kemp RN * [place] Suicide Severity Rating Scale (Screener/Recent Self-Report) Question [...] Info) Description 04/27/2025 1:00 PM EST Telemedicine [facility] Department of Orthopaedic Surgery - [place] [address] [place] [address] Jaycob Hurst PA-C [address] [place] [address] [email or web address] documented as of this encounter Visit Diagnoses Not on filedocumented in this encounter Additional Health Concerns Infection Onset Date Last Indicated Resolved Time CoV-Risk 07/19/2024 07/19/2024 07/30/2024 1:23 AM EST documented as of this encounter Care Teams Air Valve Repairer Relationship Specialty Start Date End Date Dottie Lemos MD [address] [place] [address] PCP - General Internal Medicine 11/28/21 documented as of this encounter Additional Source Comments The information contained in this document represents components of the legal health record. It is not the complete legal health record.[facility]
--- OUTSIDE RECORDS SUMMARY | 2025-04-23 01:39 | XMS_ITS | Encounter Summary ---
Author Organization [facility] Address [address] [place] [address] Phone Care Team Providers Care Casing Runner Name Role Phone Dottie Lemos MD Primary Care Provid er Encounter Details Date Type Department Care Team (Late st Contact Info) Description 07/14/2024 Procedure Pass [facility] Scan - [address] [address] Social History Tobacco Use Types Packs/Day Years [...] Info) Description 04/27/2025 1:00 PM EST Telemedicine [facility] Department of Orthopaedic Surgery - [place] [address] [place] [address] Jaycob Hurst PA-C [address] [place] [address] [email or web address] documented as of this encounter Visit Diagnoses Not on filedocumented in this encounter Additional Health Concerns Infection Onset Date Last Indicated Resolved Time CoV-Risk 07/19/2024 07/19/2024 07/30/2024 1:23 AM EST documented as of this encounter Care Teams Casing Runner Relationship Specialty Start Date End Date Dottie Lemos MD [address] [place] [address] PCP - General Internal Medicine 11/28/21 documented as of this encounter Additional Source Comments The information contained in this document represents components of the legal health record. It is not the complete legal health record.[facility]
--- OUTSIDE RECORDS SUMMARY | 2025-04-23 01:39 | XMS_ITS | Clinical Summary ---
Author Organization [facility] Address [address] [facility] [address] [place] [address] Phone Care Team Providers Care Process Improvement Analyst Name Role Phone Dottie Lemos MD Primary Care Provid er Allergies Active Allergy Reactions Criticality Noted Date Comments Allergen Xrx-Nxgfx-Xibay Bee 024 Medications loratadine (CLARITIN) 10 mg tablet Take 10 mg by mouth daily. Active ibuprofen (ADVIL,MOTRIN) 200 MG tablet Take 200 mg by mouth every 6 (six) hours as needed for pain (specific location in comments). Active ondansetron (ZOFRAN) 4 MG tablet Take 1 tablet (4 mg total) by mouth every 8 (eight) hours as needed for nausea. 10 tablet 10/23/19 24 Active Additional Information Patient not taking.Reported on 07/19/2024 aspirin 81 MG EC tablet Take 1 tablet (81 mg total) by mouth 2 (two) times a day for 28 days. 56 tablet 10/23/19 24 Active traMADoL (ULTRAM) 50 mg tabletIndications: Status post ORIF of fracture of ankle Take 1-2 tablets (50-100 mg total) by mouth every 6 (six) hours as needed for pain (specific location in comments). Begin this medication after completing your prescription for oxycodone. Do not take this medication at the same time as oxycodone or any other narcotic medication. 30 tablet 11/22/19 24 Active Additional Information Patient not taking.Reported on 07/19/2024 amoxicillin (AMOXIL) 500 MG capsule 09/24/19 24 Active dicyclomine (BENTYL) 20 mg tablet Take 20 mg by mouth 3 (three) times a day. 07/11/19 25 Active aspirin 81 MG EC tablet Take 1 tablet (81 mg total) by mouth 2 (two) times a day. 90 tablet 03/03/20 25 Active docusate sodium (COLACE) 100 MG capsule Take 1 capsule (100 mg total) by mouth 2 (two) times a day as needed for mild constipation. 30 capsule 1 03/03/20 25 Active ibuprofen (ADVIL,MOTRIN) 800 MG tablet Take 1 tablet (800 mg total) by mouth every 8 (eight) hours as needed for pain (specific location in comments). 90 tablet 1 03/03/20 25 Active ondansetron (ZOFRAN-ODT) 4 MG disintegrating tablet Take 1 tablet (4 mg total) by mouth every 4 (four) hours as needed for nausea. 20 tablet 03/03/20 25 Active acetaminophen (TYLENOL) 500 MG tablet Take 1 tablet (500 mg total) by mouth every 8 (eight) hours as needed for pain (specific location in comments). 90 tablet 1 03/03/20 25 Active oxyCODONE 5 MG immediate release tablet Take 1 tablet (5 mg total) by mouth every 6 (six) hours as needed for pain (specific location in comments). 15 tablet 03/17/20 25 Active Active Problems Problem Noted Date Diagnosed [...] Encounters Date Type Department Care Team Description 04/09/2025 Telephone [facility] [place] Department of Orthopaedic Surgery - [address] [place] [address] Jaycob Hurst PA-C 03/17/2025 2:45 PM EDT Office Visit [facility] [place] Department of Orthopaedic Surgery, Foot & Ankle Service [address] [facility] [place] [address] Angelo Villalpando MD Status post ORIF of fracture of ankle (Primary Dx) 03/17/2025 12:46 PM EDT - 03/17/2025 11:59 PM EDT Hospital Encounter [facility] [address] [facility] [place] [address] Angelo Villalpando MD Discharge Disposition: Home or Self Care 03/11/2025 Orders Only [facility] [place] Department of Orthopaedic Surgery, Foot & Ankle Service [address] [facility] [place] [address] Karsten Mendosa Status post ORIF of fracture of ankle (Primary Dx) 03/03/2025 9:15 AM EDT - 03/03/2025 10:45 AM EDT Surgery [facility] [place] [facility] [address] [place] [address] Angelo Villalpando MD RIGHT ANKLE ARTHROSCOPY WITH BRANDO PLACEMENT 03/03/2025 8:49 AM EDT Anesthesia Event [facility] [place] [facility] [address] [place] [address] Sam Hackett MD Nichols, Angela S, MD 03/03/2025 6:44 AM EDT - 03/03/2025 11:55 AM EDT Hospital Encounter [facility] [place] [facility] [address] [place] [address] Angelo Villalpando MD Discharge Disposition: Home or Self Care 03/03/2025 6:10 AM EDT Ancillary Procedure [facility] [place] Imaging Bedside Ultrasound VRT [address] [place] [address] Mike Stewart MD 03/03/2025 Procedure Pass [facility] [place] [facility] [address] [place] [address] 03/02/2025 9:00 AM EDT Pre-Admission Testing [facility] Pre-Procedure Evaluation Department Please [place] [phone] Angelo Villalpando MD 02/19/2025 Prep for Surgery [facility] [place] ORTHOPEDICS VIRTUAL DEPARTMENT [address] [place] [address] Angelo Villalpando MD from Last 3 Months [...] 03/03/2025 7:52 AM EDT Plan of Treatment Upcoming Encounters Date Type Department Care Team (Late st Contact Info) Description 04/27/2025 1:00 PM EST Telemedicine [facility] [place] Department of Orthopaedic Surgery - [place] [address] [place] [address] Jaycob Hurst PA-C [address] [place] [address] [email or web address] Health Maintenance Due Date Last Done Comments [...] this topic Medical Devices Implanted Type Area Pie Filling Mixer Device Identifier Shelf Expiration Date Model / Serial / Lot Screw Spine 2.7x22mm Plate R3con Nonlocking - [id number] Implanted:Qty: 1 on 10/23/2023 by Angelo Villalpando MD at [facility] Right: Ankle [employer] [id number] / / Description:[place] 28 REC[employer] Plating System, Sterilizer 4, Load 4, 15 Oct 2023 Screw Plate 3.5x14mm R3con Locking - [id number] Implanted:Qty: 3 on 10/23/2023 by Angelo Villalpando MD at [facility] Right: Ankle [employer] [id number] / / Description:[employer] 28 REC[employer] Plating System, Sterilizer 4, Load 4, 15 Oct 2023 Plate Fibular Cluster 9-Hole Anatomical Right - [id number] Implanted:Qty: 1 on 10/23/2023 by Angelo Villalpando MD at [facility] Right: Ankle [employer] [id number] / / Description:[employer] 28 REC[employer] Plating System, Sterilizer 4, Load 4, 15 Oct 2023 Screw Plate 3.5x12mm Nonlocking R3con - [id number] Implanted:Qty: 2 on 10/23/2023 by Angelo Villalpando MD at [facility] Right: Ankle [employer] [id number] / / Description:[employer] 28 RECON Plating System, Sterilizer 4, Load 4, 15 Oct 2023 Screw Spine 3.5x12mm Plate R3con Locking - [id number] Implanted:Qty: 1 on 10/23/2023 by Angelo Villalpando MD at [facility] Right: Ankle [employer] [id number] / / Description:[employer] 28 REC[employer] Plating System, Sterilizer 4, Load 4, 15 Oct 2023 Screw 3.5x14mm Small R3con Non Locking Plate Ijeoma Op Ortho Joints - [id number] Implanted:Qty: 1 on 10/23/2023 by Angelo Villalpando MD at [facility] Right: Ankle [employer] [id number] / / Description:[employer] 28 REC[employer] Plating System, Sterilizer 4, Load 4, 15 Oct 2023 [place] Knotless Syndesmosis Tightrope Xp Lf Titanium Sterile - [id number] Implanted:Qty: 1 on 10/23/2023 by Angelo Villalpando MD at [facility] Right: Ankle [employer] [id number] 07/04/2028 [id number] / / [id number] Graft Bone 1.00ml Biocartilage Synthetic Matrix Cart[place]idge Extracellular Filler Syringe - [id number] Implanted:Qty: 1 on 03/03/2025 by Angelo Villalpando MD at [facility] Right: Ankle [employer] 03/20/2029 [id number] / [id number] / Procedures Procedure Name Priority Date/Time Associated Diagnosis Comments XR ANKLE 3 OR MORE VIEWS (RIGHT) Routine 03/17/2025 12:59 PM EDT Status post ORIF of fracture of ankle SC REMOVAL IMPLANT DEEP 03/03/2025 8:53 AM EDT Status post open reduction with internal fixation (ORIF) of fracture of ankle SC ANKLE SCOPE,EXTENS DEBRIDEMNT 03/03/2025 8:53 AM EDT Status post open reduction with internal fixation (ORIF) of fracture of ankle SC ANESTHESIA PERIPHERAL BLOCK PLACEHOLDER Routine 03/03/2025 8:38 [...] clinician's provided indication for this examination in [facility]: Pain COMPARISON: XR ANKLE 3 OR MORE [...] clinician's provided indication for this examination in [facility]:Pain COMPARISON: XR ANKLE 3 OR MORE VIEWS (RIGHT) 2023-; CT ANKLE WITHOUTCONTRAST (RIGHT) 2024- FINDINGS: Healed [...] XR LOWER EXTREMITY Shannon l Result * SC ANESTHESIA PERIPHERAL BLOCK PLACEHOLDER (03/03/2025 8:38 AM EDT) Narrative Mike Stewart MD - 03/03/2025 8:38 AM EDT Mike Stewart MD 03/03/2025 8:38 AM Peripheral Block Placement Procedure Note: Reason for block: surgeon request and post op pain managment Block performed by: fellow/resident/FLOAT PHLEBOTOMIST Anesthesiologist: Sam Hackett MD Fellow/Resident/FLOAT PHLEBOTOMIST: Mike Stewart MD [place] Protocol Performed: consent obtained, patient identified with [...] tolerated by the patient. Sam Hackett MD SC ANESTHESIA Final Result * Poct Urine HCG (03/03/2025 8:11 AM EDT) HCG, urine Negative, Internal QCs acceptable Negative [facility] 03/03/2025 8:11 AM EDT us Lily Oliver MD LAB POCT ENTER/EDIT ORDERABL ES Final Result [facility] [address] [place] [address] * ANESTHESIA POINT OF CARE IMAGE CAPTURE (03/03/2025 6:08 AM EDT) Anatomical Region Laterality Modality Ultrasound Narrative 03/03/2025 6:08 AM EDT Mike Stewart MD 03/03/2025 6:08 AM Anesthesia Point of Care Image Capture Performed by: Mike Stewart MD Authorized by: Mike Stewart MD Accession Number: [id number] us Mike Stewart MD IMG POINT OF CARE EXAMS Final R esult from Last 3 Months Insurance [facility] Address: [address] [phone] [facility] Care Teams Process Improvement Analyst Relationship Specialty Start Date End Date Dottie Lemos MD [address] [place] [address] PCP - General Internal Medicine 11/28/21 Additional Source Comments The information contained in this document represents components of the legal health record. It is not the complete legal health record.[facility]
--- OUTSIDE RECORDS SUMMARY | 2025-04-23 01:39 | XMS_ITS | Encounter Summary ---
Author Organization [facility] Address [address] [place] [address] Phone Care Team Providers Care Coin Wrapping Machine Operator Name Role Phone Dottie Lemos MD Primary Care Provid er Encounter Details Date Type Department Care Team (Late st Contact Info) Description 03/03/2025 Procedure Pass [facility] [address] [place] [phone] Social History Tobacco Use Types Packs/Day Years [...] Info) Description 04/27/2025 1:00 PM EST Telemedicine [facility] Department of Orthopaedic Surgery - [place] [address] [place] [address] Jaycob Hurst PA-C [address] [place] [address] [email or web address] documented as of this encounter Visit Diagnoses Not on filedocumented in this encounter Care Teams Coin Wrapping Machine Operator Relationship Specialty Start Date End Date Dottie Lemos MD [address] [place] [address] PCP - General Internal Medicine 11/28/21 documented as of this encounter Additional Source Comments The information contained in this document represents components of the legal health record. It is not the complete legal health record.[facility]
== END 2025-04-22 14:36 | disposition home or self-care (01) ==
LOC: HO.HOS 13:38
PROVIDERS: PCP Internal Medicine
DX: M65.331 Trigger finger, right middle finger (principal); M65.311 Trigger thumb, right thumb
CPT/HCPCS: 99204

== ENCOUNTER → 2025-04-22 13:37 | Outpatient (BNVA) | payer OTHER, SELFPAY | PROVIDERS: PCP Internal Medicine | DX: M65.331 Trigger finger, right middle finger (principal); M65.311 Trigger thumb, right thumb | CPT/HCPCS: 99202 ==

== ENCOUNTER 2025-04-27 11:53 | Day surgery (SDC) | payer OTHER, SELFPAY ==
--- OUTSIDE RECORDS SUMMARY | 2016-04-18 04:00 | XMS_ITS | Continuity of Care Document ---
Author Organization [facility] Address [address] [facility] [address] [place] [address] Phone Care Team Providers Care Frameman Name Role Phone BASILIA MARIN MD Unavailable [...] ENT VISIT, EST [facility], [address] [place] [address], [id number], tel:[phone] [place] [facility] lower back and leg pain (chief complaint) Lumbosacral root disorders, not elsewhere classifiedSpinal stenosis, lumbosacral regionMeralgia paresthetica, right lower limb TOMAS CUI. [address] [facility], [address], [id number], [place]. tel:[phone] [facility], [address] [place] [address], [id number], [place] tel:[phone] [place] [facility] Pain right thigh (chief complaint) Meralgia paresthetica, right lower limbLumbosacral root disorders, not elsewhere classifiedSpinal stenosis, lumbosacral region TOMAS CUI. [address] [facility], [address], [place], [place], [id number], [place]. tel:[phone] Family History Family Member Type Diagnosis Age At Onset No Information Payers Payer name Insurance type Covered libertarian ID Authoriza tibalwinder(s) No Information Social History [...]
--- OUTSIDE RECORDS SUMMARY | 2025-04-23 19:44 | XMS_ITS | Encounter Summary ---
Author Organization [facility] Address [address] [place] [address] Phone Care Team Providers Care Quill Cleaning Machine Operator Name Role Phone Dottie Lemos MD Primary Care Provid er Encounter Details Date Type Department Care Team (Late st Contact Info) Description 03/03/2025 Procedure Pass [facility] [address] [place] [phone] Social History Tobacco Use Types Packs/Day Years [...] Info) Description 04/27/2025 1:00 PM EST Telemedicine [facility] Department of Orthopaedic Surgery - [place] [address] [place] [address] Jaycob Hurst PA-C [address] [place] [address] [email or web address] documented as of this encounter Visit Diagnoses Not on filedocumented in this encounter Care Teams Quill Cleaning Machine Operator Relationship Specialty Start Date End Date Dottie Lemos MD [address] [place] [address] PCP - General Internal Medicine 11/28/21 documented as of this encounter Additional Source Comments The information contained in this document represents components of the legal health record. It is not the complete legal health record.[facility]
--- OUTSIDE RECORDS SUMMARY | 2025-04-23 19:44 | XMS_ITS | Encounter Summary ---
Author Organization [facility] Address [address] [place] [phone] Phone Care Team Providers Care Stick Roller Name Role Phone Dottie Lemos MD Primary Care Provid er Encounter Details Date Type Department Care Team (Late st Contact Info) Description 07/14/2024 Procedure Pass [facility], Ct Scan - [address] [address] Social History Tobacco Use Types Packs/Day Years [...] Info) Description 04/27/2025 1:00 PM EST Telemedicine [facility] [place] of Orthopaedic Surgery - [place] [address] [place] [address] Jaycob Hurst PA-C [address] [place] [address] [email or web address] documented as of this encounter Visit Diagnoses Not on filedocumented in this encounter Additional Health Concerns Infection Onset Date Last Indicated Resolved Time CoV-Risk 07/19/2024 07/19/2024 07/30/2024 1:23 AM EST documented as of this encounter Care Teams Stick Roller Relationship Specialty Start Date End Date Dottie Lemos MD [address] [place] [address] PCP - General Internal Medicine 11/28/21 documented as of this encounter Additional Source Comments The information contained in this document represents components of the legal health record. It is not the complete legal health record.[facility]
--- OUTSIDE RECORDS SUMMARY | 2025-04-23 19:44 | XMS_ITS | Encounter Summary ---
Author Organization [facility] Address [address] [place] [phone] Phone Care Team Providers Care Administrative Aide Name Role Phone Dottie Lemos MD Primary Care Provid er Encounter Details Date Type Department Care Team (Late st Contact Info) Description 10/23/2023 Procedure Pass [facility] [address] [place] [id number] Social History Tobacco Use Types Packs/Day Years [...] 8:11 PM EDT Magalis Kemp RN * [place] Suicide Severity Rating Scale (Screener/Recent Self-Report) Question [...] Info) Description 04/27/2025 1:00 PM EST Telemedicine [facility] [place] Department of Orthopaedic Surgery - [place] [address] [place] [address] Jaycob Hurst PA-C [address] [place] [address] [email or web address] documented as of this encounter Visit Diagnoses Not on filedocumented in this encounter Additional Health Concerns Infection Onset Date Last Indicated Resolved Time CoV-Risk 07/19/2024 07/19/2024 07/30/2024 1:23 AM EST documented as of this encounter Care Teams Administrative Aide Relationship Specialty Start Date End Date Dottie Lemos MD [address] [place] [address] PCP - General Internal Medicine 11/28/21 documented as of this encounter Additional Source Comments The information contained in this document represents components of the legal health record. It is not the complete legal health record.[facility]
--- OUTSIDE RECORDS SUMMARY | 2025-04-23 19:44 | XMS_ITS | Encounter Summary ---
Author Organization [facility] Address [address] [facility] [address] [place] [phone] Phone Care Team Providers Care Housesmith Name Role Phone Dottie Lemos MD Primary Care Provid er Encounter Details Date Type Department Care Team (Late st Contact Info) Description 10/15/[address] [facility] [address] [place] [id number] [place] [address] Social History Tobacco Use Types Packs/Day Years [...] Description 04/27/2025 1:00 PM EST Telemedicine [facility] Department of Orthopaedic Surgery - [place] [address] [place] [address] Jaycob Hurst PA-C [address] [place] [address] [email or web address] documented as of this encounter Visit Diagnoses Not on filedocumented in this encounter Additional Health Concerns Infection Onset Date Last Indicated Resolved Time CoV-Risk 07/19/2024 07/19/2024 07/30/2024 1:23 AM EST documented as of this encounter Care Teams Housesmith Relationship Specialty Start Date End Date Dottie Lemos MD [address] [place] [address] PCP - General Internal Medicine 11/28/21 documented as of this encounter Additional Source Comments The information contained in this document represents components of the legal health record. It is not the complete legal health record.[facility]
--- OUTSIDE RECORDS SUMMARY | 2025-04-23 19:44 | XMS_ITS | Clinical Summary ---
Author Organization [facility] Address [address] [facility] [address] [place] [phone] Phone Care Team Providers Care Speedboat Operator Name Role Phone Dottie Lemos MD Primary Care Provid er Allergies Active Allergy Reactions Criticality Noted Date Comments Allergen Ntn-Ketxb-Flddn Bee 024 Medications loratadine (CLARITIN) 10 mg [...] Type Department Care Team Description 04/09/2025 Telephone [facility] Department of Orthopaedic Surgery - [address] [place] [address] Jaycob Hurst PA-C 03/17/2025 2:45 PM EDT Office Visit [facility] Department of Orthopaedic Surgery, Foot & Ankle Service [address] [facility], [address] [place] [address] Angelo Villalpando MD Status post ORIF of fracture of ankle (Primary Dx) 03/17/2025 12:46 PM EDT - 03/17/2025 11:59 PM EDT Hospital Encounter [facility] [address] [facility], [address] [place] [address] Angelo Villalpando MD Discharge Disposition: Home or Self Care 03/11/2025 Orders Only [facility] Department of Orthopaedic Surgery, Foot & Ankle Service [address] [facility], [address] [place] [address] Karsten Mendosa Status post ORIF of fracture of ankle (Primary Dx) 03/03/2025 9:15 AM EDT - 03/03/2025 10:45 AM EDT Surgery [facility] [address] [place] [address] Angelo Villalpando MD RIGHT ANKLE ARTHROSCOPY WITH BRANDO PLACEMENT 03/03/2025 8:49 AM EDT Anesthesia Event [facility] [address] [place] [address] Sam Hackett MD Nichols, Angela S, MD 03/03/2025 6:44 AM EDT - 03/03/2025 11:55 AM EDT Hospital Encounter [facility] [address] [place] [address] Angelo Villalpando MD Discharge Disposition: Home or Self Care 03/03/2025 6:10 AM EDT Ancillary Procedure [facility] Imaging Bedside Ultrasound VRT [address] [place] [address] Mike Stewart MD 03/03/2025 Procedure Pass [facility] [address] [place] [address] 03/02/2025 9:00 AM EDT Pre-Admission Testing [facility] Pre-Procedure Evaluation Department Please [place] [phone] Angelo Villalpando MD 02/19/2025 Prep for Surgery [facility] ORTHOPEDICS VIRTUAL DEPARTMENT [address] [place] [address] Angelo Villalpando MD from Last [...] Info) Description 04/27/2025 1:00 PM EST Telemedicine [facility] Department of Orthopaedic Surgery - [place] [address] [place] [address] Jaycob Hurst PA-C [address] [place] [address] [email or web address] Health Maintenance Due Date Last Done Comments [...] this topic Medical Devices Implanted Type Area Ornamental Bronze Worker Device Identifier Shelf Expiration Date Model / Serial / Lot Screw Spine 2.7x22mm Plate R3con Nonlocking - [id number] Implanted:Qty: 1 on 10/23/2023 by Angelo Villalpando MD at [facility] Right: Ankle [employer] [id number] / / Description:[place] 28 RECON Plating System, Sterilizer 4, Load 4, 15 Oct 2023 Screw Plate 3.5x14mm R3con Locking - [id number] Implanted:Qty: 3 on 10/23/2023 by Angelo Villalpando MD at [facility] Right: Ankle [employer] [id number] / / Description:[place] [employer] Plating System, Sterilizer 4, Load 4, 15 Oct 2023 Plate Fibular Cluster 9-Hole Anatomical Right - [id number] Implanted:Qty: 1 on 10/23/2023 by Angelo Villalpando MD at [facility] Right: Ankle [employer] [id number] / / Description:[place] 28 REC[employer] Plating System, Sterilizer 4, Load 4, 15 Oct 2023 Screw Plate 3.5x12mm Nonlocking R3con - [id number] Implanted:Qty: 2 on 10/23/2023 by Angelo Villalpando MD at [facility] Right: Ankle [employer] [id number] / / Description:[place] 28 REC[employer] Plating System, Sterilizer 4, Load 4, 15 Oct 2023 Screw Spine 3.5x12mm Plate R3con Locking - [id number] Implanted:Qty: 1 on 10/23/2023 by Angelo Villalpando MD at [facility] Right: Ankle [employer] [id number] / / Description:[place] 28 RECON Plating System, Sterilizer 4, Load 4, 15 Oct 2023 Screw 3.5x14mm Small R3con Non Locking Plate Ijeoma Op Ortho Joints - [id number] Implanted:Qty: 1 on 10/23/2023 by Angelo Villalpando MD at [facility] Right: Ankle [employer] [id number] / / Description:[place] 28 REC[employer] Plating System, Sterilizer 4, Load 4, 15 Oct 2023 [place] Knotless Syndesmosis Tightrope Xp Lf Titanium Sterile - [id number] Implanted:Qty: 1 on 10/23/2023 by Angelo Villalpando MD at [facility] Right: Ankle [employer] [id number] 07/04/2028 [id number] / / [id number] Graft Bone 1.00ml Biocartilage Synthetic Matrix [place] Extracellular Filler Syringe - [id number] Implanted:Qty: 1 on 03/03/2025 by Angelo Villalpando MD at [facility] Right: Ankle [employer] 03/20/2029 [id number] / [id number] / Procedures Procedure Name Priority Date/Time Associated Diagnosis Comments XR ANKLE 3 OR MORE VIEWS (RIGHT) Routine 03/17/2025 12:59 PM EDT Status post ORIF of fracture of ankle MS REMOVAL IMPLANT DEEP 03/03/2025 8:53 AM EDT Status post open reduction with internal fixation (ORIF) of fracture of ankle MS ANKLE SCOPE,EXTENS DEBRIDEMNT 03/03/2025 8:53 AM EDT Status post open reduction with internal fixation (ORIF) of fracture of ankle MS ANESTHESIA PERIPHERAL BLOCK PLACEHOLDER Routine 03/03/2025 8:38 [...] clinician's provided indication for this examination in [facility]: Pain COMPARISON: XR ANKLE 3 [...] clinician's provided indication for this examination in [facility]:Pain COMPARISON: XR ANKLE 3 OR [...] XR LOWER EXTREMITY Shannon l Result * MS ANESTHESIA PERIPHERAL BLOCK PLACEHOLDER (03/03/2025 8:38 AM EDT) Narrative Mike Stewart MD - 03/03/2025 8:38 AM EDT Mike Stewart MD 03/03/2025 8:38 AM Peripheral Block Placement Procedure Note: Reason for block: surgeon request and post op pain managment Block performed by: fellow/resident/AUDIO VISUAL COLLECTIONS COORDINATOR Anesthesiologist: Sam Hackett MD Fellow/Resident/AUDIO VISUAL COLLECTIONS COORDINATOR: Mike Stewart MD [place] Protocol Performed: consent obtained, patient identified with [...] tolerated by the patient. Sam Hackett MD MS ANESTHESIA Final Result * Poct Urine HCG (03/03/2025 8:11 AM EDT) HCG, urine Negative, Internal QCs acceptable Negative [facility] 03/03/2025 8:11 AM EDT us Lily Oliver MD LAB POCT ENTER/EDIT ORDERABL ES Final Result [facility] [address] [place] [address] * ANESTHESIA POINT OF CARE IMAGE CAPTURE (03/03/2025 6:08 AM EDT) Anatomical Region Laterality Modality Ultrasound Narrative 03/03/2025 6:08 AM EDT Mike Stewart MD 03/03/2025 6:08 AM Anesthesia Point of Care Image Capture Performed by: Mike Stewart MD Authorized by: Mike Stewart MD Accession Number: [id number] us Mike Stewart MD IMG POINT OF CARE EXAMS Final R esult from Last 3 Months Insurance [facility] [place] [place] Address: [address] [id number] [facility] Care Teams Speedboat Operator Relationship Specialty Start Date End Date Dottie Lemos MD [address] [place] [address] PCP - General Internal Medicine 11/28/21 Additional Source Comments The information contained in this document represents components of the legal health record. It is not the complete legal health record.[facility]
--- NOTE | 2025-04-27 10:47 | MHC.SHP ---
Pre-Procedural Eval Section A - 24 Hr Update-Section A only Date of Service: 04/27/25 The patient is an INPATIENT: No Changes since office visit: No Cold of Flu in the past 2 weeks, No New Medical Problems, No Changes in Medication and No Patient answered all questions The patient has been examined within 24 hours of the surgical procedure. The History & Physical has been completed within 30 days and I have reviewed it.: Yes Section B - Complete if H&P > 30 days Chief Complaint: thumb and middle finger trigger release Allergies: Allergies Allergy/AdvReac Type Severity Reaction Status Date / Time No Known Drug Allergies Allergy Unknown none Verified 04/22/25 14:03 bees Allergy Severe Anaphylaxis Uncoded 04/22/25 14:03 Plan Diagnosis/Plan: Unchanged I have reviewed the history and physical and performed a pertinent physical examination on my patient. No changes have occurred unless specified. Time Spent With Patient Time: Total time managing care of this patient today ____ minutes.
--- NOTE | 2025-04-27 10:48 | P.OP_ITS ---
Operative Note Operative Note Date of Service: 04/27/25 Narrative: Operative Note Preop diagnosis: 1. Right Middle finger Trigger finger 2. Right trigger thumb Postop diagnosis: Same Procedure: 1. Right middle finger A1 lesly release 2. Right trigger thumb release Surgeon: Becca Hdez MD Hotel Assistant General Manager: None Anesthesia: local block using 1% lidocaine with epinephrine Findings: No locking or catching after A1 lesly release EBL: Less than 5 mL Tourniquet time: None Specimens: None Complications: None Disposition: Brought to recovery room in stable condition Plan: Follow-up for 10-14 days for wound check and suture removal Indications: The patient is 55 years old, with a right trigger thumb and a right middle finger trigger finger that have been unresponsive to nonoperative management. The risks and benefits of operative treatment including but not limited to risk of damage to blood vessels, nerves, tendons, infection, persistent pain, persistent symptoms, recurrence or possible need for additional surgery were discussed with the patient and the patient wishes to proceed with surgery. Procedure: Once consent was obtained a local block was performed in the preop area using a combination of 1% lidocaine with epinephrine. The patient was then brought back to the operating suite and placed on the operative table in supine position. The right upper extremity was prepped and draped in a standard surgical fashion. Once assured that we had a good block, a 1.5 cm oblique incision was made centered over the A1 lesly of the right middle finger . The incision was made through the skin to the subcutaneous tissues using a #15 blade. Careful dissection was made down to the level of the A1 lesly using tenotomy scissors, with care being taken to protect the nearby neurovascular structures. A longitudinal incision was made in the A1 lesly 1st using a #15 blade, then using tenotomy scissors under direct visualization. The A1 lesly was noted to be thickened. Following our A1 lesly release, we no longer saw any locking or catching of the digit with flexion and extension. Once assured that we had a good block, a 1.5 cm oblique incision was made centered over the A1 lesly of the right thumb . The incision was made through the skin to the subcutaneous tissues using a #15 blade. Careful dissection was made down to the level of the A1 lesly using tenotomy scissors, with care being taken to protect the nearby neurovascular structures. A longitudinal incision was made in the A1 lesly 1st using a #15 blade, then using tenotomy scissors under direct visualization. The A1 lesly was noted to be thickened. Following our A1 lesly release, we no longer saw any locking or catching of the digit with flexion and extension. Once satisfied with our A1 lesly releases the wounds were copiously irrigated with normal saline and hemostasis was obtained with a brief period of local pressure. The skin edges were reapproximated with some 5.0 nylon suture material and a sterile dressing was applied. The patient appears to have tolerated the procedure well and with no complications. All digits were well vascularized at the conclusion of the case.
[2025-04-27 13:23] VITALS: BMI 24.5
[2025-04-27 13:30] VITALS: BP 126/77; PULSE 77; RESP 18; TEMP 36.8; O2SAT 98
[2025-04-27 16:03] VITALS: BP 117/77; PULSE 77; RESP 16; O2SAT 99
== END 2025-04-27 16:05 | disposition home or self-care (01) ==
PROVIDERS: PCP Internal Medicine; Visit Provider Orthopaedic Surgery
PROC: (CPT 26055; principal; 2025-04-27 14:10)
DX: M65.311 Trigger thumb, right thumb (principal); M65.331 Trigger finger, right middle finger; R20.0 Anesthesia of skin; R20.2 Paresthesia of skin; G56.20 Lesion of ulnar nerve, unspecified upper limb; Z79.1 Long term (current) use of non-steroidal anti-inflammatories (NSAID); Z98.890 Other specified postprocedural states
CPT/HCPCS: 26055 ×2; J0165; J2003; J2004

== ENCOUNTER → 2025-04-27 11:53 | Outpatient (BNV) | payer OTHER, SELFPAY | PROVIDERS: PCP Internal Medicine; Visit Provider Orthopaedic Surgery | DX: M65.331 Trigger finger, right middle finger (principal); M65.311 Trigger thumb, right thumb | CPT/HCPCS: 26055 ==

== ENCOUNTER 2025-05-13 12:51 | Outpatient (AMB) | payer OTHER, SELFPAY ==
[2025-05-13 13:07] VITALS: BMI 24.4
--- NOTE | 2025-05-13 13:07 | MHC.OFFVIS ---
Vital Signs 05/13/25 13:07 Height 5 ft 6 in Weight 151 lb BMI 24.4 Intake Visit Reasons: PO RT thumb/MF triggers 04/27/25 AR Intake Note: Ruth 55 yr old right hand dominant female presents today for her P/O visit for her right thumb and middle finger trigger release done with Dr. Hdez on 04/27/25. States locking has resolved, she has a little soreness and is working on her ROM. Allergies bees Allergy (Severe, Uncoded 05/13/25 13:11) Anaphylaxis HPI HPI PO RT thumb/MF triggers 04/27/25 AR: Details: Meri is a 55 year old right hand dominant woman who returns S/P right thumb & middle finger trigger release, DOS: 04/27/25. She says she is doing well and no longer has any locking or catching. She has some mild soreness and has been working on her ROM at home. [facility] Medical History Abdominal gas pain Diarrhea Physical exam Reactive airways dysfunction syndrome Seasonal allergic rhinitis due to pollen Ulnar neuropathy Hand numbness Surgical History History of open reduction and internal fixation (ORIF) procedure History of shoulder surgery Family History Mother No problems noted. Father No problems noted. Social History Housing: House Are you a primary career services assistant to a significant other at home: No Do you presently have visiting nurse or other home services: No Alcohol intake: former Patient Tobacco Use Status: Never used Tobacco e-Cigarette/Vaping Use: Never Used Second Hand Smoke Exposure: No service: Yes Current occupational status: employed Current occupation: rt handed, [employer] Current occupational exposures/hazards: No Cognitive needs: No Hearing needs: No Vision needs: Yes Review of Systems Const All systems reviewed & are unremarkable except as noted in HPI and below Physical Exam Vital Signs: BMI result Body Mass Index 24.4 Const General: no acute distress and alert Orientation/consciousness: patient oriented x3 Neuro General: patient oriented x3 Extrem Other: The patient was alert oriented and in no acute distress The incision is healing well with no erythema drainage or evidence of infection. Sutures removed and Steri-Strips applied She is able to make a fist and extend all her digits No locking or catching Sensation is intact Cap refill is brisk Psych Appearance: grossly normal Affect: normal affect Attitude: cooperative Assessment & Plan Assessment & Plan (1) Trigger finger, right middle finger: Code(s): M65.331 - Trigger finger, right middle finger Category: Medical (2) Trigger thumb, right thumb: Code(s): M65.311 - Trigger thumb, right thumb Category: Medical Plan Assessment & Plan: 1. Right trigger thumb, S/P release 2. Right middle finger trigger finger, S/P release DOS: 04/27/25 The patient appears to be doing well post-operatively I educated her about the post-operative course I explained the signs and symptoms of infection, if the patient develops any new or worsening erythema, drainage, pain, or warmth they should contact the clinic or attend the ED. I discussed activity modifications, she is to lift nothing heavier than a cellphone for the next 2 weeks. 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 She was given a note for work to return on light duty with a 2lb weight limit for 2 weeks, effective 05/15/25. She can follow up prn Scribed for Becca Hdez MD by Bladimir Burden, medical referral coordinator, on 05/13/25 at 1:20 PM, EST. Coding Level of Care Code Global (61824) Diagnoses Trigger finger, right middle finger M65.331 Trigger thumb, right thumb M65.311
--- OUTSIDE RECORDS SUMMARY | 2025-05-13 19:48 | XMS_ITS | Clinical Summary ---
Author Organization [facility] Address [address] [employer] [facility] [address] [place] [address] Phone Care Team Providers Care Industrial Relations Officer Name Role Phone Dottie Lemos MD Primary Care Provid er Allergies Active Allergy Reactions Criticality Noted Date Comments Allergen Hwz-Rsukt-Lolar Bee 024 Medications loratadine (CLARITIN) 10 mg [...] Encounters Date Type Department Care Team Description 05/04/2025 1:40 PM EST Telemedicine [facility] Department of Orthopaedic Surgery - [address] [address] Jaycob Hurst PA-C Status post hardware removal (Primary Dx) 04/09/2025 Telephone [facility] Department of Orthopaedic Surgery - [address] [address] Jaycob Hurst PA-C 03/17/2025 2:45 PM EDT Office Visit [facility] Department of Orthopaedic Surgery, Foot & Ankle Service [address], [address] [place] [address] Angelo Villalpando MD Status post ORIF of fracture of ankle (Primary Dx) 03/17/2025 12:46 PM EDT - 03/17/2025 11:59 PM EDT Hospital Encounter [facility] [address], [address] [place] [address] Angelo Villalpando MD Discharge Disposition: Home or Self Care 03/11/2025 Orders Only [facility] Department of Orthopaedic Surgery, Foot & Ankle Service [address], [address] [place] [address] Karsten Mendosa Status post ORIF of fracture of ankle (Primary Dx) 03/03/2025 9:15 AM EDT - 03/03/2025 10:45 AM EDT Surgery [facility] [address] [place] [address] Angelo Villalpando MD RIGHT ANKLE ARTHROSCOPY WITH BRANDO PLACEMENT 03/03/2025 8:49 AM EDT Anesthesia Event [facility] [address] [place] [address] Sam Hackett MD Nichols, Angela S, MD 03/03/2025 6:44 AM EDT - 03/03/2025 11:55 AM EDT Hospital Encounter [facility] [address] [place] [address] Angelo Villalpando MD Discharge Disposition: Home or Self Care 03/03/2025 6:10 AM EDT Ancillary Procedure [facility] Imaging Bedside Ultrasound VRT [address] [place] [address] Mike Stewart MD 03/03/2025 Procedure Pass [facility] [address] [place] [address] 03/02/2025 9:00 AM EDT Pre-Admission Testing [facility] Pre-Procedure Evaluation Department Please [place] [phone] Angelo Villalpando MD 02/19/2025 Prep for Surgery [facility] ORTHOPEDICS VIRTUAL DEPARTMENT [address] [place] [phone] Angelo Villalpando MD from Last 3 Months [...] Care Team (Late st Contact Info) Description 06/29/2025 11:45 AM EST Office Visit [facility] Department of Orthopaedic Surgery, Foot & Ankle Service [address], [address] [place] [address] Angelo Villalpando MD [address] [facility] 2ND [place] [address] [email or web address] Health Maintenance Due Date Last Done Comments [...] INFLUENZA VACCINE (#1) 2025 03/15/2021 COVID-19 VACCINE ( - 2024-2 6 season) 2025 04/25/2021, 07/30/2020, [...] this topic Medical Devices Implanted Type Area Front Desk Specialist Device Identifier Shelf Expiration Date Model / Serial / Lot Screw Spine 2.7x22mm Plate R3con Nonlocking - [id number] Implanted:Qty: 1 on 10/23/2023 by Angelo Villalpando MD at [facility] Right: Ankle [employer] [id number] / / Description:[place] [employer] Plating System, Sterilizer 4, Load 4, 15 Oct 2023 Screw Plate 3.5x14mm R3con Locking - [id number] Implanted:Qty: 3 on 10/23/2023 by Angelo Villalpando MD at [facility] Right: Ankle [employer] [id number] / / Description:[place] [employer] Plating System, Sterilizer 4, Load 4, 15 Oct 2023 Plate Fibular Cluster 9-Hole Anatomical Right - [id number] Implanted:Qty: 1 on 10/23/2023 by Angelo Villalpando MD at [facility] Right: Ankle [employer] [id number] / / Description:[place] [employer] Plating System, Sterilizer 4, Load 4, 15 Oct 2023 Screw Plate 3.5x12mm Nonlocking R3con - [id number] Implanted:Qty: 2 on 10/23/2023 by Angelo Villalpando MD at [facility] Right: Ankle [employer] [id number] / / Description:[place] [employer] Plating System, Sterilizer 4, Load 4, 15 Oct 2023 Screw Spine 3.5x12mm Plate R3con Locking - [id number] Implanted:Qty: 1 on 10/23/2023 by Angelo Villalpando MD at [facility] Right: Ankle [employer] [id number] / / Description:[place] [employer] Plating System, Sterilizer 4, Load 4, 15 Oct 2023 Screw 3.5x14mm Small R3con Non Locking Plate Ijeoma Op Ortho Joints - [id number] Implanted:Qty: 1 on 10/23/2023 by Angelo Villalpando MD at [facility] Right: Ankle [employer] [id number] / / Description:[place] [employer] Plating System, Sterilizer 4, Load 4, 15 Oct 2023 [place] Knotless Syndesmosis Tightrope Xp Lf Titanium Sterile - [id number] Implanted:Qty: 1 on 10/23/2023 by Angelo Villalpando MD at [facility] Right: Ankle [employer] [id number] 07/04/2028 [id number] / / [id number] Graft Bone 1.00ml Biocartilage Synthetic Matrix [place] Extracellular Filler Syringe - [id number] Implanted:Qty: 1 on 03/03/2025 by Angelo Villalpando MD at [facility] Right: Ankle [employer] 03/20/2029 [id number] / [id number] / Procedures Procedure Name Priority Date/Time Associated Diagnosis Comments XR ANKLE 3 OR MORE VIEWS (RIGHT) Routine 03/17/2025 12:59 PM EDT Status post ORIF of fracture of ankle SD REMOVAL IMPLANT DEEP 03/03/2025 8:53 AM EDT Status post open reduction with internal fixation (ORIF) of fracture of ankle SD ANKLE SCOPE,EXTENS DEBRIDEMNT 03/03/2025 8:53 AM EDT Status post open reduction with internal fixation (ORIF) of fracture of ankle SD ANESTHESIA PERIPHERAL BLOCK PLACEHOLDER Routine 03/03/2025 8:38 [...] clinician's provided indication for this examination in [facility]: Pain COMPARISON: XR ANKLE [...] clinician's provided indication for this examination in [facility]:Pain COMPARISON: XR ANKLE 3 [...] XR LOWER EXTREMITY Shannon l Result * SD ANESTHESIA PERIPHERAL BLOCK PLACEHOLDER (03/03/2025 8:38 AM EDT) Narrative Mike Stewart MD - 03/03/2025 8:38 AM EDT Mike Stewart MD 03/03/2025 8:38 AM Peripheral Block Placement Procedure Note: Reason for block: surgeon request and post op pain managment Block performed by: fellow/resident/GAME ADVISOR Anesthesiologist: Sam Hackett MD Fellow/Resident/GAME ADVISOR: Mike Stewart MD [place] Protocol Performed: consent obtained, patient identified with [...] tolerated by the patient. Sam Hackett MD SD ANESTHESIA Final Result * Poct Urine HCG (03/03/2025 8:11 AM EDT) HCG, urine Negative, Internal QCs acceptable Negative [facility] 03/03/2025 8:11 AM EDT us Lily Oliver MD LAB POCT ENTER/EDIT ORDERABL ES Final Result [facility] [address] [place] [address] * ANESTHESIA POINT OF CARE IMAGE CAPTURE (03/03/2025 6:08 AM EDT) Anatomical Region Laterality Modality Ultrasound Narrative 03/03/2025 6:08 AM EDT Mike Stewart MD 03/03/2025 6:08 AM Anesthesia Point of Care Image Capture Performed by: Mike Stewart MD Authorized by: Mike Stewart MD Accession Number: [id number] us Mike Stewart MD IMG POINT OF CARE EXAMS Final R esult from Last 3 Months Insurance [facility] Address: [facility] [id number] [place] [address] [facility] Address: [address] [phone] [facility] Care Teams Industrial Relations Officer Relationship Specialty Start Date End Date Dottie Lemos MD [address] [place] [address] PCP - General Internal Medicine 11/28/21 Additional Source Comments The information contained in this document represents components of the legal health record. It is not the complete legal health record.[facility]
--- OUTSIDE RECORDS SUMMARY | 2025-05-13 19:48 | XMS_ITS | Encounter Summary ---
Author Organization [facility] Address [address] [place] [address] Phone Care Team Providers Care Veterinary Attendant Name Role Phone Dottie Lemos MD Primary Care Provid er Encounter Details Date Type Department Care Team (Late st Contact Info) Description 07/14/2024 Procedure Pass [facility] Scan - [address] [address] Social History Tobacco Use Types Packs/Day Years [...] Description 06/29/2025 11:45 AM EST Office Visit [facility] Department of Orthopaedic Surgery, Foot & Ankle Service [address] [facility], [address] [place] [address] Angelo Villalpando MD [address] [facility] [address]ND [place] [address] [email or web address] documented as of this encounter Visit Diagnoses Not on filedocumented in this encounter Additional Health Concerns Infection Onset Date Last Indicated Resolved Time CoV-Risk 07/19/2024 07/19/2024 07/30/2024 1:23 AM EST documented as of this encounter Care Teams Veterinary Attendant Relationship Specialty Start Date End Date Dottie Lemos MD [address] [place] [address] PCP - General Internal Medicine 11/28/21 documented as of this encounter Additional Source Comments The information contained in this document represents components of the legal health record. It is not the complete legal health record.[facility]
--- OUTSIDE RECORDS SUMMARY | 2025-05-13 19:48 | XMS_ITS | Encounter Summary ---
Author Organization [facility] Address [address] [place] [address] Phone Care Team Providers Care Hoisting Machine Operator Name Role Phone Dottie Lemos MD Primary Care Provid er Encounter Details Date Type Department Care Team (Late st Contact Info) Description 03/03/2025 Procedure Pass [facility] [address] [place] [phone] Social History Tobacco Use Types Packs/Day Years [...] Description 06/29/2025 11:45 AM EST Office Visit [facility] Department of Orthopaedic Surgery, Foot & Ankle Service [address] [facility], [address] [place] [address] Angelo Villalpando MD [address] [facility] 2ND [place] [address] [email or web address] documented as of this encounter Visit Diagnoses Not on filedocumented in this encounter Care Teams Hoisting Machine Operator Relationship Specialty Start Date End Date Dottie Lemos MD [address] [place] [address] PCP - General Internal Medicine 11/28/21 documented as of this encounter Additional Source Comments The information contained in this document represents components of the legal health record. It is not the complete legal health record.[facility]
--- OUTSIDE RECORDS SUMMARY | 2025-05-13 19:48 | XMS_ITS | Encounter Summary ---
Author Organization [facility] Address [address] [facility] [address] [place] [address] Phone Care Team Providers Care Flat Optical Element Maker Name Role Phone Dottie Lemos MD Primary Care Provid er Encounter Details Date Type Department Care Team (Late st Contact Info) Description 10/15/2023 Procedure Pass [facility] [address] [place] [phone] [place] [address] Social History Tobacco Use Types Packs/Day Years [...] Description 06/29/2025 11:45 AM EST Office Visit [facility] Department of Orthopaedic Surgery, Foot & Ankle Service [address] [facility], [address] [place] [address] Angelo Villalpando MD [address] [facility] [address] [place] [address] [email or web address] documented as of this encounter Visit Diagnoses Not on filedocumented in this encounter Additional Health Concerns Infection Onset Date Last Indicated Resolved Time CoV-Risk 07/19/2024 07/19/2024 07/30/2024 1:23 AM EST documented as of this encounter Care Teams Flat Optical Element Maker Relationship Specialty Start Date End Date Dottie Lemos MD [address] [place] [address] PCP - General Internal Medicine 11/28/21 documented as of this encounter Additional Source Comments The information contained in this document represents components of the legal health record. It is not the complete legal health record.[facility]
--- OUTSIDE RECORDS SUMMARY | 2025-05-13 19:49 | XMS_ITS | Encounter Summary ---
Author Organization [facility] Address [address] [place] [address] Phone Care Team Providers Care Recruiting Administrator Name Role Phone Dottie Lemos MD Primary Care Provid er Encounter Details Date Type Department Care Team (Late st Contact Info) Description 10/23/2023 Procedure Pass [facility] [address] [place] [phone] Social History Tobacco Use Types Packs/Day Years [...] 8:11 PM EDT Magalis Kemp RN * [place] Suicide Severity Rating Scale (Screener/Recent Self-Report) Question [...] Description 06/29/2025 11:45 AM EST Office Visit [facility] [place] [place] Department of Orthopaedic Surgery, Foot & Ankle Service [address] [facility], [address] [place] [address] Angelo Villalpando MD [address] [facility] 2ND [place] [address] [email or web address] documented as of this encounter Visit Diagnoses Not on filedocumented in this encounter Additional Health Concerns Infection Onset Date Last Indicated Resolved Time CoV-Risk 07/19/2024 07/19/2024 07/30/2024 1:23 AM EST documented as of this encounter Care Teams Recruiting Administrator Relationship Specialty Start Date End Date Dottie Lemos MD [address] [place] [address] PCP - General Internal Medicine 11/28/21 documented as of this encounter Additional Source Comments The information contained in this document represents components of the legal health record. It is not the complete legal health record.[facility]
== END 2025-05-13 13:31 | disposition home or self-care (01) ==
LOC: HO.HOS 12:52
PROVIDERS: PCP Internal Medicine; Visit Provider Orthopaedic Surgery
DX: M65.331 Trigger finger, right middle finger (principal); M65.311 Trigger thumb, right thumb
CPT/HCPCS: 99024

== ENCOUNTER → 2025-05-13 12:51 | Outpatient (BNVA) | payer OTHER, SELFPAY | PROVIDERS: PCP Internal Medicine; Visit Provider Orthopaedic Surgery | DX: M65.331 Trigger finger, right middle finger (principal); M65.311 Trigger thumb, right thumb; Z98.890 Other specified postprocedural states | CPT/HCPCS: 99212 ==

== ENCOUNTER 2025-05-22 13:38 | Outpatient (AMB) | payer OTHER, SELFPAY ==
[2025-05-22 13:40] VITALS: BP 110/68; PULSE 78; BMI 24.3
--- NOTE | 2025-05-22 13:40 | A.OFFVIS_ITS ---
Vital Signs 05/22/25 13:40 Height 5 ft 6 in Weight 150 lb 12.739 oz BMI 24.3 BP 110/68 Blood Pressure Location Rt brachial Position Sitting Pulse 78 Intake Visit Reasons: 6w Intake Note: Patient last seen in March. Reports GERD improvement with txt. Taking CREON, needs refills on Pantoprazole, dicyclomine. Patient c/o: intermittent nausea. Requeting refill on Zofran. Metallography Teacher Required: No Accompanied by: Self / Same As Patient Allergies bees Allergy (Severe, Uncoded 05/22/25 13:49) Anaphylaxis HPI HPI 6w: Details: Assessment & Plan (1) GERD (gastroesophageal reflux disease): Code(s): K21.9 - Gastro-esophageal reflux disease without esophagitis Category: Medical (2) Dysphagia: Code(s): R13.10 - Dysphagia, unspecified Category: Medical Plan HER CURRENT GI REGIMEN CONSISTS of Creon, dicyclomine and famotidine - The patient is a 55-year-old female presenting with a follow-up for Gastroesophageal Reflux Disease (GERD) and postoperative care. - She experienced exacerbated GERD symptoms in the past when she was not on famotidine. Upon starting famotidine after surgery, symptoms improved, particularly with increased frequency of intake. - She experiences a globus sensation, particularly at night, indicative of acid reflux and likely correlated with her GERD diagnosis. - The patient reports a resolution of prior significant diarrhea episodes, likely associated with dietary management and medication adherence. Return office visit in 7 weeks Orders: Referrals GI Procedure Notification R13.10 - Dysphagia, unspecified, K21.9 - Gastro- esophageal reflux disease without esophagitis Medications: New pantoprazole (Protonix) 40 mg PO DAILY 30 tabs 6RF 30 days K21.9 - Gastro- esophageal reflux disease without esophagitis Changed From famotidine 40 mg PO BEDTIME 30 tabs 6RF To famotidine (Pepcid) 40 mg PO BID 60 tabs 6RF From rwhlgm-wdwtzesa-gfqzvrf (pork) 24,000-76,000 -120,000 unit 3 caps PO BID 30 days 180 caps 6RF K58.9 - Irritable bowel syndrome, unspecified To qauhll-uzonnnfe-jpabioi (pork) 24,000-76,000 -120,000 unit (Creon) 3 caps PO BID 180 caps 6RF 30 days K58.9 - Irritable bowel syndrome, unspecified Refilled dicyclomine 20 mg PO QID 120 tabs 6RF TODAYS VISIT [facility] Medical History Abdominal gas pain Diarrhea Physical exam Reactive airways dysfunction syndrome Seasonal allergic rhinitis due to pollen Ulnar neuropathy Hand numbness Surgical History History of open reduction and internal fixation (ORIF) procedure History of shoulder surgery Family History Mother No problems noted. Father No problems noted. Social History Housing: House Are you a primary nursing care partner to a significant other at home: No Do you presently have visiting nurse or other home services: No Alcohol intake: former Patient Tobacco Use Status: Never used Tobacco e-Cigarette/Vaping Use: Never Used Second Hand Smoke Exposure: No service: Yes Current occupational status: employed Current occupation: [employer] Current occupational exposures/hazards: No Cognitive needs: No Hearing needs: No Vision needs: Yes Physical Exam Vital Signs: Last Vital Signs Pulse 78 05/22/25 13:40 BP 110/68 05/22/25 13:40 BMI result Body Mass Index 24.3 Assessment & Plan Assessment & Plan (1) GERD (gastroesophageal reflux disease): Code(s): K21.9 - Gastro-esophageal reflux disease without esophagitis Category: Medical (2) Exocrine pancreatic insufficiency: Code(s): K86.81 - Exocrine pancreatic insufficiency Category: Medical Plan HER CURRENT GI REGIMEN CONSISTS of Creon, dicyclomine and famotidine Subjective Patient reports significant improvement on current regimen; symptoms are almost non-existent with many good days and no bad days. Residual issue is intermittent noisy bowel activity in the mornings after eating, described as bowels waking up. She is not typically hungry early and has been delaying breakfast to around 10:00 a.m. while having coffee, which is working well. Medications are reported as working well overall. History of acid reflux. Objective Assessment & Plan Acid reflux: Symptoms significantly improved on current therapy. - Continue pantoprazole in the morning - Continue famotidine at night - Upper endoscopy scheduled for July 17; review results at follow-up - Follow-up visit scheduled for July 24 at 11:15 Bowel cramping/noisy bowel symptoms: Markedly improved; occasional morning postprandial borborygmi. - Continue dicyclomine as needed; may trial dosing in the morning or at bedtime based on symptom pattern - Continue Creon, 2?3 capsules twice daily COLONOSCOPY 07/17/2025 BIOPSY Medications: Refilled famotidine (Pepcid) 40 mg PO BID 60 tabs 6RF mfwpto-wiceeiri-yxtxkow (pork) 24,000-76,000 -120,000 unit (Creon) 3 caps PO BID 180 caps 6RF 30 days K58.9 - Irritable bowel syndrome, unspecified pantoprazole (Protonix) 40 mg PO DAILY 30 tabs 6RF 30 days K21.9 - Gastro- esophageal reflux disease without esophagitis dicyclomine 20 mg PO QID 120 tabs 6RF Coding Level of Care Code Est Pt Level 3 (98534) Diagnoses GERD (gastroesophageal reflux disease) K21.9 Exocrine pancreatic insufficiency K86.81
--- OUTSIDE RECORDS SUMMARY | 2025-05-22 15:23 | XMS_ITS | Encounter Summary ---
Author Organization [facility] Address [address] [place] [address] Phone Care Team Providers Care Superintendent Meters Name Role Phone Dottie Lemos MD Primary Care Provid er Encounter Details Date Type Department Care Team (Late st Contact Info) Description 03/03/2025 Procedure Pass [facility] [address] [place] [phone] Social History Tobacco Use Types Packs/Day Years [...] Description 06/29/2025 11:45 AM EST Office Visit [facility] Orthopaedic Surgery Foot and Ankle Service [address] [facility], [address] [place] [address] Angelo Villalpando MD [address] [facility] [address] [address] [email or web address] documented as of this encounter Visit Diagnoses Not on filedocumented in this encounter Care Teams Superintendent Meters Relationship Specialty Start Date End Date Dottie Lemos MD [address] [place] [address] PCP - General Internal Medicine 11/28/21 documented as of this encounter Additional Source Comments The information contained in this document represents components of the legal health record. It is not the complete legal health record.[facility]
--- OUTSIDE RECORDS SUMMARY | 2025-05-22 15:23 | XMS_ITS | Encounter Summary ---
Author Organization [facility] Address [address] [facility] [address] [place] [address] Phone Care Team Providers Care Mink Rancher Name Role Phone Dottie Lemos MD Primary Care Provid er Encounter Details Date Type Department Care Team (Late st Contact Info) Description 10/23/2023 Procedure Pass [facility] [address] [phone] Social History Tobacco Use Types Packs/Day Years [...] Description 06/29/2025 11:45 AM EST Office Visit [facility] Orthopaedic Surgery Foot and Ankle Service [address] [facility], [address] [place] [address] Angelo Villalpando MD [address] [facility] [address] [place] [address] [email or web address] documented as of this encounter Visit Diagnoses Not on filedocumented in this encounter Additional Health Concerns Infection Onset Date Last Indicated Resolved Time CoV-Risk 07/19/2024 07/19/2024 07/30/2024 1:23 AM EST documented as of this encounter Care Teams Mink Rancher Relationship Specialty Start Date End Date Dottie Lemos MD [address] [place] [address] PCP - General Internal Medicine 11/28/21 documented as of this encounter Additional Source Comments The information contained in this document represents components of the legal health record. It is not the complete legal health record.[facility]
--- OUTSIDE RECORDS SUMMARY | 2025-05-22 15:23 | XMS_ITS | Encounter Summary ---
Author Organization [facility] Address [address] [facility] [address] [place] [address] Phone Care Team Providers Care Career And Technology Education Teacher Name Role Phone Dottie Lemos MD Primary Care Provid er Encounter Details Date Type Department Care Team (Late st Contact Info) Description 10/15/2023 Procedure Pass [facility] [id number] [place] [address] Social History Tobacco Use Types Packs/Day Years [...] Description 06/29/2025 11:45 AM EST Office Visit [facility] Orthopaedic Surgery Foot and Ankle Service [address] [facility], [address] [place] [address] Angelo Villalpando MD [address] [facility] [address] [place] [address] [email or web address] documented as of this encounter Visit Diagnoses Not on filedocumented in this encounter Additional Health Concerns Infection Onset Date Last Indicated Resolved Time CoV-Risk 07/19/2024 07/19/2024 07/30/2024 1:23 AM EST documented as of this encounter Care Teams Career And Technology Education Teacher Relationship Specialty Start Date End Date Dottie Lemos MD [address] [place] [address] PCP - General Internal Medicine 11/28/21 documented as of this encounter Additional Source Comments The information contained in this document represents components of the legal health record. It is not the complete legal health record.[facility]
--- OUTSIDE RECORDS SUMMARY | 2025-05-22 15:23 | XMS_ITS | Clinical Summary ---
Author Organization [facility] Address [address] [facility] [address] [place] [address] Phone Care Team Providers Care Bridge Construction Inspector Name Role Phone Dottie Lemos MD Primary Care Provid er Allergies Active Allergy Reactions Criticality Noted Date Comments Allergen Wpn-Cgids-Icbhv Bee 024 Medications loratadine (CLARITIN) 10 mg [...] taking.Reported on 07/19/2024 traMADoL (ULTRAM) 50 mg tabletIndications: Status post [...] Team Description 05/04/2025 1:40 PM EST Telemedicine [facility] [address] [place] [address] Jaycob Hurst PA-C Status post hardware removal (Primary Dx) 04/09/2025 Telephone [facility] [address] [facility] [address] [place] [address] Jaycob Hurst PA-C 03/17/2025 2:45 PM EDT Office Visit [facility] Orthopaedic Surgery Foot [facility] Ankle Service [address] [facility], [address] [place] [address] Angelo Villalpando MD Status post ORIF of fracture of ankle (Primary Dx) 03/17/2025 12:46 PM EDT - 03/17/2025 11:59 PM EDT Hospital Encounter [facility] [address] [facility], [address] [place] [address] Angelo Villalpando MD Discharge Disposition: Home or Self Care 03/11/2025 Orders Only [facility] Surgery Foot and Ankle Service [address] [facility], [address] [facility] [place] [address] Karsten Mendosa Status post ORIF of fracture of ankle (Primary Dx) 03/03/2025 9:15 AM EDT - 03/03/2025 10:45 AM EDT Surgery [facility] [address] [place] [address] Angelo Villalpando MD RIGHT ANKLE ARTHROSCOPY WITH BRANDO PLACEMENT 03/03/2025 8:49 AM EDT Anesthesia Event [facility] [address] [place] [address] Sam Hackett MD Nichols, Angela S, MD 03/03/2025 6:44 AM EDT - 03/03/2025 11:55 AM EDT Hospital Encounter [facility] [address] [place] [address] Angelo Villalpando MD Discharge Disposition: Home or Self Care 03/03/2025 6:10 AM EDT Ancillary Procedure [facility] Imaging Bedside Ultrasound VRT [address] [place] [address] Mike Stewart MD 03/03/2025 Procedure Pass [facility] [address] [place] [address] 03/02/2025 9:00 AM EDT Pre-Admission Testing [facility] Pre-Procedure Evaluation Department Please See Appointment Details [place] [phone] Angelo Villalpando MD from Last 3 Months [...] Description 06/29/2025 11:45 AM EST Office Visit [facility] Orthopaedic Surgery Foot [facility] Ankle Service [address] [facility] [place] [id number] Angelo Villalpando MD [address] [facility] [address]ND [place] [address] [email or web address] Health Maintenance Due Date Last Done Comments [...] this topic Medical Devices Implanted Type Area Heavy Duty Mechanic Farm Equipment Device Identifier Shelf Expiration Date Model / Serial / Lot Screw Spine 2.7x22mm Plate R3con Nonlocking - [id number] Implanted:Qty: 1 on 10/23/2023 by Angelo Villalpando MD at [facility] Right: Ankle [employer] [id number] / / Description:[place] 28 RECON Plating System, Sterilizer 4, Load 4, 15 Oct 2023 Screw Plate 3.5x14mm R3con Locking - [id number] Implanted:Qty: 3 on 10/23/2023 by Angelo Villalpando MD at [facility] Right: Ankle [employer] [id number] / / Description:[place] 28 [employer] Plating System, Sterilizer 4, Load 4, 15 Oct 2023 Plate Fibular Cluster 9-Hole Anatomical Right - [id number] Implanted:Qty: 1 on 10/23/2023 by Angelo Villalpando MD at [facility] Right: Ankle [employer] [id number] / / Description:[place] 28 [employer] Plating System, Sterilizer 4, Load 4, 15 Oct 2023 Screw Plate 3.5x12mm Nonlocking R3con - [id number] Implanted:Qty: 2 on 10/23/2023 by Angelo Villalpando MD at [facility] Right: Ankle [employer] [id number] / / Description:[place] 28 [employer] Plating System, Sterilizer 4, Load 4, 15 Oct 2023 Screw Spine 3.5x12mm Plate R3con Locking - [id number] Implanted:Qty: 1 on 10/23/2023 by Angelo Villalpando MD at [facility] Right: Ankle [employer] [id number] / / Description:[place] 28 RECON Plating System, Sterilizer 4, Load 4, 15 Oct 2023 Screw 3.5x14mm Small R3con Non Locking Plate Ijeoma Op Ortho Joints - [id number] Implanted:Qty: 1 on 10/23/2023 by Angelo Villalpando MD at [facility] Right: Ankle [employer] [id number] / / Description:[place] 28 [employer] Plating System, Sterilizer 4, Load 4, 15 Oct 2023 [place] Knotless Syndesmosis Tightrope Xp Lf Titanium Sterile - [id number] Implanted:Qty: 1 on 10/23/2023 by Angelo Villalpando MD at [facility] Right: Ankle [employer] [id number] 07/04/2028 [id number] / / [id number] Graft Bone 1.00ml Biocartilage Synthetic Matrix [place] Extracellular Filler Syringe - [id number] Implanted:Qty: 1 on 03/03/2025 by Angelo Villalpando MD at [facility] Right: Ankle [employer] 03/20/2029 [id number] / [id number] / Procedures Procedure Name Priority Date/Time Associated Diagnosis Comments XR ANKLE 3 OR MORE VIEWS (RIGHT) Routine 03/17/2025 12:59 PM EDT Status post ORIF of fracture of ankle [place] REMOVAL IMPLANT DEEP 03/03/2025 8:53 AM EDT Status post open reduction with internal fixation (ORIF) of fracture of ankle [place] ANKLE SCOPE,EXTENS DEBRIDEMNT 03/03/2025 8:53 AM EDT Status post open reduction with internal fixation (ORIF) of fracture of ankle [place] ANESTHESIA PERIPHERAL BLOCK PLACEHOLDER Routine 03/03/2025 8:38 [...] clinician's provided indication for this examination in [facility]: Pain COMPARISON: XR ANKLE 3 OR [...] clinician's provided indication for this examination in [facility]:Pain COMPARISON: XR ANKLE 3 OR MORE [...] XR LOWER EXTREMITY Shannon l Result * MI ANESTHESIA PERIPHERAL BLOCK PLACEHOLDER (03/03/2025 8:38 AM EDT) Narrative Mike Stewart MD - 03/03/2025 8:38 AM EDT Mike Stewart MD 03/03/2025 8:38 AM Peripheral Block Placement Procedure Note: Reason for block: surgeon request and post op pain managment Block performed by: fellow/resident/LANGUAGE TEACHER Anesthesiologist: Sam Hackett MD Fellow/Resident/LANGUAGE TEACHER: Mike Stewart MD [place] Protocol Performed: consent obtained, patient identified with [...] tolerated by the patient. Sam Hackett MD MI ANESTHESIA Final Result * Poct Urine HCG (03/03/2025 8:11 AM EDT) HCG, urine Negative, Internal QCs acceptable Negative [facility] 03/03/2025 8:11 AM EDT Lily Oliver MD LAB POCT ENTER/EDIT ORDERABL ES Final Result [facility] [address] [place] [address] * ANESTHESIA POINT OF CARE IMAGE CAPTURE (03/03/2025 6:08 AM EDT) Anatomical Region Laterality Modality Ultrasound Narrative 03/03/2025 6:08 AM EDT Mike Stewart MD 03/03/2025 6:08 AM Anesthesia Point of Care Image Capture Performed by: Mike Stewart MD Authorized by: Mike Stewart MD Accession Number: [id number] Mike Stewart MD IMG POINT OF CARE EXAMS Final R esult from Last [address] [place] [address] [facility] Care Teams Bridge Construction Inspector Relationship Specialty Start Date End Date Dottie Lemos MD [address] [place] [address] PCP - General Internal Medicine 11/28/21 Additional Source Comments The information contained in this document represents components of the legal health record. It is not the complete legal health record.[facility]
--- OUTSIDE RECORDS SUMMARY | 2025-05-22 15:23 | XMS_ITS | Encounter Summary ---
Author Organization [facility] Address [address] [place] [address] Phone Care Team Providers Care Change Management Lead Name Role Phone Dottie Lemos MD Primary Care Provid er Encounter Details Date Type Department Care Team (Late st Contact Info) Description 07/14/2024 Procedure Pass [facility] Scan - [address] [address] Social History Tobacco Use Types Packs/Day Years [...] Description 06/29/2025 11:45 AM EST Office Visit [facility] Orthopaedic Surgery Foot [facility] Ankle Service [address] [facility], [address] [place] [address] Angelo Villalpando MD [address] [facility] [address] [place] [address] [email or web address] documented as of this encounter Visit Diagnoses Not on filedocumented in this encounter Additional Health Concerns Infection Onset Date Last Indicated Resolved Time CoV-Risk 07/19/2024 07/19/2024 07/30/2024 1:23 AM EST documented as of this encounter Care Teams Change Management Lead Relationship Specialty Start Date End Date Dottie Lemos MD [address] [place] [address] PCP - General Internal Medicine 11/28/21 documented as of this encounter Additional Source Comments The information contained in this document represents components of the legal health record. It is not the complete legal health record.[facility]
== END 2025-05-22 14:22 | disposition home or self-care (01) ==
LOC: HO.HGI 13:39
PROVIDERS: PCP Internal Medicine; Visit Provider Nurse Practitioner
DX: K21.9 Gastro-esophageal reflux disease without esophagitis (principal); K86.81 Exocrine pancreatic insufficiency
CPT/HCPCS: 99213

== ENCOUNTER → 2025-05-22 13:38 | Outpatient (BNVA) | payer OTHER, SELFPAY | PROVIDERS: PCP Internal Medicine; Visit Provider Nurse Practitioner | DX: K21.9 Gastro-esophageal reflux disease without esophagitis (principal); K86.81 Exocrine pancreatic insufficiency | CPT/HCPCS: 99212 ==